=== PATIENT | male | born 1935 | race Caucasian/White ===

== ENCOUNTER 2017-02-01 18:09 | Inpatient (IN) | payer MEDICARE, MEDICAID ==
[~2017-02-01] VITALS: Ht 167.6 cm; Wt 60.8 kg
[~2017-02-01 18:09] MED LIST: ALBU2.5V13 NEB; AMLO5TAB4 PO; ASPI81TA44 PO; BISA10SU15 RC; CELE200C PO; DOCU250C89 PO; Ipratropium Bromide NEB; METF500T4 PO; Nutritional Supplement/Fiber GT; OLME1TAB PO; OMEP20CA4 PO; TAMS-12 PO
--- NOTE | 2017-02-01 18:31 | NUR ---
PT ALTERED BUT USUAL PER CAREGIVER, PT ON MONTIOR, PT CAREGIVER STATES SHE WAS CLEANING HIS EARS 2 DAYS AGO AND HE HAS BEEN HVAING A PAIN FACE SINCE, PT IS NON VERBAL, PT IS ON MONITOR, VSS, PT CAREGIVER AT BEDSIDE, MD MADE AWARE WILL CONTINUE TO MONITOR.
[2017-02-01 18:36] LABS: APPEARANCE,URINE Slightly Cloudy (CLEAR); BILIRUBIN,URINE Negative (NEGATIVE); BLOOD, URINE Trace-intact Ery/uL (NEGATIVE); COLOR,URINE Yellow (YELLOW); KETONES,URINE Negative (NEGATIVE); LEUKOCYTE ESTERASE ,URINE Moderate (NEGATIVE); NITRITE, URINE Positive (NEGATIVE); PROTEIN,URINE Negative (NEGATIVE); UGLUCOSE Negative (NEGATIVE); UROBILINOGEN,URINE 0.2 EU/dL (0.2)
[2017-02-01 18:41] LABS: BASOPHILS # (AUTO) 0.1 /CMM (0.0-0.2); BASOPHILS % (AUTO) 0.3 % (0.0-2.0); CALCIUM, SERUM 9.4 mg/dL (8.5-10.1); CREATININE 0.7 mg/dL (0.6-1.3); EOSINOPHILS # (AUTO) 1.8 /CMM (0.0-0.7); EOSINOPHILS % (AUTO) 9.3 % (0.0-6.0); HEMATOCRIT 40 % (39-51); HEMOGLOBIN 13.4 g/dL (13.5-17.5); LYMPHOCYTES # (AUTO) 1.4 /CMM (0.8-4.8); LYMPHOCYTES % (AUTO) 7.4 % (20.0-44.0); MEAN CORPUSCULAR HEMOGLOBIN 30 PG (26.0-33.0); MEAN CORPUSCULAR HGB CONC 34 g/dl (31.0-36.0); MEAN CORPUSCULAR VOLUME 89 fL (80-96); MONOCYTES # (AUTO) 0.5 /CMM (0.1-1.30); MONOCYTES % (AUTO) 2.5 % (2.0-12.0); NEUTROPHILS # (AUTO) 15.1 /CMM (1.8-8.9); NEUTROPHILS % (AUTO) 80.5 % (43.0-81.0); PLATELET COUNT (AUTO) 322 /CMM (150-450); POTASSIUM 3.7 mmol/L (3.5-5.1); RDW COEFFICIENT OF VARIATION 15.9 (11.5-15.0); RED BLOOD CELL COUNT(AUTO) 4.51 MIL/uL (4.5-6.0); WHITE BLOOD COUNT (AUTO) 18.9 K/uL (4.3-11.0)
[2017-02-01 18:54] LABS: ADD URINE CULTURE YES; BACTERIA,URINE Many /HPF (None Seen); SQUAMOUS EPITHELIAL CELL,UR Few /HPF (None Seen)
[2017-02-01] MEDS ORDERED: IV NS 0.9% 1,000 ML BAG IV ONE (20:00)
[2017-02-01] MEDS ORDERED: CEFTRIAXONE 1GM BAG (ER ONLY) 1 GM/50 ML PIGGYBACK IV ONE (20:00)
--- NOTE | 2017-02-01 20:15 | NUR ---
CALLED NURSING SUP. FOR TELE BED
[2017-02-01] MEDS ORDERED: CEFTRIAXONE 1GM BAG (ER ONLY) 50 ML IV ONE (20:26)
--- NOTE | 2017-02-01 20:26 | NUR ---
[facility] PAGED, DR.VU LINARES [employer] CONSULTANT
[2017-02-01] MEDS ORDERED: IV SET PRIMARY 1 EA INFUS.SET MC ONE (20:27)
[2017-02-01] MEDS ORDERED: IV NS 0.9% 2,000 ML ONE (20:27)
--- NOTE | 2017-02-01 20:36 | NUR ---
PT IN NO APPARENT DISTRESS FAMILY MEMEBER AT BEDSIDE VSS WILL CONTINUE TO MONTIOR.
--- NOTE | 2017-02-01 20:44 | NUR ---
PT GOING TO TELE 112-1 FOR UTI
[2017-02-01] MEDS ORDERED: ZOLPIDEM TARTRATE 5 MG TABLET PO PRN (21:00)
[2017-02-01] MEDS ORDERED: ACETAMINOPHEN 325 MG TABLET PO PRN (21:00)
[2017-02-01] MEDS ORDERED: HYDROCODONE/APAP 5/325MG 1 EACH TABLET PO PRN (21:00)
[2017-02-01] MEDS ORDERED: Z GUARD REMEDY 2 OZ OINT TP PRN (21:00)
[2017-02-01] MEDS ORDERED: CEFTRIAXONE 1 G in IV D5W 50 ML IV SCH (21:00)
[2017-02-01] MEDS ORDERED: MAGNESIUM HYDROXIDE 30 ML UDC PO PRN (21:00)
[2017-02-01] MEDS ORDERED: ONDANSETRON HCL/PF 4 MG/2 ML VIAL IVP PRN (21:00)
[2017-02-01] MEDS ORDERED: MAG HYDROX/AL HYDROX/SIMETH 30 ML UDC PO PRN (21:00)
--- NOTE | 2017-02-01 21:10 | NUR ---
RN OPENING NOTES: RECEIVED PT FROM ER VIA GURNEY, PT AWAKE WITH DAUGHTER AT BEDSIDE. PT ADMITTED FOR ACUTE ENCEPHALOPATHY AND PNEUMONIA CARE OF DR LINARES. SAFELY TRANSFERRED TO BED. PT APHASIC, WIT SPONTANEOUS EYE OPENING RESPONDS TO TACTILE STIMULI. IV ACCESS NOTED ON LEFT FA G18 WITH ONGOING IV NS BOLUS AND ROCEPHIN ONGOING WELL. WITH CONDOM CATH ON, CONNECTED TO A CLOSED SYSTEM. SKIN CARE RENDERED; SKIN ISSUES PHOTOGRAPHED AND FILED ON CHART. VERIFIED WITH DAUGHTER RE PATIENT'S MEDICATION. PER DAUGHTER/ PT'S PRIMARY CAREGIVER HE DOES NOT TAKE FLOMAX AND METFORMIN. TO INFORM MD. FLOMAX NOT GIVEN AT THIS TIME. SAFETY MEASURES ENSURED. ASPIRATION PREC OBSERVED AT ALL TIMES. HOB ELEVATED. CONTINUOUSLY MONITORED PT. DAUGHTER REMAINS AT BEDSIDE.
[2017-02-01 21:16] VITALS: BP 164/88
[2017-02-01] MEDS ORDERED: NUTRITIONAL SUPPLEMENT GT PRN (21:30)
[2017-02-01] MEDS ORDERED: METFORMIN 500 MG TABLET PO SCH (21:30)
[2017-02-01] MEDS ORDERED: [UNRECOGNIZED DRUG - OTHER] GT PRN (21:30)
[2017-02-01] MEDS ORDERED: BISACODYL SUPP (10 MG) 10 MG/SUPP.RECT SUPP.RECT RC SCH (21:30)
[2017-02-01] MEDS ORDERED: DEXTROSE 50%-WATER 50 ML DISP.SYRIN IV PRN (21:30)
[2017-02-01] MEDS ORDERED: TAMSULOSIN 0.4 MG CAP.SR.24H PO SCH (22:00)
[2017-02-01] MEDS ORDERED: ENOXAPARIN SODIUM 40 MG/0.4 ML DISP.SYRIN SQ ONE (22:23)
[2017-02-01] MEDS ORDERED: IV SET PRIMARY PUMP SET 1 EA INFUS.SET MC ONE (22:27)
[2017-02-01] MEDS ORDERED: SECONDARY IV SET 1 EA INFUS.SET MC ONE (22:27)
[2017-02-01] MEDS ORDERED: IV NS 0.9% 1,000 ML ONE (22:27)
[2017-02-01] MEDS: ENOXAPARIN SODIUM 40 MG/0.4 ML DISP.SYRIN SQ SCH (22:33)
[2017-02-01] MEDS: IV NS 0.9% 1,000 ML IV PRN (22:33)
[2017-02-01] MEDS ORDERED: AZITHROMYCIN 500 MG VIAL ONE (22:46)
[2017-02-01] MEDS ORDERED: IV D5W 250 ML IV ONE (22:50)
[2017-02-01] MEDS: AZITHROMYCIN 500 MG in IV D5W 250 ML IV SCH (23:31)
[2017-02-01] MEDS: BLOOD SUGAR DIAGNOSTIC 1 EACH STRIP IN SCH (23:31)
--- NOTE | 2017-02-02 01:30 | NUR ---
RN NOTES: PER PATIENT'S DAUGHTER, PATIENT HAS BEEN GETTING FIBERSOURCE 6 CANS A DAY, AND THAT SHE WOULD LIKE TO HAVE THE TUBE REPLACED THAT ALTHOUGH TUBE IS WORKING WELL, IT IS OLD AND HAS A TEAR ON THE END PART. GT CHECKED NOTED PATENT AND INTACT. DR LINARES AWARE, FOR GI CONSULT IN AM. PER DR LINARES, OK TO START PT ON FIBERSOURCE TUBE FEEDING AT 60CC/HR AND HAVE DIETARY FOLLOW UP FOR FEEDING ADJUSTMENT. ORDER NOTED AND CARRIED OUT. STARTED FEEDING AT A RATE OF 30CC/HR AT THIS TIME. TO MONITOR FOR TOLERANCE TO FEEDING. ASPIRATION PREC OBSERVED; CONTINUOUSLY MONITORED PT.
[2017-02-02] MEDS ORDERED: DIAZ2TAB PO (01:48)
[2017-02-02] MEDS ORDERED: OLME20TA15 PO (01:48)
[2017-02-02] MEDS ORDERED: BACL10TA PO (01:48)
[2017-02-02] MEDS: FIBERSOURCE HN 1,000 ML BOTTLE GT PRN (01:49)
[2017-02-02 04:00] VITALS: BP 149/52
[2017-02-02] MEDS: BLOOD SUGAR DIAGNOSTIC 1 EACH STRIP IN SCH ×4 (05:30→23:12)
[2017-02-02 06:57] LABS: BASOPHILS % (AUTO) 0.2 % (0.0-2.0); EOSINOPHILS # (AUTO) 1.6 /CMM (0.0-0.7); EOSINOPHILS % (AUTO) 10.8 % (0.0-6.0); HEMATOCRIT 35 % (39-51); HEMOGLOBIN 11.6 g/dL (13.5-17.5); MEAN CORPUSCULAR HEMOGLOBIN 29 PG (26.0-33.0); MEAN CORPUSCULAR HGB CONC 33 g/dl (31.0-36.0); MEAN CORPUSCULAR VOLUME 90 fL (80-96); MONOCYTES # (AUTO) 0.6 /CMM (0.1-1.30); MONOCYTES % (AUTO) 3.8 % (2.0-12.0); NEUTROPHILS # (AUTO) 11.5 /CMM (1.8-8.9); NEUTROPHILS % (AUTO) 78.2 % (43.0-81.0); PLATELET COUNT (AUTO) 270 /CMM (150-450); RDW COEFFICIENT OF VARIATION 16.3 (11.5-15.0); RED BLOOD CELL COUNT(AUTO) 3.95 MIL/uL (4.5-6.0); WHITE BLOOD COUNT (AUTO) 14.7 K/uL (4.3-11.0)
--- NOTE | 2017-02-02 07:00 | NUR ---
RECEIVED PT IN BED ,NO C/O PAIN,NO S/S OF DISTRESS,BREATHING EVEN AND UNLABORED ON 2LPM VIA N.C. G.TUBE SITE CDI AND INTACT.SAFETY MEASURES IN PLACE ,BED IN LOW AND LOCK POSITION.WILL CONTINUE TO MONITOR FOR CHANGES.
--- NOTE | 2017-02-02 07:07 | NUR ---
RN CLOSING NOTES: PT REMAINED IN BED NOT IN APPARENT DISTRESS. ON O2 VIA NC AT 2LPM. IV ACCESS REMAINED IN INTACT IVF INFUSING ORDERED. GT INTACT, FEEDING ONGOING. SAFETY MEASURES ENSURED. ASPIRATION PREC OBSERVED. SKIN CARE RENDERED.ENDORSED TO AM SHIFT RN
[2017-02-02 07:14] LABS: ALBUMIN 2.5 g/dL (3.4-5.0); BILIRUBIN,TOTAL 0.6 mg/dL (0.2-1.0); CALCIUM, SERUM 8.7 mg/dL (8.5-10.1); CREATININE 0.5 mg/dL (0.6-1.3); PHOSPHORUS 2.6 mg/dL (2.5-4.9); POTASSIUM 3.5 mmol/L (3.5-5.1)
[2017-02-02] MEDS ORDERED: PANTOPRAZOLE 40 MG TABLET.DR PO SCH (07:30)
[2017-02-02 08:00] VITALS: BP 138/77
[2017-02-02] MEDS ORDERED: ZOLPIDEM TARTRATE 5 MG TABLET GT PRN (08:31)
[2017-02-02] MEDS ORDERED: MAG HYDROX/AL HYDROX/SIMETH 30 ML UDC GT PRN (08:32)
[2017-02-02] MEDS ORDERED: MAGNESIUM HYDROXIDE 30 ML UDC GT PRN (08:33)
[2017-02-02] MEDS ORDERED: HYDROCODONE/APAP 5/325MG 1 EACH TABLET GT PRN (08:35)
[2017-02-02] MEDS: DOCUSATE SODIUM LIQ 100 MG/10 ML UDC GT SCH ×2 (08:56→16:24)
[2017-02-02] MEDS ORDERED: DOCUSATE SODIUM 250 MG CAPSULE PO SCH (09:00)
[2017-02-02] MEDS ORDERED: AMLODIPINE BESYLATE 5 MG TABLET PO SCH (09:00)
[2017-02-02] MEDS ORDERED: ASPIRIN EC 81 MG TABLET.DR PO SCH (09:00)
[2017-02-02] MEDS: AMLODIPINE BESYLATE 5 MG TABLET GT SCH (09:03)
[2017-02-02] MEDS: ASPIRIN 81 MG TAB.CHEW GT SCH (09:51)
[2017-02-02] MEDS: PANTOPRAZOLE 40 MG/PACK PACK GT SCH (09:51)
[2017-02-02] MEDS: BACLOFEN (10 MG) 10 MG TABLET PO SCH (10:52)
[2017-02-02 12:00] VITALS: BP 138/77
[2017-02-02] MEDS: IV NS 0.9% 1,000 ML IV PRN (14:11)
[2017-02-02 16:00] VITALS: BP 141/79
[2017-02-02] MEDS: DIAZEPAM 2 MG TABLET PO SCH (16:24)
--- NOTE | 2017-02-02 19:48 | NUR ---
RN NOTE : PT IN BED WITH EYES CLOSED, OPENS EYES ON TACTILE STIMULATION, APHASIC. NO SOB, NO DISTRESS OR DISCOMFORT NOTED. NO S/S OF PAIN NOTED. GT FEEDING FIBERSOURCE INFUSING AT 60 ML/HR, 0 ML RESIDUAL NOTED. KEPT HOB ELEVATED. MEPILEX ON LT HIP AND SACRAL INTACT. REPOSITION HIM Q2H. KEPT HIM DRY AND CLEAN. ALL NEEDS ATTENDED. SIDE RAILS UP X 3 AND CALL LIGHT WITHIN REACH. CONTINUE TO MONITOR HIM.
[2017-02-02 20:00] VITALS: BP 158/83
[2017-02-02 20:07] VITALS: BP 158/83
[2017-02-02] MEDS ORDERED: SECONDARY IV SET 1 EA INFUS.SET MC ONE (20:50)
[2017-02-02] MEDS: AZITHROMYCIN 500 MG in IV D5W 250 ML IV SCH (20:51)
[2017-02-02] MEDS: ENOXAPARIN SODIUM 40 MG/0.4 ML DISP.SYRIN SQ SCH (20:55)
[2017-02-02] MEDS: TAMSULOSIN 0.4 MG CAP.SR.24H GT SCH (21:31)
[2017-02-02] MEDS ORDERED: CEFTRIAXONE 1 G in IV D5W 50 ML IV SCH (23:00)
[2017-02-03] MEDS: FIBERSOURCE HN 1,000 ML BOTTLE GT PRN (00:40)
[2017-02-03 04:00] VITALS: BP 152/91
[2017-02-03] MEDS: BLOOD SUGAR DIAGNOSTIC 1 EACH STRIP IN SCH ×4 (05:28→23:24)
--- NOTE | 2017-02-03 05:37 | NUR ---
MS RN NOTE BLOODSUGAR 165, HELD INSULIN COVERAGE DUE TO PT WILL BE NPO AFTER 8 AM.
[2017-02-03] MEDS: IV NS 0.9% 1,000 ML IV PRN ×2 (05:59→17:58)
--- NOTE | 2017-02-03 06:33 | NUR ---
RN NOTE PT IN BED ASLEEP, AROUSABLE. NO DISTRESS OR DISCOMFORT NOTED. NO S/S OF PAIN NOTED. NO S/S OF HYPO OR HYPERGLYCEMIA NOTED. IVF INFUSING WELL NO S/S OF INFILTRATION NOTED. SIDE RAILS UP X 3 AND CALL LIGHT WITHIN REACH. WILL ENDORSE TO DAY SHIFT NURSE FOR CONTINUE TO CARE.
--- NOTE | 2017-02-03 07:00 | NUR ---
RN NOTES RECEIVED PT ON BED, OPENS EYES ON TACTILE STIMULATION, APHASIC. RESPIRATION EVEN AND UNLABORED, NO SOB NOTED , FIBERSOURCE AT 60CC/HR RUNNING VIA GT, NO RESIDUAL NOTED, PT WILL WILL BE NPO AFTER 8AM FOR PEG PLACEMENT , KEPT HOB ELEVATED. L WRIST IV SITE #18 CDI, WITH NS AT 75CC/HR RUNNING , MEPILEX ON LT HIP AND SACRAL INTACT. SR UP x3, KEPT HIM DRY AND CLEAN CALL LIGHT WITHIN EASY REACH. CONTINUE TO MONITOR PT CLOSELY AND NOTIFY MD FOR ANY SIGNIFICANT CHANGES
[2017-02-03 08:00] VITALS: BP 161/85
[2017-02-03] MEDS: DOCUSATE SODIUM LIQ 100 MG/10 ML UDC GT SCH ×2 (08:07→16:37)
[2017-02-03] MEDS: PANTOPRAZOLE 40 MG/PACK PACK GT SCH (08:08)
[2017-02-03] MEDS: DIAZEPAM 2 MG TABLET PO SCH ×2 (08:08→16:38)
[2017-02-03] MEDS: BACLOFEN (10 MG) 10 MG TABLET PO SCH (08:08)
[2017-02-03] MEDS: AMLODIPINE BESYLATE 5 MG TABLET GT SCH (08:08)
[2017-02-03] MEDS: ASPIRIN 81 MG TAB.CHEW GT SCH (08:08)
[2017-02-03] MEDS ORDERED: CELECOXIB 100 MG CAPSULE GT PRN (09:30)
--- NOTE | 2017-02-03 10:00 | NUR ---
RN NOTE SMALL AMOUNT OF BLOODY DRAINAGE NOTED ON R EAR, CONTINUE TO MONITOR AND NOTIFY MD .
--- NOTE | 2017-02-03 11:17 | NUR ---
WOUND CARE CONSULT: PT PRESENTS WITH STAGE IV ULCERS TO SACRUM AND LEFT HIP, PRESENT ON ADMISSION. RECOMMEND SURGICAL CONSULT. RECOMMENDATIONS MADE FOR WOUND CARE AND SKIN PROTECTION. DISCUSSED WITH NURSING STAFF. [facility] IN AGREEMENT WITH PLAN OF CARE. Addendum: 02/03/17 at 1119 by SRINIVASA CHEEMA WNDNU Amended: Links added.
[2017-02-03] MEDS ORDERED: HYDROGEL DRESSING 90 GM TUBE TP PRN (11:30)
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
[2017-02-03] MEDS: HYDROGEL DRESSING 90 GM TUBE TP SCH (12:28)
--- NOTE | 2017-02-03 13:00 | NUR ---
RN NOTES DR MEYER NOTIFIED REGARDING L EAR BLOODY DRAINAGE IN AM ,NO MORE DRAINAGE AT THIS TIME . CONTINUE TO MONITOR PT CLOSELY . NO MORE DRAINAGE AT THIS TIME .
--- NOTE | 2017-02-03 15:19 | NUR ---
RN NOTES GT REPLACED BY LIANE HICKEY AT THE BEDSIDE , PT TOLERATED WELL, NO DISTRESS NOTED . CONTINUE TO MONITOR .
[2017-02-03 16:00] VITALS: BP 149/77
[2017-02-03] MEDS: LACTOBACILLUS RHAMNOSUS GG 1 EACH CAP.SPRINK GT SCH (16:37)
[2017-02-03] MEDS: GLYTROL 1,000 ML BAG GT PRN (17:22)
[2017-02-03] MEDS: LEVOFLOXACIN (500MG) 500 MG TABLET PO SCH (17:53)
[2017-02-03] MEDS ORDERED: FEE PK DOSING 1 MIN EA MC ONE (17:54)
--- NOTE | 2017-02-03 18:17 | NUR ---
RN NOTES PT STABLE , TOLERATING TF WELL AT THIS TIME, HOB ELEVATED 40 DEGREE, GT SITE CDI AT THIS TIME , SR UP x3 , CALL LIGHT WITHIN EASY REACH . DRESSING TO L HIP AND SACRUM CDI, NO SIGNIFICANT CHANGES NOTED ON THIS SHIFT .
[2017-02-03] MEDS: IPRATROPIUM NEB FS 0.5 MG/2.5 ML AMPUL.NEB NEB PRN (19:36)
[2017-02-03] MEDS: ALBUTEROL FS 2.5 MG/0.5 ML VIAL.NEB NEB PRN (19:37)
[2017-02-03] MEDS ORDERED: SECONDARY IV SET 1 EA INFUS.SET MC ONE (19:52)
[2017-02-03 20:00] VITALS: BP 144/88
--- NOTE | 2017-02-03 20:00 | NUR ---
RN NOTE RECEIVED PT IN BED HIGH MACK POSITION. EYES ARE CLOSED. OPEN EYES WITH TACTILE STIMULATION. NO SOB, NO DISTRESS OR DISCOMFORT NOTED. NO S/S OF PAIN NOTED. PT RECEIVED B TX PER RT. GT INTACT AND PATENT INFUSING GLYTROL AT 70 ML/HR, 0 ML RESIDUAL NOTED. REMAIN ON O2 2L VIA N/C O2 SAT 95%. REPOSITION HIM FOR SKIN MANAGEMENT. MEPILEX ON LT HIP AND SACRAL INTACT. VSS. SIDE RAILS UP X 3 AND CALL LIGHT WITHIN REACH. CONTINUE TO MONITOR HIM.
[2017-02-03] MEDS: VANCOMYCIN 1 GM in IV D5W 250 ML IV SCH (20:01)
[2017-02-03] MEDS: TAMSULOSIN 0.4 MG CAP.SR.24H GT SCH (21:47)
[2017-02-03] MEDS: INSULIN REGULAR, HUMAN 100 UNIT/ML 3 ML VIAL SQ PRN (23:25)
[2017-02-04 04:00] VITALS: BP 152/79
[2017-02-04] MEDS: BLOOD SUGAR DIAGNOSTIC 1 EACH STRIP IN SCH ×4 (05:49→23:44)
[2017-02-04] MEDS: INSULIN REGULAR, HUMAN 100 UNIT/ML 3 ML VIAL SQ PRN ×3 (05:50→23:43)
[2017-02-04] MEDS: VANCOMYCIN 1 GM in IV D5W 250 ML IV SCH ×3 (06:08→18:01)
--- NOTE | 2017-02-04 06:30 | NUR ---
RN NOTE RESIDUAL CHECKED 220 ML NOTED. STOPPED THE GT FEEDING. ALSO RT SUCTIONED THE PT, CONTINUE TO MONITOR HIM. KEPT HOB ELEVATED TO 40 DEGREES.
--- NOTE | 2017-02-04 06:52 | NUR ---
MS RN NOTE PT IN BED ASLEEP, AROUSABLE. NO DISTRESS OR DISCOMFORT NOTED. DENIES PAIN. GT FEEDING ON HOLD. IVF INFUSING WELL, NO S/S OF INFILTRATION NOTED. REPOSITION HIM Q2H. KEPT HIM DRY AND CLEAN. CONDOM CATH INTACT AND PATENT. DRAINING YELLOWISH COLOR URINE. SIDE RAILS UP X 2 AND CALL LIGHT WITHIN REACH. WILL ENDORSE TO DAY SHIFT NURSE FOR CONTINUE TO CARE.
--- NOTE | 2017-02-04 07:00 | NUR ---
RN MS INITIAL NOTES RECEIVED REPORT AND PT FROM PM NURSE, PT RESTING IN BED, NO S/S OF ACUTE DISTRESS OR SOB, A&O X1 APHASIC ON 2L NC SAT ABOVE 95%, CONDOM CATH INTACT, PT UPRIGHT 40 DEG AT ALL TIMES, LT WRIST 18 G RUNNING NS @ 75 ML/HR NO INFILTRATION NOTED, ALL NEEDS MET, ALL SAFETY MEASURES INITIATED, SIDE RAILS X2, BED LOW AND LOCKED, CALL LIGHT WITHIN REACH, WILL CONTINUE TO MONITOR.
[2017-02-04 07:29] LABS: BASOPHILS # (AUTO) 0.1 /CMM (0.0-0.2); BASOPHILS % (AUTO) 0.7 % (0.0-2.0); EOSINOPHILS # (AUTO) 0.7 /CMM (0.0-0.7); EOSINOPHILS % (AUTO) 7.2 % (0.0-6.0); HEMATOCRIT 36 % (39-51); HEMOGLOBIN 11.8 g/dL (13.5-17.5); LYMPHOCYTES # (AUTO) 0.7 /CMM (0.8-4.8); LYMPHOCYTES % (AUTO) 7.9 % (20.0-44.0); MEAN CORPUSCULAR HEMOGLOBIN 29 PG (26.0-33.0); MEAN CORPUSCULAR HGB CONC 33 g/dl (31.0-36.0); MEAN CORPUSCULAR VOLUME 88 fL (80-96); MONOCYTES # (AUTO) 0.6 /CMM (0.1-1.30); MONOCYTES % (AUTO) 6.6 % (2.0-12.0); NEUTROPHILS # (AUTO) 7.3 /CMM (1.8-8.9); NEUTROPHILS % (AUTO) 77.6 % (43.0-81.0); PLATELET COUNT (AUTO) 251 /CMM (150-450); RDW COEFFICIENT OF VARIATION 15.9 (11.5-15.0); RED BLOOD CELL COUNT(AUTO) 4.02 MIL/uL (4.5-6.0); WHITE BLOOD COUNT (AUTO) 9.4 K/uL (4.3-11.0)
[2017-02-04 07:58] LABS: CREATININE 0.5 mg/dL (0.6-1.3); MAGNESIUM 1.8 mg/dL (1.8-2.4); PHOSPHORUS 2.6 mg/dL (2.5-4.9); POTASSIUM 3.7 mmol/L (3.5-5.1)
[2017-02-04 08:00] VITALS: BP 132/94
[2017-02-04] MEDS: BACLOFEN (10 MG) 10 MG TABLET PO SCH (08:45)
[2017-02-04] MEDS: DOCUSATE SODIUM LIQ 100 MG/10 ML UDC GT SCH ×2 (08:45→17:31)
[2017-02-04] MEDS: DIAZEPAM 2 MG TABLET PO SCH ×2 (08:45→17:32)
[2017-02-04] MEDS: ASPIRIN 81 MG TAB.CHEW GT SCH (08:45)
[2017-02-04] MEDS: PANTOPRAZOLE 40 MG/PACK PACK GT SCH (08:46)
[2017-02-04] MEDS: AMLODIPINE BESYLATE 5 MG TABLET GT SCH (08:46)
[2017-02-04] MEDS: MULTIVITAMINS,THERAPEUTIC 1 UDTAB TABLET GT SCH (08:46)
[2017-02-04] MEDS: LACTOBACILLUS RHAMNOSUS GG 1 EACH CAP.SPRINK GT SCH ×2 (08:46→17:31)
[2017-02-04] MEDS: PROSOURCE / PROSTAT (PYXIS) 30 ML UDC GT SCH (08:46)
[2017-02-04] MEDS: HYDROGEL DRESSING 90 GM TUBE TP SCH (08:47)
--- NOTE | 2017-02-04 09:00 | NUR ---
RN MS NOTES PT ON GTUBE FEEDING GLYTROL @ 70 ML/HR, CHECKED FOR RESIDUAL AND NO RESIDUAL NOTED AT THIS TIME, WILL CONTINUE FEEDING.
[2017-02-04] MEDS: IV NS 0.9% 1,000 ML IV PRN (14:29)
--- NOTE | 2017-02-04 15:13 | NUR ---
HOLLY left a second voicemail message for [facility] director social service Lorin Serrano requesting a call back.
[2017-02-04 16:00] VITALS: BP 150/88
[2017-02-04] MEDS ORDERED: POVIDONE-IODINE OINT 28.4 GM TUBE TP SCH (17:00)
[2017-02-04] MEDS: LEVOFLOXACIN (500MG) 500 MG TABLET PO SCH (17:31)
--- NOTE | 2017-02-04 18:46 | NUR ---
RN MS ENDING NOTES ALL DUE MEDS GIVEN, ALL NEEDS MET, PT STABLE, BED BATH PROVIDED, LT WRIST 20 G IV INSERTED, WILL ENDORSE TO PM NURSE.
--- NOTE | 2017-02-04 19:53 | NUR ---
MS RN RECEIVED PT IN BED WITH HOB ELEVATED TO 40 DEGREES. EYES CLOSED, APHASIC, NO DISTRESS OR DISCOMFORT NOTED. NO S/S OF PAIN NOTED. REMAIN ON O2 3L VIA N/CGT FEEDING GLYTROL INFUSING AT 70 ML/HR, 5 ML RESIDUAL NOTED. ALSO IVF NS INFUSING AT 75 ML/HR, NO S/S OF INFILTRATION NOTED. CONDOM CATH INTACT AND PATENT DRAINING YELLOWISH COLOR URINE. REPOSITION HIM Q2H. KEPT HIM DRY AND CLEAN. ALL NEEDS ATTENDED. SIDE RIALS UP X 3 AND CALL LIGHT WITHIN REACH. VSS. CONTINUE TO MONITOR HIM.
[2017-02-04 20:00] VITALS: BP 160/84
[2017-02-04 20:50] VITALS: BP 160/84
[2017-02-04] MEDS: TAMSULOSIN 0.4 MG CAP.SR.24H GT SCH (21:30)
[2017-02-04] MEDS ORDERED: GLYTROL 1,000 ML BAG GT PRN (23:00)
[2017-02-05] MEDS: IV NS 0.9% 1,000 ML IV PRN ×2 (03:31→17:14)
[2017-02-05 04:00] VITALS: BP 151/90
--- NOTE | 2017-02-05 04:00 | NUR ---
MS RN BED BATH GIVEN. ALSO GIVEN WOUND TX TO SACRAL AND LT HIP DECUB ORDERED. IVF AND GT FEEDING INFUSING WELL. KEPT HOB ELEVATED TO 40 DEGREES.
[2017-02-05 05:00] VITALS: BP 151/90
[2017-02-05] MEDS: BLOOD SUGAR DIAGNOSTIC 1 EACH STRIP IN SCH ×4 (05:57→23:23)
--- NOTE | 2017-02-05 06:32 | NUR ---
MS RN NOTE PT IN BED ASLEEP, AROUSABLE. NO DISTRESS OR DISCOMFORT NOTED. NO S/S OF PAIN NOTED. GT FEEDING INFUSING WELL, 0 ML RESIDUAL NOTED. KEPT HOB ELEVATED TO 40 DEGREES ALL THE TIME. IVF INFUSING WELL, NO S/S OF INFILTRATION NOTED. REPOSITION HIM Q2H. KEPT HIM DRY AND CLEAN. CONDOM CATH INTACT AND PATENT. DRAINING YELLOWISH COLOR URINE. SIDE RAILS UP X 2 AND CALL LIGHT WITHIN REACH. WILL ENDORSE TO DAY SHIFT NURSE FOR CONTINUE TO CARE.
--- NOTE | 2017-02-05 07:10 | NUR ---
RN INTIAL NOTE RECEIVED PT FROM PM NURSE APHASIC NON- VERBAL. PT CONDOM CATHETER NOT ABLE TO VERBALIZE PAIN . GT GLUCOTROL @ 70 ML/HR PLACEMENT CHECKED, FEEDING TOLERATED, NO RESIDUAL. IV L WRIST IV INTACT FLUSHED AND PATENT # 20G NS @75ML/ HR. PT ON NC @ 3 L NO ACUTE C/O OF SOB NOTED. REPOSITIONED FOR COMFORT AND SAFETY. PT KEPT WARM AND DRY. ALL SAFETY MEASURES IN PLACE. WILL CONTINUE TO MONITOR CLOSELY.
[2017-02-05 07:39] LABS: CALCIUM, SERUM 8.8 mg/dL (8.5-10.1); CREATININE 0.4 mg/dL (0.6-1.3); POTASSIUM 3.7 mmol/L (3.5-5.1)
[2017-02-05 08:00] VITALS: BP 151/91
[2017-02-05] MEDS: MULTIVITAMINS,THERAPEUTIC 1 UDTAB TABLET GT SCH (08:51)
[2017-02-05] MEDS: LACTOBACILLUS RHAMNOSUS GG 1 EACH CAP.SPRINK GT SCH ×2 (08:51→17:12)
[2017-02-05] MEDS: DOCUSATE SODIUM LIQ 100 MG/10 ML UDC GT SCH ×2 (08:51→17:12)
[2017-02-05] MEDS: PANTOPRAZOLE 40 MG/PACK PACK GT SCH (08:51)
[2017-02-05] MEDS: DIAZEPAM 2 MG TABLET PO SCH ×2 (08:51→17:16)
[2017-02-05] MEDS: ASPIRIN 81 MG TAB.CHEW GT SCH (08:51)
[2017-02-05] MEDS: PROSOURCE / PROSTAT (PYXIS) 30 ML UDC GT SCH (08:52)
[2017-02-05] MEDS: AMLODIPINE BESYLATE 5 MG TABLET GT SCH (08:52)
[2017-02-05] MEDS: BACLOFEN (10 MG) 10 MG TABLET PO SCH (08:52)
[2017-02-05] MEDS ORDERED: IV SET PRIMARY PUMP SET 1 EA INFUS.SET MC ONE (09:06)
[2017-02-05] MEDS: VANCOMYCIN 1 GM in IV D5W 250 ML IV SCH ×2 (09:15→18:52)
[2017-02-05] MEDS: HYDROGEL DRESSING 90 GM TUBE TP SCH (09:18)
--- NOTE | 2017-02-05 13:20 | NUR ---
RN NOTE DAUGHTER CALLED EXPLAINED DR. ELDER WILL NOT DC TODAY WANTS PT TO CONTINUE ON ANTIBIOTICS. DAUGHTER UNDERSTOOD.
--- NOTE | 2017-02-05 13:25 | NUR ---
RN NOTE PHARMACY CALLED REGARDING A HOME MEDICATION PATIENT TAKES. CALLED DAUGHTER AND SAID SHE FORGOT TO BRING THE HOME MEDS AND WILL NOT BE VISITING TODAY. EXPLAINED TO PHARMACY REGARDING MATTER.
[2017-02-05 14:00] VITALS: BP 114/53
[2017-02-05 16:00] VITALS: BP 114/53
[2017-02-05] MEDS: LEVOFLOXACIN (500MG) 500 MG TABLET PO SCH (17:12)
--- NOTE | 2017-02-05 19:12 | NUR ---
RN CLOSING NOTE RN INTIAL NOTE GAVE APHASIC NON- VERBAL. PT CONDOM CHANGE AND INTACT. NOT ABLE TO VERBALIZE PAIN . GT GLUCOTROL @ 70 ML/HR FEEDING TOLERATED, NO RESIDUAL. IV L WRIST IV INTACT FLUSHED AND PATENT # 20G NS @75ML/ HR. PT ON NC @ 3 L NO ACUTE C/O OF SOB NOTED. REPOSITIONED FOR COMFORT AND SAFETY. PT KEPT WARM AND DRY. ALL SAFETY MEASURES IN PLACE. ALL MEDICATIONS GIVEN ALL ORDERS CARRIED OUT. REPORT GIVEN TO PM NURSE FOR MARILYNN
[2017-02-05] MEDS: ALBUTEROL FS 2.5 MG/0.5 ML VIAL.NEB NEB PRN (19:54)
[2017-02-05] MEDS: IPRATROPIUM NEB FS 0.5 MG/2.5 ML AMPUL.NEB NEB PRN (19:54)
[2017-02-05 20:00] VITALS: BP 155/86
[2017-02-05] MEDS: TAMSULOSIN 0.4 MG CAP.SR.24H GT SCH (23:22)
[2017-02-05] MEDS: INSULIN REGULAR, HUMAN 100 UNIT/ML 3 ML VIAL SQ PRN (23:40)
[2017-02-06] MEDS: GLYTROL 1,000 ML BAG GT PRN (02:02)
[2017-02-06 04:00] VITALS: BP 126/67
[2017-02-06] MEDS ORDERED: SECONDARY IV SET 1 EA INFUS.SET MC ONE (04:59)
[2017-02-06] MEDS: INSULIN REGULAR, HUMAN 100 UNIT/ML 3 ML VIAL SQ PRN ×2 (05:58→12:31)
[2017-02-06] MEDS: VANCOMYCIN 1 GM in IV D5W 250 ML IV SCH ×2 (06:01→18:10)
[2017-02-06] MEDS: BLOOD SUGAR DIAGNOSTIC 1 EACH STRIP IN SCH ×3 (06:01→18:09)
[2017-02-06 07:06] LABS: BASOPHILS % (AUTO) 0.5 % (0.0-2.0); EOSINOPHILS # (AUTO) 1.1 /CMM (0.0-0.7); EOSINOPHILS % (AUTO) 12.3 % (0.0-6.0); HEMATOCRIT 33 % (39-51); LYMPHOCYTES % (AUTO) 11.5 % (20.0-44.0); MEAN CORPUSCULAR HEMOGLOBIN 30 PG (26.0-33.0); MEAN CORPUSCULAR HGB CONC 34 g/dl (31.0-36.0); MEAN CORPUSCULAR VOLUME 88 fL (80-96); MONOCYTES # (AUTO) 0.9 /CMM (0.1-1.30); MONOCYTES % (AUTO) 9.9 % (2.0-12.0); NEUTROPHILS # (AUTO) 5.9 /CMM (1.8-8.9); NEUTROPHILS % (AUTO) 65.8 % (43.0-81.0); PLATELET COUNT (AUTO) 253 /CMM (150-450); RDW COEFFICIENT OF VARIATION 16.1 (11.5-15.0); RED BLOOD CELL COUNT(AUTO) 3.73 MIL/uL (4.5-6.0)
--- NOTE | 2017-02-06 07:30 | NUR ---
RN NOTES PT ON BEDREST, R SIDED WEAKNESS, APHASIC, OPENS EYES DOES NOT FOLLOW COMMANDS, CAP REFILL <3 SEC, ON NC O2 SATURATION 90 %, LUNGS SOUNDS RHONCI, SUCTIONED PRN, IV IN PLACE, IV FLUIDS RUNNING AT 75 ML/H, G TUBE FEEDING RUNNING ORDERED, NO RESIDUAL, TOLERATES WELL, CONDOM CATHETER IN PLACE DRAINING YELLOW URINE, WOUND CARE DONE ORDERED, ON ISOFLEX MATTRESS, TURNED AND REPOSITIONED Q2H, KEPT CLEAN AND DRY, HEELS OFFLOAD, SAFETY MAINTAINED. CALL LIGHT WITHIN REACH, TEACHING REINFORCED AND DONE TO PT AND FAMILY. VERBALIZED UNDERSTANDING. CONTINUE TO MONITOR.
[2017-02-06 07:38] LABS: CALCIUM, SERUM 8.5 mg/dL (8.5-10.1); CREATININE 0.5 mg/dL (0.6-1.3); POTASSIUM 3.7 mmol/L (3.5-5.1)
[2017-02-06 08:00] VITALS: BP 151/89
[2017-02-06] MEDS: PANTOPRAZOLE 40 MG/PACK PACK GT SCH (09:08)
[2017-02-06] MEDS: PROSOURCE / PROSTAT (PYXIS) 30 ML UDC GT SCH (09:08)
[2017-02-06] MEDS: DOCUSATE SODIUM LIQ 100 MG/10 ML UDC GT SCH ×2 (09:09→18:12)
[2017-02-06] MEDS: LACTOBACILLUS RHAMNOSUS GG 1 EACH CAP.SPRINK GT SCH ×2 (09:09→18:12)
[2017-02-06] MEDS: ASPIRIN 81 MG TAB.CHEW GT SCH (09:09)
[2017-02-06] MEDS: AMLODIPINE BESYLATE 5 MG TABLET GT SCH (09:10)
[2017-02-06] MEDS: MULTIVITAMINS,THERAPEUTIC 1 UDTAB TABLET GT SCH (09:10)
[2017-02-06] MEDS: DIAZEPAM 2 MG TABLET PO SCH ×2 (09:10→18:09)
[2017-02-06] MEDS: BACLOFEN (10 MG) 10 MG TABLET PO SCH (09:10)
[2017-02-06] MEDS: HYDROGEL DRESSING 90 GM TUBE TP SCH (09:11)
[2017-02-06] MEDS: IPRATROPIUM NEB FS 0.5 MG/2.5 ML AMPUL.NEB NEB PRN (09:14)
[2017-02-06] MEDS: ALBUTEROL FS 2.5 MG/0.5 ML VIAL.NEB NEB PRN (09:14)
[2017-02-06] MEDS: IV NS 0.9% 1,000 ML IV PRN (09:16)
[2017-02-06 16:00] VITALS: BP 153/80
[2017-02-06] MEDS: LEVOFLOXACIN (500MG) 500 MG TABLET PO SCH (18:10)
--- NOTE | 2017-02-06 19:30 | NUR ---
MS RN INITIAL NOTE PT RECEIVED IN BED. APHASIC AND SPONTANEOUS OPENS EYES. HEAD OF BED @40 DEGREES AT ALL TIMES.ON 3L OF O2 WELL TOLERATED AND SATING WELL. L WRIST #20G WITH FLUIDS RUNNING AND WELL TOLERATED. IV SITE INTACT AND PATENT. CONDOM CATHETER FOUND OUT OF PLACE AND REPLACED WITH A NEW ONE.RECEIVED WITH ORDERS TO DISCHARGE HOME. AWAITING FOR TRANSPORTATION TO ARRIVE. PT CLEANED AND READY TO D/C HOME. PT SUCTIONED PER RT. DAUGHTER CALLED AND INFORMED OF PENDING DISCHARGE. WILL CONTINUE TO MONITOR.
--- NOTE | 2017-02-06 20:55 | NUR ---
MS RN NOTE PT PICKED UP BY [facility]. TRANSFERRED SAFELY VIA GURNEY. REPORT GIVEN TO AMBULANCE.NO ACUTE RESPIRATORY DISTRESS NOTE. VITAL SIGNS WITHIN NORMAL LIMITS, AFEBRILE. IV D/C'D WITH NO S/S OF BLEEDING OR INFECTION NOTED.
== END 2017-02-06 21:54 | disposition home or self-care (01) | DRG 177 ==
LOC: ER 18:12 → TELE1 20:49 → MEDSG1 21:01
PROVIDERS: ADMIT Family Medicine; ATTEND Family Medicine
DX: J15.1 Pneumonia due to Pseudomonas (principal); G92 Toxic encephalopathy; G04.90 Encephalitis and encephalomyelitis, unspecified; L89.224 Pressure ulcer of left hip, stage 4; N39.0 Urinary tract infection, site not specified; J15.9 Unspecified bacterial pneumonia; F03.90 Unspecified dementia, unspecified severity, without behavioral disturbance, psychotic disturbance, mood disturbance, and anxiety; D72.829 Elevated white blood cell count, unspecified; F01.50 Vascular dementia, unspecified severity, without behavioral disturbance, psychotic disturbance, mood disturbance, and anxiety; Z93.1 Gastrostomy status; Z86.73 Personal history of transient ischemic attack (TIA), and cerebral infarction without residual deficits; I10 Essential (primary) hypertension; E11.9 Type 2 diabetes mellitus without complications; G20 Parkinson's disease; R32 Unspecified urinary incontinence; B96.89 Other specified bacterial agents as the cause of diseases classified elsewhere; E86.0 Dehydration; F02.80 Dementia in other diseases classified elsewhere, unspecified severity, without behavioral disturbance, psychotic disturbance, mood disturbance, and anxiety; I70.0 Atherosclerosis of aorta; L89.159 Pressure ulcer of sacral region, unspecified stage; N40.0 Benign prostatic hyperplasia without lower urinary tract symptoms; Z87.440 Personal history of urinary (tract) infections
CPT/HCPCS: 31720; 36415; 71010-TC; 80048-TC; 80053-TC; 80202-TC; 81000-TC; 82962-TC; 83605-TC; 83735-TC; 84100-TC; 85025-TC; 87040-TC; 87070-TC; 87081-TC; 87086-TC; 87186-TC; 94799-TC; 97001-TC; A4349; A4606; A6248; A6253; A6403; J0456; J0696; J1650; J1815; J3370; J7030; J7060; Z7610

== ENCOUNTER 2018-04-21 03:32 | Inpatient (IN) | payer MEDICARE, OTHER ==
[~2018-04-21] VITALS: Ht 167.6 cm; Wt 69.4 kg
[~2018-04-21 03:32] MED LIST changes: +AMLO5TAB4 GT; -AMLO5TAB4 PO; +ASPI81TA44 GT; -ASPI81TA44 PO; +BACL10TA GT; +DIAZ2TAB GT; +METF-440 PO; -METF500T4 PO; -OLME1TAB PO; +OLME1TAB16 GT; +OLME20TA13 PO; +TAMS-12 GT; -TAMS-12 PO
--- NOTE | 2018-04-21 05:47 | NUR ---
REFER TO PAPER CHARTING PRIOR TO THIS TIME.
[2018-04-21] MEDS ORDERED: CEFTRIAXONE 1GM BAG (ER ONLY) 1 GM/50 ML PIGGYBACK IV ONE (06:00)
[2018-04-21] MEDS ORDERED: CEFTRIAXONE 1GM BAG (ER ONLY) 50 ML IV ONE (06:28)
[2018-04-21] MEDS ORDERED: TEMAZEPAM 15 MG CAPSULE PO PRN (06:30)
[2018-04-21] MEDS ORDERED: ONDANSETRON HCL/PF 4 MG/2 ML VIAL IVP PRN (06:30)
[2018-04-21] MEDS ORDERED: ACETAMINOPHEN 325 MG TABLET PO PRN (06:30)
[2018-04-21] MEDS ORDERED: LORAZEPAM 1 MG TABLET PO PRN (06:30)
[2018-04-21] MEDS ORDERED: MAGNESIUM HYDROXIDE 30 ML UDC PO PRN (06:30)
[2018-04-21] MEDS ORDERED: HYDROCODONE/APAP 5/325MG 1 EACH TABLET PO PRN (06:30)
[2018-04-21] MEDS ORDERED: MAG HYDROX/AL HYDROX/SIMETH 30 ML UDC PO PRN (06:30)
--- NOTE | 2018-04-21 06:50 | NUR ---
REPORT GIVEN TO RONNA BARBOZA FOR MS BED 117.
--- NOTE | 2018-04-21 06:53 | NUR ---
IVPB ATB ROCEPHIN TRANSFUSING ON ADMISSION. PT TRANSFERRED VIA GURNEY TO MS BED 117
[2018-04-21 07:10] LABS: CHLORIDE 89 mmol/L (98-107); POTASSIUM 3.3 mmol/L (3.5-5.1); SODIUM SERUM 126 mmol/L (136-145)
[2018-04-21 07:11] LABS: ALANINE AMINOTRANSFERASE 25 U/L (12-78); ALBUMIN 3.4 g/dL (3.4-5.0); ALKALINE PHOSPHATASE 117 U/L (46-116); ASPARTATE AMINOTRANSFERASE 22 U/L (15-37); CALCIUM, SERUM 9.7 mg/dL (8.5-10.1); CARBON DIOXIDE 25 mmol/L (21-32); CREATININE 0.6 mg/dL (0.6-1.3); GLUCOSE 148 mg/dL (74-106); TOTAL PROTEIN, SERUM 8.1 g/dL (6.4-8.2); UREA NITROGEN, BLOOD 18 mg/dL (7-18)
[2018-04-21 07:16] LABS: BASOPHILS # (AUTO) 0.1 /CMM (0.0-0.2); BASOPHILS % (AUTO) 0.5 % (0.0-2.0); EOSINOPHILS % (AUTO) 0.5 % (0.0-6.0); HEMATOCRIT 43 % (39-51); HEMOGLOBIN 14.5 g/dL (13.5-17.5); LYMPHOCYTES # (AUTO) 0.2 /CMM (0.8-4.8); LYMPHOCYTES % (AUTO) 0.9 % (20.0-44.0); MEAN CORPUSCULAR HGB CONC 33 g/dl (31.0-36.0); MEAN CORPUSCULAR VOLUME 88 fL (80-96); MONOCYTES # (AUTO) 0.7 /CMM (0.1-1.30); MONOCYTES % (AUTO) 2.8 % (2.0-12.0); NEUTROPHILS # (AUTO) 22.3 /CMM (1.8-8.9); NEUTROPHILS % (AUTO) 95.3 % (43.0-81.0); PLATELET COUNT (AUTO) 355 /CMM (150-450); RDW COEFFICIENT OF VARIATION 16.6 (11.5-15.0); RED BLOOD CELL COUNT(AUTO) 4.93 MIL/uL (4.5-6.0); WHITE BLOOD COUNT (AUTO) 23.4 K/uL (4.3-11.0)
[2018-04-21 07:17] LABS: APPEARANCE,URINE CLEAR (CLEAR); BILIRUBIN,URINE NEGATIVE (NEGATIVE); BLOOD, URINE NEGATIVE Ery/uL (NEGATIVE); COLOR,URINE YELLOW (YELLOW); KETONES,URINE NEGATIVE (NEGATIVE); LEUKOCYTE ESTERASE ,URINE TRACE (NEGATIVE); NEUTROPHILS % (MANUAL) 92 (42-76); NITRITE, URINE POSITIVE (NEGATIVE); PROTEIN,URINE NEGATIVE (NEGATIVE); UGLUCOSE NEGATIVE (NEGATIVE); UROBILINOGEN,URINE 0.2 EU/dL (0.2)
[2018-04-21 07:18] LABS: BAND % (MANUAL) 3 % (0.0-5.0); LYMPHOCYTES % (MANUAL) 1 % (16-48); MONOCYTES % (MANUAL) 4 % (0-11.0)
[2018-04-21 07:20] LABS: BACTERIA,URINE Moderate /HPF (None Seen); RBC,URINE 0-2 /HPF (0-2); SQUAMOUS EPITHELIAL CELL,UR Few /HPF (None Seen)
[2018-04-21 07:25] LABS: MAGNESIUM 1.9 mg/dL (1.8-2.4); PHOSPHORUS 2.8 mg/dL (2.5-4.9)
[2018-04-21] MEDS ORDERED: PANTOPRAZOLE 40 MG TABLET.DR PO SCH (07:30)
[2018-04-21 07:34] LABS: THYROID STIMULATING HORMONE 1.877 uIU/mL (0.358-3.74)
[2018-04-21] MEDS: IV NS 0.9% 1,000 ML IV PRN ×2 (07:59→21:21)
[2018-04-21 08:00] VITALS: BP 149/77
[2018-04-21] MEDS: PANTOPRAZOLE 40 MG VIAL IV SCH (08:05)
--- NOTE | 2018-04-21 08:15 | NUR ---
MED SURG NOTE RECEIVED PATIENT FROM ER VIA GURNEY. PATIENT NON-VERBAL. DAUGHTER AT BEDSIDE. IV L HAND #22G. ALL SAFETY MEASURES IN PLACE. WILL BEGIN ADMISSION PROCESS. WILL CONTINUE TO MONITOR PATIENT CLOSELY.
[2018-04-21] MEDS: POTASSIUM CL. PREMIX PERIPHER. 50 ML IV SCH ×4 (08:44→11:50)
[2018-04-21 08:51] LABS: URIC ACID 6.9 mg/dL (2.6-7.2)
[2018-04-21 08:52] LABS: CALCIUM, SERUM 9.6 mg/dL (8.5-10.1); CARBON DIOXIDE 26 mmol/L (21-32); CHLORIDE 90 mmol/L (98-107); CREATININE 0.5 mg/dL (0.6-1.3); GLUCOSE 154 mg/dL (74-106); MAGNESIUM 1.7 mg/dL (1.8-2.4); PHOSPHORUS 2.4 mg/dL (2.5-4.9); POTASSIUM 3.2 mmol/L (3.5-5.1); SODIUM SERUM 127 mmol/L (136-145); UREA NITROGEN, BLOOD 18 mg/dL (7-18)
[2018-04-21] MEDS ORDERED: LUBI24CA5 GT (10:44)
[2018-04-21] MEDS ORDERED: MEMA10TA PO (10:44)
[2018-04-21] MEDS ORDERED: DUTA0.5C GT (10:44)
[2018-04-21] MEDS ORDERED: LEVE250T2 PO (10:44)
[2018-04-21] MEDS ORDERED: LANS30CA56 GT (10:44)
[2018-04-21] MEDS ORDERED: OMEG1CAP55 PO (10:44)
[2018-04-21] MEDS ORDERED: CELE-85 GT (10:44)
[2018-04-21] MEDS ORDERED: ROSU10TA GT (10:44)
[2018-04-21] MEDS ORDERED: METO25TA6 GT (10:44)
[2018-04-21] MEDS ORDERED: IPRA3AMP23 IH (12:03)
[2018-04-21] MEDS: GLUCERNA 1.2 1,000 ML BOTTLE GT PRN (13:36)
[2018-04-21 16:00] VITALS: BP 111/60
[2018-04-21] MEDS ORDERED: DEXTROSE 50%-WATER 50 ML DISP.SYRIN IV PRN (16:30)
[2018-04-21] MEDS: BLOOD SUGAR DIAGNOSTIC 1 EACH STRIP IN SCH (17:36)
[2018-04-21] MEDS: INSULIN REGULAR, HUMAN 100 UNIT/ML 3 ML VIAL SQ PRN (17:37)
--- NOTE | 2018-04-21 19:15 | NUR ---
DRY CHAIN OFFBEARER NOTE PATIENT RESTING COMFORTABLY IN BED. ALL SAFETY MEASURES IN PLACE. REPORT GIVEN TO [place] FRIEND FOR MARILYNN. PATIENT TOLERATED GLUCERNA FEEDING THOUGHT SHIFT WITH NO RESIDUALS. IV R AND L HAND PATENT AND INTACT. NC 2 L. ALL SAFETY MEASURES IN PLACE.
--- NOTE | 2018-04-21 19:20 | NUR ---
MS RN OPENING NOTE, PATIENT IN BED SLEEPING AT THIS TIME, BREATHING EVEN AND UNLABORED, NO S/S OF ANY PAIN OR DISCOMFORT NOTE, AT THIS TIME, GT IN PLACE AND GTF INFUSING WELL AND PATIENT TOLERATED WELL, HOB ELEVATED FOR ASPIRATION PRECAUTIONS, L HAND IV SITE, AND RIGHT HAND IV ACCESS, INTACT AND PATENT, NO S/S IF INFILTRATION NOTED AT THIS TIME, NS 0.9% @75ML/HR INFUSING WELL AND PATIENT TOLERATED WELL, KEPT CLEAN, DRY AND COMFORTABLE. CALL LIGHT WITHIN REACH, BED LOCKED AND IN LOWEST POSITION, BED ALARM ON, ALL NEEDS PROVIDED AND ATTENDED, WILL CONTINUE TO MONITOR CLOSELY.
[2018-04-21 20:00] VITALS: BP 115/62
[2018-04-22] MEDS: BLOOD SUGAR DIAGNOSTIC 1 EACH STRIP IN SCH ×5 (00:04→23:20)
[2018-04-22] MEDS: INSULIN REGULAR, HUMAN 100 UNIT/ML 3 ML VIAL SQ PRN ×3 (00:06→23:24)
[2018-04-22 04:00] VITALS: BP 119/77
--- NOTE | 2018-04-22 06:50 | NUR ---
MS RN CLOSING NOTE, PATIENT IN BED SLEEPING AT THIS TIME, BREATHING EVEN AND UNLABORED, NO S/S OF ANY PAIN OR DISCOMFORT NOTE AT THIS TIME, GT IN PLACE AND FEEDING INFUSING WELL AND PATIENT TOLERATED WELL, HOB ELEVATED FOR ASPIRATION PRECAUTIONS, L HAND IV SITE, AND RIGHT HAND IV ACCESS, INTACT AND PATENT, NO S/S OF INFILTRATION NOTED AT THIS TIME, NS 0.9% @75ML/HR INFUSING WELL AND PATIENT TOLERATED WELL, KEPT DRY AND CLEAN AND COMFORTABLE. NO SIGNIFICANT CHANGE OF CONDITION NOTED THROUGHOUT THE NIGHT, CALL LIGHT WITHIN REACH, BED LOCKED AND IN LOWEST POSITION, BED ALARM ON, ALL NEEDS PROVIDED AND ATTENDED, WILL ENDORSE CONTINUITY OF CARE TO ONCOMING NURSE.
[2018-04-22 06:56] LABS: BASOPHILS % (AUTO) 0.1 % (0.0-2.0); EOSINOPHILS % (AUTO) 0.7 % (0.0-6.0); HEMATOCRIT 41 % (39-51); HEMOGLOBIN 13.7 g/dL (13.5-17.5); LYMPHOCYTES # (AUTO) 0.2 /CMM (0.8-4.8); LYMPHOCYTES % (AUTO) 1.6 % (20.0-44.0); MEAN CORPUSCULAR HGB CONC 34 g/dl (31.0-36.0); MEAN CORPUSCULAR VOLUME 89 fL (80-96); MONOCYTES # (AUTO) 0.6 /CMM (0.1-1.30); NEUTROPHILS # (AUTO) 13.2 /CMM (1.8-8.9); NEUTROPHILS % (AUTO) 93.6 % (43.0-81.0); PLATELET COUNT (AUTO) 288 /CMM (150-450); RDW COEFFICIENT OF VARIATION 16.9 (11.5-15.0); RED BLOOD CELL COUNT(AUTO) 4.56 MIL/uL (4.5-6.0); WHITE BLOOD COUNT (AUTO) 14.1 K/uL (4.3-11.0)
[2018-04-22 07:15] LABS: CARBON DIOXIDE 26 mmol/L (21-32); CHLORIDE 97 mmol/L (98-107); CREATININE 0.5 mg/dL (0.6-1.3); GLUCOSE 138 mg/dL (74-106); PHOSPHORUS 2.9 mg/dL (2.5-4.9); POTASSIUM 4.4 mmol/L (3.5-5.1); SODIUM SERUM 132 mmol/L (136-145); UREA NITROGEN, BLOOD 15 mg/dL (7-18)
--- NOTE | 2018-04-22 07:56 | NUR ---
MS RN OPENING NOTE RECEIVED BEDSIDE SBAR REPORT ON THE PATIENT. PATIENT OBTUNDED, NON-VERBAL. AWAKE, RESPONSIVE TO LIGHT PAIN. BED IS LOCKED, IN LOWEST POSITION, SIDE RAILS UP X3, BED ALARM IS ON. GERARD LIGHT WITHIN REACH. EDUCATED THE PATIENT TO CALL FOR ASSISTANCE USING THE CALL LIGHT. PATIENT IS UNABLE TO VERBALIZE UNDERSTANDING. WILL ROUND FREQUENTLY TO ASSESS FOR NEEDS. NO S/S OF PAIN/DISCOMFORT AT THIS TIME. ENTERAL FEEDING INFUSED VIA PATENT G-TUBE ORDERED. SPECIALTY MATRASS IN PLACE. ALL NEEDS ARE MET. WILL CONTINUE TO ASSESS/MONITOR THROUGHOUT THE SHIFT.
[2018-04-22 08:00] VITALS: BP 149/88
[2018-04-22] MEDS: MULTIVITAMINS,THERAGRAN 1 UDTAB TABLET PO SCH (08:51)
[2018-04-22] MEDS: ASCORBIC ACID 500 MG TABLET PO SCH (08:51)
[2018-04-22] MEDS: PANTOPRAZOLE 40 MG VIAL IV SCH (08:51)
[2018-04-22] MEDS: CEFTRIAXONE 1 G in IV D5W 50 ML IV SCH (08:52)
[2018-04-22] MEDS ORDERED: CEFTRIAXONE 1 G in IV D5W 50 ML IV SCH (09:00)
[2018-04-22] MEDS: PROSOURCE / PROSTAT (PYXIS) 30 ML UDC GT SCH (09:56)
[2018-04-22] MEDS: DAKINS QUARTER STRENGTH (0.125%) 480 ML BOTTLE TOP SCH (09:57)
--- NOTE | 2018-04-22 10:18 | NUR ---
PAULINE JIM AT THE BEDSIDE. RN CALLED PATIENT'S DAUGHTER TO OBTAIN A CONSENT FOR DEBRIDEMENT. PATIENT'S DAUGHTER CLARA REFUSED STATING" I DON'T WANT ANY DEBRIDEMENT". RISKS AND BENEFITS DISCUSSED WITH THE DAUGHTER. THE DAUGHTER STILL REFUSED. PAULINE JIM NOTIFIED.
--- NOTE | 2018-04-22 10:53 | NUR ---
RT NOTE NT SUCTION PERFORMED WITH NO COMPLICATIONS. LARGE, THICK, YELLOW SPUTUM. RN TISHA PRESENT.
[2018-04-22] MEDS: IV NS 0.9% 1,000 ML IV PRN (10:55)
--- NOTE | 2018-04-22 15:45 | NUR ---
RECEIVED TELEPHONE CALL FROM [employer]. 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 MOVED TO ROOM 104. CONTACT ISOLATION IN PLACE.
--- NOTE | 2018-04-22 15:54 | NUR ---
REPORTED MRSA TO DR COBURN. RECEIVED ORDER FOR BACTROBAN 2% OINTMENT. ORDER READ BACK AND VERIFIED.
[2018-04-22 16:00] VITALS: BP_SYST 141; BP_SYST 149; BP_DIAS 83; BP_DIAS 88
[2018-04-22 17:56] LABS: URINE SODIUM, RANDOM 110 mmol/l (40-220)
[2018-04-22 18:16] LABS: OSMOLALITY,URINE 382 mOS/kg (340-1090)
--- NOTE | 2018-04-22 18:23 | NUR ---
SPOKE TO DAUGHTER CLARA. INFORMED THAT PATIENT'S ROOM HAS BEEN CHANGED. INFORMED CLARA THAT A CONCENT NEEDS TO BE SIGNED FOR PEG REPLACEMENT. SHE VERBALIZED UNDERSTANDING AND SAID SHE WILL COME TO VISIT HER FATHER LATER TONIGHT AROUND 7:30PM.
[2018-04-22] MEDS: GLUCERNA 1.2 1,000 ML BOTTLE GT PRN (18:53)
--- NOTE | 2018-04-22 19:17 | NUR ---
RN CALLED FOR NTS. PT ON 2L NC O2 SAT 96%. B/S COARSE BILAT. PT SX'D FOR LARGE AMT OF THICK CREAMY SECRETIONS. WILL CONTINUE TO MONITOR.
--- NOTE | 2018-04-22 19:20 | NUR ---
MS RN CLOSING NOTE GAVE BEDSIDE SBAR REPORT ON THE PATIENT. PATIENT OBTUNDED, NON-VERBAL. AWAKE, RESPONSIVE TO LIGHT PAIN. BED IS LOCKED, IN LOWEST POSITION, SIDE RAILS UP X3, BED ALARM IS ON. GERARD LIGHT WITHIN REACH. EDUCATED THE PATIENT TO CALL FOR ASSISTANCE USING THE CALL LIGHT. PATIENT IS UNABLE TO VERBALIZE UNDERSTANDING. WILL ROUND FREQUENTLY TO ASSESS FOR NEEDS. NO S/S OF PAIN/DISCOMFORT AT THIS TIME. ENTERAL FEEDING INFUSED VIA PATENT G-TUBE ORDERED. SPECIALTY MATRASS IN PLACE. ALL NEEDS ARE MET. REPOSITIONED EVERY 2 HRS WHILE MAINTAINING FUNCTIONAL ALIGNMENT OF THE LIMBS. ENDORSED TO THE INTERNET ARCHITECT NURSE FOR MARILYNN.
--- NOTE | 2018-04-22 19:30 | NUR ---
RN/MS NOTES: RECEIVED PT. IN BED W/HOB ELEVATED. PT. IS NON VERBAL AND OBTUNDED. NO FACIAL GRIMACES OR MOANING NOTED. W/ GTF IN PLACE , PATENT W/ NO RESIDUAL NOTED. W/ CONDOM CATH IN PLACE DRAINING TO YELLOW URINE. INCONTINENT CARE RENDERED. CALL LIGHT W/ REACH. WILL CONTINUE TO MONITOR.
--- NOTE | 2018-04-22 20:00 | NUR ---
RN/MS NOTES: DAUGHTER ALEKSANDR CONTEH HERE TO SIGN THE CONSENT FOR PEG PLACEMENT. PER DAUGHTER PT. WAS TAKING BACLOFEN 10 MG BID, AMLODIPINE 5 MG BID, DIAZEPAM 2MG BID, OLMESARTAN MEDOXOMIL AND HCTZ 20/12.5 MG. CALLED PHARMACY. INFORMED DAUGHTER.
[2018-04-22] MEDS: MUPIROCIN OINT 2% 22 GM TUBE SCH (20:18)
[2018-04-22] MEDS ORDERED: BACL10TA GT (21:47)
[2018-04-22] MEDS ORDERED: DIAZ2TAB GT (21:47)
[2018-04-22] MEDS ORDERED: OLME1TAB16 GT (21:47)
[2018-04-22] MEDS ORDERED: AMLO5TAB7 GT (21:47)
[2018-04-22] MEDS: BACLOFEN (10 MG) 10 MG TABLET GT SCH (22:00)
[2018-04-22] MEDS: DIAZEPAM 2 MG TABLET GT SCH (22:30)
[2018-04-22] MEDS: METOPROLOL TARTRATE 25 MG TABLET GT SCH (22:30)
--- NOTE | 2018-04-22 23:20 | NUR ---
RN/MS NOTES: HELD DIAZEPAM AND BACLOFEN BP IS LOW. LEFT HAND X 2 RANGES FROM 87/43 AND LEFT LEG X 2 RANGES FROM 100/37. INFORMED CHARGE NURSE.
--- NOTE | 2018-04-22 23:42 | NUR ---
RN/MS NOTES: BP LEFT ARM 95/63. WILL CONTINUE TO MONITOR.
[2018-04-23] MEDS: IV D5/ 0.9% NACL 1,000 ML IV PRN ×2 (00:17→14:49)
[2018-04-23 04:00] VITALS: BP 135/51
[2018-04-23] MEDS: BLOOD SUGAR DIAGNOSTIC 1 EACH STRIP IN SCH ×4 (05:41→23:55)
[2018-04-23] MEDS ORDERED: Medication Not On Formulary EA (Lansoprazole 30 MG) GT SCH (07:30)
--- NOTE | 2018-04-23 07:37 | NUR ---
RN/MS NOTES: NO ACUTE CHANGES NOTED DURING THIS SHIFT. REPORT GIVEN TO AM NURSE FOR MARILYNN.
[2018-04-23 08:00] VITALS: BP 125/71
--- NOTE | 2018-04-23 08:02 | NUR ---
RN NOTE: PATIENT RECEIVED AWAKE, OPEN EYES SPONTANEOUSLY, OBTUNDED & NON VERBAL. ON 2LPM O2 VIA NC, BREATHING SOUNDS COARSE BILATERALLY. IV SITES INTACT, DRESSING CLEAN & DRY. IV FLUID RUNNING ORDERED. G-TUBE CLAMPED. NPO DUE TO PEG REPLACEMENT. SAFETY MEASURES OBSERVED. HOB ELEVATED. CALL LIGHT WITHIN REACH. WILL CONTINUE TO MONITOR.
[2018-04-23] MEDS: PANTOPRAZOLE 40 MG VIAL IV SCH (08:27)
[2018-04-23] MEDS: CEFTRIAXONE 1 G in IV D5W 50 ML IV SCH (08:27)
[2018-04-23] MEDS: MUPIROCIN OINT 2% 22 GM TUBE SCH ×2 (08:28→20:20)
[2018-04-23] MEDS: DAKINS QUARTER STRENGTH (0.125%) 480 ML BOTTLE TOP SCH (08:28)
[2018-04-23] MEDS: CELECOXIB 100 MG CAPSULE GT SCH (08:29)
[2018-04-23] MEDS: ATORVASTATIN 10 MG TABLET GT SCH (08:29)
[2018-04-23] MEDS: PROSOURCE / PROSTAT (PYXIS) 30 ML UDC GT SCH (08:29)
[2018-04-23] MEDS: METOPROLOL TARTRATE 25 MG TABLET GT SCH ×2 (08:29→16:38)
[2018-04-23] MEDS: AMLODIPINE BESYLATE 5 MG TABLET GT SCH ×2 (08:29→16:37)
[2018-04-23] MEDS: DIAZEPAM 2 MG TABLET GT SCH ×2 (08:29→16:37)
[2018-04-23] MEDS: BACLOFEN (10 MG) 10 MG TABLET GT SCH ×2 (08:29→16:38)
[2018-04-23] MEDS: DUTASTERIDE (0.5 MG) 0.5 MG CAPSULE PO SCH (08:30)
[2018-04-23] MEDS: MULTIVITAMINS,THERAGRAN 1 UDTAB TABLET PO SCH (08:30)
[2018-04-23] MEDS ORDERED: ALBUTEROL FS 2.5 MG/0.5 ML VIAL.NEB NEB PRN (08:30)
[2018-04-23] MEDS ORDERED: IPRATROPIUM NEB FS 0.5 MG/2.5 ML AMPUL.NEB NEB PRN (08:30)
[2018-04-23] MEDS: ASPIRIN EC 81 MG TABLET.DR PO SCH (08:30)
[2018-04-23] MEDS: ASCORBIC ACID 500 MG TABLET PO SCH (08:30)
[2018-04-23 08:35] VITALS: BP 125/71
[2018-04-23] MEDS ORDERED: Lubiprostone (Amitiza) 24 MCG) GT SCH (09:00)
[2018-04-23 11:19] LABS: BASOPHILS % (AUTO) 0.1 % (0.0-2.0); EOSINOPHILS % (AUTO) 0.4 % (0.0-6.0); HEMATOCRIT 38 % (39-51); HEMOGLOBIN 12.6 g/dL (13.5-17.5); LYMPHOCYTES # (AUTO) 0.3 /CMM (0.8-4.8); LYMPHOCYTES % (AUTO) 3.1 % (20.0-44.0); MEAN CORPUSCULAR HGB CONC 33 g/dl (31.0-36.0); MEAN CORPUSCULAR VOLUME 89 fL (80-96); MONOCYTES # (AUTO) 0.5 /CMM (0.1-1.30); MONOCYTES % (AUTO) 5.8 % (2.0-12.0); NEUTROPHILS % (AUTO) 90.6 % (43.0-81.0); PLATELET COUNT (AUTO) 271 /CMM (150-450); RDW COEFFICIENT OF VARIATION 16.8 (11.5-15.0); WHITE BLOOD COUNT (AUTO) 8.8 K/uL (4.3-11.0)
[2018-04-23 11:38] LABS: CALCIUM, SERUM 9.1 mg/dL (8.5-10.1); CARBON DIOXIDE 25 mmol/L (21-32); CHLORIDE 98 mmol/L (98-107); CREATININE 0.4 mg/dL (0.6-1.3); GLUCOSE 132 mg/dL (74-106); POTASSIUM 3.4 mmol/L (3.5-5.1); SODIUM SERUM 134 mmol/L (136-145); UREA NITROGEN, BLOOD 10 mg/dL (7-18)
[2018-04-23 14:30] VITALS: BP 135/71
[2018-04-23] MEDS: MEROPENEM 500 MG in IV NS 0.9% 50 ML IV SCH ×2 (14:37→20:19)
[2018-04-23] MEDS: GLUCERNA 1.2 1,000 ML BOTTLE GT PRN (14:55)
[2018-04-23 16:00] VITALS: BP 129/76
--- NOTE | 2018-04-23 18:49 | NUR ---
RN NOTE: PATIENT REMAINS ALERT, OPEN EYES SPONTANEOUSLY, OBTUNDED. ON 2LPM O2 VIA NC, CONTINUE TO FREQUENT SUCTIONING WITH THICK WHITE COLOR SECRETIONS. S/P PEG REPLACEMENT TODAY. RESUMED TUBE FEEDING ORDERED. WOUND CARE DONE. IV FLUIDS RUNNING ORDERED. CONDOM CATH INTACT, DRAINING WELL WITH GRAVITY. ASPIRATION PRECAUTIONS OBSERVED. SAFETY MEASURES OBSERVED. WILL ENDORSE TO PM SHIFT FOR CONTINUITY OF CARE.
--- NOTE | 2018-04-23 19:30 | NUR ---
RN/MS NOTES: RECEIVED PT. IN BED W/ HOB ELEVATED. OBTUNDED W/EYES OPEN. W/ O2 @ 2LPM VIA N/C SAT. 97%. NO FACIAL GRIMACES OR MOANING NOTED. S/P PEG REPLACEMENT. ON GLUCERNA @ 40 ML/HR TOLERATING WELL. IVF RUNNING ORDERED.W/ CONDOM CATH IN PLACE DRAINING YELLOW URINE. ASPIRATION PRECAUTION MAINTAINED. BEDS LOCKED AND IN LOW POSITION. WILL CONTINUE TO MONITOR. DAUGHTER AT BEDSIDE.
[2018-04-23 20:00] VITALS: BP 125/71
--- NOTE | 2018-04-23 20:29 | NUR ---
RN/MS NOTES: DAUGHTER WANTED THE [employer] TO CALL [facility] AFTER PT. IS DISCHARGED. TEL. # [phone]/FAX # [phone]. EMAIL: [email or web address] . M - F 9AM - 5 PM.
[2018-04-23] MEDS: TAMSULOSIN 0.4 MG CAP.SR.24H GT SCH (21:06)
[2018-04-23] MEDS: BENICAR HCT PO SCH (21:06)
[2018-04-24] MEDS: INSULIN REGULAR, HUMAN 100 UNIT/ML 3 ML VIAL SQ PRN ×4 (00:10→17:11)
[2018-04-24 04:00] VITALS: BP 124/77
[2018-04-24] MEDS: BLOOD SUGAR DIAGNOSTIC 1 EACH STRIP IN SCH ×3 (05:03→17:03)
[2018-04-24] MEDS: MEROPENEM 500 MG in IV NS 0.9% 50 ML IV SCH ×3 (05:07→20:05)
[2018-04-24 06:04] LABS: BASOPHILS % (AUTO) 0.2 % (0.0-2.0); EOSINOPHILS % (AUTO) 0.8 % (0.0-6.0); HEMATOCRIT 40 % (39-51); HEMOGLOBIN 13.2 g/dL (13.5-17.5); LYMPHOCYTES # (AUTO) 0.3 /CMM (0.8-4.8); LYMPHOCYTES % (AUTO) 4.8 % (20.0-44.0); MEAN CORPUSCULAR HGB CONC 33 g/dl (31.0-36.0); MEAN CORPUSCULAR VOLUME 89 fL (80-96); MONOCYTES # (AUTO) 0.5 /CMM (0.1-1.30); MONOCYTES % (AUTO) 6.5 % (2.0-12.0); NEUTROPHILS # (AUTO) 6.1 /CMM (1.8-8.9); NEUTROPHILS % (AUTO) 87.7 % (43.0-81.0); PLATELET COUNT (AUTO) 262 /CMM (150-450); RDW COEFFICIENT OF VARIATION 16.6 (11.5-15.0); RED BLOOD CELL COUNT(AUTO) 4.45 MIL/uL (4.5-6.0); WHITE BLOOD COUNT (AUTO) 6.9 K/uL (4.3-11.0)
[2018-04-24 06:10] LABS: CALCIUM, SERUM 9.5 mg/dL (8.5-10.1); CARBON DIOXIDE 26 mmol/L (21-32); CHLORIDE 102 mmol/L (98-107); CREATININE 0.4 mg/dL (0.6-1.3); GLUCOSE 140 mg/dL (74-106); POTASSIUM 3.5 mmol/L (3.5-5.1); SODIUM SERUM 138 mmol/L (136-145); UREA NITROGEN, BLOOD 7 mg/dL (7-18)
--- NOTE | 2018-04-24 07:17 | NUR ---
RN/MS NOTES: NO ACUTE CHANGES NOTED DURING THIS SHIFT. REPORT GIVEN TO AM NURSE FOR MARILYNN.
--- NOTE | 2018-04-24 07:39 | NUR ---
MS RN NOTE PATIENT IN BED , NONVERBAL OBTUNDED, ON 2L NC NO SOB NOTED , SEEN BY RT SUCTION DONE , WITH CONDOM CATH WITH YELLOW COLOR URINE , ON G TUBE FEEDING ORDERED ,KEEP HOB ELEVATED AT ALL TIME RT AND LT HAND HL INTACT , BED IN LOWEST AND LOCKED POSITION , CALL LIGHT WITHIN REACH ,WILL CONT TO MONITOR CLOSELY
[2018-04-24 08:00] VITALS: BP 118/71
[2018-04-24] MEDS: ASCORBIC ACID 500 MG TABLET PO SCH (08:10)
[2018-04-24] MEDS: PANTOPRAZOLE 40 MG VIAL IV SCH (08:10)
[2018-04-24] MEDS: MULTIVITAMINS,THERAGRAN 1 UDTAB TABLET PO SCH (08:10)
[2018-04-24] MEDS: CELECOXIB 100 MG CAPSULE GT SCH (08:10)
[2018-04-24] MEDS: DUTASTERIDE (0.5 MG) 0.5 MG CAPSULE PO SCH (08:10)
[2018-04-24] MEDS: METOPROLOL TARTRATE 25 MG TABLET GT SCH ×2 (08:11→16:17)
[2018-04-24] MEDS: ASPIRIN EC 81 MG TABLET.DR PO SCH (08:11)
[2018-04-24] MEDS: DIAZEPAM 2 MG TABLET GT SCH ×2 (08:11→16:16)
[2018-04-24] MEDS: BACLOFEN (10 MG) 10 MG TABLET GT SCH ×2 (08:11→16:16)
[2018-04-24] MEDS: ATORVASTATIN 10 MG TABLET GT SCH (08:11)
[2018-04-24] MEDS: AMLODIPINE BESYLATE 5 MG TABLET GT SCH ×2 (08:12→16:16)
[2018-04-24] MEDS: MUPIROCIN OINT 2% 22 GM TUBE SCH ×2 (08:12→20:05)
[2018-04-24] MEDS: PROSOURCE / PROSTAT (PYXIS) 30 ML UDC GT SCH (08:12)
[2018-04-24] MEDS: DAKINS QUARTER STRENGTH (0.125%) 480 ML BOTTLE TOP SCH (08:12)
--- NOTE | 2018-04-24 09:36 | NUR ---
MS RN NOTE SEEN BY DR OLIVO NOTIFIED THAT NOTED CHEST CONGESTION, ORDERED TO STOP IVF AND LASIX 40 MG IVP X1 , ORDER CARRIED OUT
[2018-04-24] MEDS ORDERED: FUROSEMIDE 40 MG/4 ML VIAL IV ONE (10:00)
[2018-04-24] MEDS ORDERED: MERO500V IV (10:05)
--- NOTE | 2018-04-24 11:04 | NUR ---
MS RN NOTE PER DR PALLAVI PINK TO DISCHARGE HOME OR SNF , SPOKE WITH DAUGHTER WANT TO DISCHARGE HER FATHER HOME ,CASE MANAGE AWARE, PER DR IRISH PINK TO GET CONSENT FOR PICC LINE INSERTION, [facility] NOTIFIED, WILL AWAITED FOR PICC LINE NURSE
[2018-04-24 12:00] VITALS: BP 122/76
--- NOTE | 2018-04-24 13:00 | NUR ---
MS RN NOTE PICC LINE INSERTED BY BEKAH FRIEND ,CHEST RAY DONE ORDERED
[2018-04-24 16:00] VITALS: BP 126/80
--- NOTE | 2018-04-24 16:00 | NUR ---
MS RN NOTE KEEP CLEAN DRY , ALL NEEDS ATTENDED, REPOSITION Q2 HOUR ,TOLERATED G TUBE FEEDING OK , NO RESIDUAL NOTED
--- NOTE | 2018-04-24 18:44 | NUR ---
MS RN NOTE ALL NEEDS ATTENDED , CONT ON G TUBE FEEDING ORDERED, NOT IN ACUTE DISTRESS, WILL CONT TO MONITOR CLOSELY PATIENT WILL BE TRANSFERRED TO HOME BY AMBULANCE ,DAUGHTER JABARI NOTIFIED, HOME HEALTH ARRANGED BY APRON TRIMMER
[2018-04-24] MEDS: GLUCERNA 1.2 1,000 ML BOTTLE GT PRN (18:56)
--- NOTE | 2018-04-24 19:30 | NUR ---
RN/MS NOTES: RECEIVED PT. IN BED W/ HOB ELEVATED. OBTUNDED W/EYES OPEN. W/ O2 @ 2LPM VIA N/C SAT. 97%. NO FACIAL GRIMACES OR MOANING NOTED. S/P PEG REPLACEMENT ON 04/23/18. ON GLUCERNA @ 60 ML/HR TOLERATING WELL. PICC LINE ON HEAVEN PATENT AND INTACT W/ CLEAN DRESSING W/ NO S/S OF INFECTION/INFILTRATION NOTED. W/ CONDOM CATH IN PLACE DRAINING YELLOW URINE. ASPIRATION PRECAUTION MAINTAINED. BEDS LOCKED AND IN LOW POSITION. WILL CONTINUE TO MONITOR.
[2018-04-24 20:00] VITALS: BP 121/70
[2018-04-24] MEDS: TAMSULOSIN 0.4 MG CAP.SR.24H GT SCH (21:13)
[2018-04-24] MEDS: BENICAR HCT PO SCH (21:14)
--- NOTE | 2018-04-24 22:25 | NUR ---
RN/MS NOTES: SPOKE TO DAUGHTER INFORMING THAT 4 PILLS OF BENICAR IS COMING BACK HOME W/ PT. INFORMED THAT ALL DUE MEDS UNTIL 10 PM INCLUDING IV ATB. GIVEN.
--- NOTE | 2018-04-24 22:30 | NUR ---
RN/MS NOTES: PT. LEFT IN STRETCHER W/ TWO PARAMEDICS IN STABLE CONDITION.
== END 2018-04-24 22:30 | disposition home health service (06) | DRG 871 ==
LOC: ER 03:32 → MEDSG1 05:47
PROVIDERS: ADMIT Nurse Practitioner Acute Care; ATTEND Nurse Practitioner Acute Care
PROC: 0DH63UZ Insertion of Feeding Device into Stomach, Percutaneous Approach (ICD-10-PCS; principal; 2018-04-23 12:45)
PROC: 02HV33Z Insertion of Infusion Device into Superior Vena Cava, Percutaneous Approach (ICD-10-PCS; 2018-04-24)
PROC: B548ZZA Ultrasonography of Superior Vena Cava, Guidance (ICD-10-PCS; 2018-04-24)
DX: A41.9 Sepsis, unspecified organism (principal); L89.224 Pressure ulcer of left hip, stage 4; L89.154 Pressure ulcer of sacral region, stage 4; G92 Toxic encephalopathy; R53.2 Functional quadriplegia; N39.0 Urinary tract infection, site not specified; E87.1 Hypo-osmolality and hyponatremia; E87.2 Acidosis; E11.9 Type 2 diabetes mellitus without complications; I10 Essential (primary) hypertension; L89.621 Pressure ulcer of left heel, stage 1; L89.611 Pressure ulcer of right heel, stage 1; Z87.442 Personal history of urinary calculi; Z86.73 Personal history of transient ischemic attack (TIA), and cerebral infarction without residual deficits; Z86.19 Personal history of other infectious and parasitic diseases; Z79.899 Other long term (current) drug therapy; Z79.82 Long term (current) use of aspirin; Z91.041 Radiographic dye allergy status; N40.0 Benign prostatic hyperplasia without lower urinary tract symptoms; G40.909 Epilepsy, unspecified, not intractable, without status epilepticus; G20 Parkinson's disease; F02.80 Dementia in other diseases classified elsewhere, unspecified severity, without behavioral disturbance, psychotic disturbance, mood disturbance, and anxiety; Z79.84 Long term (current) use of oral hypoglycemic drugs; L89.329 Pressure ulcer of left buttock, unspecified stage; L89.319 Pressure ulcer of right buttock, unspecified stage; F41.9 Anxiety disorder, unspecified; R13.10 Dysphagia, unspecified; E87.6 Hypokalemia; J44.9 Chronic obstructive pulmonary disease, unspecified; F32.9 Major depressive disorder, single episode, unspecified; E83.42 Hypomagnesemia; F09 Unspecified mental disorder due to known physiological condition; L98.9 Disorder of the skin and subcutaneous tissue, unspecified; E86.1 Hypovolemia; E78.5 Hyperlipidemia, unspecified; F01.50 Vascular dementia, unspecified severity, without behavioral disturbance, psychotic disturbance, mood disturbance, and anxiety; M24.572 Contracture, left ankle; M24.571 Contracture, right ankle
CPT/HCPCS: 31720; 36415; 43246; 70450-TC; 71045-TC; 80048-TC; 80053-TC; 80061-TC; 81000-TC; 82533; 82962-TC; 83735-TC; 83935-TC; 84100-TC; 84300-TC; 84443-TC; 84550-TC; 85025-TC; 87081-TC; 87086-TC; 87186-TC; 94799-TC; A4216; A4349; A4606; A6253; A6402; A6403; C1751; C9113; J0690; J0696; J1815; J1940; J2185; J2704; J3480; J3490; J7030; J7042; J7060; Z7610

== ENCOUNTER 2018-05-18 12:23 | Inpatient (IN) | payer MEDICARE, OTHER ==
[~2018-05-18] VITALS: Ht 172.7 cm; Wt 69.1 kg
[~2018-05-18 12:23] MED LIST changes: -ALBU2.5V13 NEB; +AMLO5TAB2 GT; -BISA10SU15 RC; +CELE-85 GT; -CELE200C PO; -DOCU250C89 PO; +DUTA0.5C GT; +IPRA3AMP23 IH; -Ipratropium Bromide NEB; +LANS30CA56 GT; +LUBI24CA5 GT; +MERO500V IV; -METF-440 PO; +METO25TA6 GT; -Nutritional Supplement/Fiber GT; -OLME20TA13 PO; -OMEP20CA4 PO; +ROSU10TA GT
--- NOTE | 2018-05-18 12:31 | NUR ---
[id number] FROM HOME: FEVER, MORE ALTERED THAN NORMAL ACCDG TO THE DAUGHTER. PT IS NON VERBAL. AWAKE, BOTH EYES OPEN. PLACED ON CONT CARDIAC AND POX MONITORING. NAD. SKIN IS WARM TO TOUCH, NON DIAPHORETIC. ALL NEEDS ARE ATTENDED. WILL CONT TO MONITOR
--- NOTE | 2018-05-18 12:42 | NUR ---
EKG IN PROGRESS AT BEDSIDE
[2018-05-18] MEDS ORDERED: IV NS 0.9% 1,000 ML BAG IV ONE (13:00)
[2018-05-18] MEDS ORDERED: VANCOMYCIN 1 GM in IV D5W 250 ML IV ONE (14:00)
[2018-05-18] MEDS ORDERED: PIPERACILLIN /TAZOBACTAM 3.375 G in IV D5W 50 ML IV ONE (14:00)
[2018-05-18 14:02] LABS: CALCIUM, SERUM 9.7 mg/dL (8.5-10.1); CARBON DIOXIDE 28 mmol/L (21-32); CHLORIDE 90 mmol/L (98-107); CREATININE 0.5 mg/dL (0.6-1.3); GLUCOSE 142 mg/dL (74-106); SODIUM SERUM 123 mmol/L (136-145); UREA NITROGEN, BLOOD 24 mg/dL (7-18)
[2018-05-18 14:03] LABS: INR 0.88 (0.85-1.15)
[2018-05-18 14:07] LABS: ALANINE AMINOTRANSFERASE 23 U/L (12-78); ALBUMIN 2.8 g/dL (3.4-5.0); ALKALINE PHOSPHATASE 129 U/L (46-116); ASPARTATE AMINOTRANSFERASE 25 U/L (15-37); BILIRUBIN,DIRECT 0.1 mg/dL (0.0-0.2); BILIRUBIN,TOTAL 0.4 mg/dL (0.2-1.0); TOTAL PROTEIN, SERUM 7.9 g/dL (6.4-8.2)
[2018-05-18 14:10] LABS: TROPONIN I < 0.017 ng/mL (0.00-0.056)
[2018-05-18 14:23] LABS: BILIRUBIN,URINE Negative (NEGATIVE); BLOOD, URINE Negative Ery/uL (NEGATIVE); COLOR,URINE Yellow (YELLOW); KETONES,URINE Negative (NEGATIVE); LEUKOCYTE ESTERASE ,URINE Small (NEGATIVE); NITRITE, URINE Positive (NEGATIVE); PH,URINE 7.5 (5.0-8.0); PROTEIN,URINE Negative (NEGATIVE); UGLUCOSE Negative (NEGATIVE); UROBILINOGEN,URINE 0.2 EU/dL (0.2)
[2018-05-18 14:24] LABS: APPEARANCE,URINE SLIGHTLY HAZY (CLEAR)
[2018-05-18 14:29] LABS: RBC,URINE 0-2 /HPF (0-2)
[2018-05-18 14:30] LABS: BACTERIA,URINE Moderate /HPF (None Seen); SQUAMOUS EPITHELIAL CELL,UR Few /HPF (None Seen)
[2018-05-18 15:22] LABS: HEMATOCRIT 33 % (39-51); HEMOGLOBIN 10.8 g/dL (13.5-17.5); RED BLOOD CELL COUNT(AUTO) 3.82 MIL/uL (4.5-6.0)
[2018-05-18 15:23] LABS: BASOPHILS # (AUTO) 0.1 /CMM (0.0-0.2); BASOPHILS % (AUTO) 0.5 % (0.0-2.0); EOSINOPHILS % (AUTO) 0.6 % (0.0-6.0); LYMPHOCYTES # (AUTO) 0.3 /CMM (0.8-4.8); LYMPHOCYTES % (AUTO) 0.9 % (20.0-44.0); MEAN CORPUSCULAR HEMOGLOBIN 28 PG (26.0-33.0); MEAN CORPUSCULAR HGB CONC 33 g/dl (31.0-36.0); MEAN CORPUSCULAR VOLUME 85 fL (80-96); MONOCYTES # (AUTO) 1.6 /CMM (0.1-1.30); MONOCYTES % (AUTO) 4.9 % (2.0-12.0); NEUTROPHILS # (AUTO) 29.8 /CMM (1.8-8.9); NEUTROPHILS % (AUTO) 93.1 % (43.0-81.0); PLATELET COUNT (AUTO) 346 /CMM (150-450); RDW COEFFICIENT OF VARIATION 17.3 (11.5-15.0)
--- NOTE | 2018-05-18 15:23 | NUR ---
PATIENT ASSIGNED TO TELE 319
[2018-05-18 15:28] LABS: BAND % (MANUAL) 8 % (0.0-5.0); EOSINOPHILS % (MANUAL) 2 % (0-4); LYMPHOCYTES % (MANUAL) 2 % (16-48); MONOCYTES % (MANUAL) 2 % (0-11.0); NEUTROPHILS % (MANUAL) 86 (42-76)
--- NOTE | 2018-05-18 16:19 | NUR ---
REPORT GIVEN TO RONNA BARNES FOR MARILYNN TELE 319
[2018-05-18] MEDS ORDERED: MAGNESIUM HYDROXIDE 30 ML UDC PO PRN (16:30)
[2018-05-18] MEDS ORDERED: MAG HYDROX/AL HYDROX/SIMETH 30 ML UDC PO PRN (16:30)
[2018-05-18] MEDS ORDERED: ACETAMINOPHEN 325 MG TABLET PO PRN (16:30)
[2018-05-18] MEDS ORDERED: ONDANSETRON HCL/PF 4 MG/2 ML VIAL IVP PRN (16:30)
[2018-05-18] MEDS ORDERED: FEE PK DOSING 1 MIN EA MC ONE (16:46)
[2018-05-18] MEDS ORDERED: DIAZEPAM 2 MG TABLET GT SCH (17:00)
--- NOTE | 2018-05-18 17:05 | NUR ---
OPERATING ROOM MANAGER PATIENT OPENS EYES, NON-VERBAL, NO S/SX OF DISCOMFORT NOTED, NO S/SX OF DISTRESS NOTED, SKIN ASSESSMENT COMPLETED, PHOTOS DONE AND PLACED IN CHART, PATIENT SEEN BY DR. RAMIREZ AND PAULINE MIXING AND MOLDING MACHINE OPERATOR, ORDERED A WOUND DEBRIDEMENT ON LEFT HIP AND SACRAL. DAUGHTER AT BEDSIDE AWARE, AND GAVE CONSENT TO WOUND DEBRIDEMENT. BELONGINGS RECONCILED. NEEDS ATTENDED AND MET. CALL LIGHT WITHINR EACH, WILL CONTINUE TO MONITOR.
[2018-05-18 18:00] VITALS: BP 107/60
--- NOTE | 2018-05-18 18:00 | NUR ---
RN NOTES WOUND DEBRIDEMENT DONE ON LEFT HIP AND SACRAL, CULTURE SENT FROM LEFT HIP. SKIN CARE RENDERED, PATIENT'S MATTRESS CHANGED TO LOW AIR LOSS MATTRESS. IVF STARTED ON NS AT 75ML/HR. NEEDS ATTENDED AND MET, CALL LIGHT WITHIN REACH, WILL ENDORSE TO DENTAL LAB TECHNICIAN FOR MARILYNN.
[2018-05-18] MEDS: BACLOFEN (10 MG) 10 MG TABLET GT SCH (18:21)
[2018-05-18] MEDS: METOPROLOL TARTRATE 25 MG TABLET GT SCH (18:24)
[2018-05-18] MEDS: IV NS 0.9% 1,000 ML IV PRN (18:27)
--- NOTE | 2018-05-18 19:25 | NUR ---
CERTIFIED TECHNICIAN SPECIALIST INITIAL NOTES: Received patient in bed, awake, non verbal. Breathing even and unlabored. No signs of distress noted. Peripheral IV on L hand g#20 infusing at 75mL/hr. On low air loss mattress. Tele monitor in place, SR 90. Safety precautions in place. Gray in lowest locked position. Isolation precautions in place. Patient stable as endorsed by the morning shift RN.
[2018-05-18 20:00] VITALS: BP 111/65
[2018-05-18 20:05] VITALS: BP 111/65
[2018-05-18] MEDS: PIPERACILLIN /TAZOBACTAM 3.375 G in IV D5W 50 ML IV SCH (20:34)
[2018-05-18] MEDS: GLUCERNA 1.2 1,000 ML BOTTLE NG PRN (21:25)
--- NOTE | 2018-05-18 21:25 | NUR ---
RN NOTES: Patient started on tube feeding. PEG placement checked and confirmed. G-tube feeding running at 40cc/hr. Tolerating well. No residuals
[2018-05-19] VITALS (10 sets, daily range): BP systolic 111–128; BP diastolic 55–71
[2018-05-19] MEDS: PIPERACILLIN /TAZOBACTAM 3.375 G in IV D5W 50 ML IV SCH ×4 (01:01→21:30)
[2018-05-19] MEDS: VANCOMYCIN 0.75 GM in IV NS 0.9% 250 ML IV SCH ×2 (01:36→17:25)
[2018-05-19] MEDS ORDERED: DEXTROSE 50%-WATER 50 ML DISP.SYRIN IV PRN (03:00)
--- NOTE | 2018-05-19 05:25 | NUR ---
RN NOTES: Patient checked. Dressing on sacral area intact, no oozing, no drainage. Bed bath given. Turned and repositioned. Cleaned and changed.
[2018-05-19] MEDS: BLOOD SUGAR DIAGNOSTIC 1 EACH STRIP IN SCH ×4 (06:03→23:24)
[2018-05-19] MEDS: INSULIN REGULAR, HUMAN 100 UNIT/ML 3 ML VIAL SQ PRN ×3 (06:07→23:28)
[2018-05-19] MEDS: DAKINS QUARTER STRENGTH (0.125%) 480 ML BOTTLE TOP SCH ×2 (06:11→17:22)
--- NOTE | 2018-05-19 06:15 | NUR ---
TABLE GAMES SHIFT MANAGER CLOSING NOTES: Patient in bed, opens eyes, non-verbal. On tele monitor, sinus rhythm 96. Peripheral IV infusing at 75mL/hr. G-tube feeding running at 40mL/hr; tolerating well, no residuals. On low air loss mattress. Waldrop catheter in place, drained 1,800mL of clear yellow urine. All due medications given as ordered. Safety precautions in place. Isolation precautions maintained. All needs attended to. All due medications given as ordered. Will endorse MARILYNN to morning shift RN.
[2018-05-19 07:10] LABS: BASOPHILS % (AUTO) 0.1 % (0.0-2.0); EOSINOPHILS % (AUTO) 0.6 % (0.0-6.0); HEMATOCRIT 34 % (39-51); HEMOGLOBIN 11.6 g/dL (13.5-17.5); LYMPHOCYTES # (AUTO) 0.3 /CMM (0.8-4.8); LYMPHOCYTES % (AUTO) 1.8 % (20.0-44.0); MEAN CORPUSCULAR HEMOGLOBIN 29 PG (26.0-33.0); MEAN CORPUSCULAR HGB CONC 34 g/dl (31.0-36.0); MEAN CORPUSCULAR VOLUME 86 fL (80-96); MONOCYTES # (AUTO) 1.1 /CMM (0.1-1.30); MONOCYTES % (AUTO) 5.9 % (2.0-12.0); NEUTROPHILS # (AUTO) 16.9 /CMM (1.8-8.9); NEUTROPHILS % (AUTO) 91.6 % (43.0-81.0); PLATELET COUNT (AUTO) 290 /CMM (150-450); RDW COEFFICIENT OF VARIATION 15.6 (11.5-15.0); RED BLOOD CELL COUNT(AUTO) 3.95 MIL/uL (4.5-6.0); WHITE BLOOD COUNT (AUTO) 18.4 K/uL (4.3-11.0)
[2018-05-19 07:22] LABS: CALCIUM, SERUM 9.5 mg/dL (8.5-10.1); CARBON DIOXIDE 22 mmol/L (21-32); CHLORIDE 97 mmol/L (98-107); CREATININE 0.5 mg/dL (0.6-1.3); GLUCOSE 165 mg/dL (74-106); PHOSPHORUS 3.2 mg/dL (2.5-4.9); POTASSIUM 5.1 mmol/L (3.5-5.1); SODIUM SERUM 126 mmol/L (136-145); UREA NITROGEN, BLOOD 14 mg/dL (7-18)
--- NOTE | 2018-05-19 07:46 | NUR ---
SALES CONSULTANT OPENING NOTE RECEIVED BEDSIDE SBAR REPORT ON THE PATIENT. PATIENT IS OBTUNDED, NON-VERBAL, RESPONSIVE TO TOUCH. PATIENT IS IN BED. BED IS LOCKED, IN LOWEST POSITION, SIDE RAILS UP X3, BED ALARM IS ON. CHEST IS RISING EQUALLY, BILATERALLY. NOS/S OF PAIN/DISCOMFORT AT THIS TIME. EXTERNAL WORKFORCE PLANNER READING SR 99BPM. GT IN PLACE INFUSING ENTERAL FEEDING ORDERED.. ANAND CATHETER DRAINING YELLOW URINE. WILL CONTINUE TO ASSESS/MONITOR THROUGHOUT THE SHIFT.
[2018-05-19] MEDS ORDERED: LOSARTAN/HCTZ 50-12.5MG/ 1 EA TABLET GT SCH (09:00)
[2018-05-19] MEDS: PANTOPRAZOLE 40 MG VIAL IV SCH (09:58)
[2018-05-19] MEDS: CELECOXIB 100 MG CAPSULE GT SCH (09:58)
[2018-05-19] MEDS: DUTASTERIDE (0.5 MG) 0.5 MG CAPSULE PO SCH (09:59)
[2018-05-19] MEDS: BACLOFEN (10 MG) 10 MG TABLET GT SCH ×2 (09:59→17:18)
[2018-05-19] MEDS: AMLODIPINE BESYLATE 5 MG TABLET GT SCH (09:59)
[2018-05-19] MEDS: DIAZEPAM 2 MG TABLET GT PRN (09:59)
[2018-05-19] MEDS: METOPROLOL TARTRATE 25 MG TABLET GT SCH ×2 (10:00→17:18)
[2018-05-19] MEDS: MORPHINE SULFATE INJ 2 MG/ML DISP.SYRIN IV PRN (10:36)
[2018-05-19] MEDS: ENOXAPARIN SODIUM 40 MG/0.4 ML DISP.SYRIN SQ SCH (10:36)
--- NOTE | 2018-05-19 10:36 | NUR ---
MORPHINE ADMINISTERED PRIOR TO WOUND CARE.
--- NOTE | 2018-05-19 13:10 | NUR ---
LAB CAME AND WAS UNABLE TO DRAW BLOOD FOR VANCO TROUGH. PERIPHERAL IV INFILTRATED. MARRY YUEN INFORMED.
--- NOTE | 2018-05-19 14:20 | NUR ---
AWAITING FOR MIDLINE NURSE TO INSERT MIDLINE TO DRAW TROUGH.
--- NOTE | 2018-05-19 16:26 | NUR ---
MIDLINE INSERTED. BLOOD OBTAINED FOR THE LAB FOR VANCO TROUGH. ADMINISTERING ZOSYN.
--- NOTE | 2018-05-19 17:32 | NUR ---
WOUND CARE RENDERED. PICTURE OF THE SACRAL WOUND OBTAINED AND PLACED IN THE CHART PER ORDER.
--- NOTE | 2018-05-19 19:24 | NUR ---
MANAGER CITY CLOSING NOTE GAVE BEDSIDE SBAR REPORT ON THE PATIENT. PATIENT IS OBTUNDED, NON-VERBAL, RESPONSIVE TO TOUCH. PATIENT IS IN BED. BED IS LOCKED, IN LOWEST POSITION, SIDE RAILS UP X3, BED ALARM IS ON. CHEST IS RISING EQUALLY, BILATERALLY. NOS/S OF PAIN/DISCOMFORT AT THIS TIME. EXTERNAL DIRECTOR OF DIGITAL PLATFORMS READING SR 84BPM. GT IN PLACE INFUSING ENTERAL FEEDING ORDERED. ANAND CATHETER DRAINING YELLOW URINE. WOUND CARE PERFORMED PRESCRIBED. PATIENT REPOSITIONED EVERY TWO HOURS TO MAINTAIN FUNCTIONAL ALIGNMENT OF THE LIMBS. ENDORSED TO THE SHIPYARD HELPER NURSE FOR MARILYNN.
--- NOTE | 2018-05-19 19:41 | NUR ---
TELE/RN OPENING NOTES PATIENT IN BED, HOB ELEVATED, ON TELE MONITOR AT SR 70'S, WITH ANAND, AND REQUIRE GTUBE FEEDING. ON 2LITER OXYGEN VIA NC, REQUIRE FREQUENT TURNING AND REPOSITION WITH SACRAL AND LERFT BUTTOCKS STAGE 4 WOUND. 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 SKIN WARM TO TOUCH, WILL MONITOR AND PROVIDE CARE..
--- NOTE | 2018-05-19 20:25 | NUR ---
TELE/RN NOTES FAMILY AT BEDSIDE, OBSERVE PATIENT GRIMACE AND WITH PAIN, TO GIVE NORCO ORDERED, B/P CHECK AT 111/55.
[2018-05-19] MEDS: HYDROCODONE/APAP 10/325MG 1 EA TABLET GT PRN (20:32)
[2018-05-20] VITALS: BP 122/72
[2018-05-20] MEDS: GLUCERNA 1.2 1,000 ML BOTTLE NG PRN (02:46)
[2018-05-20] MEDS: PIPERACILLIN /TAZOBACTAM 3.375 G in IV D5W 50 ML IV SCH ×4 (02:52→20:24)
[2018-05-20] MEDS: IV NS 0.9% 1,000 ML IV PRN ×3 (03:01→22:13)
[2018-05-20] MEDS: MORPHINE SULFATE INJ 2 MG/ML DISP.SYRIN IV PRN ×3 (03:22→14:15)
--- NOTE | 2018-05-20 03:29 | NUR ---
TELE/RN NOTES PATIENT PULSE RATE AT120, TELE READING IN 124. WITH SACRAL ULCER, REQUIRING FREQUENT REPOSITON. MORPHINE IVP GIVEN,AT RECOMMENDED DOSE. WILL MONITOR.
[2018-05-20 03:46] VITALS: BP 145/97
[2018-05-20 03:53] VITALS: BP 145/97
[2018-05-20] MEDS: VANCOMYCIN 0.75 GM in IV NS 0.9% 250 ML IV SCH ×2 (04:32→14:00)
[2018-05-20] MEDS: DIAZEPAM 2 MG TABLET GT PRN (04:33)
--- NOTE | 2018-05-20 05:14 | NUR ---
tele/rn notes REPORTED TO MD WAYLON NUNES REGARDING ELEVATED PULSE RATE TO 140 AFTER DRESSING CHANGE AND CARE, PROVIDED NEEDED MORPHINE 4MG IVP PRIOR AND GIVEN NEEDED VALIUM AFTER HOUR, REPOSITION, DRESSING CHECK WITH MODERATE BLEEDING ON SITE BUT CONTROLLED, MD ORDER FOR CBC IN AM AND MONITOR PULSE RATE TO CALL MD IF IT REACHES TI 150 AND ABOVE. /CURRENT PULSE RATE AT 140, TELE READING.
[2018-05-20] MEDS: DAKINS QUARTER STRENGTH (0.125%) 480 ML BOTTLE TOP SCH ×2 (05:23→17:10)
[2018-05-20] MEDS: BLOOD SUGAR DIAGNOSTIC 1 EACH STRIP IN SCH ×3 (05:25→17:07)
[2018-05-20] MEDS: INSULIN REGULAR, HUMAN 100 UNIT/ML 3 ML VIAL SQ PRN ×2 (05:31→11:45)
[2018-05-20 06:25] LABS: BASOPHILS % (AUTO) 0.1 % (0.0-2.0); EOSINOPHILS % (AUTO) 0.5 % (0.0-6.0); HEMATOCRIT 27 % (39-51); HEMOGLOBIN 9.3 g/dL (13.5-17.5); LYMPHOCYTES # (AUTO) 0.2 /CMM (0.8-4.8); LYMPHOCYTES % (AUTO) 0.7 % (20.0-44.0); MEAN CORPUSCULAR HEMOGLOBIN 30 PG (26.0-33.0); MEAN CORPUSCULAR HGB CONC 35 g/dl (31.0-36.0); MEAN CORPUSCULAR VOLUME 87 fL (80-96); MONOCYTES # (AUTO) 1.6 /CMM (0.1-1.30); MONOCYTES % (AUTO) 7.2 % (2.0-12.0); NEUTROPHILS # (AUTO) 19.6 /CMM (1.8-8.9); NEUTROPHILS % (AUTO) 91.5 % (43.0-81.0); PLATELET COUNT (AUTO) 294 /CMM (150-450); RDW COEFFICIENT OF VARIATION 16.3 (11.5-15.0); RED BLOOD CELL COUNT(AUTO) 3.07 MIL/uL (4.5-6.0); WHITE BLOOD COUNT (AUTO) 21.5 K/uL (4.3-11.0)
--- NOTE | 2018-05-20 06:53 | NUR ---
319-1 tele/rn notes PATIENT IN HOB ELEVATED, NON VERBAL, OBTUNDED, REQUIRING FREQUENT MONITORING FOR PAIN, DUE TO SACRAL ULCER STAGE 4, REQUIRE OXYGEN VIA NC AT 3L, BLOOD PRESSURE WITHIN REANGE, NO FEVER, ON OV HYDRATION, ANTIBIOTIC THERAPY. REPOSITION FOR COMFORT, MONITORED FOR ANY CHANGES. BED IN LOCK POSITION, IV MIDLINE ON RIGHT FOREARM PATENT. WILL ENDORSE TO AM RN FOR MARILYNN.
--- NOTE | 2018-05-20 07:40 | NUR ---
CAR DELIVERER OPENING NOTE RECEIVED PATIENT IN BED, OBTUNDED, NO-VERBAL. RESPONDS TO PAINFUL STIMULI BY BRIEF EYE OPENING. ON 4L O2 VIA NC. TOLERATING WELL. RESPIRATIONS EVEN AND UNLABORED. IN NO APPARENT DISTRESS AT THIS TIME. ISOLATION PRECAUTION OBSERVED BY THE DOOR. PATIENT ON TELE MONITORING WITH SINUS TACHY HR OF 120S. MD AWARE. G-TUBE IN PLACE WITH FEEDING RUNNING AT 40CC/HR. ANAND CATH IN PLACE DRAINING CLEAR YELLOW URINE, PATIENT HAS RIGHT UPPER ARM MIDLINE, FLUIDS RUNNING AT THIS TIME. TURN AND REPOSITION THE PATIENT PER PROTOCOL, KEPT CLEAN AND COMFORTABLE, ALL NEEDS ATTENDED. SAFETY MEASURES IN PLACE, BED IN LOW LOCKED POSITION, SIDE RAIL UP X3, BED ALARM ON , CALL LIGHT WITHIN EASY REACH. WILL CONTINUE TO MONITOR.
[2018-05-20 08:00] VITALS: BP 122/72
[2018-05-20 08:59] LABS: CARBON DIOXIDE 26 mmol/L (21-32); CHLORIDE 97 mmol/L (98-107); CREATININE 0.5 mg/dL (0.6-1.3); GLUCOSE 161 mg/dL (74-106); MAGNESIUM 1.8 mg/dL (1.8-2.4); PHOSPHORUS 2.6 mg/dL (2.5-4.9); SODIUM SERUM 131 mmol/L (136-145); UREA NITROGEN, BLOOD 11 mg/dL (7-18)
[2018-05-20] MEDS: CELECOXIB 100 MG CAPSULE GT SCH (09:07)
[2018-05-20] MEDS: PANTOPRAZOLE 40 MG VIAL IV SCH (09:08)
[2018-05-20] MEDS: DUTASTERIDE (0.5 MG) 0.5 MG CAPSULE PO SCH (09:08)
[2018-05-20] MEDS: METOPROLOL TARTRATE 25 MG TABLET GT SCH ×2 (09:08→17:00)
[2018-05-20] MEDS: AMLODIPINE BESYLATE 5 MG TABLET GT SCH (09:08)
[2018-05-20] MEDS: BACLOFEN (10 MG) 10 MG TABLET GT SCH ×2 (09:08→17:07)
[2018-05-20] MEDS: ENOXAPARIN SODIUM 40 MG/0.4 ML DISP.SYRIN SQ SCH (09:09)
[2018-05-20 10:18] LABS: THYROID STIMULATING HORMONE 1.69 uIU/mL (0.358-3.74)
[2018-05-20] MEDS: VANCOMYCIN 1 GM in IV D5W 250 ML IV SCH (14:58)
[2018-05-20 16:00] VITALS: BP 79/43
[2018-05-20] MEDS: LACTOBACILLUS RHAMNOSUS GG 1 EACH CAP.SPRINK PO SCH (17:07)
--- NOTE | 2018-05-20 18:56 | NUR ---
MS RN CLOSING NOTE PATIENT IN BED, OBTUNDED, NO-VERBAL. RESPONDS TO PAINFUL STIMULI BY BRIEF EYE OPENING. ON 3L O2 VIA NC. TOLERATING WELL. RESPIRATIONS EVEN AND UNLABORED. IN NO APPARENT DISTRESS AT THIS TIME. ISOLATION PRECAUTION OBSERVED BY THE DOOR. PATIENT ON MS STATUS. G-TUBE IN PLACE WITH FEEDING RUNNING AT 40CC/HR. ANAND CATH IN PLACE DRAINING CLEAR YELLOW URINE, PATIENT HAS RIGHT UPPER ARM MIDLINE, FLUIDS RUNNING AT THIS TIME. TURN AND REPOSITION THE PATIENT PER PROTOCOL, KEPT CLEAN AND COMFORTABLE, PAIN CONTROLLED, ALL NEEDS ATTENDED. SAFETY MEASURES IN PLACE, BED IN LOW LOCKED POSITION, SIDE RAIL UP X3, BED ALARM ON , CALL LIGHT WITHIN EASY REACH. WILL ENDORSE TO PM NURSE FOR MARILYNN.
[2018-05-20 20:00] VITALS: BP 109/60
[2018-05-21] MEDS: BLOOD SUGAR DIAGNOSTIC 1 EACH STRIP IN SCH ×5 (01:04→23:40)
[2018-05-21] MEDS: INSULIN REGULAR, HUMAN 100 UNIT/ML 3 ML VIAL SQ PRN ×4 (01:05→18:44)
[2018-05-21] MEDS: PIPERACILLIN /TAZOBACTAM 3.375 G in IV D5W 50 ML IV SCH ×4 (02:31→19:28)
[2018-05-21] MEDS: VANCOMYCIN 1 GM in IV D5W 250 ML IV SCH ×2 (02:52→15:23)
[2018-05-21] MEDS: GLUCERNA 1.2 1,000 ML BOTTLE NG PRN (05:56)
[2018-05-21] MEDS: DAKINS QUARTER STRENGTH (0.125%) 480 ML BOTTLE TOP SCH ×2 (05:56→18:24)
--- NOTE | 2018-05-21 06:56 | NUR ---
MS RN NOTES PT NON VERBAL. RESPONSIVE TO PAINFUL AND TACTILE STIMULI. NOT IN ANY DISTRESS. NO SOB NOTED. WITH IVF & GTF INFUSING WELL. AM CARE DONE. MONITORED ACCORDINGLY. CALL LIGHT WITHIN REACH. BED IN LOWEST POSITION. SR UP X3 WITH BED ALARM ON FOR SAFETY. WILL ENDORSE TO NEXT SHIFT.
--- NOTE | 2018-05-21 07:10 | NUR ---
MS RN OPENING NOTE RECEIVED BEDSIDE SBAR REPORT ON THE PATIENT. PATIENT IS OBTUNDED, NON-VERBAL, OPENS EYES TO TOUCH. PATIENT IS IN BED, ASLEEP, EASILY AWAKEN BY TOUCH. BED IS LOCKED, IN LOWEST POSITION, SIDE RAILS UP X3, BED ALARM IS ON. CHEST IS RISING EQUALLY, BILATERALLY. NO S/S OF PAIN/DISCOMFORT AT THIS TIME. GT IN PLACE INFUSING ENTERAL FEEDING ORDERED. ANAND CATHETER DRAINING YELLOW URINE. WILL CONTINUE TO ASSESS/MONITOR THROUGHOUT THE SHIFT.
[2018-05-21 08:00] VITALS: BP 107/59
[2018-05-21 09:01] LABS: CARBON DIOXIDE 26 mmol/L (21-32); CHLORIDE 101 mmol/L (98-107); CREATININE 0.6 mg/dL (0.6-1.3); GLUCOSE 134 mg/dL (74-106); SODIUM SERUM 134 mmol/L (136-145); UREA NITROGEN, BLOOD 14 mg/dL (7-18)
[2018-05-21] MEDS: PANTOPRAZOLE 40 MG VIAL IV SCH (09:57)
[2018-05-21] MEDS: CELECOXIB 100 MG CAPSULE GT SCH (09:58)
[2018-05-21] MEDS: LACTOBACILLUS RHAMNOSUS GG 1 EACH CAP.SPRINK PO SCH ×2 (09:58→17:57)
[2018-05-21] MEDS: BACLOFEN (10 MG) 10 MG TABLET GT SCH ×2 (09:59→17:57)
[2018-05-21] MEDS: METOPROLOL TARTRATE 25 MG TABLET GT SCH ×2 (10:07→17:57)
[2018-05-21] MEDS: AMLODIPINE BESYLATE 5 MG TABLET GT SCH (10:07)
[2018-05-21] MEDS: DUTASTERIDE (0.5 MG) 0.5 MG CAPSULE PO SCH (10:07)
[2018-05-21] MEDS: ENOXAPARIN SODIUM 40 MG/0.4 ML DISP.SYRIN SQ SCH (10:11)
--- NOTE | 2018-05-21 10:51 | NUR ---
HIP WOUND MRSA POSITIVE. DR LIU INFORMED.
[2018-05-21] MEDS: IV NS 0.9% 1,000 ML IV PRN (15:32)
[2018-05-21 16:00] VITALS: BP_SYST 117; BP_SYST 125; BP_DIAS 59; BP_DIAS 67
--- NOTE | 2018-05-21 19:39 | NUR ---
MS RN CLOSING NOTE GAVE BEDSIDE SBAR REPORT ON THE PATIENT. PATIENT IS OBTUNDED, NON-VERBAL, OPENS EYES TO TOUCH. PATIENT IS IN BED, ASLEEP, EASILY AWAKEN BY TOUCH. BED IS LOCKED, IN LOWEST POSITION, SIDE RAILS UP X3, BED ALARM IS ON. CHEST IS RISING EQUALLY, BILATERALLY. NO S/S OF PAIN/DISCOMFORT AT THIS TIME. GT IN PLACE INFUSING ENTERAL FEEDING ORDERED. ANAND CATHETER DRAINING YELLOW URINE. NO SIGNIFICANT CHANGES NOTED THROUGHOUT THE SHIFT.
--- NOTE | 2018-05-21 19:40 | NUR ---
rn ms opening notes received patient in bed obtunded, non -verbal, respirations even and unlabored with equal rise and fall of chest on 02 via nc 2L. O2 sat noted at 98%. noted gtube feeding intact and flowing well, head of bed elevated for aspiration precautions. almanzar catheter intact and draining well. right upper midline intact and patent no redness, no infiltration present, IVF running as ordered. oriented to staff and call light , call light kept within reach, patient appears free of pain or discomfort, safety precautions rendered, will continue to monitor.
[2018-05-21 20:00] VITALS: BP 117/70
[2018-05-21] MEDS: HYDROCODONE/APAP 10/325MG 1 EA TABLET GT PRN (20:22)
--- NOTE | 2018-05-21 20:29 | NUR ---
rn ms notes per daughter solo patient appears to be in discomfort would like pain medication to be administered. per assessment noted facial grimacing upon change of position, norco prn given as ordered, will continue to monitor for effectiveness, vital signs 117/70,88,18,98,8,99%
[2018-05-21 21:57] LABS: URINE SODIUM, RANDOM 96 mmol/l (40-220)
[2018-05-21 23:11] LABS: OSMOLALITY,URINE 378 mOS/kg (340-1090)
--- NOTE | 2018-05-21 23:55 | NUR ---
rn ms notes blood sugar 114 , no insulin needed at this time per md order
[2018-05-22] MEDS: PIPERACILLIN /TAZOBACTAM 3.375 G in IV D5W 50 ML IV SCH ×4 (01:14→19:41)
[2018-05-22] MEDS: VANCOMYCIN 1 GM in IV D5W 250 ML IV SCH ×2 (02:21→15:00)
[2018-05-22] MEDS: HYDROCODONE/APAP 10/325MG 1 EA TABLET GT PRN ×3 (04:03→17:35)
--- NOTE | 2018-05-22 04:03 | NUR ---
RN MS NOTES NOTED PATIENT APPEARS UNCOMFORTABLE NOTED FACIAL GRIMACING, NORCO PRN GIVEN, WILL CONTINUE TO MONITOR.
[2018-05-22] MEDS: BLOOD SUGAR DIAGNOSTIC 1 EACH STRIP IN SCH ×4 (05:21→23:55)
[2018-05-22] MEDS: DAKINS QUARTER STRENGTH (0.125%) 480 ML BOTTLE TOP SCH ×2 (05:26→17:15)
[2018-05-22] MEDS: INSULIN REGULAR, HUMAN 100 UNIT/ML 3 ML VIAL SQ PRN ×2 (05:30→12:54)
[2018-05-22] MEDS: GLUCERNA 1.2 1,000 ML BOTTLE NG PRN ×2 (05:32→18:09)
--- NOTE | 2018-05-22 06:22 | NUR ---
RN MS CLOSING NOTES PATIENT REMAINS IN BED CLEAN AND DRY BED BATH AND PERINEAL CARE PROVIDED, SLEEPING BUT EASILY AROUSABLE, RESPIRATIONS EVEN AND UNLABORED WITH EQUAL RISE AND FALL OF CHEST, ON 02 2L VIA NC, O2 SAT AT 99%, APPEARS TO BE COMFORTABLE AT THIS TIME, NO FACIAL GRIMACING OR MOANS NOTED, PATIENT REPOSITIONED FOR COMFORT ,WOUND CARE DONE ORDERED, REMAINS CLEAN AND DRY. HEAD OF BED ELEVATED FOR ASPIRATIONS PRECAUTIONS, GTUBE FEEDING INTACT AND FLOWING ORDERED, TOLERATING GT FEEDING WELL, ANAND CATHETER INTACT AND PATENT DRAINING URINE YELLOW, RIGHT UPPER ARM MIDLINE, INTACT AND PATENT NO REDNESS, NO INFILTRATION PRESENT. ON CONTACT ISOLATION FOR MRSA OF LEFT HIP WOUND, PRECAUTIONS RENDERED, OFFLOAD WOUND SITES FOR WOUND MANAGEMENT, BOTH HEELS OFFLOADED,CALL LIGHT KEPT WITHIN REACH SAFETY PRECAUTIONS IN PLACE,ALL NEEDS ATTENDED AT THIS TIME, REMAINS COMFORTABLE, WILL CONTINUE TO MONITOR AND ENDORSE TO NEXT SHIFT.
[2018-05-22 07:15] LABS: BASOPHILS % (AUTO) 0.5 % (0.0-2.0); EOSINOPHILS % (AUTO) 5.4 % (0.0-6.0); HEMATOCRIT 27 % (39-51); HEMOGLOBIN 9.1 g/dL (13.5-17.5); LYMPHOCYTES # (AUTO) 0.4 /CMM (0.8-4.8); LYMPHOCYTES % (AUTO) 4.2 % (20.0-44.0); MEAN CORPUSCULAR HEMOGLOBIN 30 PG (26.0-33.0); MEAN CORPUSCULAR HGB CONC 34 g/dl (31.0-36.0); MEAN CORPUSCULAR VOLUME 87 fL (80-96); MONOCYTES % (AUTO) 11.5 % (2.0-12.0); NEUTROPHILS % (AUTO) 78.4 % (43.0-81.0); PLATELET COUNT (AUTO) 331 /CMM (150-450); RDW COEFFICIENT OF VARIATION 16.9 (11.5-15.0); RED BLOOD CELL COUNT(AUTO) 3.09 MIL/uL (4.5-6.0); WHITE BLOOD COUNT (AUTO) 8.9 K/uL (4.3-11.0)
[2018-05-22 07:28] LABS: CALCIUM, SERUM 8.8 mg/dL (8.5-10.1); CARBON DIOXIDE 26 mmol/L (21-32); CHLORIDE 100 mmol/L (98-107); CREATININE 0.5 mg/dL (0.6-1.3); GLUCOSE 171 mg/dL (74-106); PHOSPHORUS 2.7 mg/dL (2.5-4.9); POTASSIUM 3.7 mmol/L (3.5-5.1); SODIUM SERUM 133 mmol/L (136-145); UREA NITROGEN, BLOOD 10 mg/dL (7-18)
[2018-05-22 08:00] VITALS: BP 114/71
--- NOTE | 2018-05-22 08:00 | NUR ---
RN NOTES RECEIVED PATIENT IN THE BED ON O2-2L NC, NO ACUTE RESPIRATORY DISTRESS, NON VERBAL, OPENS EYES WHEN TOUCHED OR CALLED MICHELLE. PATIENT TOTAL CARE, WOUND ON SACRAL AREA, AND HIP, ASSIST TURN AND REPOSTION Q 2 HR, IV ON RIGHT UPPER ARM MIDLINE INFUSING NS AT 75 ML/HR INTACT. ALSO PATIENT G-TUBE FEEDING GLUCERNA 40 ML/HR INTACT, HOB KEEP ELEVATED FOR ASPIRATION PRECAUTION. MEDICATION ADMINISTERED VIA G-TUBE, V/S STABLE. F/C DRAIN LIGHT YELLOW OUTPUT. PATIENT MRSA OF WOUND, CALL LIGHT WITHIN TO REACH, SAFETY PRECAUTION MAINTAINED ALL THE TIME.
[2018-05-22] MEDS: PANTOPRAZOLE 40 MG VIAL IV SCH (09:48)
[2018-05-22] MEDS: METOPROLOL TARTRATE 25 MG TABLET GT SCH ×2 (09:48→17:33)
[2018-05-22] MEDS: LACTOBACILLUS RHAMNOSUS GG 1 EACH CAP.SPRINK PO SCH ×2 (09:48→17:33)
[2018-05-22] MEDS: CELECOXIB 100 MG CAPSULE GT SCH (09:49)
[2018-05-22] MEDS: AMLODIPINE BESYLATE 5 MG TABLET GT SCH (09:49)
[2018-05-22] MEDS: BACLOFEN (10 MG) 10 MG TABLET GT SCH ×2 (09:49→17:33)
[2018-05-22] MEDS: DUTASTERIDE (0.5 MG) 0.5 MG CAPSULE PO SCH (09:49)
[2018-05-22] MEDS: ENOXAPARIN SODIUM 40 MG/0.4 ML DISP.SYRIN SQ SCH (09:51)
[2018-05-22] MEDS: IV NS 0.9% 1,000 ML IV PRN (10:08)
--- NOTE | 2018-05-22 10:12 | NUR ---
RN NOTES ADMINISTERED NARCO 10/325 MG PO PRN FOR GENERALIZED PAIN 05/12, ASSIST TURN AND REPOSTION Q 2 HR, V/S TAKEN BP 114/ 71, P-96, CONTINUED MONITORING.
--- NOTE | 2018-05-22 13:15 | NUR ---
RN NOTES BS-139 MG/DL, COVERAGE GIVEN,ASSIST TURN AND REPOSTION Q 2 HR, KEEP HOB ELEVATED, CALL LIGHT WITHIN TO REACH,SAFETY PRECAUTION MAINTAINED ALL THE TIME.
[2018-05-22] MEDS: IPRATROPIUM NEB FS 0.5 MG/2.5 ML AMPUL.NEB NEB SCH ×3 (15:39→23:06)
[2018-05-22] MEDS: ALBUTEROL HALF STRENGTH 1.25 MG/3 ML VIAL.NEB NEB SCH ×3 (15:39→23:06)
[2018-05-22] MEDS: ACETYLCYSTEINE 10% SOLN 400 MG/4 ML VIAL NEB SCH ×2 (15:40→23:06)
[2018-05-22 16:00] VITALS: BP 118/71
--- NOTE | 2018-05-22 17:35 | NUR ---
RN NOTES ADMINISTERED NARCO 10/325 MG PO PRN FOR GENERALIZED PAIN , ALSO ADMINISTERED SCHEDULED MEDICATION VIA G- TUBE, V/S TAKEN STABLE, DRESSING, CHANGED, ASSIST TURN AND REPOSTION Q 2 HR. BS-114 MG/DL. CONTINUED MONITORING.
--- NOTE | 2018-05-22 18:45 | NUR ---
RN NOTES PATIENT STABLE AT THIS TIME, NO ACUTE DISTRESS, GET BREATHING TREATMENT BY RT. ASSIST TURN AND REPOSTION Q 2 HR. HOB KEEP ELEVATED. CALL LIGHT WITHIN TO REACH. ENDORSED ONCOMING NURSE FOR PLAN OF CARE.
--- NOTE | 2018-05-22 19:40 | NUR ---
RN MS opening notes received patient in bed obtunded, non -verbal, respirations even and unlabored with equal rise and fall of chest on 02 via nc 2L. O2 sat noted at 93%. noted gtube feeding intact and flowing well, head of bed elevated for aspiration precautions. almanzar catheter intact and draining well.urine yellow, right upper arm midline intact and patent no redness, no infiltration present, IVF running as ordered. oriented to staff and call light , call light kept within reach, patient appears free of pain or discomfort at this time , safety precautions rendered, will continue to monitor.
[2018-05-22 20:00] VITALS: BP 122/68
--- NOTE | 2018-05-22 23:57 | NUR ---
rn ms notes blood sugar 117 , no insulin needed at this time per md order.
--- NOTE | 2018-05-23 | NUR ---
RN MS NOTES. DEB MCLAU[place]HLIN GIVEN A ORDERED. NOTED PATIENT WITH FACIAL GRIMACING, AND GRUNTS. WILL CONTINUE TO MONITOR. VITAL SIGNS WITHIN NORMAL LIMITS.
[2018-05-23] MEDS: IV NS 0.9% 1,000 ML IV PRN ×2 (00:07→13:51)
[2018-05-23] MEDS: PIPERACILLIN /TAZOBACTAM 3.375 G in IV D5W 50 ML IV SCH ×4 (02:37→20:47)
[2018-05-23] MEDS: IPRATROPIUM NEB FS 0.5 MG/2.5 ML AMPUL.NEB NEB SCH ×6 (03:00→22:49)
[2018-05-23] MEDS: ALBUTEROL HALF STRENGTH 1.25 MG/3 ML VIAL.NEB NEB SCH ×6 (03:00→22:49)
[2018-05-23] MEDS: DAKINS QUARTER STRENGTH (0.125%) 480 ML BOTTLE TOP SCH ×2 (05:07→17:39)
[2018-05-23] MEDS: BLOOD SUGAR DIAGNOSTIC 1 EACH STRIP IN SCH ×3 (05:14→17:36)
[2018-05-23] MEDS: INSULIN REGULAR, HUMAN 100 UNIT/ML 3 ML VIAL SQ PRN ×2 (05:16→12:05)
[2018-05-23] MEDS: HYDROCODONE/APAP 10/325MG 1 EA TABLET GT PRN ×3 (05:19→08:37)
--- NOTE | 2018-05-23 05:19 | NUR ---
RN MS NOTES. NORCO PRN GIVEN A ORDERED PRIOR TO WOUND CARE NOTED PATIENT WITH FACIAL GRIMACING, AND GRUNTS. WILL CONTINUE TO MONITOR. VITAL SIGNS WITHIN NORMAL LIMITS.
--- NOTE | 2018-05-23 06:31 | NUR ---
RN MS CLOSING NOTES PATIENT REMAINS IN BED CLEAN AND DRY BED BATH AND PERINEAL CARE PROVIDED, SLEEPING BUT EASILY AROUSABLE, RESPIRATIONS EVEN AND UNLABORED WITH EQUAL RISE AND FALL OF CHEST, ON 02 2L VIA NC, O2 SAT AT 99%, APPEARS TO BE COMFORTABLE AT THIS TIME, NORCO EFFECTIVE, NO FACIAL GRIMACING OR MOANS NOTED, PATIENT REPOSITIONED FOR COMFORT ,WOUND CARE DONE ORDERED, REMAINS CLEAN AND DRY. HEAD OF BED ELEVATED FOR ASPIRATIONS PRECAUTIONS, GTUBE FEEDING INTACT AND FLOWING ORDERED, TOLERATING GT FEEDING WELL, ANAND CATHETER INTACT AND PATENT DRAINING URINE YELLOW, RIGHT UPPER ARM MIDLINE, INTACT AND PATENT NO REDNESS, NO INFILTRATION PRESENT, IVF RUNNING ORDERED. ON CONTACT ISOLATION FOR MRSA OF LEFT HIP WOUND, PRECAUTIONS RENDERED, OFFLOAD WOUND SITES FOR WOUND MANAGEMENT, BOTH HEELS OFFLOADED, SACRAL OFFLOADED,CALL LIGHT KEPT WITHIN REACH SAFETY PRECAUTIONS IN PLACE,ALL NEEDS ATTENDED AT THIS TIME, REMAINS COMFORTABLE, WILL CONTINUE TO MONITOR AND ENDORSE TO NEXT SHIFT.
[2018-05-23 07:18] LABS: BASOPHILS # (AUTO) 0.1 /CMM (0.0-0.2); BASOPHILS % (AUTO) 0.5 % (0.0-2.0); EOSINOPHILS % (AUTO) 3.3 % (0.0-6.0); HEMATOCRIT 29 % (39-51); HEMOGLOBIN 9.7 g/dL (13.5-17.5); LYMPHOCYTES # (AUTO) 0.3 /CMM (0.8-4.8); LYMPHOCYTES % (AUTO) 2.6 % (20.0-44.0); MEAN CORPUSCULAR HEMOGLOBIN 29 PG (26.0-33.0); MEAN CORPUSCULAR HGB CONC 33 g/dl (31.0-36.0); MEAN CORPUSCULAR VOLUME 87 fL (80-96); MONOCYTES # (AUTO) 0.8 /CMM (0.1-1.30); MONOCYTES % (AUTO) 7.2 % (2.0-12.0); NEUTROPHILS # (AUTO) 9.2 /CMM (1.8-8.9); NEUTROPHILS % (AUTO) 86.4 % (43.0-81.0); PLATELET COUNT (AUTO) 378 /CMM (150-450); RED BLOOD CELL COUNT(AUTO) 3.37 MIL/uL (4.5-6.0); WHITE BLOOD COUNT (AUTO) 10.6 K/uL (4.3-11.0)
[2018-05-23 07:39] LABS: CALCIUM, SERUM 9.1 mg/dL (8.5-10.1); CARBON DIOXIDE 25 mmol/L (21-32); CHLORIDE 104 mmol/L (98-107); CREATININE 0.6 mg/dL (0.6-1.3); GLUCOSE 137 mg/dL (74-106); MAGNESIUM 2.1 mg/dL (1.8-2.4); PHOSPHORUS 3.2 mg/dL (2.5-4.9); POTASSIUM 4.3 mmol/L (3.5-5.1); SODIUM SERUM 137 mmol/L (136-145); UREA NITROGEN, BLOOD 12 mg/dL (7-18)
[2018-05-23 08:00] VITALS: BP 135/89
[2018-05-23] MEDS: ACETYLCYSTEINE 10% SOLN 400 MG/4 ML VIAL NEB SCH ×3 (08:00→22:49)
--- NOTE | 2018-05-23 08:00 | NUR ---
MS RN AM NOTES RECEIVED PATIENT IN THE BED ON O2-2L NC, NO ACUTE RESPIRATORY DISTRESS, NON VERBAL, OPENS EYES WHEN TOUCHED OR CALLED MICHELLE. PATIENT TOTAL CARE, WOUND ON SACRAL AREA, AND HIP, ASSIST TURN AND REPOSITION Q 2 HR, IV ON RIGHT UPPER ARM MIDLINE INFUSING NS INCREASED TO 125 ML/HR INTACT. ALSO PATIENT G-TUBE FEEDING GLUCERNA 40 ML/HR INTACT WITH NO RESIDUALS TOLERATING WELL, HOB KEEP ELEVATED FOR ASPIRATION PRECAUTION. MEDICATION ADMINISTERED VIA G-TUBE, V/S STABLE. F/C DRAIN LIGHT YELLOW OUTPUT. PATIENT ON CONTACT ISOLATION PRECAUTIONS FOR MRSA OF WOUND, CALL LIGHT WITHIN TO REACH, SAFETY PRECAUTION MAINTAINED ALL THE TIME.
[2018-05-23] MEDS: BACLOFEN (10 MG) 10 MG TABLET GT SCH ×2 (08:33→17:33)
[2018-05-23] MEDS: PANTOPRAZOLE 40 MG VIAL IV SCH (08:33)
[2018-05-23] MEDS: AMLODIPINE BESYLATE 5 MG TABLET GT SCH (08:34)
[2018-05-23] MEDS: DUTASTERIDE (0.5 MG) 0.5 MG CAPSULE PO SCH (08:34)
[2018-05-23] MEDS: CELECOXIB 100 MG CAPSULE GT SCH (08:34)
[2018-05-23] MEDS: LACTOBACILLUS RHAMNOSUS GG 1 EACH CAP.SPRINK PO SCH ×2 (08:34→17:33)
[2018-05-23] MEDS: METOPROLOL TARTRATE 25 MG TABLET GT SCH ×2 (08:34→17:34)
[2018-05-23] MEDS: ENOXAPARIN SODIUM 40 MG/0.4 ML DISP.SYRIN SQ SCH (08:38)
[2018-05-23] MEDS: VANCOMYCIN 1 GM in IV D5W 250 ML IV SCH (09:48)
--- NOTE | 2018-05-23 10:29 | NUR ---
CALLED [facility] FOR WOUND C/S RESULT FOLLOW UP AND SPOKE TO KEVIN WHO STATED THAT THEY WILL RELEASE C/S RESULTS TODAY AND TO GIVE THEM TIME.
--- NOTE | 2018-05-23 11:56 | NUR ---
RT NOTE LATE ENTRY: @ 11:45 NT SX PERFORMED WITH NO COMPLICATIONS. RONNA MUNOZ.
[2018-05-23] MEDS: MORPHINE SULFATE INJ 2 MG/ML DISP.SYRIN IV PRN (17:46)
[2018-05-23] MEDS: GLUCERNA 1.2 1,000 ML BOTTLE NG PRN (18:24)
[2018-05-23] MEDS: Z GUARD REMEDY 4 OZ OINT TP SCH ×2 (18:58→21:59)
--- NOTE | 2018-05-23 19:49 | NUR ---
MS FRAN INITIAL NOTES RECEIVED REPORT FROM AM NURSE, CHECKED PT HE'S RESTING AT THIS TIME WITHOUT ANY ACUTE DISTRESS NOTED. RESPIRATION EVEN AND NON-LABORED , SKIN WARM AND DRY TO TOUCH. HE'S STILL ON G-TUBE FEEDING AT 40ML/HR NO 3 ML RESIDUAL NOTED. NO ASPIRATION NOTED WELL. IVF STILL INFUSING ON HIS RIGHT UPPER MIDLINE , NO REDNESS NOTED PATENT AND INTACT. ANAND TO GRAVITY WITH CLEAR YELLOW OUTPUT NOTED. DAUGHTER AT THE BEDSIDE AND SHE 'S ASKING WHEN THE PATIENT WILL GO HOME. SPOKE TO HER THAT OF THIS TIME NO ORDERS YET FROM HIS PRIMARY DOCTOR. SHE STATED IF POSSIBLE CAN PATIENT WILL BE TRANSFER TO [facility] IF NOT HE CAN GO HOME WITH WOUND TREATMENT. I TOLD HER THAT I WILL ENDORSE HER CONCERN TO HIS DOCTOR WELL TO THE SEED AND FERTILIZER SPECIALIST. KEPT HIM WARM AND COMFORTABLE AT ALL TIMES. WILL CONTINUE MONITORING. ISOLATION PRECAUTION IMPLEMENTED AND OBSERVED.
[2018-05-23 20:00] VITALS: BP 123/64
[2018-05-24] MEDS: BLOOD SUGAR DIAGNOSTIC 1 EACH STRIP IN SCH ×4 (00:38→17:28)
[2018-05-24] MEDS: PIPERACILLIN /TAZOBACTAM 3.375 G in IV D5W 50 ML IV SCH ×4 (01:59→20:35)
[2018-05-24] MEDS: ALBUTEROL HALF STRENGTH 1.25 MG/3 ML VIAL.NEB NEB SCH ×6 (02:33→23:50)
[2018-05-24] MEDS: IPRATROPIUM NEB FS 0.5 MG/2.5 ML AMPUL.NEB NEB SCH ×6 (02:33→23:50)
[2018-05-24] MEDS: IV NS 0.9% 1,000 ML IV PRN ×2 (05:34→21:52)
[2018-05-24] MEDS: HYDROCODONE/APAP 10/325MG 1 EA TABLET GT PRN (05:34)
[2018-05-24] MEDS: DAKINS QUARTER STRENGTH (0.125%) 480 ML BOTTLE TOP SCH ×2 (06:03→17:28)
[2018-05-24 06:38] LABS: BASOPHILS % (AUTO) 0.1 % (0.0-2.0); EOSINOPHILS % (AUTO) 4.9 % (0.0-6.0); HEMATOCRIT 27 % (39-51); HEMOGLOBIN 8.9 g/dL (13.5-17.5); LYMPHOCYTES # (AUTO) 0.4 /CMM (0.8-4.8); LYMPHOCYTES % (AUTO) 5.2 % (20.0-44.0); MEAN CORPUSCULAR HEMOGLOBIN 28 PG (26.0-33.0); MEAN CORPUSCULAR HGB CONC 33 g/dl (31.0-36.0); MEAN CORPUSCULAR VOLUME 87 fL (80-96); MONOCYTES # (AUTO) 0.8 /CMM (0.1-1.30); MONOCYTES % (AUTO) 10.3 % (2.0-12.0); NEUTROPHILS # (AUTO) 5.9 /CMM (1.8-8.9); NEUTROPHILS % (AUTO) 79.5 % (43.0-81.0); PLATELET COUNT (AUTO) 385 /CMM (150-450); RDW COEFFICIENT OF VARIATION 17.1 (11.5-15.0); RED BLOOD CELL COUNT(AUTO) 3.14 MIL/uL (4.5-6.0); WHITE BLOOD COUNT (AUTO) 7.5 K/uL (4.3-11.0)
[2018-05-24] MEDS: ACETYLCYSTEINE 10% SOLN 400 MG/4 ML VIAL NEB SCH ×3 (06:58→23:50)
[2018-05-24 07:00] LABS: CALCIUM, SERUM 8.8 mg/dL (8.5-10.1); CARBON DIOXIDE 25 mmol/L (21-32); CHLORIDE 104 mmol/L (98-107); CREATININE 0.5 mg/dL (0.6-1.3); GLUCOSE 142 mg/dL (74-106); PHOSPHORUS 2.5 mg/dL (2.5-4.9); POTASSIUM 3.9 mmol/L (3.5-5.1); SODIUM SERUM 136 mmol/L (136-145); UREA NITROGEN, BLOOD 11 mg/dL (7-18)
--- NOTE | 2018-05-24 07:20 | NUR ---
MS INTELLIGENCE ENGINEER CLOSING NOTES PT REMAINS RESTING AFTER MORNING CARE AND WOUND CARE TREATMENT DONE AFTER NORCO TABLET GIVEN GAIL G-TUBE. STABLE GAIL THE NIGHT AND NO SIGNS OF ANY ACUTE DISTRESS NOTED. G-TUBE FEEDING TOLERATED WELL NO ASPIRATION NOTED. SUCTION NEEDED. IVF NS AT 75ML.HR INFUSING ON HIS RIGHT UPPER ARM PATENT AND INTAC. REPOSITION HIM FOR COMFORT. KEPT HIM WARM AND COMFORTABLE AT ALL TIMES. ENDORSE TO AM NURSE FOR CONTINUITY OF CARE.
--- NOTE | 2018-05-24 07:24 | NUR ---
MS RN OPENING NOTES RECEIVED PATIENT IN NO APPARENT DISTRESS. BEDSIDE RAILS ARE UPX2. BED IS LOCKED AND LOWERED. CALL LIGHT IS WITHIN REACH. IV LINE IS INTACT AND PATENT. WILL CONTINUE TO MONITOR.
[2018-05-24 08:00] VITALS: BP 118/63
[2018-05-24] MEDS: CELECOXIB 100 MG CAPSULE GT SCH (09:15)
[2018-05-24] MEDS: AMLODIPINE BESYLATE 5 MG TABLET GT SCH (09:15)
[2018-05-24] MEDS: METOPROLOL TARTRATE 25 MG TABLET GT SCH ×2 (09:16→17:27)
[2018-05-24] MEDS: DUTASTERIDE (0.5 MG) 0.5 MG CAPSULE PO SCH (09:16)
[2018-05-24] MEDS: PANTOPRAZOLE 40 MG VIAL IV SCH (09:18)
[2018-05-24] MEDS: LACTOBACILLUS RHAMNOSUS GG 1 EACH CAP.SPRINK PO SCH ×2 (09:18→17:27)
[2018-05-24] MEDS: BACLOFEN (10 MG) 10 MG TABLET GT SCH ×2 (09:19→17:27)
[2018-05-24] MEDS: ENOXAPARIN SODIUM 40 MG/0.4 ML DISP.SYRIN SQ SCH (09:29)
[2018-05-24] MEDS: Z GUARD REMEDY 4 OZ OINT TP SCH ×2 (09:31→21:41)
[2018-05-24] MEDS: VANCOMYCIN 1 GM in IV D5W 250 ML IV SCH (09:58)
[2018-05-24] MEDS: INSULIN REGULAR, HUMAN 100 UNIT/ML 3 ML VIAL SQ PRN (11:19)
[2018-05-24 16:00] VITALS: BP 112/62
--- NOTE | 2018-05-24 18:25 | NUR ---
MS RN CLOSING NOTES PATIENT IS RESTING IN BED IN NO APPARENT DISTRESS. BEDSIDE RAILS ARE UPX2. BED IS LOCKED AND LOWERED. CALL LIGHT IS WITHIN REACH. IV LINE IS INTACT AND PATENT. ALL NEEDS WERE MET. WILL ENDORSE CARE TO TRAVEL AGENCY MANAGER NURSE FOR MARILYNN.
--- NOTE | 2018-05-24 19:20 | NUR ---
MS RN NOTES Report received. Patient received in bed, awake, alertx1 to self only (kazakh speaking). Have episodes of confusion. Elevated BUN and creat: per nephrology (pharm notes), HD is not indicated at this time. serum creat is trending down. Continue on ATB therapy. Risk for fall. IV on right forearm 18g noted. with D5NS @100ml/hr, tolerating well. On Renal standard diet. Safety measures in place. Will continue to monitor and assess patient Addendum: 05/25/18 at 0200 by FRANCIA WILLAMS RN DISREGARD ABOVE DOCUMENTATION - INCORRECT PATIENT
--- NOTE | 2018-05-24 19:35 | NUR ---
MS RN NOTES Daughter came to visit patient and inquire about patient's condition. Reinforced infection control to daughter. Daughter [facility] if plan to discharge patient. Questions and concerns addressed.
[2018-05-24 20:00] VITALS: BP 133/76
--- NOTE | 2018-05-24 20:14 | NUR ---
MS RN NOTES Report received. Patient in bed, resting comfortably, easily aroused, non-verbal. On contact isolation for MRSA wound. G-tube feeding in place. On glucose monitoring and routine wound treatment. Safety measures in place. Will continue to monitor, turn every two hours and assess patient
--- NOTE | 2018-05-24 20:25 | NUR ---
MS RN - TREATMENT NOTES Dressing soiled. Treatment rendered. Dressing changed. Turned and repositioned with help of GRAVE DIGGER.
[2018-05-25] MEDS: BLOOD SUGAR DIAGNOSTIC 1 EACH STRIP IN SCH ×4 (00:57→17:15)
[2018-05-25] MEDS: PIPERACILLIN /TAZOBACTAM 3.375 G in IV D5W 50 ML IV SCH ×4 (02:02→20:37)
[2018-05-25] MEDS: IPRATROPIUM NEB FS 0.5 MG/2.5 ML AMPUL.NEB NEB SCH ×6 (04:10→23:52)
[2018-05-25] MEDS: ALBUTEROL HALF STRENGTH 1.25 MG/3 ML VIAL.NEB NEB SCH ×6 (04:10→23:52)
[2018-05-25] MEDS: DAKINS QUARTER STRENGTH (0.125%) 480 ML BOTTLE TOP SCH ×2 (07:14→17:16)
--- NOTE | 2018-05-25 07:30 | NUR ---
MS RN CLOSING NOTES Patient remained in bed, intermittently sleeping, easily aroused, non-verbal. On contact isolation for MRSA wound. G-tube feeding in place//gtube feeding bottle replaced//tubing changed. Continue on glucose monitoring and routine wound treatment rendered x3. Turned and repositioned patient every two hours, offloaded bilateral heels and elbows, and HOB elevated. On continuous oxygen therapy @3LPM via nasal cannula with routine breathing treatment. No SOB noted. Not in any type of distress. Waldrop cath in place: 1950 output total with small bowel movement x1. Bed in lowest position with bed alarm on and call light within reach. Endorsed to oncoming shift nurse.
--- NOTE | 2018-05-25 07:36 | NUR ---
RN OPENING NOTES RECEIVED PATIENT IN BED, OPENS EYES, NON VERBAL. RESPIRATIONS EVEN AND UNLABORED, IN NO PAIN OR DISCOMFORT AT THIS TIME, NO FACIAL GRIMACING NOTED PT TO BE TURNED AND REPOSITIONED Q2H AND PRN. IV ACCESS TO LAC PATENT AND INTACT NO REDNESS OR INFILTRATION NOTED. SAFETY MEASURES IN PLACE, CALL LIGHT WITHIN EASY REACH WILL CONTINUE TO MONITOR Addendum: 05/25/18 at 0742 by REGINE VALE RN CORRECTION OF ENTRY PATIENT WITH HEAVEN MIDLINE, NO REDNESS OR INFILTRATION NOTED, WILL CONTINUE TO MONITOR
[2018-05-25] MEDS: ACETYLCYSTEINE 10% SOLN 400 MG/4 ML VIAL NEB SCH ×3 (07:42→23:52)
[2018-05-25 08:00] VITALS: BP 141/78
[2018-05-25] MEDS: AMLODIPINE BESYLATE 5 MG TABLET GT SCH (08:47)
[2018-05-25] MEDS: BACLOFEN (10 MG) 10 MG TABLET GT SCH ×2 (08:47→17:15)
[2018-05-25] MEDS: LACTOBACILLUS RHAMNOSUS GG 1 EACH CAP.SPRINK PO SCH ×2 (08:48→17:15)
[2018-05-25] MEDS: PANTOPRAZOLE 40 MG VIAL IV SCH (08:48)
[2018-05-25] MEDS: METOPROLOL TARTRATE 25 MG TABLET GT SCH ×2 (08:48→17:15)
[2018-05-25] MEDS: CELECOXIB 100 MG CAPSULE GT SCH (08:48)
[2018-05-25] MEDS: ENOXAPARIN SODIUM 40 MG/0.4 ML DISP.SYRIN SQ SCH (08:53)
[2018-05-25] MEDS: Z GUARD REMEDY 4 OZ OINT TP SCH ×2 (09:05→20:39)
[2018-05-25] MEDS: DUTASTERIDE (0.5 MG) 0.5 MG CAPSULE PO SCH (09:36)
--- NOTE | 2018-05-25 09:55 | NUR ---
RN NOTES/ANDRE GREEN CALLED LAB SPOKE TO DONI REGARDING TROUGH LEVEL, PER LAB UNABLE TO OBTAIN EARLIER, ASKED IF CAN REATTEMPT PT HAS MIDLINE, WILL CONTINUE TO MONITOR AND AWAIT TECH FOR BLOOD DRAW
--- NOTE | 2018-05-25 10:55 | NUR ---
RN NOTES/VANCO TROUGH BLOOD SAMPLE FOR VANCO TROUGH COLLECTED BY RN, TAKEN BY CONSULTING MARINE ENGINEERDONI, WILL AWAIT RESULT BEFORE ADMINISTERING MEDICATION AND CONTINUE TO MONITOR
[2018-05-25] MEDS: VANCOMYCIN 1 GM in IV D5W 250 ML IV SCH (11:36)
[2018-05-25] MEDS: INSULIN REGULAR, HUMAN 100 UNIT/ML 3 ML VIAL SQ PRN ×2 (12:13→17:37)
[2018-05-25 12:43] LABS: CALCIUM, SERUM 8.6 mg/dL (8.5-10.1); CARBON DIOXIDE 24 mmol/L (21-32); CHLORIDE 102 mmol/L (98-107); CREATININE 0.5 mg/dL (0.6-1.3); GLUCOSE 149 mg/dL (74-106); MAGNESIUM 1.8 mg/dL (1.8-2.4); POTASSIUM 3.7 mmol/L (3.5-5.1); SODIUM SERUM 136 mmol/L (136-145); UREA NITROGEN, BLOOD 7 mg/dL (7-18)
[2018-05-25] MEDS: IV NS 0.9% 1,000 ML IV PRN (13:55)
[2018-05-25 16:16] LABS: BASOPHILS % (AUTO) 0.3 % (0.0-2.0); EOSINOPHILS % (AUTO) 8.8 % (0.0-6.0); HEMATOCRIT 25 % (39-51); HEMOGLOBIN 8.1 g/dL (13.5-17.5); LYMPHOCYTES # (AUTO) 0.4 /CMM (0.8-4.8); LYMPHOCYTES % (AUTO) 5.5 % (20.0-44.0); MEAN CORPUSCULAR HEMOGLOBIN 28 PG (26.0-33.0); MEAN CORPUSCULAR HGB CONC 33 g/dl (31.0-36.0); MEAN CORPUSCULAR VOLUME 86 fL (80-96); MONOCYTES # (AUTO) 0.8 /CMM (0.1-1.30); MONOCYTES % (AUTO) 12.1 % (2.0-12.0); NEUTROPHILS # (AUTO) 4.7 /CMM (1.8-8.9); NEUTROPHILS % (AUTO) 73.3 % (43.0-81.0); PLATELET COUNT (AUTO) 389 /CMM (150-450); RDW COEFFICIENT OF VARIATION 17.1 (11.5-15.0); RED BLOOD CELL COUNT(AUTO) 2.87 MIL/uL (4.5-6.0); WHITE BLOOD COUNT (AUTO) 6.4 K/uL (4.3-11.0)
--- NOTE | 2018-05-25 18:39 | NUR ---
RN CLOSING NOTES PATIENT IN BED, OPENS EYES, NON VERBAL. RESPIRATIONS EVEN AND UNLABORED, IN NO PAIN OR DISCOMFORT AT THIS TIME, NO FACIAL GRIMACING NOTED PT TO BE TURNED AND REPOSITIONED Q2H AND PRN. IV ACCESS TO HEAVEN MIDLINE PATENT AND INTACT NO REDNESS OR INFILTRATION NOTED. SAFETY MEASURES IN PLACE, CALL LIGHT WITHIN EASY REACH WILL CONTINUE TO MONITOR AND ENDORSE TO NEXT SHIFT FOR CONTINUITY OF CARE
--- NOTE | 2018-05-25 19:25 | NUR ---
MS RN NOTES Report received. Patient in bed, resting comfortably with eyes opened, non-verbal. Daughter at bedside. Continue to re enforce infection control protocol with contact isolation for MRSA wound. G-tube feeding in place. On glucose monitoring and routine wound treatment. On continuous oxygen therapy @3LPM via nasal cannula with no SOB noted. Safety measures in place. HOB elevated. Will continue to monitor, reposition every two hours and assess patient
[2018-05-25 20:00] VITALS: BP 110/70
[2018-05-25] MEDS: HYDROCODONE/APAP 10/325MG 1 EA TABLET GT PRN (20:38)
--- NOTE | 2018-05-25 21:50 | NUR ---
MS RN NOTES Wound dressing soiled. Wound treatment rendered. Dressing changed. Turned and repositioned patient with additional two person assist.
[2018-05-26] MEDS: BLOOD SUGAR DIAGNOSTIC 1 EACH STRIP IN SCH ×4 (00:17→18:12)
[2018-05-26] MEDS: PIPERACILLIN /TAZOBACTAM 3.375 G in IV D5W 50 ML IV SCH ×4 (02:18→20:18)
[2018-05-26] MEDS: ALBUTEROL HALF STRENGTH 1.25 MG/3 ML VIAL.NEB NEB SCH ×6 (03:59→23:22)
[2018-05-26] MEDS: IPRATROPIUM NEB FS 0.5 MG/2.5 ML AMPUL.NEB NEB SCH ×6 (03:59→23:22)
[2018-05-26] MEDS: IV NS 0.9% 1,000 ML IV PRN ×2 (05:01→18:18)
[2018-05-26] MEDS: GLUCERNA 1.2 1,000 ML BOTTLE NG PRN (05:10)
[2018-05-26] MEDS: DAKINS QUARTER STRENGTH (0.125%) 480 ML BOTTLE TOP SCH (06:27)
--- NOTE | 2018-05-26 07:30 | NUR ---
MS RN OPENING NOTES Received patient obtunded on semi Silva's position on bed. On O2 inhalation at 3LPM via NC, no SOB/respiratory distress noted. On FC patent and indwelling well with clear yellow urine output. On GTF tolerated well. With patent and intact HEAVEN midline. Monitor V/S regularly. On enhanced contact isolation for Wound MRSA observed by all HCPs and significant others. On IV ATB for wound, no ASE noted. Kept clean, dry and comfortable. Will continue to monitor.
--- NOTE | 2018-05-26 07:35 | NUR ---
MS RN NOTES Report endorsed to oncoming shift nurse. Patient remained in bed, resting, easily aroused. Obtunded and non-verbal. G-tube feeding in place. Feeding bottle and tubing changed. Continue on glucose monitoring and routine wound treatment done. BS: 126//no coverage given. On continuous oxygen therapy @3LPM via nasal cannula with no SOB noted. Not in any type of distress. Safety measures in place. HOB elevated. Bed in lowest position with isoflex, bed alarm on and call light within reach. Turned and repositioned every two hours. Kept clean and dry. All needs provided and met.
[2018-05-26 07:42] LABS: CARBON DIOXIDE 23 mmol/L (21-32); CHLORIDE 100 mmol/L (98-107); CREATININE 0.5 mg/dL (0.6-1.3); GLUCOSE 158 mg/dL (74-106); MAGNESIUM 1.9 mg/dL (1.8-2.4); POTASSIUM 4.1 mmol/L (3.5-5.1); SODIUM SERUM 134 mmol/L (136-145); UREA NITROGEN, BLOOD 8 mg/dL (7-18)
[2018-05-26] MEDS: ACETYLCYSTEINE 10% SOLN 400 MG/4 ML VIAL NEB SCH ×3 (07:48→23:22)
[2018-05-26 08:00] VITALS: BP 112/65
[2018-05-26] MEDS: METOPROLOL TARTRATE 25 MG TABLET GT SCH ×2 (08:13→16:48)
[2018-05-26] MEDS: BACLOFEN (10 MG) 10 MG TABLET GT SCH ×2 (08:13→16:48)
[2018-05-26] MEDS: CELECOXIB 100 MG CAPSULE GT SCH (08:13)
[2018-05-26] MEDS: DUTASTERIDE (0.5 MG) 0.5 MG CAPSULE PO SCH (08:13)
[2018-05-26] MEDS: LACTOBACILLUS RHAMNOSUS GG 1 EACH CAP.SPRINK PO SCH ×2 (08:13→16:49)
[2018-05-26] MEDS: PANTOPRAZOLE 40 MG VIAL IV SCH (08:14)
[2018-05-26] MEDS: ENOXAPARIN SODIUM 40 MG/0.4 ML DISP.SYRIN SQ SCH (08:14)
[2018-05-26] MEDS: AMLODIPINE BESYLATE 5 MG TABLET GT SCH (08:14)
[2018-05-26] MEDS: Z GUARD REMEDY 4 OZ OINT TP SCH ×2 (08:18→20:18)
[2018-05-26] MEDS: VANCOMYCIN 1 GM in IV D5W 250 ML IV SCH (08:20)
--- NOTE | 2018-05-26 13:47 | NUR ---
SW filed APS report due to severe wounds. Pt. resides with is daughter Zoë who is also his primary caregiver. APS intake ID #[id number]
[2018-05-26 16:00] VITALS: BP 116/78
[2018-05-26] MEDS: INSULIN REGULAR, HUMAN 100 UNIT/ML 3 ML VIAL SQ PRN (18:18)
--- NOTE | 2018-05-26 18:26 | NUR ---
MS RN CLOSING NOTES Patient obtunded, non-verbal, on bed in semi-Sivla's position, lower extremities elevated. With O2 inhalation @3LPM via NC. With patent IVF infusing well through HEAVEN midline, no s/sx of infection noted, dressing clean, dry and intact. On NPO, on GTF well tolerated, abdomen soft. On diaper and with FC indwelling well with clear year urine output. No SOB/respiratory distress noted; afebrile the whole shift. No s/sx of pain noted. No new unusualities noted throughout the shift. Enhanced contact precautioned well observed by HCPs. Repositioned per hospital policy. All due meds given as ordered. Monitored closely. Endorsed to next shift for continuity of care.
--- NOTE | 2018-05-26 19:05 | NUR ---
MS RN Notes Report received at bedside. Patient received in bed, awake, non-verbal. No moaning or facial grimacing noted. GT in place with GLucerna @40ml/hr running. IV on HEAVEN noted with NS @75ml/hr running. On continuous oxygen tx @3LPM via nasal cannula with no SOB noted. Safety measures in place. Will continue to monitor patient
[2018-05-26 19:53] VITALS: BP 144/76
[2018-05-27] MEDS: BLOOD SUGAR DIAGNOSTIC 1 EACH STRIP IN SCH ×4 (00:02→18:42)
[2018-05-27] MEDS: PIPERACILLIN /TAZOBACTAM 3.375 G in IV D5W 50 ML IV SCH ×4 (01:02→19:04)
[2018-05-27] MEDS: INSULIN REGULAR, HUMAN 100 UNIT/ML 3 ML VIAL SQ PRN ×2 (01:04→12:10)
[2018-05-27] MEDS: IPRATROPIUM NEB FS 0.5 MG/2.5 ML AMPUL.NEB NEB SCH ×5 (02:37→19:38)
[2018-05-27] MEDS: ALBUTEROL HALF STRENGTH 1.25 MG/3 ML VIAL.NEB NEB SCH ×5 (02:37→19:38)
--- NOTE | 2018-05-27 05:06 | NUR ---
MS RN NOTES Patient remained in bed, resting, easily aroused. Obtunded and non-verbal. G-tube feeding in place. Feeding bottle and tubing changed. Continue on glucose monitoring. Routine wound treatment done and antibiotics given. On continuous oxygen therapy @3LPM via nasal cannula with no SOB noted. Not in any type of distress. No moaning or face grimacing noted. Turned and repositioned every two hours and offloaded bony prominences to reduce pressure. Kept clean and dry. All needs provided and met. Safety measures in place. HOB elevated. Bed in lowest position with isoflex, bed alarm on and call light within reach. Possible discharge tomorrow. Will continue to monitor for any changes
[2018-05-27] MEDS: GLUCERNA 1.2 1,000 ML BOTTLE NG PRN (05:22)
[2018-05-27 06:30] LABS: CARBON DIOXIDE 25 mmol/L (21-32); CHLORIDE 103 mmol/L (98-107); CREATININE 0.6 mg/dL (0.6-1.3); GLUCOSE 137 mg/dL (74-106); MAGNESIUM 1.8 mg/dL (1.8-2.4); PHOSPHORUS 3.1 mg/dL (2.5-4.9); POTASSIUM 4.3 mmol/L (3.5-5.1); SODIUM SERUM 138 mmol/L (136-145); UREA NITROGEN, BLOOD 9 mg/dL (7-18)
--- NOTE | 2018-05-27 07:25 | NUR ---
MS RN CLOSING NOTES Report given to oncoming shift nurse. No changes noted and reported. Blood drawn for AM labs. Not in any type of distress. Safety measures in place.
--- NOTE | 2018-05-27 07:30 | NUR ---
MS RN OPENING NOTES Received patient obtunded on bed at semi Silva's position. On O2 inhalation at 3LPM via NC, no SOB/respiratory distress noted SpO2 @ 97%. No s/sx of discomfort noted at this time. On FC patent and indwelling well with clear yellow urine output. On GTF tolerated well. With patent and intact HEAVEN midline. On enhanced contact isolation for wound MRSA observed by all HCPs and significant others. On IV ATB for sepsis secondary to stage 4 sacral pressure ulcer, no ASE noted. Kept clean, dry and comfortable. Will continue to monitor.
[2018-05-27] MEDS: ACETYLCYSTEINE 10% SOLN 400 MG/4 ML VIAL NEB SCH ×2 (07:32→15:18)
[2018-05-27 08:00] VITALS: BP 143/75
[2018-05-27] MEDS: DUTASTERIDE (0.5 MG) 0.5 MG CAPSULE PO SCH (08:19)
[2018-05-27] MEDS: METOPROLOL TARTRATE 25 MG TABLET GT SCH ×2 (08:19→16:13)
[2018-05-27] MEDS: BACLOFEN (10 MG) 10 MG TABLET GT SCH ×2 (08:19→16:11)
[2018-05-27] MEDS: CELECOXIB 100 MG CAPSULE GT SCH (08:19)
[2018-05-27] MEDS: LACTOBACILLUS RHAMNOSUS GG 1 EACH CAP.SPRINK PO SCH ×2 (08:19→16:11)
[2018-05-27] MEDS: AMLODIPINE BESYLATE 5 MG TABLET GT SCH (08:19)
[2018-05-27] MEDS: PANTOPRAZOLE 40 MG VIAL IV SCH (08:21)
[2018-05-27] MEDS: IV NS 0.9% 1,000 ML IV PRN (08:22)
[2018-05-27] MEDS: Z GUARD REMEDY 4 OZ OINT TP SCH (08:22)
[2018-05-27] MEDS: VANCOMYCIN 1 GM in IV D5W 250 ML IV SCH (08:23)
[2018-05-27] MEDS ORDERED: DAKINS QUARTER STRENGTH (0.125%) 480 ML BOTTLE TOP SCH (09:00)
[2018-05-27] MEDS ORDERED: LACT1CAP72 PO (10:12)
[2018-05-27] MEDS ORDERED: PIPE4.5V3 IV (10:12)
[2018-05-27] MEDS ORDERED: RXVAN XX (10:12)
[2018-05-27] MEDS ORDERED: PNEUMOCOCCAL 23-VAL P-SAC VAC 0.5 ML VIAL SQ ONE (14:30)
--- NOTE | 2018-05-27 14:44 | NUR ---
MS RN NOTES Spoke with Zoë, daughter of the patient, with consent to administer pneumococcal vaccine. Administered 0.5ml Pneumovax SC at left arm; Lot # [id number]; Expiration: . Patient tolerated the procedure well. Will continue to monitor for possible adverse reactions.
[2018-05-27 16:00] VITALS: BP 118/75
[2018-05-27 16:13] VITALS: BP 118/75
--- NOTE | 2018-05-27 19:00 | NUR ---
MS RN Closing Notes Received discharge order from To be discharged home with homehealth for IV ATB. With patent and intact midline. On O2 inhalation visa NC at 2LPM with SpO2 of 96%. With indwelling patent FC attached to urine bag with clear yellow urine output. With patent G-tube, feeding tolerated well. For follow up with [facility] @ [facility] on May 28, 2018 @ [id number]. Discharged papers prepared. Pneumonia vaccine administered with consent from the daughter Zoë. Wound pictures taken. Wound treatment done; PICC line dressing done, clean, intact, no s/sx of infection noted. No new unusualities noted. For discharge. Endorsed to the next shift.
--- NOTE | 2018-05-27 19:35 | NUR ---
RN OPENING NOTES RECEIVED REPORT FROM DAYSHIFT RONNA VILLAR. FOUND Pt RESTING IN BED, GETTING BREATHING TREATMENT. Pt IS OBTUNDED/NONVERBAL. NO S/S OF ACUTE DISTRESS OR SOB NOTED. ANAND CATHETER IN PLACE, DRAINING WELL. IV ACCESS ON HEAVEN MIDLINE, WILL BE GOING HOME WITH IT TO CONT WITH IV ABX WITH HOME HEALTH. Pt IS BEING DISCHARGED TONIGHT BACK TO HOME. AMBULANCE BARREL RACER SCHEDULED AT 1999. PER DAYSHIFT RN DAUGHTER WILL BE HERE AT 1999 WELL TO SIGN DISCHARGE PAPERS. SAFETY MEASURES IN PLACE. BED LOW, LOCKED, HOB ELEVATED, SIDE RAILS UP, CALL LIGHT AND BEDSIDE TABLE WITHIN REACH. WILL CONTINUE TO MONITOR Pt FOR SAFETY.
[2018-05-27] MEDS: HYDROCODONE/APAP 10/325MG 1 EA TABLET GT PRN (20:31)
--- NOTE | 2018-05-27 20:45 | NUR ---
AIDS SOCIAL WORKER NOTES SPOKE WITH DAUGHTER JABARI ON THE PHONE. DAUGHTER IS AT HOME WAITING FOR THE Pt TO BE DROPPED OFF BY THE AMBULANCE. RECEIVED VERBAL CONSENT FROM DAUGHTER TO SIGN THE DISCHARGE PAPERS ON HER BEHALF, RONNA SAUCEDO WITNESSED A CO-SIGNER. GAVE NORCO 10 AT 2030 PER DAUGHTER's REQUEST. REPORT GIVEN TO EMT. ID BAND REMOVED. GOING HOME WITH HEAVEN MIDLINE, INTACT & PATENT. GTUBE INTACT AND FLUSHING WELL. ANAND CATH IN PLACE AND DRAINING WELL. VS STABLE. ALL NEEDS MET AND ATTENDED TO. Pt SAFELY TRANSFERRED TO AMBULANCE [facility] AND LEFT THE FLOOR WITH NO S/S OF ACUTE DISTRESS OR SOB.
== END 2018-05-27 20:45 | disposition home health service (06) | DRG 853 ==
LOC: ER 12:28 → TELE 16:06 → MED 05-20 09:25
PROVIDERS: ADMIT Nurse Practitioner Acute Care; ATTEND Nurse Practitioner Acute Care
PROC: 0KBP0ZZ Excision of Left Hip Muscle, Open Approach (ICD-10-PCS; principal; 2018-05-18)
PROC: 0KBN0ZZ Excision of Right Hip Muscle, Open Approach (ICD-10-PCS; 2018-05-18)
PROC: 0QB70ZZ Excision of Left Upper Femur, Open Approach (ICD-10-PCS; 2018-05-18)
PROC: 05H533Z Insertion of Infusion Device into Right Subclavian Vein, Percutaneous Approach (ICD-10-PCS; 2018-05-19)
PROC: B546ZZA Ultrasonography of Right Subclavian Vein, Guidance (ICD-10-PCS; 2018-05-19)
DX: A41.9 Sepsis, unspecified organism (principal); L89.224 Pressure ulcer of left hip, stage 4; L89.214 Pressure ulcer of right hip, stage 4; N17.0 Acute kidney failure with tubular necrosis; R53.2 Functional quadriplegia; G92 Toxic encephalopathy; L89.154 Pressure ulcer of sacral region, stage 4; N39.0 Urinary tract infection, site not specified; E22.2 Syndrome of inappropriate secretion of antidiuretic hormone; Z87.442 Personal history of urinary calculi; Z86.73 Personal history of transient ischemic attack (TIA), and cerebral infarction without residual deficits; Z86.19 Personal history of other infectious and parasitic diseases; Z79.899 Other long term (current) drug therapy; Z79.82 Long term (current) use of aspirin; E11.9 Type 2 diabetes mellitus without complications; F03.90 Unspecified dementia, unspecified severity, without behavioral disturbance, psychotic disturbance, mood disturbance, and anxiety; N40.0 Benign prostatic hyperplasia without lower urinary tract symptoms; Z91.041 Radiographic dye allergy status; Z93.1 Gastrostomy status; R13.10 Dysphagia, unspecified; D63.8 Anemia in other chronic diseases classified elsewhere; J44.9 Chronic obstructive pulmonary disease, unspecified; G20 Parkinson's disease; G40.909 Epilepsy, unspecified, not intractable, without status epilepticus; F02.80 Dementia in other diseases classified elsewhere, unspecified severity, without behavioral disturbance, psychotic disturbance, mood disturbance, and anxiety; K21.9 Gastro-esophageal reflux disease without esophagitis; F09 Unspecified mental disorder due to known physiological condition; M85.80 Other specified disorders of bone density and structure, unspecified site; L89.611 Pressure ulcer of right heel, stage 1; L89.629 Pressure ulcer of left heel, unspecified stage; I70.0 Atherosclerosis of aorta; E78.5 Hyperlipidemia, unspecified; E86.1 Hypovolemia
CPT/HCPCS: 31720; 36415; 36569; 70450-TC; 71045-TC; 72220-TC; 80048-TC; 80076-TC; 80202-TC; 81000-TC; 82962-TC; 83605-TC; 83735-TC; 83935-TC; 84100-TC; 84134-TC; 84300-TC; 84443-TC; 84484-TC; 84550-TC; 85025-TC; 85730-TC; 87040-TC; 87070-TC; 87081-TC; 87086-TC; 87186-TC; 90732; 94799-TC; A4606; A6253; A6402; A6403; C9113; J1650; J1815; J2270; J2543; J3370; J7030; J7050; J7060; Z7610

== ENCOUNTER 2018-06-21 00:59 | Inpatient (IN) | payer MEDICARE, OTHER ==
[~2018-06-21] VITALS: Ht 170.2 cm; Wt 63.0 kg
[~2018-06-21 00:59] MED LIST changes: -AMLO5TAB2 GT; -ASPI81TA44 GT; -IPRA3AMP23 IH; +LACT1CAP72 PO; -LANS30CA56 GT; -LUBI24CA5 GT; -MERO500V IV; +PIPE4.5V3 IV; -ROSU10TA GT; +RXVAN XX; -TAMS-12 GT
--- NOTE | 2018-06-21 01:04 | NUR ---
PT TO ER BED 8. BIBRA FROM HOME, PER FAMILY STATES PT 02 DROPPED TO 93% ON RA. PT PLACED IN GOWN AND ON ZONE MAINTENANCE TECHNICIAN. VSS/RESP EVEN UNLABORED/NAD NOTED/SKIN WARM AND DRY/AFEBRILE/DENIES N-V-D/PT NONVERBAL. AWAITNG MD RAHMAN.
--- NOTE | 2018-06-21 01:10 | NUR ---
NOTED DRESSING TO SACRAL AREA, DRESSING C/D/I.
--- NOTE | 2018-06-21 01:20 | NUR ---
URINE SPECIMEN OBTAINED FROM F/C AND SENT TO THE LAB.
[2018-06-21] MEDS ORDERED: CEFTRIAXONE 1GM BAG (ER ONLY) 50 ML IV ONE (01:30)
[2018-06-21] MEDS ORDERED: AZITHROMYCIN 500 MG in IV D5W 250 ML IV ONE (01:30)
[2018-06-21] MEDS ORDERED: IV NS 0.9% 1,000 ML BAG IV ONE (01:30)
--- NOTE | 2018-06-21 01:37 | NUR ---
XRAY AT BEDSIDE.
[2018-06-21] MEDS ORDERED: AZITHROMYCIN 500 MG VIAL ONE (01:39)
[2018-06-21] MEDS ORDERED: CEFTRIAXONE 1 G VIAL ONE (01:39)
--- NOTE | 2018-06-21 01:46 | NUR ---
LAB AT BEDSIDE FOR LAB DRAW AND BLOOD CULT X 2.
[2018-06-21 02:02] LABS: BASOPHILS # (AUTO) 0.1 /CMM (0.0-0.2); BASOPHILS % (AUTO) 0.5 % (0.0-2.0); EOSINOPHILS % (AUTO) 1.5 % (0.0-6.0); HEMATOCRIT 33 % (39-51); HEMOGLOBIN 10.5 g/dL (13.5-17.5); LYMPHOCYTES # (AUTO) 0.3 /CMM (0.8-4.8); LYMPHOCYTES % (AUTO) 1.5 % (20.0-44.0); MEAN CORPUSCULAR HEMOGLOBIN 27 PG (26.0-33.0); MEAN CORPUSCULAR HGB CONC 32 g/dl (31.0-36.0); MEAN CORPUSCULAR VOLUME 84 fL (80-96); MONOCYTES # (AUTO) 0.4 /CMM (0.1-1.30); MONOCYTES % (AUTO) 1.6 % (2.0-12.0); NEUTROPHILS # (AUTO) 22.6 /CMM (1.8-8.9); NEUTROPHILS % (AUTO) 94.9 % (43.0-81.0); PLATELET COUNT (AUTO) 367 /CMM (150-450); RDW COEFFICIENT OF VARIATION 19.1 (11.5-15.0); RED BLOOD CELL COUNT(AUTO) 3.95 MIL/uL (4.5-6.0); WHITE BLOOD COUNT (AUTO) 23.8 K/uL (4.3-11.0)
[2018-06-21 02:02] LABS: APPEARANCE,URINE CLOUDY (CLEAR); BILIRUBIN,URINE NEGATIVE (NEGATIVE); BLOOD, URINE NEGATIVE Ery/uL (NEGATIVE); COLOR,URINE YELLOW (YELLOW); KETONES,URINE NEGATIVE (NEGATIVE); LEUKOCYTE ESTERASE ,URINE 1+ (NEGATIVE); NITRITE, URINE NEGATIVE (NEGATIVE); PH,URINE 7.5 (5.0-8.0); PROTEIN,URINE NEGATIVE (NEGATIVE); UGLUCOSE NEGATIVE (NEGATIVE); UROBILINOGEN,URINE 0.2 EU/dL (0.2)
[2018-06-21 02:11] LABS: CALCIUM, SERUM 8.9 mg/dL (8.5-10.1); CARBON DIOXIDE 26 mmol/L (21-32); CHLORIDE 97 mmol/L (98-107); CREATININE 0.5 mg/dL (0.6-1.3); GLUCOSE 145 mg/dL (74-106); POTASSIUM 3.9 mmol/L (3.5-5.1); SODIUM SERUM 131 mmol/L (136-145); UREA NITROGEN, BLOOD 25 mg/dL (7-18)
[2018-06-21 02:16] LABS: INR 0.98 (0.87-1.13)
[2018-06-21 02:17] LABS: ALANINE AMINOTRANSFERASE 21 U/L (12-78); ALBUMIN 2.5 g/dL (3.4-5.0); ALKALINE PHOSPHATASE 117 U/L (46-116); ASPARTATE AMINOTRANSFERASE 20 U/L (15-37); BILIRUBIN,DIRECT 0.1 mg/dL (0.0-0.2); BILIRUBIN,TOTAL 0.4 mg/dL (0.2-1.0); TOTAL PROTEIN, SERUM 8.1 g/dL (6.4-8.2)
[2018-06-21 02:19] LABS: TROPONIN I < 0.017 ng/mL (0.00-0.056)
--- NOTE | 2018-06-21 02:31 | NUR ---
PT DAUGHTER AT BEDSIDE SPEAKING WITH MD.
[2018-06-21 02:38] LABS: BAND % (MANUAL) 5 % (0.0-5.0); EOSINOPHILS % (MANUAL) 1 % (0-4); LYMPHOCYTES % (MANUAL) 3 % (16-48); MONOCYTES % (MANUAL) 2 % (0-11.0); NEUTROPHILS % (MANUAL) 89 (42-76)
--- NOTE | 2018-06-21 02:48 | NUR ---
DAUGHTER STATES PT HAS PRESSURE ULCER TO SACRAL AREA.
[2018-06-21] MEDS ORDERED: VANCOMYCIN 1 GM in IV D5W 250 ML IV ONE (03:00)
[2018-06-21 03:02] LABS: BACTERIA,URINE Few /HPF (None Seen); RBC,URINE NONE SEEN /HPF (0-2); SQUAMOUS EPITHELIAL CELL,UR Few /HPF (None Seen)
--- NOTE | 2018-06-21 03:15 | NUR ---
NURSING TRAINING SYSTEMS OFFICER CONTACTED FOR ANETTE BED
[2018-06-21] MEDS ORDERED: VANCOMYCIN 1 GM VIAL ONE (03:28)
--- NOTE | 2018-06-21 03:42 | NUR ---
REPORT GIVEN TO RONNA FARIAS FOR MARILYNN.
--- NOTE | 2018-06-21 04:08 | NUR ---
PT TRANSPORTED TO ANETTE 102 VIA STRETCHER ON ACCESS LEAD WITH RN PER ACLS PROTOCOL. VSS.
[2018-06-21 04:30] VITALS: BP 110/35
[2018-06-21] MEDS ORDERED: MAG HYDROX/AL HYDROX/SIMETH 30 ML UDC PO PRN (04:30)
[2018-06-21] MEDS ORDERED: INSULIN REGULAR, HUMAN 100 UNIT/ML 3 ML VIAL SQ PRN (04:30)
[2018-06-21] MEDS ORDERED: MAGNESIUM HYDROXIDE 30 ML UDC PO PRN (04:30)
[2018-06-21] MEDS ORDERED: MORPHINE SULFATE INJ 2 MG/ML DISP.SYRIN IV PRN (04:30)
[2018-06-21] MEDS ORDERED: DEXTROSE 50%-WATER 50 ML DISP.SYRIN IV PRN ×2 (04:30→07:00)
[2018-06-21] MEDS ORDERED: ONDANSETRON HCL/PF 4 MG/2 ML VIAL IVP PRN (04:30)
[2018-06-21] MEDS ORDERED: ACETAMINOPHEN 325 MG TABLET PO PRN (04:30)
[2018-06-21] MEDS ORDERED: Z GUARD REMEDY 2 OZ OINT TP PRN (04:30)
[2018-06-21] MEDS ORDERED: PIPERACILLIN /TAZOBACTAM 4.5 G in IV D5W 50 ML IV SCH (06:00)
[2018-06-21] MEDS: IV NS 0.9% 1,000 ML IV PRN ×2 (06:20→22:59)
--- NOTE | 2018-06-21 06:57 | NUR ---
ANETTE/MEASUREMENT PSYCHOLOGIST NOTES: RECEIVED PT. VIA DYLON W/ DAUGHTER CLAUDIA BY SIDE. PT. IS NONVERBAL, DOES NOT TRACK, RESPONSIVE TO TACTILE STIMULI. W/ O2 @ 3LPM VIA N/C SAT. 97%. ON TELE MONITOR W/ SR @ 95. PER DAUGHTER REQUEST WANTS AN LOW AIR MATTRESS NOT ISOFLEX. EDUCATED DAUGHTER BUT STILL INSISTED THAT SHE WANTS LOW AIR MATTRESS BUT NOT ISOFLEX. HAS A PICC LINE ON HEAVEN W/ DRESSING C/D/I ABLE TO FLUSH BOTH PORTS BUT NO BLOOD RETURN. PER DAUGHTER PT. GETS FREQUENT BLOOD TRANSFUSION SECONDARY TO ANEMIA. W/ CONDOM CATH IN PLACE BY DAUGHTER ON 06/20/18 @ 9 AM. HAS A GTF OF GLUCERNA 1.2 @ 40 ML/HR. GTF FLUSHED AND CHECKED FOR PLACEMENT. NO RESIDUAL NOTED. WOUND PICTURES DONE. LACTIC ACID REDRAW IS 2.0 WAS 2.1. TRENDING DOWN. HAS IVF OF NS @ 75 CC/HR. WILL CONTINUE TO MONITOR.
--- NOTE | 2018-06-21 07:12 | NUR ---
RN INITIAL NOTES: Rec'd pt on bed, not in any distress, obtunded, opens eyes spontaneously, non verbal. On NC/3lpm, no SOB. On telemonitor, SR. Has HEAVEN PICC line, C/D/I, no s/sx of infection/infiltration, NS x 75 cc/hr infusing well. Has condom cath w/ yellowish urine. Has PEG on cont GTF Glucerna x 40 cc/hr infusing well, no residual noted upon checking. Provided comfort & safety measures. Bed kept low & in locked pos. Call light placed w/in reach. Will cont to monitor & attend pt needs.
[2018-06-21] MEDS ORDERED: PIPERACILLIN /TAZOBACTAM 2.25 G VIAL IV ONE (07:24)
[2018-06-21] MEDS ORDERED: BLOOD SUGAR DIAGNOSTIC 1 EACH STRIP IN SCH (07:30)
[2018-06-21] MEDS: PANTOPRAZOLE 40 MG VIAL IV SCH (07:34)
[2018-06-21] MEDS: GLUCERNA 1.2 1,000 ML BOTTLE GT PRN (07:34)
[2018-06-21] MEDS ORDERED: FEE PK DOSING 1 MIN EA MC ONE (07:40)
--- NOTE | 2018-06-21 07:49 | NUR ---
ANETTE/RN NOTES: REPORT GIVEN TO AM NURSE FOR F/U W/ AIR MATTRESS, WOUND CONSULT, HHN TX. PER DAUGHTERS REQUEST.
[2018-06-21 08:00] VITALS: BP 105/60
[2018-06-21] MEDS: METOPROLOL TARTRATE 25 MG TABLET GT SCH ×2 (09:00→17:13)
[2018-06-21] MEDS: LOSARTAN POTASSIUM 50 MG TABLET PO SCH (09:00)
[2018-06-21] MEDS: AMLODIPINE BESYLATE 5 MG TABLET GT SCH (09:00)
[2018-06-21] MEDS: DIAZEPAM 2 MG TABLET GT SCH ×2 (09:00→17:00)
[2018-06-21] MEDS: LACTOBACILLUS RHAMNOSUS GG 1 EACH CAP.SPRINK PO SCH ×2 (09:01→17:13)
[2018-06-21] MEDS: BACLOFEN (10 MG) 10 MG TABLET GT SCH ×2 (09:01→17:13)
[2018-06-21] MEDS: ENOXAPARIN SODIUM 40 MG/0.4 ML DISP.SYRIN SQ SCH (09:04)
[2018-06-21] MEDS: PIPERACILLIN /TAZOBACTAM 4.5 G in IV D5W 50 ML IV SCH ×3 (09:04→21:00)
--- NOTE | 2018-06-21 11:10 | NUR ---
CT scan of the abdomen & pelvis w/o contrast done.
[2018-06-21 12:00] VITALS: BP 119/45
[2018-06-21] MEDS: BLOOD SUGAR DIAGNOSTIC 1 EACH STRIP IN SCH ×3 (12:07→23:07)
--- NOTE | 2018-06-21 13:00 | NUR ---
Per Leia AGRAWAL, she informed Dr. Roland for wound consult. Per , to see pt denzel.
--- NOTE | 2018-06-21 14:44 | NUR ---
Pt seen & examined by Dr. Myrick.
--- NOTE | 2018-06-21 15:56 | NUR ---
Dr. Myrick made aware re: episode of desaturation 86%. Deep suctioning done. Placed on simple mask at 6lpm, sating at 99%. ABG ordered per RT aware. Addendum: 06/21/18 at 1620 by NILESH FERGUSON RN ABG reviewed by Dr. Myrick w/ orders to do frequent suctioning.
[2018-06-21] MEDS: VANCOMYCIN 1 GM in IV NS 0.9% 250 ML IV SCH (15:58)
[2018-06-21 16:00] VITALS: BP 131/67
[2018-06-21] MEDS: INSULIN REGULAR, HUMAN 100 UNIT/ML 3 ML VIAL SQ PRN (17:21)
--- NOTE | 2018-06-21 18:36 | NUR ---
RN CLOSING NOTES: Pt remains obtunded. Pt kept on NC/3lpm, sating 100%. Frequent suctioning done. On telemonitor, still SR. HEAVEN PICC line, kept C/D/I, no s/sx of infection/infiltration, NS x 75 cc/hr infusing well. Pt still has condom cath w/ yellowish urine. Tolerated cont GTF via PEG Glucerna x 40 cc/hr infusing well, no residual noted w/in shift. Wound care done. Pt turned & repositioned q2h. Kept well rested. Needs attended. Bed kept low & in locked pos. Call light placed w/in reach. Will endorse to PM RN for MARILYNN.
[2018-06-21 20:00] VITALS: BP 115/54
--- NOTE | 2018-06-21 20:00 | NUR ---
TD RN RCD PT W/ DX SEPSIS; PT IS OBTUNDED. NSR ON MONITOR. CONDOM CATH IN PLACE WITH EXCORIATION NOTED TO PERINEUM; DECUB ON SACRUM WITH DRESSING IN PLACE. GTUBE WITH GLUCERNA @ 40 ML/HR NO RESIDUAL NOTED.
[2018-06-21] MEDS: INSULIN GLARGINE, 100 UNIT/ML CARTRIDGE SQ SCH (22:00)
[2018-06-22] VITALS: BP 141/50
[2018-06-22] MEDS: VANCOMYCIN 1 GM in IV NS 0.9% 250 ML IV SCH (02:00)
[2018-06-22] MEDS: PIPERACILLIN /TAZOBACTAM 4.5 G in IV D5W 50 ML IV SCH ×4 (03:10→21:08)
[2018-06-22 04:00] VITALS: BP 124/59
[2018-06-22] MEDS: PANTOPRAZOLE 40 MG VIAL IV SCH (04:41)
[2018-06-22] MEDS: AZITHROMYCIN 500 MG in IV D5W 250 ML IV SCH (05:00)
[2018-06-22] MEDS: BLOOD SUGAR DIAGNOSTIC 1 EACH STRIP IN SCH ×5 (06:02→23:28)
[2018-06-22] MEDS: INSULIN REGULAR, HUMAN 100 UNIT/ML 3 ML VIAL SQ PRN ×3 (06:04→23:29)
[2018-06-22 06:23] LABS: BASOPHILS % (AUTO) 0.4 % (0.0-2.0); EOSINOPHILS % (AUTO) 6.7 % (0.0-6.0); HEMATOCRIT 32 % (39-51); LYMPHOCYTES # (AUTO) 0.4 /CMM (0.8-4.8); LYMPHOCYTES % (AUTO) 3.3 % (20.0-44.0); MEAN CORPUSCULAR HEMOGLOBIN 26 PG (26.0-33.0); MEAN CORPUSCULAR HGB CONC 32 g/dl (31.0-36.0); MEAN CORPUSCULAR VOLUME 84 fL (80-96); MONOCYTES # (AUTO) 0.8 /CMM (0.1-1.30); MONOCYTES % (AUTO) 6.8 % (2.0-12.0); NEUTROPHILS # (AUTO) 9.5 /CMM (1.8-8.9); NEUTROPHILS % (AUTO) 82.8 % (43.0-81.0); PLATELET COUNT (AUTO) 323 /CMM (150-450); RDW COEFFICIENT OF VARIATION 18.9 (11.5-15.0); RED BLOOD CELL COUNT(AUTO) 3.77 MIL/uL (4.5-6.0); WHITE BLOOD COUNT (AUTO) 11.4 K/uL (4.3-11.0)
[2018-06-22 06:45] LABS: CALCIUM, SERUM 8.6 mg/dL (8.5-10.1); CARBON DIOXIDE 26 mmol/L (21-32); CHLORIDE 103 mmol/L (98-107); CREATININE 0.4 mg/dL (0.6-1.3); GLUCOSE 133 mg/dL (74-106); MAGNESIUM 2.1 mg/dL (1.8-2.4); PHOSPHORUS 2.6 mg/dL (2.5-4.9); POTASSIUM 4.2 mmol/L (3.5-5.1); SODIUM SERUM 134 mmol/L (136-145); UREA NITROGEN, BLOOD 12 mg/dL (7-18)
[2018-06-22 06:48] LABS: CHOLESTEROL 138 mg/dL (<200); HDL CHOLESTEROL 47 mg/dL (40-60); LDL 81 mg/dL (0-99); THYROID STIMULATING HORMONE 2.322 uIU/mL (0.358-3.74); TRIGLYCERIDES 87 mg/dL (30-150)
[2018-06-22 08:00] VITALS: BP 107/59
--- NOTE | 2018-06-22 08:27 | NUR ---
RN T/D NURSE RECEIVED PATIENT IN BED, WITH SPONTANEOUS EYE OPENING, BREATHING EVEN AND UNLABORED, ON NASAL CANNULA WITH 4L/ MIN, NO SHORTNESS OF BREATH NOTED AT THIS TIME, AFEBRILE AT 98, NORMAL SINUS ON TELE, HEART RATE AT 74, SKIN WARM TO TOUCH, WITH ONGOING NORMAL SALINE RUNNING AT 75CC/HR OVER THE R UPPER ARM PICC LINE, WITH GT FEEDING OF GLUCERNA AT 40 CC/HR,NO GASTRIC RESIDUAL ON CHECK, GT PATENT UPON FLUSHING, ANAND CATHETER IN PLACE AND DRAINING WELL TO CLOUDY YELLOW URINE, CALL LIGHT KEEP WITHIN EASY REACHED, BED LOCK AND PLACED ON LOWEST POSITION, WILL CONTINUE TO MONITOR Addendum: 06/22/18 at 1154 by KARINE SUTHERLAND RN RONNA Feliz/Abdi NURSE PATIENT ON CONDOM CATHETER: IN PLACE AND INTACT, DRAINING WELL VIA GRAVITY
[2018-06-22] MEDS: LOSARTAN POTASSIUM 50 MG TABLET PO SCH (09:00)
[2018-06-22] MEDS: AMLODIPINE BESYLATE 5 MG TABLET GT SCH (09:00)
[2018-06-22] MEDS: ENOXAPARIN SODIUM 40 MG/0.4 ML DISP.SYRIN SQ SCH (09:14)
[2018-06-22] MEDS: LACTOBACILLUS RHAMNOSUS GG 1 EACH CAP.SPRINK PO SCH ×2 (09:16→17:14)
[2018-06-22] MEDS: DIAZEPAM 2 MG TABLET GT SCH ×2 (09:17→17:14)
[2018-06-22] MEDS: BACLOFEN (10 MG) 10 MG TABLET GT SCH ×2 (09:17→17:14)
[2018-06-22] MEDS: METOPROLOL TARTRATE 25 MG TABLET GT SCH ×2 (09:21→17:15)
--- NOTE | 2018-06-22 09:35 | NUR ---
T/D NURSE NOTES SEEN AND EXAMINED BY DR. SERA MD UPDATED ON THE PATIENT'S CONDITION. NO NEW ORDER AT THIS TIME
[2018-06-22] MEDS: GLUCERNA 1.2 1,000 ML BOTTLE GT PRN (09:43)
--- NOTE | 2018-06-22 11:58 | NUR ---
T/D NURSE NOTES UPDATED NGHIA DUNN ABOUT PATIENT'S CONDITION. SPECIALLY MENTIONED ABOUT PATIENT ONGOING FLUID OF 75 CC/HR CHEST XRAY SHOWS PULMONARY EDEMA. PER PARK SERVICES SPECIALIST, PATIENT SEPTIC AND NEEDS THE FLUIDS AT THIS TIME.
[2018-06-22 12:00] VITALS: BP 118/53
--- NOTE | 2018-06-22 14:00 | NUR ---
T/D NURSE NOTES WOUND DEBRIDEMENT DONE BY DR. RAMIREZ. PATIENT ABLE TO TOLERATE THE PROCEDURE WELL. WILL CONTINUE TO MONITOR THE PATIENT
[2018-06-22 16:00] VITALS: BP 128/65
[2018-06-22] MEDS: IV NS 0.9% 1,000 ML IV PRN (17:14)
[2018-06-22] MEDS: VANCOMYCIN 0.75 GM in IV D5W 250 ML IV SCH ×2 (17:32→17:33)
[2018-06-22 20:00] VITALS: BP 141/66
--- NOTE | 2018-06-22 20:00 | NUR ---
T/D NURSE NOTES PATIENT ENDORSED TO NIGHT NURSE FOR CONTINUITY OF CARE. NO ACUTE CHANGES WITHIN THE SHIFT. CALL LIGHT WITHIN REACH, SAFETY MAINTAINED
--- NOTE | 2018-06-22 20:02 | NUR ---
ANETTE RN OPENING NOTES RECEIVED REPORT FROM KARINE RN. PATIENT A/A/O X1, NON-VERBAL & UNABLE TO MAKE NEEDS KNOWN. BREATHING EVEN & UNLABORED, TOLERATING O2 @ 4LPM. NO S/S OF SOB OR DIFFICULTY BREATHING. ON TELE W/ SINUS RHYTHM, HR 65. RIGHT UPPER ARM PICC LINE INTACT & PATENT W/ DRESSING CDI & IVF NS INFUSING WELL @75 ML/HR. G-TUBE FLUSHING WELL & TOLERATING GTF GLUCERNA @ 40 ML/HR. NO RESIDUAL NOTED @ THIS TIME. CONDOM CATH IN PLACE & DRAINING CLEAR, YELLOW URINE. NO S/S OF PAIN OR DISCOMFORT @ THIS TIME. SAFETY MEASURES IN PLACE W/ BED ALARM ON. FAMILY @ BEDSIDE. WILL CONTINUE TO MONITOR CLOSELY.
[2018-06-22] MEDS: HYDROCODONE/APAP 5/325MG 1 EACH TABLET PO PRN (21:08)
[2018-06-22] MEDS: INSULIN GLARGINE, 100 UNIT/ML CARTRIDGE SQ SCH (21:14)
[2018-06-22] MEDS: DAKINS QUARTER STRENGTH (0.125%) 480 ML BOTTLE TOP SCH (21:15)
[2018-06-23] VITALS (7 sets, daily range): BP systolic 123–150; BP diastolic 55–74
[2018-06-23] MEDS: PIPERACILLIN /TAZOBACTAM 4.5 G in IV D5W 50 ML IV SCH ×4 (02:34→20:18)
[2018-06-23] MEDS: PANTOPRAZOLE 40 MG VIAL IV SCH (04:40)
[2018-06-23] MEDS: AZITHROMYCIN 500 MG in IV D5W 250 ML IV SCH (04:40)
[2018-06-23] MEDS: BLOOD SUGAR DIAGNOSTIC 1 EACH STRIP IN SCH ×3 (06:13→18:09)
[2018-06-23] MEDS: INSULIN REGULAR, HUMAN 100 UNIT/ML 3 ML VIAL SQ PRN ×2 (06:14→11:46)
[2018-06-23 06:37] LABS: BASOPHILS % (AUTO) 0.4 % (0.0-2.0); EOSINOPHILS % (AUTO) 17.1 % (0.0-6.0); HEMATOCRIT 33 % (39-51); HEMOGLOBIN 10.3 g/dL (13.5-17.5); LYMPHOCYTES # (AUTO) 0.3 /CMM (0.8-4.8); LYMPHOCYTES % (AUTO) 4.7 % (20.0-44.0); MEAN CORPUSCULAR HEMOGLOBIN 26 PG (26.0-33.0); MEAN CORPUSCULAR HGB CONC 32 g/dl (31.0-36.0); MEAN CORPUSCULAR VOLUME 84 fL (80-96); MONOCYTES # (AUTO) 0.5 /CMM (0.1-1.30); MONOCYTES % (AUTO) 8.4 % (2.0-12.0); NEUTROPHILS # (AUTO) 4.3 /CMM (1.8-8.9); NEUTROPHILS % (AUTO) 69.4 % (43.0-81.0); PLATELET COUNT (AUTO) 311 /CMM (150-450); RDW COEFFICIENT OF VARIATION 19.1 (11.5-15.0); RED BLOOD CELL COUNT(AUTO) 3.91 MIL/uL (4.5-6.0); WHITE BLOOD COUNT (AUTO) 6.1 K/uL (4.3-11.0)
[2018-06-23 06:47] LABS: CARBON DIOXIDE 26 mmol/L (21-32); CHLORIDE 101 mmol/L (98-107); CREATININE 0.5 mg/dL (0.6-1.3); GLUCOSE 192 mg/dL (74-106); MAGNESIUM 1.9 mg/dL (1.8-2.4); PHOSPHORUS 2.6 mg/dL (2.5-4.9); SODIUM SERUM 133 mmol/L (136-145); UREA NITROGEN, BLOOD 10 mg/dL (7-18)
--- NOTE | 2018-06-23 07:00 | NUR ---
RN NOTES RECEIVED PT ON BED, ALERT/ NON VERBAL , UNABLE TO MAKE NEEDS KNOWN. RESPIRATION EVEN AND ULBORED, ON 4L O2 N/C , NO SOB NOTED, ON TELE SR HR IN 70'S , RIGHT UPPER ARM PICC LINE SITE CLEAN , DRY AND INTACT, WITH NS AT 75CC/HR RUNNING , TF GLUCERNA AT 40CC /HR RUNNING VIA GT , TOLERATING WELL , NO RESIDUAL NOTED, CONDOM CATH IN PLACE & DRAINING CLEAR, YELLOW URINE. SR UP x3, CALL LIGHT WITHIN EASY REACH, BED LOCKED AND IN LOWEST POSITION , WILL CONTINUE TO MONITOR CLOSELY.
--- NOTE | 2018-06-23 08:08 | NUR ---
WOUND CARE CONSULT WOUND CARE RECEIVED CONSULT FOR SACRAL WOUND. WOUND CRE WILL DEFER CONSULT AND ALL TREATMENT PLANS TO SURGICAL TEAM WHO ARE CURRENTLY FOLLOWING. PATIENT WITH ABDIAZIZ AT 11. ALL PRESSURE ULCER PREVENTION MEASURES ARE NOTED TO BE IN PLACE. WILL SEE PRN.
[2018-06-23] MEDS: BACLOFEN (10 MG) 10 MG TABLET GT SCH ×2 (08:37→16:08)
[2018-06-23] MEDS: LOSARTAN POTASSIUM 50 MG TABLET PO SCH (08:38)
[2018-06-23] MEDS: LACTOBACILLUS RHAMNOSUS GG 1 EACH CAP.SPRINK PO SCH ×2 (08:38→16:07)
[2018-06-23] MEDS: METOPROLOL TARTRATE 25 MG TABLET GT SCH ×2 (08:38→16:09)
[2018-06-23] MEDS: DIAZEPAM 2 MG TABLET GT SCH ×2 (08:38→16:07)
[2018-06-23] MEDS: ENOXAPARIN SODIUM 40 MG/0.4 ML DISP.SYRIN SQ SCH (08:42)
[2018-06-23] MEDS: DAKINS QUARTER STRENGTH (0.125%) 480 ML BOTTLE TOP SCH ×2 (08:43→21:06)
[2018-06-23] MEDS: AMLODIPINE BESYLATE 5 MG TABLET GT SCH (08:46)
[2018-06-23] MEDS: GLUCERNA 1.2 1,000 ML BOTTLE GT PRN (08:48)
[2018-06-23] MEDS: IV NS 0.9% 1,000 ML IV PRN (12:00)
[2018-06-23] MEDS: VANCOMYCIN 0.75 GM in IV D5W 250 ML IV SCH (12:17)
--- NOTE | 2018-06-23 18:38 | NUR ---
RN NOTES BM x1, AT THIS TIME, TOLERATING TF WELL, CONTINUE TO MONITOR.
--- NOTE | 2018-06-23 18:39 | NUR ---
RN NOTES NS AT 75CC/HR RUNNING VIA R UPPER ARM PICC LINE, SR UP x3, CALL LIGHT WITHIN EASY REACH, WILL ENDOSE TO JELLY SHIFT NURSE FOR CONTINUITY OF CARE
[2018-06-23] MEDS: HYDROCODONE/APAP 5/325MG 1 EACH TABLET PO PRN (20:18)
[2018-06-23] MEDS: INSULIN GLARGINE, 100 UNIT/ML CARTRIDGE SQ SCH (22:34)
[2018-06-24] VITALS: BP_SYST 140; BP_SYST 150; BP_DIAS 72; BP_DIAS 75
[2018-06-24] MEDS: BLOOD SUGAR DIAGNOSTIC 1 EACH STRIP IN SCH ×4 (00:25→17:09)
[2018-06-24] MEDS: INSULIN REGULAR, HUMAN 100 UNIT/ML 3 ML VIAL SQ PRN ×2 (00:27→05:35)
[2018-06-24] MEDS: VANCOMYCIN 0.75 GM in IV D5W 250 ML IV SCH ×2 (00:28→12:44)
[2018-06-24] MEDS: PIPERACILLIN /TAZOBACTAM 4.5 G in IV D5W 50 ML IV SCH ×4 (03:56→20:36)
[2018-06-24] MEDS: PANTOPRAZOLE 40 MG VIAL IV SCH (03:58)
[2018-06-24 04:00] VITALS: BP 154/75
[2018-06-24] MEDS: AZITHROMYCIN 500 MG in IV D5W 250 ML IV SCH (04:56)
[2018-06-24] MEDS: IV NS 0.9% 1,000 ML IV PRN (05:27)
[2018-06-24 06:10] LABS: BASOPHILS % (AUTO) 0.4 % (0.0-2.0); EOSINOPHILS % (AUTO) 13.6 % (0.0-6.0); HEMATOCRIT 34 % (39-51); LYMPHOCYTES # (AUTO) 0.5 /CMM (0.8-4.8); MEAN CORPUSCULAR HEMOGLOBIN 25 PG (26.0-33.0); MEAN CORPUSCULAR HGB CONC 30 g/dl (31.0-36.0); MEAN CORPUSCULAR VOLUME 84 fL (80-96); MONOCYTES # (AUTO) 0.8 /CMM (0.1-1.30); MONOCYTES % (AUTO) 8.7 % (2.0-12.0); NEUTROPHILS # (AUTO) 6.2 /CMM (1.8-8.9); NEUTROPHILS % (AUTO) 71.3 % (43.0-81.0); PLATELET COUNT (AUTO) 318 /CMM (150-450); RED BLOOD CELL COUNT(AUTO) 4.03 MIL/uL (4.5-6.0); WHITE BLOOD COUNT (AUTO) 8.7 K/uL (4.3-11.0)
--- NOTE | 2018-06-24 07:05 | NUR ---
RN NOTE PATIENT RESTED WELL AT NIGHT, NO S/S OF DISTRESS NOTED, SR ON THE MONITOR, NO PAIN OR DISCOMFORT NOTED, ALL SAFETY MEASURES TAKEN, WILL ENDORSE TO AM SHIFT TO CONTINUE CARE
[2018-06-24 07:07] LABS: CALCIUM, SERUM 8.8 mg/dL (8.5-10.1); CARBON DIOXIDE 24 mmol/L (21-32); CHLORIDE 102 mmol/L (98-107); CREATININE 0.4 mg/dL (0.6-1.3); GLUCOSE 116 mg/dL (74-106); POTASSIUM 4.3 mmol/L (3.5-5.1); SODIUM SERUM 134 mmol/L (136-145); UREA NITROGEN, BLOOD 10 mg/dL (7-18)
--- NOTE | 2018-06-24 07:25 | NUR ---
GLOBAL IMPLEMENTATION MANAGER OPENING NOTE RECEIVED PATIENT THIS MORNING RESTING IN BED, NONVERBAL. SINUS RHYTHM ON ELECTRIC SPOT WELDER. OXYGEN ON VIA NASAL CANNULA AT 3LPM, NO SIGNS OR SYMPTOMS OF PAIN OR RESPIRATORY DISTRESS. GLUCERNA INFUSING AT 40ML/HR, RIGHT UPPER ARM PICC LINE INTACT AND INFUSING NORMAL SALINE AT 75ML/HR. HEAD OF BED ELEVATED, BED LOW AND LOCKED, CALL LIGHT WITHIN REACH, WILL CONTINUE TO MONITOR.
[2018-06-24 08:00] VITALS: BP 150/71
[2018-06-24] MEDS: BACLOFEN (10 MG) 10 MG TABLET GT SCH ×2 (08:47→17:06)
[2018-06-24] MEDS: DIAZEPAM 2 MG TABLET GT SCH ×2 (08:47→17:06)
[2018-06-24] MEDS: LOSARTAN POTASSIUM 50 MG TABLET PO SCH (08:47)
[2018-06-24] MEDS: AMLODIPINE BESYLATE 5 MG TABLET GT SCH (08:51)
[2018-06-24] MEDS: METOPROLOL TARTRATE 25 MG TABLET GT SCH ×2 (08:52→17:06)
[2018-06-24] MEDS: LACTOBACILLUS RHAMNOSUS GG 1 EACH CAP.SPRINK PO SCH ×2 (08:54→17:06)
[2018-06-24] MEDS: ENOXAPARIN SODIUM 40 MG/0.4 ML DISP.SYRIN SQ SCH (08:54)
[2018-06-24] MEDS: DAKINS QUARTER STRENGTH (0.125%) 480 ML BOTTLE TOP SCH ×2 (08:55→21:00)
[2018-06-24] MEDS: GLUCERNA 1.2 1,000 ML BOTTLE GT PRN (11:33)
[2018-06-24 16:00] VITALS: BP 124/64
--- NOTE | 2018-06-24 18:28 | NUR ---
ORACLE DRM CONSULTANT CLOSING NOTE PATIENT RESTING IN BED AWAKE, NO SIGNS OF RESPIRATORY DISTRESS OR DISCOMFORT. ON OXYGEN VIA NASAL CANNULA AT 3LPM. CLEANED, TURNED AND REPOSITIONED FOR COMFORT. RIGHT UPPER ARM PICC LINE INTACT AND INFUSING NORMAL SALINE AT 75ML/HR. TUBE FEEDING INFUSING AT 40ML/HR. CONDOM CATHETER DRAINING TO GRAVITY. WOUND CARE DONE. HEAD OF BED ELEVATED, BED LOW AND LOCKED. WILL ENDORSE TO ONCOMING NURSE FOR CONTINUITY OF CARE.
--- NOTE | 2018-06-24 19:30 | NUR ---
RN/MS NOTES: RECEIVED PT. IN BED W/ HOB ELEVATED. NON VERBAL HAS EYES OPEN. DOES NOT TRACK. W/ O2 @ 2LPM VIA N/C SAT. 97%.NO FACIAL GRIMACES OR MOANING NOTED. HAS HEAVEN PICC LINE W/ DRESSING C/D/I W/ NO S/S OF INFECTION/INFILTRATION NOTED. W/ NS @ 75 CC/ HR. W/ GTF OF GLUCERNA 1.2 @ 40 CC/ HR TOLERATING WELL W/ NO RESIDUAL NOTED. W/ CONDOM CATH INPLACE DRAINING CLEAR YELLOW URINE. INCONTINENT CARE RENDERED. ASPIRATION PRECAUTION MAINTAINED. TREATMENT DONE. DAUGHTER VISITED PT. CALL LIGHT W/ REACH. ALL NEEDS MEET AND ATTENDED.
[2018-06-24 20:00] VITALS: BP 128/74
[2018-06-24] MEDS: INSULIN GLARGINE, 100 UNIT/ML CARTRIDGE SQ SCH (21:05)
[2018-06-25] VITALS: BP 140/72
[2018-06-25] MEDS: VANCOMYCIN 0.75 GM in IV D5W 250 ML IV SCH ×2 (00:09→12:00)
[2018-06-25] MEDS: IV NS 0.9% 1,000 ML IV PRN ×2 (00:12→17:15)
[2018-06-25] MEDS: BLOOD SUGAR DIAGNOSTIC 1 EACH STRIP IN SCH ×4 (00:18→17:15)
[2018-06-25] MEDS: PIPERACILLIN /TAZOBACTAM 4.5 G in IV D5W 50 ML IV SCH ×3 (03:07→14:11)
[2018-06-25 04:00] VITALS: BP 155/77
[2018-06-25 05:04] VITALS: BP 155/77
[2018-06-25] MEDS: PANTOPRAZOLE 40 MG VIAL IV SCH (05:39)
[2018-06-25] MEDS: AZITHROMYCIN 250 MG TABLET GT SCH (05:39)
[2018-06-25 06:26] LABS: BASOPHILS % (AUTO) 0.5 % (0.0-2.0); EOSINOPHILS % (AUTO) 16.9 % (0.0-6.0); HEMATOCRIT 31 % (39-51); HEMOGLOBIN 9.8 g/dL (13.5-17.5); LYMPHOCYTES # (AUTO) 0.4 /CMM (0.8-4.8); LYMPHOCYTES % (AUTO) 7.1 % (20.0-44.0); MEAN CORPUSCULAR HEMOGLOBIN 26 PG (26.0-33.0); MEAN CORPUSCULAR HGB CONC 32 g/dl (31.0-36.0); MEAN CORPUSCULAR VOLUME 83 fL (80-96); MONOCYTES # (AUTO) 0.8 /CMM (0.1-1.30); MONOCYTES % (AUTO) 15.5 % (2.0-12.0); NEUTROPHILS # (AUTO) 3.1 /CMM (1.8-8.9); PLATELET COUNT (AUTO) 320 /CMM (150-450); RDW COEFFICIENT OF VARIATION 18.7 (11.5-15.0); RED BLOOD CELL COUNT(AUTO) 3.73 MIL/uL (4.5-6.0); WHITE BLOOD COUNT (AUTO) 5.2 K/uL (4.3-11.0)
[2018-06-25 06:53] LABS: ALANINE AMINOTRANSFERASE 18 U/L (12-78); ALKALINE PHOSPHATASE 74 U/L (46-116); ASPARTATE AMINOTRANSFERASE 21 U/L (15-37); BILIRUBIN,TOTAL 0.4 mg/dL (0.2-1.0); CALCIUM, SERUM 8.7 mg/dL (8.5-10.1); CARBON DIOXIDE 26 mmol/L (21-32); CHLORIDE 102 mmol/L (98-107); CREATININE 0.4 mg/dL (0.6-1.3); GLUCOSE 90 mg/dL (74-106); SODIUM SERUM 136 mmol/L (136-145); TOTAL PROTEIN, SERUM 7.1 g/dL (6.4-8.2); UREA NITROGEN, BLOOD 8 mg/dL (7-18)
--- NOTE | 2018-06-25 07:10 | NUR ---
MS/RN INITIAL NOTES RECEIVED PT IN BED, NON VERBAL, OPENS EYES, NO TRACKING NOTED. NO SIGNS OF PAIN NOTED. HOB ELEVATED. ON 3LPM O2 VIA NC, TOLERATING WELL, NO SOB NOTED. WITH INTACT CONDOM CATH CONNECTED TO URINE BAG. WITH ONGOING IVF NS AT 75 ML/HR INFUSING WELL AT HEAVEN PICC LINE. PICC LINE INTACT AND PATENT, NO SIGNS OF INFECTION NOTED. WITH ONGOING GTF GLUCERNA AT 40 ML/HR, TOLERATING WELL, NO RESIDUE NOTED. SAFETY MEASURES AND ASPIRATION PRECAUTION IN PLACED. WILL CONT TO MONITOR
--- NOTE | 2018-06-25 07:35 | NUR ---
RN/MS NOTES: REPORT GIVEN TO NEXT SHIFT NURSE FOR MARILYNN.
[2018-06-25 08:00] VITALS: BP 139/76
[2018-06-25 08:21] LABS: EOSINOPHILS % (MANUAL) 14 % (0-4); LYMPHOCYTES % (MANUAL) 8 % (16-48); MONOCYTES % (MANUAL) 17 % (0-11.0); NEUTROPHILS % (MANUAL) 61 (42-76)
[2018-06-25] MEDS: DIAZEPAM 2 MG TABLET GT SCH ×2 (08:36→17:11)
[2018-06-25] MEDS: BACLOFEN (10 MG) 10 MG TABLET GT SCH ×2 (08:37→17:12)
[2018-06-25] MEDS: LOSARTAN POTASSIUM 50 MG TABLET PO SCH (08:37)
[2018-06-25] MEDS: LACTOBACILLUS RHAMNOSUS GG 1 EACH CAP.SPRINK PO SCH ×2 (08:37→17:12)
[2018-06-25] MEDS: METOPROLOL TARTRATE 25 MG TABLET GT SCH ×2 (08:38→17:12)
[2018-06-25] MEDS: AMLODIPINE BESYLATE 5 MG TABLET GT SCH (08:38)
[2018-06-25] MEDS: ENOXAPARIN SODIUM 40 MG/0.4 ML DISP.SYRIN SQ SCH (08:39)
[2018-06-25] MEDS: DAKINS QUARTER STRENGTH (0.125%) 480 ML BOTTLE TOP SCH ×2 (08:44→22:08)
--- NOTE | 2018-06-25 12:28 | NUR ---
RONNA NOTES HELD 1200 VANCO IV DOSE, VANCO TROUGH=22 Addendum: 06/25/18 at 1250 by YADIRA JUAN RN CALLED PHARMACY, SPOKE WITH BOBBY NOTIFIED RE: TROUGH LEVEL OF 22
[2018-06-25] MEDS: GLUCERNA 1.2 1,000 ML BOTTLE GT PRN (13:18)
[2018-06-25 16:00] VITALS: BP 128/79
--- NOTE | 2018-06-25 16:33 | NUR ---
HOLLY contacted Adult Protective Services and spoke to Olya to file a report due to "exposed wound to the bone" per Pool Nurse, Oumou mosley. Intake Id # for the report: [id number].
[2018-06-25] MEDS: CEFTAZIDIME 1 G in IV NS 0.9% 50 ML IV SCH (17:24)
--- NOTE | 2018-06-25 19:46 | NUR ---
MS/RN CLOSING NOTES PT IN STABLE CONDITION. NO ACUTE DISTRESS NOTED THROUGHOUT SHIFT. SAFETY MEASURES AND ASPIRATION PRECAUTION OBSERVED AT ALL TIMES. ALL NEEDS ANTICIPATED. ENDORSED TO PM SHIFT NURSE FOR MARILYNN
--- NOTE | 2018-06-25 19:58 | NUR ---
RN INITIAL MS NOTE RECEIVED PT IN BED JUST BEEN CLEANED, VS STABLE DAUGHTER AT BED SIDE UPSET FOUND PT WITH CONDOM CATH ACCIDENTALLY SLIDE OFF JUST HAD A BM, IMMEDIATELY INTERVENED CHANGED PT WOUND TX DONE CONDOM CATH REPLACED AND WELL SECURED, WILL CONT TO MONITOR PT, KEEP CLEAN AND DRY WELL REPOSITION Q2H, ALL NEEDS MET.
[2018-06-25] MEDS: INSULIN GLARGINE, 100 UNIT/ML CARTRIDGE SQ SCH (22:00)
--- NOTE | 2018-06-25 22:09 | NUR ---
BS 84 SERGEY REYES
[2018-06-26] VITALS: BP 140/72
[2018-06-26] MEDS: BLOOD SUGAR DIAGNOSTIC 1 EACH STRIP IN SCH ×5 (00:19→23:31)
[2018-06-26] MEDS: VANCOMYCIN 0.75 GM in IV D5W 250 ML IV SCH ×2 (00:34→23:31)
[2018-06-26] MEDS: CEFTAZIDIME 1 G in IV NS 0.9% 50 ML IV SCH ×3 (01:46→17:20)
[2018-06-26] MEDS: PANTOPRAZOLE 40 MG VIAL IV SCH (04:40)
[2018-06-26] MEDS: AZITHROMYCIN 250 MG TABLET GT SCH (05:08)
--- NOTE | 2018-06-26 06:24 | NUR ---
RN CLOSING NOTE PT ENDORSED IN STABLE CONDITION, KEPT CLEAN AND DRY, WELL REPOSITIONED Q2H, CONDOM CATH SECURE TO PREVENT PT FROM DAMPNESS THUS PROTECTING SKIN INTEGRITY. WILL ENDORSE TO AM RN TO CONT CARE AND FREQUENT CHECKS TO SEE IF PT IS WET.
[2018-06-26 06:58] LABS: BASOPHILS % (AUTO) 0.2 % (0.0-2.0); EOSINOPHILS % (AUTO) 11.5 % (0.0-6.0); HEMATOCRIT 29 % (39-51); HEMOGLOBIN 9.1 g/dL (13.5-17.5); LYMPHOCYTES # (AUTO) 0.3 /CMM (0.8-4.8); LYMPHOCYTES % (AUTO) 4.1 % (20.0-44.0); MEAN CORPUSCULAR HEMOGLOBIN 26 PG (26.0-33.0); MEAN CORPUSCULAR HGB CONC 32 g/dl (31.0-36.0); MEAN CORPUSCULAR VOLUME 82 fL (80-96); MONOCYTES # (AUTO) 0.9 /CMM (0.1-1.30); NEUTROPHILS # (AUTO) 4.6 /CMM (1.8-8.9); NEUTROPHILS % (AUTO) 70.2 % (43.0-81.0); PLATELET COUNT (AUTO) 347 /CMM (150-450); RDW COEFFICIENT OF VARIATION 18.8 (11.5-15.0); RED BLOOD CELL COUNT(AUTO) 3.47 MIL/uL (4.5-6.0); WHITE BLOOD COUNT (AUTO) 6.6 K/uL (4.3-11.0)
[2018-06-26 07:08] LABS: CALCIUM, SERUM 8.7 mg/dL (8.5-10.1); CARBON DIOXIDE 27 mmol/L (21-32); CHLORIDE 102 mmol/L (98-107); CREATININE 0.4 mg/dL (0.6-1.3); GLUCOSE 97 mg/dL (74-106); POTASSIUM 3.4 mmol/L (3.5-5.1); SODIUM SERUM 136 mmol/L (136-145); UREA NITROGEN, BLOOD 7 mg/dL (7-18)
--- NOTE | 2018-06-26 07:10 | NUR ---
MS/RN INITIAL NOTES RECEIVED PT IN BED, NON VERBAL, OPENS EYES. NO SIGNS OF PAIN NOTED. ON 3L O2 VIA NC, TOLERATING WELL, NO SOB NOTED. HOB ELEVATED. WITH ONGOING GTF GLUCERNA AT 40 ML/HR, TOLERATING WELL, NO RESIDUE NOTED. WITH ONGOING IVF NS @75ML/HR INFUSING WELL ON HEAVEN PICC LINE. NO SIGNS OF INFECTION NOTED. CONDOM CATH INTACT CONNECTED TO URINE BAG. SAFETY MEASURES IN PLACED. WILL CONT TO MONITOR
[2018-06-26 08:00] VITALS: BP 125/61
[2018-06-26] MEDS: LACTOBACILLUS RHAMNOSUS GG 1 EACH CAP.SPRINK PO SCH ×2 (09:18→16:53)
[2018-06-26] MEDS: BACLOFEN (10 MG) 10 MG TABLET GT SCH ×2 (09:18→16:53)
[2018-06-26] MEDS: AMLODIPINE BESYLATE 5 MG TABLET GT SCH (09:18)
[2018-06-26] MEDS: METOPROLOL TARTRATE 25 MG TABLET GT SCH ×2 (09:19→16:54)
[2018-06-26] MEDS: DIAZEPAM 2 MG TABLET GT SCH ×2 (09:19→16:53)
[2018-06-26] MEDS: LOSARTAN POTASSIUM 50 MG TABLET PO SCH (09:19)
[2018-06-26] MEDS: ENOXAPARIN SODIUM 40 MG/0.4 ML DISP.SYRIN SQ SCH (09:21)
[2018-06-26] MEDS: DAKINS QUARTER STRENGTH (0.125%) 480 ML BOTTLE TOP SCH ×2 (09:26→21:18)
[2018-06-26] MEDS: IV NS 0.9% 1,000 ML IV PRN (09:45)
[2018-06-26] MEDS ORDERED: POTASSIUM CHLORIDE 20 MEQ POWDER PACKET GT SCH (10:00)
--- NOTE | 2018-06-26 10:02 | NUR ---
HOLLY received a call from APS worker Angela regarding what room number pt. is located in. HOLLY informed Angela pt. is in room 107.
[2018-06-26] MEDS: GLUCERNA 1.2 1,000 ML BOTTLE GT PRN (15:42)
[2018-06-26 16:00] VITALS: BP_SYST 152; BP_DIAS 77; BP_DIAS 79
--- NOTE | 2018-06-26 19:15 | NUR ---
RN OPENING NOTES PT RESTING IN BED. PT NONVERBAL. NO APPARENT S/S OF PAIN, DISTRESS OR SOB AT THIS TIME. PT IS ON 3L OF 02 VIA NASAL CANNULA. PT HAS CONDOM CATHETER INTACT AND DRAINING WELL. PT HAS TUBE FEEDING GLUCERNA RUNNING @40ML/HR, PT TOLERATING WELL. SAFETY PRECAUTIONS IN PLACE, BED IN LOWEST LOCKED POSITION, X3 SIDE RAILS UP, AND CALL LIGHT WITHIN REACH. WILL CONTINUE TO MONITOR.
--- NOTE | 2018-06-26 19:21 | NUR ---
RN NOTES PT IN STABLE CONDITION. NO ACUTE DISTRESS NOTED THROUGHOUT SHIFT. KEPT PT CLEAN AND DRY ALL THE TIME. CONDOM CATH INTACT AND IN PLACED. SAFETY MEASURES AND ASPIRATION PRECAUTION OBSERVED AT ALL TIMES. ALL NEEDS ANTICIPATED. ENDORSED TO PM SHIFT FOR MARILYNN
[2018-06-26 20:00] VITALS: BP 168/80
[2018-06-26] MEDS: INSULIN GLARGINE, 100 UNIT/ML CARTRIDGE SQ SCH (21:06)
[2018-06-26] MEDS: HYDROCODONE/APAP 5/325MG 1 EACH TABLET PO PRN (21:17)
--- NOTE | 2018-06-26 21:30 | NUR ---
RN NOTES BS 100 HELD SERGEY
[2018-06-26 22:30] VITALS: BP 144/64
[2018-06-27] VITALS: BP 160/83
[2018-06-27] MEDS: IV NS 0.9% 1,000 ML IV PRN ×2 (00:43→16:11)
[2018-06-27] MEDS: CEFTAZIDIME 1 G in IV NS 0.9% 50 ML IV SCH ×3 (01:10→17:42)
[2018-06-27] MEDS: HYDROCODONE/APAP 5/325MG 1 EACH TABLET PO PRN ×2 (04:27→20:28)
[2018-06-27] MEDS: AZITHROMYCIN 250 MG TABLET GT SCH (05:05)
[2018-06-27] MEDS: PANTOPRAZOLE 40 MG VIAL IV SCH (05:05)
[2018-06-27] MEDS: BLOOD SUGAR DIAGNOSTIC 1 EACH STRIP IN SCH ×4 (05:05→23:44)
[2018-06-27 05:30] VITALS: BP 152/85
--- NOTE | 2018-06-27 06:32 | NUR ---
RN CLOSING NOTES PT RESTING IN BED. PT NONVERBAL. ALL PT NEEDS MET OVERNIGHT. PT IS ON 3L OF 02 VIA NASAL CANNULA. PT HAS CONDOM CATHETER INTACT AND DRAINING WELL 2100 OUTPUT. PT HAS TUBE FEEDING GLUCERNA RUNNING @40ML/HR, PT TOLERATING WELL. SAFETY PRECAUTIONS IN PLACE, BED IN LOWEST LOCKED POSITION, X3 SIDE RAILS UP, AND CALL LIGHT WITHIN REACH. WILL ENDORSE TO DAY SHIFT NURSE FOR CONTINUITY OF CARE.
[2018-06-27 07:23] LABS: CALCIUM, SERUM 9.1 mg/dL (8.5-10.1); CARBON DIOXIDE 26 mmol/L (21-32); CHLORIDE 101 mmol/L (98-107); CREATININE 0.4 mg/dL (0.6-1.3); GLUCOSE 137 mg/dL (74-106); POTASSIUM 4.1 mmol/L (3.5-5.1); SODIUM SERUM 134 mmol/L (136-145); UREA NITROGEN, BLOOD 7 mg/dL (7-18)
--- NOTE | 2018-06-27 07:43 | NUR ---
RN NOTE: PATIENT RECEIVED NON VERBAL, RESPONSIVE TO VERBAL & TACTILE STIMULI. OPEN EYES. ON 3lpm O2 VIA NC, TOLERATING WELL. NO RESPIRATORY DISTRESS NOTED. IV PICC LINE INTACT, DRESSING DRY & INTACT, CONTINUE WITH IV FLUIDS ORDERED. CONTINUE WITH G-TUBE FEEDING, NO RESIDUAL NOTED. CONDOM CATH INTACT, DRAINING WELL WITH GRAVITY. WAITING FOR APS EVAL. SAFETY MEASURES OBSERVED. CONTINUE TO MONITOR.
[2018-06-27 08:00] VITALS: BP 146/72
[2018-06-27] MEDS: LACTOBACILLUS RHAMNOSUS GG 1 EACH CAP.SPRINK PO SCH ×2 (08:56→16:12)
[2018-06-27] MEDS: DIAZEPAM 2 MG TABLET GT SCH ×2 (08:56→16:12)
[2018-06-27] MEDS: BACLOFEN (10 MG) 10 MG TABLET GT SCH ×2 (08:56→16:12)
[2018-06-27] MEDS: LOSARTAN POTASSIUM 50 MG TABLET PO SCH (08:57)
[2018-06-27] MEDS: AMLODIPINE BESYLATE 5 MG TABLET GT SCH (08:57)
[2018-06-27] MEDS: METOPROLOL TARTRATE 25 MG TABLET GT SCH ×2 (08:58→16:12)
[2018-06-27] MEDS: ENOXAPARIN SODIUM 40 MG/0.4 ML DISP.SYRIN SQ SCH (08:59)
[2018-06-27] MEDS: DAKINS QUARTER STRENGTH (0.125%) 480 ML BOTTLE TOP SCH ×2 (09:00→20:29)
[2018-06-27] MEDS: INSULIN REGULAR, HUMAN 100 UNIT/ML 3 ML VIAL SQ PRN (12:26)
[2018-06-27 16:00] VITALS: BP 153/72
[2018-06-27] MEDS: GLUCERNA 1.2 1,000 ML BOTTLE GT PRN (16:11)
--- NOTE | 2018-06-27 19:10 | NUR ---
RN M/S NOTE PATIENT IS NONVERBAL, OPENS EYE, RESTING WITH HOB ELEVATED, ON 3L O2 VIA NC, NO S/SX OF CARDIAC OR RESPIRATORY DISTRESS, NO PAIN NOTED VIA FLACC, CONDOM CATH DRAINING TO GRAVITY, SKIN KEPT CLEAN AND DRY, GLUCERNA 1.2 AT 40 ML/HR, TOLERATING WELL, HEAVEN PICC LINE WITH NS AT 75 ML/HR, PATENT FLUSHING WELL, SITE CDI, PATENT FLUSHING WELL, SAFETY MAINTAINED AT ALL TIMES, WILL CONTINUE TO MONITOR FOR ANY CHANGES IN CONDITION, CALL LIGHT WITHIN REACH, BED IN LOW LOCKED POSITION.
[2018-06-27 20:00] VITALS: BP 118/79
[2018-06-27] MEDS: INSULIN GLARGINE, 100 UNIT/ML CARTRIDGE SQ SCH (21:29)
--- NOTE | 2018-06-27 22:07 | NUR ---
MS RN NOTE RECEIVED A REPORT FROM JOSHUA FRIEND FOR MARILYNN. WILL CONTINUE TO MONITOR THE PATIENT.
[2018-06-27] MEDS: VANCOMYCIN 0.75 GM in IV D5W 250 ML IV SCH (23:44)
[2018-06-28] MEDS: CEFTAZIDIME 1 G in IV NS 0.9% 50 ML IV SCH ×3 (02:13→17:12)
[2018-06-28 04:00] VITALS: BP 154/84
[2018-06-28] MEDS: PANTOPRAZOLE 40 MG VIAL IV SCH (04:05)
[2018-06-28 05:17] VITALS: BP 154/84
[2018-06-28] MEDS: BLOOD SUGAR DIAGNOSTIC 1 EACH STRIP IN SCH ×5 (05:30→23:54)
[2018-06-28] MEDS: IV NS 0.9% 1,000 ML IV PRN (05:30)
[2018-06-28] MEDS: INSULIN REGULAR, HUMAN 100 UNIT/ML 3 ML VIAL SQ PRN ×2 (05:39→12:41)
[2018-06-28 06:06] LABS: HEMATOCRIT 30 % (39-51); HEMOGLOBIN 9.5 g/dL (13.5-17.5); MEAN CORPUSCULAR HEMOGLOBIN 26 PG (26.0-33.0); MEAN CORPUSCULAR HGB CONC 32 g/dl (31.0-36.0); MEAN CORPUSCULAR VOLUME 82 fL (80-96); PLATELET COUNT (AUTO) 408 /CMM (150-450); RDW COEFFICIENT OF VARIATION 18.8 (11.5-15.0); RED BLOOD CELL COUNT(AUTO) 3.67 MIL/uL (4.5-6.0); WHITE BLOOD COUNT (AUTO) 10.2 K/uL (4.3-11.0)
[2018-06-28 06:22] LABS: CALCIUM, SERUM 9.1 mg/dL (8.5-10.1); CARBON DIOXIDE 26 mmol/L (21-32); CHLORIDE 101 mmol/L (98-107); CREATININE 0.4 mg/dL (0.6-1.3); GLUCOSE 140 mg/dL (74-106); MAGNESIUM 1.8 mg/dL (1.8-2.4); PHOSPHORUS 2.8 mg/dL (2.5-4.9); POTASSIUM 4.6 mmol/L (3.5-5.1); SODIUM SERUM 134 mmol/L (136-145); UREA NITROGEN, BLOOD 8 mg/dL (7-18)
--- NOTE | 2018-06-28 06:39 | NUR ---
MS RN NOTE PATIENT IS RESTING IN BED, NO ACUTE DISTRESS PRESENT THROUGHOUT THE SHIFT. ALL DUE MEDS GIVEN, MORNING CARE RENDERED, WOUND DRESSING CHANGED BY PREVIOUS RN. NO S/S OF RESPIRATORY DISTRESS AND NO FACIAL GRIMACE NOTED. WILL ENDORSE TO DAY SHIFT NURSE FOR MARILYNN.
[2018-06-28 06:58] LABS: LYMPHOCYTES % (MANUAL) 5 % (16-48); MONOCYTES % (MANUAL) 9 % (0-11.0); NEUTROPHILS % (MANUAL) 86 (42-76)
[2018-06-28 08:00] VITALS: BP 152/70
[2018-06-28] MEDS: DIAZEPAM 2 MG TABLET GT SCH ×2 (08:54→17:12)
[2018-06-28] MEDS: LACTOBACILLUS RHAMNOSUS GG 1 EACH CAP.SPRINK PO SCH ×2 (08:54→17:11)
[2018-06-28] MEDS: BACLOFEN (10 MG) 10 MG TABLET GT SCH ×2 (08:54→17:11)
[2018-06-28] MEDS: METOPROLOL TARTRATE 25 MG TABLET GT SCH ×2 (08:55→17:12)
[2018-06-28] MEDS: LOSARTAN POTASSIUM 50 MG TABLET PO SCH (08:55)
[2018-06-28] MEDS: AMLODIPINE BESYLATE 5 MG TABLET GT SCH (08:55)
[2018-06-28] MEDS: ENOXAPARIN SODIUM 40 MG/0.4 ML DISP.SYRIN SQ SCH (08:56)
[2018-06-28] MEDS: DAKINS QUARTER STRENGTH (0.125%) 480 ML BOTTLE TOP SCH ×2 (08:57→22:27)
[2018-06-28] MEDS: HYDROCODONE/APAP 5/325MG 1 EACH TABLET PO PRN ×2 (09:00→17:15)
[2018-06-28 16:00] VITALS: BP 150/77
[2018-06-28] MEDS: GLUCERNA 1.2 1,000 ML BOTTLE GT PRN (17:16)
[2018-06-28 20:00] VITALS: BP 133/60
--- NOTE | 2018-06-28 20:00 | NUR ---
RN M/S NOTE RECEIVED BEDSIDE REPORT. PATIENT IS NONVERBAL, OPENS EYE, RESTING WITH HOB ELEVATED, ON 3L O2 VIA NC, NO S/SX OF CARDIAC OR RESPIRATORY DISTRESS, NO PAIN NOTED VIA FLACC, CONDOM CATH DRAINING YELLOW URINE TO GRAVITY, GT FLASHED AND ASPIRATED. GLUCERNA 1.2 AT 40 ML/HR, TOLERATING WELL, HEAVEN PICC LINE IS PATIENT AND INTACT ,FLUSHING WELL, SITE CDI, SAFETY MAINTAINED AT ALL TIMES, WILL CONTINUE TO MONITOR FOR ANY CHANGES IN CONDITION, CALL LIGHT WITHIN REACH, BED IN LOW LOCKED POSITION.
[2018-06-28] MEDS: MEROPENEM 500 MG in IV NS 0.9% 50 ML IV SCH (22:26)
[2018-06-28] MEDS: INSULIN GLARGINE, 100 UNIT/ML CARTRIDGE SQ SCH (22:26)
[2018-06-28] MEDS: VANCOMYCIN 0.75 GM in IV D5W 250 ML IV SCH (23:55)
[2018-06-29] MEDS: CEFTAZIDIME 1 G in IV NS 0.9% 50 ML IV SCH ×2 (02:02→09:33)
[2018-06-29 04:00] VITALS: BP 159/92
[2018-06-29] MEDS: PANTOPRAZOLE 40 MG VIAL IV SCH (04:17)
[2018-06-29] MEDS: MORPHINE SULFATE INJ 4 MG/ML DISP.SYRIN IV PRN ×2 (04:18→23:35)
[2018-06-29] MEDS: MEROPENEM 500 MG in IV NS 0.9% 50 ML IV SCH ×3 (04:18→21:21)
[2018-06-29] MEDS: BLOOD SUGAR DIAGNOSTIC 1 EACH STRIP IN SCH ×4 (06:17→23:14)
[2018-06-29 06:47] LABS: CALCIUM, SERUM 8.5 mg/dL (8.5-10.1); CARBON DIOXIDE 28 mmol/L (21-32); CHLORIDE 99 mmol/L (98-107); CREATININE 0.5 mg/dL (0.6-1.3); GLUCOSE 120 mg/dL (74-106); SODIUM SERUM 134 mmol/L (136-145); UREA NITROGEN, BLOOD 9 mg/dL (7-18)
--- NOTE | 2018-06-29 07:15 | NUR ---
MS RN OPENING NOTE RECEIVED BEDSIDE REPORT. PATIENT IS NONVERBAL, OPENS EYE, RESTING WITH HOB ELEVATED, ON 3L O2 VIA NC, NO S/SX OF CARDIAC OR RESPIRATORY DISTRESS, NO PAIN NOTED VIA FLACC, CONDOM CATH DRAINING YELLOW URINE TO GRAVITY,ON GTF. GLUCERNA 1.2 AT 50 ML/HR, TOLERATING WELL, HEAVEN PICC LINE IS PATIENT AND INTACT ,FLUSHING WELL, SITE CDI, SAFETY MAINTAINED , WILL CONTINUE TO MONITOR FOR ANY CHANGES IN CONDITION, CALL LIGHT WITHIN REACH, BED IN LOW LOCKED POSITION.
[2018-06-29 08:00] VITALS: BP 153/78
--- NOTE | 2018-06-29 09:00 | NUR ---
MS RN NOTES SEEN BY .UPDATED ABOUT PATIENT CONDITION.NO NEW ORDER AT THIS TIME.WAITING FOR BAR AND FILLER ASSEMBLER.
[2018-06-29] MEDS: BACLOFEN (10 MG) 10 MG TABLET GT SCH ×2 (09:22→17:05)
[2018-06-29] MEDS: LACTOBACILLUS RHAMNOSUS GG 1 EACH CAP.SPRINK PO SCH ×2 (09:22→17:05)
[2018-06-29] MEDS: LOSARTAN POTASSIUM 50 MG TABLET PO SCH (09:23)
[2018-06-29] MEDS: DIAZEPAM 2 MG TABLET GT SCH ×2 (09:23→17:05)
[2018-06-29] MEDS: METOPROLOL TARTRATE 25 MG TABLET GT SCH ×2 (09:23→17:06)
[2018-06-29] MEDS: AMLODIPINE BESYLATE 5 MG TABLET GT SCH (09:23)
[2018-06-29] MEDS: DAKINS QUARTER STRENGTH (0.125%) 480 ML BOTTLE TOP SCH ×2 (09:24→21:21)
[2018-06-29] MEDS: ENOXAPARIN SODIUM 40 MG/0.4 ML DISP.SYRIN SQ SCH (09:32)
[2018-06-29] MEDS: INSULIN REGULAR, HUMAN 100 UNIT/ML 3 ML VIAL SQ PRN (13:41)
--- NOTE | 2018-06-29 14:41 | NUR ---
HOLLY contacted [facility] social services counselor Angela and informed her that pt. will be discharged home tomorrow.
[2018-06-29 16:00] VITALS: BP 148/72
--- NOTE | 2018-06-29 17:00 | NUR ---
MS RN NOTES NOTED WITH PATIENT PATIENT RING FINGER SWOLLEN AND RING STUCK ON IT,REMOVED IT AND CALLED DAUGHTER TO KNOW ABOUT IF SHE CAN PICK IT UP WHEN SHE COMES IN.SHE GOT UPSET ,SHE SAID IT SHOULD NOT BE REMOVED WITH OUT HER PERMISSION.ITS FOR GOOD LUCK.SHE DONT WANT TO REMOVE IT.SPOKE TO CHARGE NURSE ,TOLD WILL PUT IT BACK PER HER WISH.SHE TOLD SHE WANT TO CALL BY DOCTOR AND UPDATE HIS DAD CONDITION SHE DONT KNOW ANYTHING ABOUT IT. AWARE .SHE SAID SHE WILL CALL HER LATER.DIETARY ASSISTANT AWARE ,WAS AT PATIENT ROOM,EXPLAINED TO HER WHAT HAPPENED AND APOLOGIZE FOR WHAT I DID ,SHE WAS STILL UPSET.DIETARY ASSISTANT TALKED TO THE DOCTOR ,FAMILY RECEIVED CALL.SHE CLARIFIED ALL HER QUESTIONS.SHE SAID THAT HIS DAD HAND IS ALWAYS SAME .NON NEED TO REMOVE RING.
[2018-06-29] MEDS ORDERED: CEFTAZIDIME 1 G in IV D5W 50 ML IV SCH (18:00)
--- NOTE | 2018-06-29 19:10 | NUR ---
MS RN CLOSING NOTE PATIENT IS NONVERBAL, OPENS EYE, RESTING WITH HOB ELEVATED, ON 3L O2 VIA NC, NO S/SX OF CARDIAC OR RESPIRATORY DISTRESS, NO PAIN NOTED VIA FLACC, CONDOM CATH DRAINING YELLOW URINE TO GRAVITY,ON GTF. GLUCERNA 1.2 AT 65 ML/HR, TOLERATING WELL, HEAVEN PICC LINE IS PATIENT AND INTACT ,FLUSHING WELL, SITE CDI, SAFETY MAINTAINED , CALL LIGHT WITHIN REACH, BED IN LOW LOCKED POSITION.DIETARY RECOMMENDATION RELAYED TO .OK TO DO IT.PLACED NEW ORDERS.
[2018-06-29] MEDS ORDERED: GLUCERNA 1.2 1,000 ML BOTTLE GT PRN (19:30)
--- NOTE | 2018-06-29 19:48 | NUR ---
MS RN NOTES RECEIVED PT ON BED. A/OX1 OPEN EYES, NON VERBAL. ON NASAL CANNULA 3LPM SATURATING WELL. ON CONDOM CATH DRAINING WELL. ON GTUBE FEEDING GLUCERNA 1.2 @50CC/HR NO RESIDUAL AT THIS TIME. IV ACCESS ON HEAVEN PICC LINE PATENT AND INTACT. NO SIGN OF BLEEDING. HEAD OF BED ELEVATED. SIDE RAILS UP. CALL LIGHT WITHIN REACH. BED ALARM ON. WILL CONTINUE TO MONITOR PT CLOSELY.
[2018-06-29 20:00] VITALS: BP 155/78
[2018-06-29] MEDS: INSULIN GLARGINE, 100 UNIT/ML CARTRIDGE SQ SCH (21:25)
[2018-06-29] MEDS: VANCOMYCIN 0.75 GM in IV D5W 250 ML IV SCH (23:18)
--- NOTE | 2018-06-30 02:00 | NUR ---
MS RN NOTES PT KEPT DRY AND CLEAN. WOUND CARE DONE. PT REPOSITIONED Q2H. NO RESPIRATORY DISTRESS NOTED.
[2018-06-30 04:00] VITALS: BP 149/78
[2018-06-30] MEDS: PANTOPRAZOLE 40 MG VIAL IV SCH (05:07)
[2018-06-30] MEDS: MEROPENEM 500 MG in IV NS 0.9% 50 ML IV SCH ×3 (05:07→18:53)
[2018-06-30] MEDS: INSULIN REGULAR, HUMAN 100 UNIT/ML 3 ML VIAL SQ PRN ×2 (05:14→12:28)
[2018-06-30] MEDS: BLOOD SUGAR DIAGNOSTIC 1 EACH STRIP IN SCH ×3 (05:14→17:18)
[2018-06-30] MEDS: MORPHINE SULFATE INJ 4 MG/ML DISP.SYRIN IV PRN ×2 (06:16→14:55)
[2018-06-30 06:34] LABS: BASOPHILS # (AUTO) 0.1 /CMM (0.0-0.2); BASOPHILS % (AUTO) 0.6 % (0.0-2.0); EOSINOPHILS % (AUTO) 4.7 % (0.0-6.0); HEMATOCRIT 34 % (39-51); HEMOGLOBIN 10.8 g/dL (13.5-17.5); LYMPHOCYTES # (AUTO) 0.6 /CMM (0.8-4.8); LYMPHOCYTES % (AUTO) 5.8 % (20.0-44.0); MEAN CORPUSCULAR HEMOGLOBIN 26 PG (26.0-33.0); MEAN CORPUSCULAR HGB CONC 32 g/dl (31.0-36.0); MEAN CORPUSCULAR VOLUME 82 fL (80-96); MONOCYTES # (AUTO) 0.9 /CMM (0.1-1.30); MONOCYTES % (AUTO) 9.2 % (2.0-12.0); NEUTROPHILS # (AUTO) 7.8 /CMM (1.8-8.9); NEUTROPHILS % (AUTO) 79.7 % (43.0-81.0); PLATELET COUNT (AUTO) 454 /CMM (150-450); RDW COEFFICIENT OF VARIATION 19.5 (11.5-15.0); RED BLOOD CELL COUNT(AUTO) 4.21 MIL/uL (4.5-6.0); WHITE BLOOD COUNT (AUTO) 9.8 K/uL (4.3-11.0)
--- NOTE | 2018-06-30 06:56 | NUR ---
MS RN NOTES NO ACUTE CHANGES NOTED DURING THE SHIFT. WOUND CARE DONE. PROVIDED COMFORT AND SAFETY. DUE MEDS GIVEN. PATIENT REPOSITIONED Q2H. WILL ENDORSE TO THE AM NURSE FOR CONTINUITY OF CARE.
[2018-06-30 07:06] LABS: CALCIUM, SERUM 9.4 mg/dL (8.5-10.1); CARBON DIOXIDE 30 mmol/L (21-32); CHLORIDE 98 mmol/L (98-107); CREATININE 0.4 mg/dL (0.6-1.3); GLUCOSE 150 mg/dL (74-106); MAGNESIUM 1.8 mg/dL (1.8-2.4); PHOSPHORUS 2.6 mg/dL (2.5-4.9); SODIUM SERUM 133 mmol/L (136-145); UREA NITROGEN, BLOOD 10 mg/dL (7-18)
[2018-06-30 08:00] VITALS: BP 138/84
--- NOTE | 2018-06-30 08:06 | NUR ---
WOUND CARE CONSULT WOUND CARE RECEIVED CONSULT FOR RIGHT ARMPIT REDNESS. WOUND CARE WILL DEFER CONSULT AND TREATMENT PLAN TO SURGICAL TEAM THEY ARE CURRENTLY FOLLOWING. SURGICAL TEAM NOTIFIED OF NEW ISSUE. WILL SEE PRN.
[2018-06-30] MEDS ORDERED: ASCORBIC ACID 500 MG TABLET PO SCH (09:00)
[2018-06-30] MEDS ORDERED: MULTIVITAMIN LIQ 5 ML UDC GT SCH (09:00)
[2018-06-30 12:00] VITALS: BP 155/86
[2018-06-30] MEDS: AMLODIPINE BESYLATE 5 MG TABLET GT SCH (12:07)
[2018-06-30] MEDS: LOSARTAN POTASSIUM 50 MG TABLET PO SCH (12:08)
[2018-06-30] MEDS: LACTOBACILLUS RHAMNOSUS GG 1 EACH CAP.SPRINK PO SCH ×2 (12:09→17:16)
[2018-06-30] MEDS: BACLOFEN (10 MG) 10 MG TABLET GT SCH ×2 (12:09→17:17)
[2018-06-30] MEDS: METOPROLOL TARTRATE 25 MG TABLET GT SCH ×2 (12:09→17:18)
[2018-06-30] MEDS: HYDROCODONE/APAP 5/325MG 1 EACH TABLET PO PRN ×2 (12:12→17:17)
[2018-06-30] MEDS: DIAZEPAM 2 MG TABLET GT SCH ×2 (12:12→17:16)
[2018-06-30] MEDS: PROSOURCE / PROSTAT (PYXIS) 30 ML UDC GT SCH ×3 (12:12→17:16)
[2018-06-30] MEDS: DAKINS QUARTER STRENGTH (0.125%) 480 ML BOTTLE TOP SCH (12:13)
[2018-06-30] MEDS: ENOXAPARIN SODIUM 40 MG/0.4 ML DISP.SYRIN SQ SCH (12:18)
[2018-06-30] MEDS ORDERED: Prosource GT (12:29)
[2018-06-30] MEDS ORDERED: NUT.237L45 GT (12:29)
[2018-06-30] MEDS ORDERED: MULTIVITAMINS,THERAGRAN 1 UDTAB TABLET GT SCH (14:31)
[2018-06-30 16:00] VITALS: BP 158/79
--- NOTE | 2018-06-30 19:40 | NUR ---
RN NOTES: RECEIVED REPORT THAT PATIENT FOR DISCHARGE. AMBULANCE PERSONNEL ARRIVED, REPORT AND PAPERWORK GIVEN. SKIN CARE AND SKIN CHECK RENDERED PRIOR TO DC. HEAVEN MIDLINE REMAINED INTACT, FOR HOME ATB. CONDOM CATH INTACT. KEPT ON O2 THERAPY. PATIENT'S DAUGHTER MADE AWARE, AT HOME WAITING FOR PATIENT. SAFETY MEASURES ENSURED. PATIENT LEFT FACILITY NOT IN APPARENT DISTRESS.
[2018-06-30 20:00] VITALS: BP 141/79
[2018-07-01] MEDS ORDERED: MULTIVITAMINS,THERAGRAN 1 UDTAB TABLET GT SCH (09:00)
== END 2018-06-30 20:00 | disposition home health service (06) | DRG 853 ==
LOC: ER 01:00 → TELE-TD 03:33 → TELE1 06-23 10:04 → MEDSG1 06-24 07:36
PROVIDERS: ADMIT Hospitalist; ATTEND Hospitalist
PROC: 0KBP0ZZ Excision of Left Hip Muscle, Open Approach (ICD-10-PCS; principal; 2018-06-22)
PROC: 0KBN0ZZ Excision of Right Hip Muscle, Open Approach (ICD-10-PCS; 2018-06-22)
PROC: 02HV33Z Insertion of Infusion Device into Superior Vena Cava, Percutaneous Approach (ICD-10-PCS; 2018-06-22)
PROC: B548ZZA Ultrasonography of Superior Vena Cava, Guidance (ICD-10-PCS; 2018-06-22)
DX: A41.9 Sepsis, unspecified organism (principal); L89.224 Pressure ulcer of left hip, stage 4; L89.154 Pressure ulcer of sacral region, stage 4; J96.01 Acute respiratory failure with hypoxia; R53.2 Functional quadriplegia; N17.0 Acute kidney failure with tubular necrosis; G92 Toxic encephalopathy; J69.0 Pneumonitis due to inhalation of food and vomit; N39.0 Urinary tract infection, site not specified; E87.2 Acidosis; E87.1 Hypo-osmolality and hyponatremia; J90 Pleural effusion, not elsewhere classified; J84.9 Interstitial pulmonary disease, unspecified; Z86.73 Personal history of transient ischemic attack (TIA), and cerebral infarction without residual deficits; Z86.19 Personal history of other infectious and parasitic diseases; Z79.899 Other long term (current) drug therapy; Z74.01 Bed confinement status; R13.10 Dysphagia, unspecified; E11.9 Type 2 diabetes mellitus without complications; Z87.442 Personal history of urinary calculi; Z93.1 Gastrostomy status; Z91.041 Radiographic dye allergy status; G20 Parkinson's disease; F02.80 Dementia in other diseases classified elsewhere, unspecified severity, without behavioral disturbance, psychotic disturbance, mood disturbance, and anxiety; N40.0 Benign prostatic hyperplasia without lower urinary tract symptoms; I25.10 Atherosclerotic heart disease of native coronary artery without angina pectoris; E78.5 Hyperlipidemia, unspecified; L89.620 Pressure ulcer of left heel, unstageable; L89.611 Pressure ulcer of right heel, stage 1; M24.572 Contracture, left ankle; M24.571 Contracture, right ankle; B96.20 Unspecified Escherichia coli [E. coli] as the cause of diseases classified elsewhere; I10 Essential (primary) hypertension; J44.9 Chronic obstructive pulmonary disease, unspecified; B95.1 Streptococcus, group B, as the cause of diseases classified elsewhere; K76.89 Other specified diseases of liver; B95.62 Methicillin resistant Staphylococcus aureus infection as the cause of diseases classified elsewhere; B96.5 Pseudomonas (aeruginosa) (mallei) (pseudomallei) as the cause of diseases classified elsewhere; K80.20 Calculus of gallbladder without cholecystitis without obstruction
CPT/HCPCS: 36415; 71045-TC; 80048-TC; 80053-TC; 80061-TC; 80076-TC; 80202-TC; 81000-TC; 82962-TC; 83605-TC; 83735-TC; 84100-TC; 84443-TC; 84484-TC; 85025-TC; 85730-TC; 87040-TC; 87070-TC; 87086-TC; 87186-TC; A4216; A4217; A4349; A4606; A6253; A6402; A6403; C9113; J0456; J0696; J0713; J1650; J1815; J2185; J2270; J2543; J3370; J7030; J7050; J7060; Z7610

== ENCOUNTER 2018-11-24 16:55 | Inpatient (IN) | payer MEDICARE, OTHER ==
[~2018-11-24] VITALS: Ht 170.2 cm; Wt 72.7 kg
[~2018-11-24 16:55] MED LIST changes: -CELE-85 GT; +NUT.237L45 GT; -PIPE4.5V3 IV; +Prosource GT; -RXVAN XX
--- NOTE | 2018-11-24 16:55 | NUR ---
PT BIBRA FROM HOME FOR HOT TO TOUCH/TACHYCARDIC. POSSIBLE FEVER. PT AAOX0, OBTUNDED, NOTED WITH LABORED RESPIRATIONS, ON O2 2LPM NC O2 SAT AT 97, PT HOT TO TOUCH, PT ON MONITOR, MD AT BEDSIDE FOR EVAL
[2018-11-24 17:36] LABS: BASOPHILS # (AUTO) 0.1 /CMM (0.0-0.2); BASOPHILS % (AUTO) 0.3 % (0.0-2.0); EOSINOPHILS % (AUTO) 4.6 % (0.0-6.0); HEMATOCRIT 38 % (39-51); HEMOGLOBIN 12.2 g/dL (13.5-17.5); LYMPHOCYTES # (AUTO) 0.5 /CMM (0.8-4.8); LYMPHOCYTES % (AUTO) 2.8 % (20.0-44.0); MEAN CORPUSCULAR HGB CONC 32 g/dl (31.0-36.0); MEAN CORPUSCULAR VOLUME 83 fL (80-96); MONOCYTES # (AUTO) 1.1 /CMM (0.1-1.30); MONOCYTES % (AUTO) 6.4 % (2.0-12.0); NEUTROPHILS # (AUTO) 15.4 /CMM (1.8-8.9); NEUTROPHILS % (AUTO) 85.9 % (43.0-81.0); PLATELET COUNT (AUTO) 258 /CMM (150-450); RED BLOOD CELL COUNT(AUTO) 4.61 MIL/uL (4.5-6.0); WHITE BLOOD COUNT (AUTO) 17.9 K/uL (4.3-11.0)
[2018-11-24] MEDS ORDERED: MEMA10TA GT (17:37)
[2018-11-24] MEDS ORDERED: LEVE100S GT (17:37)
[2018-11-24] MEDS ORDERED: ASPI-1169 GT (17:37)
[2018-11-24] MEDS ORDERED: CELE200C GT (17:37)
[2018-11-24] MEDS ORDERED: MULT-661 GT (17:37)
[2018-11-24] MEDS ORDERED: ROSU10TA2 PO (17:37)
[2018-11-24] MEDS ORDERED: LUBI24CA5 GT (17:37)
[2018-11-24] MEDS ORDERED: OMEG1CAP40 GT (17:37)
[2018-11-24] MEDS ORDERED: ALBU2.5V38 IH (17:37)
[2018-11-24] MEDS ORDERED: TAMS-12 GT (17:37)
[2018-11-24] MEDS ORDERED: LANS30CA56 PO (17:37)
--- NOTE | 2018-11-24 17:42 | NUR ---
URINE COLLECETED AND SENT TO LAB
[2018-11-24 17:44] LABS: APPEARANCE,URINE Clear (CLEAR); BILIRUBIN,URINE Negative (NEGATIVE); BLOOD, URINE Negative Ery/uL (NEGATIVE); COLOR,URINE Yellow (YELLOW); KETONES,URINE Negative (NEGATIVE); LEUKOCYTE ESTERASE ,URINE Small (NEGATIVE); NITRITE, URINE Negative (NEGATIVE); PH,URINE 7.5 (5.0-8.0); PROTEIN,URINE 30 mg/dl (NEGATIVE); UGLUCOSE Negative (NEGATIVE); UROBILINOGEN,URINE 0.2 EU/dL (0.2)
[2018-11-24 17:47] LABS: CALCIUM, SERUM 9.7 mg/dL (8.5-10.1); CARBON DIOXIDE 34 mmol/L (21-32); CHLORIDE 99 mmol/L (98-107); CREATININE 0.6 mg/dL (0.6-1.3); GLUCOSE 148 mg/dL (74-106); POTASSIUM 3.6 mmol/L (3.5-5.1); SODIUM SERUM 137 mmol/L (136-145); UREA NITROGEN, BLOOD 20 mg/dL (7-18)
[2018-11-24] MEDS ORDERED: ASCO500T9 PO (17:50)
[2018-11-24] MEDS ORDERED: DIAZ2TAB GT (17:50)
[2018-11-24 17:53] LABS: ALANINE AMINOTRANSFERASE 19 U/L (12-78); ALBUMIN 3.2 g/dL (3.4-5.0); ALKALINE PHOSPHATASE 127 U/L (46-116); ASPARTATE AMINOTRANSFERASE 14 U/L (15-37); BILIRUBIN,DIRECT 0.1 mg/dL (0.0-0.2); BILIRUBIN,TOTAL 0.4 mg/dL (0.2-1.0); TOTAL PROTEIN, SERUM 8.5 g/dL (6.4-8.2)
[2018-11-24 17:57] LABS: BACTERIA,URINE 1+ /HPF (None Seen); RBC,URINE NONE SEEN /HPF (0-2); SQUAMOUS EPITHELIAL CELL,UR Few /HPF (None Seen)
[2018-11-24] MEDS ORDERED: VANCOMYCIN 1 GM in IV D5W 250 ML IV ONE (18:00)
[2018-11-24] MEDS ORDERED: IV NS 0.9% 1,000 ML BAG IV ONE (18:00)
[2018-11-24] MEDS ORDERED: PIPERACILLIN /TAZOBACTAM 3.375 G in IV D5W 50 ML IV ONE (18:00)
--- NOTE | 2018-11-24 18:11 | NUR ---
PAGED MIGRANT LEADER NEPHRO
--- NOTE | 2018-11-24 18:29 | NUR ---
REPAGED CAR MANAGER NEPHRO
--- NOTE | 2018-11-24 19:30 | NUR ---
RECEIVED REPORT FROM OZZIE FRIEND FOR MARILYNN
--- NOTE | 2018-11-24 20:21 | NUR ---
GAVE REPORT TO AUREA FRIEND FOR MARILYNN
--- NOTE | 2018-11-24 21:00 | NUR ---
SEMICONDUCTOR DEVELOPMENT TECHNICIAN ADMITTING NOTES RECEIVED FROM ER VIA [facility] ACCOMPANIED BY DAUGHTER, PT AWAKE, ALERT NON VERBAL, BREATHING EVEN AND UNLABORED ON O2 2L NC. NO SIGNS OF PAIN OR DISCOMFORT AT THIS TIME. WOUNDS ON THE SACRUM, R AND L HIP, ARM REDNESS AND HOT TO THE TOUCH. TEMP OF 99.5. IV ACCESS ON THE LEFT ABDOMEN 20G PATENT AND FLUSHING. KIC MATTRESS IN PLACE, GTUBE SITE INTACT, FEEDING OF GLUCERNA AT 60ML/HR. ALL NEEDS ATTENDED TO, TURNED AND REPOSITIONED, EVERY TWO HOURS. BED IN LOWEST LOCKED POSITION, CALL LIGHT WITHIN REACH AT ALL TIMES.
--- NOTE | 2018-11-24 21:06 | NUR ---
TRANSFERRED PT PER [facility] PROTOCOL
[2018-11-24 21:30] VITALS: BP 140/75
[2018-11-24] MEDS ORDERED: INSULIN REGULAR, HUMAN 100 UNIT/ML 3 ML VIAL SQ PRN (22:00)
[2018-11-24] MEDS ORDERED: BLOOD SUGAR DIAGNOSTIC 1 EACH STRIP IN SCH (22:00)
[2018-11-24] MEDS ORDERED: HYDROCODONE/APAP 5/325MG 1 EACH TABLET PO PRN (22:00)
[2018-11-24] MEDS ORDERED: DEXTROSE 50%-WATER 50 ML DISP.SYRIN IV PRN (22:00)
[2018-11-24] MEDS: GLUCERNA 1.2 1,000 ML BOTTLE NG PRN (22:58)
[2018-11-24] MEDS: DIAZEPAM 2 MG TABLET GT SCH (23:02)
[2018-11-24] MEDS: LEVETIRACETAM SOL (5 ML) 100 MG/ML UDC GT SCH (23:02)
[2018-11-24] MEDS: BACLOFEN (10 MG) 10 MG TABLET GT SCH (23:02)
[2018-11-25 00:27] VITALS: BP 98/53
[2018-11-25] MEDS ORDERED: PIPERACILLIN /TAZOBACTAM 3.375 G VIAL IV ONE (00:40)
[2018-11-25] MEDS: PIPERACILLIN /TAZOBACTAM 3.375 G in IV D5W 50 ML IV ONE ×3 (00:49)
[2018-11-25] MEDS ORDERED: DEXTROSE 50%-WATER 50 ML DISP.SYRIN IV PRN (01:00)
[2018-11-25] MEDS: INSULIN REGULAR, HUMAN 100 UNIT/ML 3 ML VIAL SQ PRN ×3 (01:12→17:44)
[2018-11-25 04:18] VITALS: BP 100/53
[2018-11-25] MEDS: BLOOD SUGAR DIAGNOSTIC 1 EACH STRIP IN SCH ×3 (05:28→17:41)
[2018-11-25] MEDS ORDERED: PIPERACILLIN /TAZOBACTAM 3.375 G in IV D5W 50 ML IV SCH (06:00)
--- NOTE | 2018-11-25 06:28 | NUR ---
[employer]B[facility] SIZER CLOSING NOTES PT REMAINS IN BED SLEEPING, EASILY AROUSED TO TOUCH OR NAME CALL, BREATHING EVEN AND UNLABORED ON O2 2L NC. NO SIGNS OF PAIN OR DISCOMFORT AT THIS TIME. IV ACCESS ON THE LEFT ABDOMEN 20G PATENT AND FLUSHING. KCI MATTRESS IN PLACE, GTUBE SITE INTACT, FEEDING OF GLUCERNA AT 60ML/HR. HEART MONITOR IN PLACE SR. ALL NEEDS ATTENDED TO, TURNED AND REPOSITIONED EVERY TWO HOURS. BED IN LOWEST LOCKED POSITION, WILL ENDORSE TO DAY NURSE FOR MARILYNN
[2018-11-25 07:05] LABS: BASOPHILS % (AUTO) 0.2 % (0.0-2.0); EOSINOPHILS % (AUTO) 2.9 % (0.0-6.0); HEMATOCRIT 34 % (39-51); HEMOGLOBIN 11.1 g/dL (13.5-17.5); LYMPHOCYTES # (AUTO) 0.6 /CMM (0.8-4.8); LYMPHOCYTES % (AUTO) 4.8 % (20.0-44.0); MEAN CORPUSCULAR HGB CONC 33 g/dl (31.0-36.0); MEAN CORPUSCULAR VOLUME 83 fL (80-96); MONOCYTES # (AUTO) 1.3 /CMM (0.1-1.30); MONOCYTES % (AUTO) 10.6 % (2.0-12.0); NEUTROPHILS # (AUTO) 9.7 /CMM (1.8-8.9); NEUTROPHILS % (AUTO) 81.5 % (43.0-81.0); PLATELET COUNT (AUTO) 227 /CMM (150-450); RED BLOOD CELL COUNT(AUTO) 4.12 MIL/uL (4.5-6.0); WHITE BLOOD COUNT (AUTO) 11.9 K/uL (4.3-11.0)
--- NOTE | 2018-11-25 07:20 | NUR ---
MARKET GARDEN WORKER OPENING NOTES. PT TELE: SR 70'S. PT OBTUNDED, EYES OPEN TO FIRM TOUCH. PT WITH O2 VIA NC AT 2LPM, NO OBVIOUS S/S OF RESP DISTRESS, AUSCULTATED WITH RHONCHI THROUGHOUT AND DIMINISHED LOWER. PT WITH OBVIOUS S/S OF DISTRESS OR DISCOMFORT. PT WITH IVC AT L LOWER ABDO, SL, WITH RED/PURPLE AREA SURROUNDING- WILL D/C. PT WITH WARM, RED RIGHT ARM, ELEVATED AFTER REPO. PT WITH CONDOM CATH INTACT AND NAD, DRAINING LITE YELLOW URINE. PT WITH G.TUBE INTACT AND OPERATIONAL, <5CC RESIDUAL, FLUSHED AND NAD. PT WITH BI LAT HIP AND SACRUM WOUNDS. PT REPOSITIONED AND OFFLOADED. PT BED IN LOWEST LOCKED POSITION WITH HANDRIALSX3, HOB ELEVATED. WILL CONTINUE POC.
[2018-11-25 07:27] LABS: CALCIUM, SERUM 9.1 mg/dL (8.5-10.1); CARBON DIOXIDE 30 mmol/L (21-32); CHLORIDE 103 mmol/L (98-107); CREATININE 0.5 mg/dL (0.6-1.3); GLUCOSE 145 mg/dL (74-106); POTASSIUM 3.5 mmol/L (3.5-5.1); SODIUM SERUM 140 mmol/L (136-145); UREA NITROGEN, BLOOD 19 mg/dL (7-18)
[2018-11-25 08:00] VITALS: BP 117/51
[2018-11-25] MEDS: LEVETIRACETAM SOL (5 ML) 100 MG/ML UDC GT SCH ×2 (09:03→16:49)
[2018-11-25] MEDS: BACLOFEN (10 MG) 10 MG TABLET GT SCH ×2 (09:04→16:49)
[2018-11-25] MEDS: DIAZEPAM 2 MG TABLET GT SCH ×2 (09:06→16:49)
[2018-11-25] MEDS: ASCORBIC ACID 500 MG TABLET GT SCH (09:08)
[2018-11-25] MEDS: MULTIVITAMINS,THERAGRAN 1 UDTAB TABLET GT SCH (09:09)
[2018-11-25] MEDS: PANTOPRAZOLE 40 MG/PACK PACK GT SCH ×2 (09:13→20:34)
[2018-11-25] MEDS: AMLODIPINE BESYLATE 5 MG TABLET GT SCH (09:14)
--- NOTE | 2018-11-25 10:02 | NUR ---
RESIDUAL ZERO PRIOR TO MEDICATION ADMINISTRATION. PATIENT RECEIVED 100 ML WATER WITH MEDICATION ADMINISTRATION. Addendum: 11/25/18 at 1003 by BERNY VYAS RN Amended: Links added.
--- NOTE | 2018-11-25 10:20 | NUR ---
WOUND CARE COMPLETED.
[2018-11-25] MEDS: PIPERACILLIN /TAZOBACTAM 3.375 G in IV D5W 100 ML IV SCH ×2 (11:01→18:37)
[2018-11-25 16:00] VITALS: BP 120/48
--- NOTE | 2018-11-25 17:20 | NUR ---
PT WITH AUDIBLE GURGLING. [facility] CALLED AWAITING RESPONSE.
--- NOTE | 2018-11-25 17:53 | NUR ---
[facility] ORDERING RT TREATMENTS AND OK TO DEEP SUCTION, ORDERS CONFIRMED AND PLACED.
--- NOTE | 2018-11-25 18:05 | NUR ---
PT DEEP SUCTIONED WITH ++ THICK FLUIDS REMOVED. PT RESPS IMPROVED.
--- NOTE | 2018-11-25 18:24 | NUR ---
MSRN CLOSING NOTES. PT OBTUNDED, EYES OPEN TO FIRM TOUCH. PT WITH O2 VIA NC AT 2.5LPM, NO OBVIOUS S/S OF RESP DISTRESS, REMAINS WITH RHONCHI THROUGHOUT AND DIMINISHED LOWER. PT WITHOUT OBVIOUS S/S OF DISTRESS OR DISCOMFORT. PT WITH IVC AT L UA INTACT AND OPERATIONAL WITH NS TKO. PTR ARM REMANS WARM, RED AND ELEVATED. PT WITH CONDOM CATH INTACT AND NAD, DRAINING LITE YELLOW URINE. PT WITH G.TUBE NAD, INTACT AND OPERATIONAL. PT WOUND CARE COMPLETED. PT REPOSITIONED AND OFFLOADED Q2HR. PT CARE DISCUSSED AT BEDSIDE WITH WITH PT DTR. BED IN LOWEST LOCKED POSITION WITH HANDRIALSX3, HOB ELEVATED. WILL ENDORSE TO NIGHT NURSE AT BEDSIDE FOR MARILYNN.
--- NOTE | 2018-11-25 19:30 | NUR ---
RECEIVED PATIENT IN BED WITH EYES OPEN. OBTUNDED. NO ACUTE DISTRESS NOTED. NO SIGNS OF PAIN NOTED. IV SITE PATENT, INTACT; ZOSYN ATB INFUSING. CONDOM CATH INTACT; DRAINING CLEAR YELLOW URINE. GT PATENT, INTACT; IN PLACE VIA AUSCULTATION. GTF ONGOING. HOB RAISED. 20 ML RESIDUAL ASPIRATED. ON SPECIAL MATTRESS ON LOW BED WITH BILATERAL UPPER SIDE RAILS UP. CALL DARDEN WITHIN EASY REACH. WILL CONTINUE TO MONITOR.
[2018-11-25 20:00] VITALS: BP_SYST 141; BP_SYST 147; BP_DIAS 61; BP_DIAS 75
[2018-11-26] MEDS: BLOOD SUGAR DIAGNOSTIC 1 EACH STRIP IN SCH ×5 (00:22→23:12)
[2018-11-26] MEDS: INSULIN REGULAR, HUMAN 100 UNIT/ML 3 ML VIAL SQ PRN ×5 (00:23→23:13)
[2018-11-26] MEDS: PIPERACILLIN /TAZOBACTAM 3.375 G in IV D5W 100 ML IV SCH ×3 (02:00→17:33)
[2018-11-26] MEDS: GLUCERNA 1.2 1,000 ML BOTTLE NG PRN (05:32)
--- NOTE | 2018-11-26 06:36 | NUR ---
PATIENT ASLEEP, EASILY AROUSABLE. RESPIRATIONS EVEN. NO SIGNS OF PAIN NOTED. NO SYMPTOMS OF HYPER/HYPOGLYCEMIA. DUE MEDS GIVEN WITH NO ASE NOTED. NEEDS ATTENDED. TURNED AND REPOSITIONED Q 2 HOURS. KEPT CLEAN, DRY, AND COMFORTABLE. SAFETY PRECAUTIONS AND COMFORT MEASURES IN PLACE. WILL GIVE REPORT TO DAY SHIFT FOR CONTINUITY OF CARE.
--- NOTE | 2018-11-26 07:20 | NUR ---
MSRN OPENING NOTES.PT OBTUNDED, EYES OPEN TO FIRM TOUCH. PT WITH O2 VIA NC AT 3LPM, NO OBVIOUS S/S OF RESP DISTRESS, AUSCULTATED WITH RHONCHI. PT WITHOUT OBVIOUS S/S OF DISTRESS OR DISCOMFORT. PT WITH IVC AT R U ARM/SHOULDER INTACT AND OPERATIONAL WITH NS AT TKO. PT RED RIGHT ARM IMPROVED FROM YESTERDAY, ELEVATED AFTER REPO. PT WITH CONDOM CATH INTACT AND NAD, DRAINING LITE YELLOW URINE. PT WITH G.TUBE INTACT AND OPERATIONAL, <20CC RESIDUAL, FLUSHED AND NAD. PT WITH BI LAT HIP AND SACRUM WOUNDS. PT REPOSITIONED AND OFFLOADED, WILL CONTINUE R-L REPOSITIONING PER DTR INSTRUCTIONS. PT BED IN LOWEST LOCKED POSITION WITH HANDRIALSX3, HOB ELEVATED. WILL CONTINUE POC.
--- NOTE | 2018-11-26 07:40 | NUR ---
WOUND CARE CONSULT WOUND CARE RECEIVED CONSULT FOR SACRAL WOUND. WOUND CARE WILL DEFER CONSULT AND ALL TREATMENT PLANS TO PLASTIC SURGICAL TEAM WHO ARE CURRENTLY FOLLOWING THIS PATIENT. PATIENT WITH ABDIAZIZ AT 8, ALL PRESSURE ULCER PREVENTION MEASURES ARE NOTED TO BE IN PLACE AT THIS TIME. WILL SEE PRN.
[2018-11-26 08:00] VITALS: BP 131/67
[2018-11-26] MEDS: BACLOFEN (10 MG) 10 MG TABLET GT SCH (09:14)
[2018-11-26] MEDS: LEVETIRACETAM SOL (5 ML) 100 MG/ML UDC GT SCH ×2 (09:14→17:30)
[2018-11-26] MEDS: PANTOPRAZOLE 40 MG/PACK PACK GT SCH ×2 (09:15→20:28)
[2018-11-26] MEDS: AMLODIPINE BESYLATE 5 MG TABLET GT SCH (09:15)
[2018-11-26] MEDS: DIAZEPAM 2 MG TABLET GT SCH ×2 (09:16→17:30)
[2018-11-26] MEDS: MULTIVITAMINS,THERAGRAN 1 UDTAB TABLET GT SCH (09:16)
[2018-11-26] MEDS: ASCORBIC ACID 500 MG TABLET GT SCH (09:16)
--- NOTE | 2018-11-26 10:17 | NUR ---
residual check 20cc prior to med administration, patient recieved 100cc water with med administration. Addendum: 11/26/18 at 1019 by BERNY VYAS RN Amended: Links added.
--- NOTE | 2018-11-26 13:00 | NUR ---
CARE DISCUSSED WITH PT DTR. NO COMPLAINT AT THIS TIME.
[2018-11-26] MEDS ORDERED: LACTULOSE 10 G/15 ML UDC (PYXIS) PO PRN (13:30)
--- NOTE | 2018-11-26 14:00 | NUR ---
RT CALLED FOR DEEP SUCTION WITH 150-200CC SUCTIONED.
[2018-11-26 16:00] VITALS: BP 134/71
--- NOTE | 2018-11-26 18:14 | NUR ---
MSRN CLOSING NOTES. PT EYES OPEN TO TOUCH. PT WITH O2 VIA NC AT 2LPM, NO OBVIOUS S/S OF RESP DISTRESS. PT WITHOUT OBVIOUS S/S OF DISTRESS OR DISCOMFORT. PT WITH IVC AT R U ARM/SHOULDER INTACT AND OPERATIONAL WITH NS AT TKO AND IVAB. PT WITH NEW CONDOM CATH PLACED, INTACT AND NAD, DRAINING LITE YELLOW URINE. PT WITH G.TUBE INTACT AND OPERATIONAL APPROX 20CC RESIDUAL DURING SHIFT. WOUND CARE PER DTR'S PREFERENCE. PT REPOSITIONED AND OFFLOADED Q2HR OR SOONER WITH R-L REPOSITIONING PER DTR INSTRUCTIONS. PT BED IN LOWEST LOCKED POSITION WITH HANDRIALSX3, HOB ELEVATED. WILL ENDORSE TO NIGHT NURSE AT BEDSIDE ALLEN MARILYNN.
--- NOTE | 2018-11-26 19:22 | NUR ---
RN NOTES RECEIVE PT IN THE BED OPENS EYES OBTUNDED ON 2LPM VIA NC 02 SAT AT 98% IN STABLE CONDITION, NOT IN DISTRESS, SAFETY MEASURES IN PLACE. WILL CONTINUE TO MONITOR.
[2018-11-26 20:00] VITALS: BP 136/73
[2018-11-26 20:48] VITALS: BP 136/73
[2018-11-27] MEDS: PIPERACILLIN /TAZOBACTAM 3.375 G in IV D5W 100 ML IV SCH ×2 (01:00→09:05)
[2018-11-27] MEDS: GLUCERNA 1.2 1,000 ML BOTTLE NG PRN (04:49)
[2018-11-27] MEDS: BLOOD SUGAR DIAGNOSTIC 1 EACH STRIP IN SCH ×3 (05:17→17:56)
[2018-11-27] MEDS: INSULIN REGULAR, HUMAN 100 UNIT/ML 3 ML VIAL SQ PRN ×3 (05:22→17:57)
--- NOTE | 2018-11-27 06:25 | NUR ---
RN CLOSING NOTE PT IN BED ASLEEP AND EASILY AWAKEN 02 SAT 100% 2LPM VIA NC. STABLE CONDITION, NOT IN DISTRESS. RESPIRATIONS EVEN AND UNLABORED. NURSING CARE RENDERED, KEPT CLEAN AND DRY AND COMFORT, GT FEEDING INFUSING ORDERED AND TOLERATED WELL 5ML RESIDUAL. SAFETY MEASURES IN PLACE, CALL LIGHT WITHIN REACH. WILL ENDORSE TO SPECIAL LOAN OFFICER FOR MARILYNN.
--- NOTE | 2018-11-27 06:26 | NUR ---
REPOSITION EVERY 2 HOURS
--- NOTE | 2018-11-27 07:13 | NUR ---
MS RN OPENING NOTES RECEIVED PT IN BED IN NO ACUTE SIGNS OF DISTRESS. HOB ELEVATED. EYES OPEN, NON VERBAL AND RESPONSIVE TO TACTILE STIMULI. ON O2 VIA NC @ 2LPM, BREATHING EVEN AND UNLABORED. IV ACCESS ON R U ARM INTACT AND PATENT WITH NS RUNNING TKO. CONDOM CATH IN PLACE DRAINING CLEAR YELLOW URINE. PT WITH G-TUBE IN PLACE AND PATENT WITH GLUCERNA 1.2 @ 60ML/HR IN PROGRESS. ASPIRATION PRECAUTIONS MAINTAINED. BED IN LOWEST LOCKED POSITION WITH SR UP X3. CALL LIGHT IN REACH. WILL CONTINUE TO MONITOR PT ACCORDINGLY.
[2018-11-27 08:00] VITALS: BP 154/75
[2018-11-27] MEDS: LEVETIRACETAM SOL (5 ML) 100 MG/ML UDC GT SCH ×2 (08:23→16:32)
[2018-11-27] MEDS: ASCORBIC ACID 500 MG TABLET GT SCH (08:24)
[2018-11-27] MEDS: PANTOPRAZOLE 40 MG/PACK PACK GT SCH ×2 (08:24→20:59)
[2018-11-27] MEDS: DIAZEPAM 2 MG TABLET GT SCH ×2 (08:24→16:32)
[2018-11-27] MEDS: AMLODIPINE BESYLATE 5 MG TABLET GT SCH (08:24)
[2018-11-27] MEDS: MULTIVITAMINS,THERAGRAN 1 UDTAB TABLET GT SCH (08:24)
[2018-11-27] MEDS: COLISTIMETHATE SODIUM 100 MG in IV NS 0.9% 50 ML IV SCH (15:49)
[2018-11-27 15:53] VITALS: BP 152/88
--- NOTE | 2018-11-27 18:47 | NUR ---
MS RN CLOSING NOTES PATIENT IN BED LYING COMFORTABLY AT MODERATE HIGH BACKREST POSITION. OBTUNDED AND OPEN HIS EYES TO TACTILE STIMULI. MAINTAINED ON O2 VIA NC @ 2LPM, BREATHING EVEN WITH NO ACUTE RESPIRATORY DISTRESS NOTED. PT TURNED AND REPOSITIONED FROM SIDE TO SIDE Q 2HRS AND PRN. KEPT CLEAN, DRY AND COMFORTABLE. ALL NEEDS AND CARE PROVIDED WELL. IV ACCESS ON HEAVEN INTACT AND PATENT WITH NS RUNNING TKO. CONDOM CATH IN PLACE DRAINING CLEAR YELLOW URINE, OUTPUT THIS SHIFT NOTED AT 500ML. G-TUBE IN PLACE AND PATENT WITH GLUCERNA 1.2 @ 60ML/HR IN PROGRESS. ASPIRATION PRECAUTIONS MAINTAINED. ALL SAFETY MEASURES KEPT IN PLACE. HOB KEPT ELEVATED. BED IN LOWEST LOCKED POSITION WITH SR UP X3. CALL LIGHT IN REACH. WILL ENDORSE TO AMMONIA OPERATOR NURSE FOR MARILYNN.
[2018-11-27 20:00] VITALS: BP 155/79
--- NOTE | 2018-11-27 20:29 | NUR ---
MS/RN OPENING NOTES RECEIVED PATIENT IN BED, RESTING COMFORTABLY IN BED WITH OXYGEN VIA NC AT 2L, SKIN WARM TO TOUCH, ON N GTUBE, WITH SOME RESIDUAL OF 40CC/ CONDOM CATHETER PLACED WITH URINE OUTPUT, FAMILY WAS AT BED SIDE. WILL KEEP PATIENT COMFORTABLE, BED LOCKED, REPOSITIONED FOR COMFORT, ON AIR LOSS MATTRESS. WILL CONTINUE TO MONITOR.
[2018-11-28] MEDS: BLOOD SUGAR DIAGNOSTIC 1 EACH STRIP IN SCH ×5 (00:23→23:09)
[2018-11-28] MEDS: INSULIN REGULAR, HUMAN 100 UNIT/ML 3 ML VIAL SQ PRN ×4 (00:29→17:36)
[2018-11-28] MEDS: COLISTIMETHATE SODIUM 100 MG in IV NS 0.9% 50 ML IV SCH ×2 (02:36→15:14)
--- NOTE | 2018-11-28 06:34 | NUR ---
319-1 MS/RN NOTES PATIENT OBTUNDED, OPEN EYED, ON OXYGEN VIA NC, REPOSITIONED FOR COMFORT, WILL MONITOR.
--- NOTE | 2018-11-28 07:27 | NUR ---
MS RN OPENING NOTES RECEIVED PT IN BED AWAKE, EYES OPEN, NON VERBAL AND RESPONSIVE TO TACTILE STIMULI. HOB ELEVATED. CONTACT PRECAUTIONS IN PLACE FOR MRSA. ON O2 VIA NC @ 2LPM, BREATHING EVEN AND UNLABORED. IV ACCESS ON HEAVEN INTACT AND PATENT WITH NS INFUSING AT 5LPM TKO. CONDOM CATH IN PLACE DRAINING CLEAR YELLOW URINE TO URINARY BAG AT BEDSIDE. PT WITH G-TUBE IN PLACE AND PATENT WITH GLUCERNA 1.2 @ 60ML/HR IN PROGRESS, TOLERATING WELL. ASPIRATION PRECAUTIONS MAINTAINED. BED IN LOWEST LOCKED POSITION WITH SR UP X3. CALL LIGHT IN REACH. WILL CONTINUE TO MONITOR PT ACCORDINGLY.
[2018-11-28 08:00] VITALS: BP 133/96
[2018-11-28] MEDS: LEVETIRACETAM SOL (5 ML) 100 MG/ML UDC GT SCH ×2 (08:28→16:11)
[2018-11-28] MEDS: DIAZEPAM 2 MG TABLET GT SCH ×2 (08:28→16:10)
[2018-11-28] MEDS: PANTOPRAZOLE 40 MG/PACK PACK GT SCH ×2 (08:28→20:28)
[2018-11-28] MEDS: MULTIVITAMINS,THERAGRAN 1 UDTAB TABLET GT SCH (08:28)
[2018-11-28] MEDS: ASCORBIC ACID 500 MG TABLET GT SCH (08:29)
[2018-11-28] MEDS: AMLODIPINE BESYLATE 5 MG TABLET GT SCH (08:29)
[2018-11-28] MEDS: FUROSEMIDE 40 MG/4 ML VIAL IV SCH ×2 (11:56→16:11)
[2018-11-28] MEDS ORDERED: PIPERACILLIN /TAZOBACTAM 3.375 G in IV D5W 50 ML IV ONE (12:00)
[2018-11-28] MEDS: GLUCERNA 1.2 1,000 ML BOTTLE NG PRN (12:28)
[2018-11-28 16:00] VITALS: BP 130/73
[2018-11-28] MEDS: HYDROCODONE/APAP 5/325MG 1 EACH TABLET GT PRN (17:50)
--- NOTE | 2018-11-28 18:43 | NUR ---
MS RN CLOSING NOTES PATIENT IN BED OBTUNDED AND OPEN HIS EYES TO TACTILE STIMULI. HOB KEPT ELEVATED. MAINTAINED ON O2 VIA NC @ 2LPM, BREATHING EVEN WITH NO ACUTE RESPIRATORY DISTRESS NOTED. G-TUBE IN PLACE AND PATENT WITH GLUCERNA 1.2 @ 60ML/HR IN PROGRESS. ASPIRATION PRECAUTIONS MAINTAINED. PT TURNED AND REPOSITIONED FROM SIDE TO SIDE Q 2HRS AND PRN. KEPT CLEAN, DRY AND COMFORTABLE. ALL NEEDS AND CARE PROVIDED WELL. IV ACCESS ON HEAVEN INTACT AND PATENT, FLUSHES WELL WITH NO S/S OF INFILTRATIONS NOTED. CONDOM CATH IN PLACE DRAINING ADEQUATE CLEAR YELLOW URINE TO BEDSIDE URINARY BAG. ALL SAFETY MEASURES KEPT IN PLACE. HOB KEPT ELEVATED. BED IN LOWEST LOCKED POSITION WITH SR UP X3. CALL LIGHT IN REACH. WILL ENDORSE TO ASSISTANT PROJECT MANAGER NURSE FOR MARILYNN.
--- NOTE | 2018-11-28 19:45 | NUR ---
MS/RN OPENING NOTES RECEIVED PATIENT IN BED, CAN OPEN EYES, CONGESTED , REQUIRE BREATHING TX, SUCTION NEEDED WITH MINIMAL SECRETIONS, HOB ELEVATED, REPOSITION FOR COMFORT. SKIN WARM TO TOUCH, WILL MONITOR. RECEIVED REPORT FROM AM RN FOR MARILYNN. WITH NEEDED BREATHING TX, RT WAS MADE AWARE AND CONTACTED. TO KEEP PATIETN TURN AND KEEP DRESSING INTACT AND DRY, CONDOM CATHETER IN PLACE. WILL MONITOR.
[2018-11-28 20:00] VITALS: BP 135/72
[2018-11-28] MEDS: ALBUTEROL FS 2.5 MG/0.5 ML VIAL.NEB NEB PRN (20:27)
[2018-11-28] MEDS: IPRATROPIUM NEB FS 0.5 MG/2.5 ML AMPUL.NEB NEB PRN (20:27)
[2018-11-28] MEDS: SULFAMETH/TRIMETH 800/160 MG 1 UDTAB TABLET PO SCH (20:40)
[2018-11-28] MEDS: MUPIROCIN OINT 2% 22 GM TUBE SCH (20:41)
[2018-11-29] MEDS: BLOOD SUGAR DIAGNOSTIC 1 EACH STRIP IN SCH ×3 (05:51→17:55)
[2018-11-29] MEDS: INSULIN REGULAR, HUMAN 100 UNIT/ML 3 ML VIAL SQ PRN ×2 (06:05→18:48)
--- NOTE | 2018-11-29 07:04 | NUR ---
319-1 MS/RN NOTES PATIENT IN BED, OPEN EYES, OBTUNDED, REQUIRE EXTENSIVE ASSISTANCE IN ADLS, REPOSTION FOR COMFORT, TREATMENT DONE IN SACRAL. WILL MONITOR.GTUBE CHECK WITH MINIMAL RESIDUAL, CONDOM CATHETER PLACED, WILL ENNDORSE TO AM RN FOR MARILYNN.
[2018-11-29 07:17] LABS: CALCIUM, SERUM 9.1 mg/dL (8.5-10.1); CARBON DIOXIDE 30 mmol/L (21-32); CHLORIDE 101 mmol/L (98-107); CREATININE 0.6 mg/dL (0.6-1.3); GLUCOSE 144 mg/dL (74-106); PHOSPHORUS 3.3 mg/dL (2.5-4.9); POTASSIUM 3.8 mmol/L (3.5-5.1); SODIUM SERUM 138 mmol/L (136-145); UREA NITROGEN, BLOOD 19 mg/dL (7-18)
[2018-11-29 07:20] LABS: BASOPHILS % (AUTO) 0.6 % (0.0-2.0); EOSINOPHILS % (AUTO) 14.7 % (0.0-6.0); HEMATOCRIT 34 % (39-51); HEMOGLOBIN 10.9 g/dL (13.5-17.5); LYMPHOCYTES # (AUTO) 0.7 /CMM (0.8-4.8); LYMPHOCYTES % (AUTO) 9.7 % (20.0-44.0); MEAN CORPUSCULAR HGB CONC 32 g/dl (31.0-36.0); MEAN CORPUSCULAR VOLUME 83 fL (80-96); MONOCYTES # (AUTO) 0.8 /CMM (0.1-1.30); NEUTROPHILS # (AUTO) 4.4 /CMM (1.8-8.9); PLATELET COUNT (AUTO) 258 /CMM (150-450); RED BLOOD CELL COUNT(AUTO) 4.08 MIL/uL (4.5-6.0)
--- NOTE | 2018-11-29 07:45 | NUR ---
MS RN Opening Note Patient asleep, resting in bed. Obtunded, opens eye spontaneously. Respirations even and unlabored on 2 L oxygen via nasal cannula, no shortness of breath or congestion noted. No signs of pain or discomfort at this time. Peripheral IV to the right upper arm 20 gauge, intact, patent and saline locked. G-tube in place, positive placement noted and 10 mL residual, currently with Glucerna 1.2 feeding at 60 mL/hr. No redness of g-tube site noted. Condom catheter in place, patent and draining clear, yellow urine. Fall and Safety precautions in place: bed in lowest and locked position, side rails up x2, bed alarm on, call light and personal possessions within reach. Reviewed plan of care and safety measures with patient. Will continue to monitor and intervene as needed.
[2018-11-29 08:00] VITALS: BP_SYST 105; BP_DIAS 57; BP_DIAS 59
[2018-11-29] MEDS: AMLODIPINE BESYLATE 5 MG TABLET GT SCH (09:00)
[2018-11-29] MEDS: LEVETIRACETAM SOL (5 ML) 100 MG/ML UDC GT SCH ×2 (10:08→17:54)
[2018-11-29] MEDS: PANTOPRAZOLE 40 MG/PACK PACK GT SCH ×2 (10:09→20:46)
[2018-11-29] MEDS: MULTIVITAMINS,THERAGRAN 1 UDTAB TABLET GT SCH (10:09)
[2018-11-29] MEDS: DIAZEPAM 2 MG TABLET GT SCH ×2 (10:09→17:55)
[2018-11-29] MEDS: FUROSEMIDE 40 MG/4 ML VIAL IV SCH ×2 (10:09→17:54)
[2018-11-29] MEDS: ASCORBIC ACID 500 MG TABLET GT SCH (10:09)
[2018-11-29] MEDS: SULFAMETH/TRIMETH 800/160 MG 1 UDTAB TABLET PO SCH ×2 (10:10→20:47)
[2018-11-29] MEDS: MUPIROCIN OINT 2% 22 GM TUBE SCH ×2 (10:10→20:49)
[2018-11-29] MEDS: ALBUTEROL FS 2.5 MG/0.5 ML VIAL.NEB NEB PRN (14:15)
[2018-11-29] MEDS: IPRATROPIUM NEB FS 0.5 MG/2.5 ML AMPUL.NEB NEB PRN (14:15)
[2018-11-29 16:00] VITALS: BP 120/80
[2018-11-29 16:20] VITALS: BP 120/80
--- NOTE | 2018-11-29 18:00 | NUR ---
Skin assessment and photos completed in anticipation of discharge.
--- NOTE | 2018-11-29 19:00 | NUR ---
MS RN Closing Note Patient asleep, resting in bed. Obtunded, opens eye spontaneously. Respirations even and unlabored on 3 L oxygen via nasal cannula, no shortness of breath or congestion noted. Respiratory therapist deep suction as needed this shift, breathing treatments as needed. No signs of pain or discomfort at this time. Peripheral IV to the right upper arm 20 gauge, intact, patent and saline locked. G-tube in place, positive placement noted and 0 mL residual, clamped at this time due to pending discharge. However, per CM, patient not being transported today due to issues with home elevator access. Endorse to night nurse RN to restart continuous Glucerna 1.2 feeding at 60 mL/hr. No redness of g-tube site noted. Condom catheter in place, patent and draining clear, yellow urine; 750 mL output this shift. Fall and Safety precautions in place: bed in lowest and locked position, side rails up x2, bed alarm on, call light and personal possessions within reach. Reviewed plan of care and safety measures with patient and family. Will endorse to night nurse RN for continuity of care.
--- NOTE | 2018-11-29 20:08 | NUR ---
RN MS OPENING NOTES RECEIVED PT IN BED, PT AWAKE, ALERT NON VERBAL, BREATHING EVEN AND UNLABORED ON O2 2L NC. NO SIGNS OF PAIN OR DISCOMFORT AT THIS TIME. IV ACCESS ON THE R AU #20G SL PATENT AND FLUSHING. KIC MATTRESS IN PLACE, GTUBE SITE INTACT, FEEDING OF GLUCERNA AT 60ML/HR. ALL NEEDS ATTENDED TO, BED IN LOWEST LOCKED POSITION, PT TO BE DISCHARGED TOMORROW. WILL CONTINUE TO MONITOR.
[2018-11-29] MEDS: GLUCERNA 1.2 1,000 ML BOTTLE NG PRN (20:26)
[2018-11-29 20:40] VITALS: BP 137/70
[2018-11-29] MEDS: HYDROCODONE/APAP 5/325MG 1 EACH TABLET GT PRN (20:47)
[2018-11-30] MEDS: BLOOD SUGAR DIAGNOSTIC 1 EACH STRIP IN SCH ×4 (00:13→18:14)
[2018-11-30] MEDS: INSULIN REGULAR, HUMAN 100 UNIT/ML 3 ML VIAL SQ PRN ×3 (00:13→12:45)
--- NOTE | 2018-11-30 00:14 | NUR ---
PT BG 136, HELD INSULIN DOSE OF 2 UNITS PER FAMILY REQUEST OF NON ADMIN IF UNDER 150
--- NOTE | 2018-11-30 06:16 | NUR ---
pt bg 138, held insulin dose per family request
--- NOTE | 2018-11-30 06:18 | NUR ---
RN MS CLOSING NOTES PT REMAINS IN BED, PT AWAKE, ALERT NON VERBAL, OBTUNDED, BREATHING EVEN AND UNLABORED ON O2 2L NC. NO SIGNS OF PAIN OR DISCOMFORT AT THIS TIME. IV ACCESS ON THE R AU #20G SL PATENT AND FLUSHING. KIC MATTRESS IN PLACE, GTUBE SITE INTACT, FEEDING OF GLUCERNA AT 60ML/HR. ALL NEEDS ATTENDED TO, BED IN LOWEST LOCKED POSITION, PT TO BE DISCHARGED TODAY PENDING . WILL CONTINUE TO MONITOR.
[2018-11-30 08:00] VITALS: BP 129/67
--- NOTE | 2018-11-30 08:00 | NUR ---
RN NOTES PATIENT RECEIVED NONVERBAL, ONLY OPEN EYES, APHASIC, PATIENT ON 02-3.0 LNC. NO ACUTE RESPIRATORY DISTRESS, NONLABORED. PATIENT ON G-TUBE GLUCERNA 1.2 FEEDING 60ML/HR , INTACT, RESIDUAL AND PLACEMENT CHECKED. PATIENT TOLERATED FEEDING WELL. V/S STABLE. SCHEDULED MEDICATION ADMINISTERED VIA G-TUBE, FLASHED WITH WATER 200 ML, ASSIST TURN AND REPOSTION Q 2 HR. DRESSING CHANGED, PATIENT ON AIR MATTRESS, NEEDS ATTENDED AND ANTICIPATED, CALL LIGHT WITHIN TO REACH, SAFETY PRECAUTION MAINTAINED ALL THE TIME.
[2018-11-30] MEDS: LEVETIRACETAM SOL (5 ML) 100 MG/ML UDC GT SCH ×2 (09:54→18:13)
[2018-11-30] MEDS: PANTOPRAZOLE 40 MG/PACK PACK GT SCH (09:55)
[2018-11-30] MEDS: MULTIVITAMINS,THERAGRAN 1 UDTAB TABLET GT SCH (09:55)
[2018-11-30] MEDS: DIAZEPAM 2 MG TABLET GT SCH ×2 (09:55→18:13)
[2018-11-30] MEDS: AMLODIPINE BESYLATE 5 MG TABLET GT SCH (09:55)
[2018-11-30] MEDS: ASCORBIC ACID 500 MG TABLET GT SCH (09:55)
[2018-11-30] MEDS: FUROSEMIDE 40 MG/4 ML VIAL IV SCH ×2 (09:55→18:13)
[2018-11-30] MEDS: SULFAMETH/TRIMETH 800/160 MG 1 UDTAB TABLET PO SCH (09:56)
--- NOTE | 2018-11-30 12:30 | NUR ---
RN NOTES BS-163 MG/DL, NO ACUTE RESPIRATORY DISTRESS, V/S STABLE, HOB ELEVATED FOR ASPIRATION PRECAUTION. ASSIAS TURN AND REPOSTION Q 2 HR, PATIENT WILL D/C HOME, MEDICATION PRESCRIPTION FAXED TO PHARMACY [phone], AND GLUCERNA 1.2 [address] [phone]. DAUGHTER AWARE OF.
--- NOTE | 2018-11-30 12:40 | NUR ---
RN NOTES PATIENT GOING TO D/C HOME .
[2018-11-30] MEDS: MUPIROCIN OINT 2% 22 GM TUBE SCH (12:43)
[2018-11-30 16:00] VITALS: BP 141/76
--- NOTE | 2018-11-30 17:00 | NUR ---
RN NOTES BS-118 MG/DL, NO COVERAGE GIVEN, PATIENT O2-3.0 L NC, NO ACUTE RESPIRATORY DISTRESS, SUCTIONED, MEDICATION GIVEN VIA G- TUBE, GLUCERNA INFUSING 60ML/HR, INTACT, HOB KEEP ELEVATED FOR ASPIRATION PRECAUTION, V/S STABLE, NEED ATTENDED AND ANTICIPATE, ASSIST TURN AND REPOSTION Q 2 HR. CALL LIGHT WITHIN TO REACH, SAFETY PRECAUTION MAINTAINED ALL THE TIME.
--- NOTE | 2018-11-30 18:45 | NUR ---
DISCHARGE NOTES PATIENT DISCHARGE HOME AT THIS TIME . PATIENT ON O2-3.0 L NS, NO ACUTE RESPIRATORY DISTRESS, V/S STABLE, NO PAIN AT THIS TIME. MED RECONCILIATIONS AND DISCHARGE ORDER REVIEWED AND EXPLAINED TO DAUGHTER NAME CLARA BY PHONE. DAUGHTER VERBALIZED UNDERSTANDING. ALSO FAXED PRESCRIPTIONS TO THE PHARMACY PER DAUGHTER REQUEST. PATIENT HAS NO BELONGING. PATIENT PEARL STRINGER BY AMBULANCE.
[2019-01-04] MEDS ORDERED: tobramycin (11:39)
== END 2018-11-30 18:45 | disposition home health service (06) | DRG 871 ==
LOC: ER 17:02 → TELE 20:15 → MED 11-25 09:11
PROVIDERS: ADMIT Internal Medicine Nephrology; ATTEND Internal Medicine Nephrology
DX: A41.9 Sepsis, unspecified organism (principal); L89.224 Pressure ulcer of left hip, stage 4; L89.214 Pressure ulcer of right hip, stage 4; L89.154 Pressure ulcer of sacral region, stage 4; L89.324 Pressure ulcer of left buttock, stage 4; L89.314 Pressure ulcer of right buttock, stage 4; G92 Toxic encephalopathy; R53.2 Functional quadriplegia; J18.9 Pneumonia, unspecified organism; N39.0 Urinary tract infection, site not specified; J81.1 Chronic pulmonary edema; Z86.73 Personal history of transient ischemic attack (TIA), and cerebral infarction without residual deficits; R13.10 Dysphagia, unspecified; Z93.1 Gastrostomy status; L89.621 Pressure ulcer of left heel, stage 1; L89.611 Pressure ulcer of right heel, stage 1; M24.572 Contracture, left ankle; M24.571 Contracture, right ankle; Z22.322 Carrier or suspected carrier of Methicillin resistant Staphylococcus aureus; B96.89 Other specified bacterial agents as the cause of diseases classified elsewhere; Z16.24 Resistance to multiple antibiotics; I10 Essential (primary) hypertension; G20 Parkinson's disease; I25.10 Atherosclerotic heart disease of native coronary artery without angina pectoris; Z86.61 Personal history of infections of the central nervous system; Z87.442 Personal history of urinary calculi; Z79.4 Long term (current) use of insulin; N40.0 Benign prostatic hyperplasia without lower urinary tract symptoms; F03.90 Unspecified dementia, unspecified severity, without behavioral disturbance, psychotic disturbance, mood disturbance, and anxiety; E78.5 Hyperlipidemia, unspecified; E87.70 Fluid overload, unspecified; J44.9 Chronic obstructive pulmonary disease, unspecified; E11.9 Type 2 diabetes mellitus without complications
CPT/HCPCS: 31720; 36415; 71045-TC; 80048-TC; 80076-TC; 81000-TC; 82962-TC; 83605-TC; 83735-TC; 84100-TC; 84134-TC; 84484-TC; 85025-TC; 85730-TC; 87040-TC; 87081-TC; 87086-TC; 87186-TC; 87400; 94799-TC; A4216; A4349; A6253; A6402; A6403; G0378; J0770; J1815; J1940; J1953; J2543; J3370; J7030; J7050; J7060

== ENCOUNTER 2018-12-29 19:01 | Inpatient (IN) | payer MEDICARE, OTHER ==
[~2018-12-29] VITALS: Ht 167.6 cm; Wt 75.5 kg
[~2018-12-29 19:01] MED LIST changes: +ASCO500T9 PO; -DUTA0.5C GT; -LACT1CAP72 PO; +LANS30CA56 PO; +LEVE100S GT; -METO25TA6 GT; +MULT-661 GT; -NUT.237L45 GT; -OLME1TAB16 GT; -Prosource GT
--- NOTE | 2018-12-29 19:05 | NUR ---
BIB [facility] FROM HOME 83 YEAR OLD MALE C/O FEVER AND INNER THIGH RASH. PATIENT IS NONVERBAL, BREATHING EVEN AND UNALBORED WITH NO DISTRESS NOTED. ON CONTINUOUS O2 VIA NC. NOTED GT TUBE SITE INTACT CLEAN AND DRY, NOTED WITH SACRUM ULCER WITH DRESSING IN PLACE. AWAITING TO BE SEEN BY MD. DAUGHTER AT BEDSIDE
--- NOTE | 2018-12-29 19:27 | NUR ---
REPORT GIVEN TO DOLORES FOR MARILYNN
[2018-12-29] MEDS ORDERED: IV NS 0.9% 1,000 ML BAG IV ONE (19:30)
[2018-12-29] MEDS ORDERED: VANCOMYCIN 1 GM in IV D5W 250 ML IV ONE (19:30)
[2018-12-29] MEDS ORDERED: PIPERACILLIN /TAZOBACTAM 3.375 G in IV D5W 50 ML IV ONE (19:30)
[2018-12-29 19:32] LABS: APPEARANCE,URINE Slightly Cloudy (CLEAR); BILIRUBIN,URINE Negative (NEGATIVE); BLOOD, URINE Negative Ery/uL (NEGATIVE); COLOR,URINE Yellow (YELLOW); KETONES,URINE Negative (NEGATIVE); LEUKOCYTE ESTERASE ,URINE Negative (NEGATIVE); NITRITE, URINE Positive (NEGATIVE); PH,URINE 7.5 (5.0-8.0); PROTEIN,URINE 30 mg/dl (NEGATIVE); UGLUCOSE Negative (NEGATIVE); UROBILINOGEN,URINE 0.2 EU/dL (0.2)
[2018-12-29 19:47] LABS: BASOPHILS # (AUTO) 0.1 /CMM (0.0-0.2); BASOPHILS % (AUTO) 0.2 % (0.0-2.0); EOSINOPHILS % (AUTO) 0.3 % (0.0-6.0); HEMATOCRIT 35 % (39-51); HEMOGLOBIN 11.4 g/dL (13.5-17.5); LYMPHOCYTES # (AUTO) 0.2 /CMM (0.8-4.8); LYMPHOCYTES % (AUTO) 0.8 % (20.0-44.0); MEAN CORPUSCULAR HGB CONC 33 g/dl (31.0-36.0); MEAN CORPUSCULAR VOLUME 82 fL (80-96); MONOCYTES # (AUTO) 0.8 /CMM (0.1-1.30); MONOCYTES % (AUTO) 2.8 % (2.0-12.0); NEUTROPHILS # (AUTO) 28.3 /CMM (1.8-8.9); NEUTROPHILS % (AUTO) 95.9 % (43.0-81.0); PLATELET COUNT (AUTO) 220 /CMM (150-450); RED BLOOD CELL COUNT(AUTO) 4.27 MIL/uL (4.5-6.0); WHITE BLOOD COUNT (AUTO) 29.5 K/uL (4.3-11.0)
[2018-12-29] MEDS ORDERED: VANCOMYCIN 1 GM VIAL ONE (19:56)
[2018-12-29] MEDS ORDERED: PIPERACILLIN /TAZOBACTAM 3.375 G VIAL IV ONE (19:56)
[2018-12-29 19:57] LABS: CALCIUM, SERUM 9.6 mg/dL (8.5-10.1); CARBON DIOXIDE 32 mmol/L (21-32); CHLORIDE 98 mmol/L (98-107); CREATININE 0.7 mg/dL (0.6-1.3); GLUCOSE 163 mg/dL (74-106); POTASSIUM 3.2 mmol/L (3.5-5.1); SODIUM SERUM 136 mmol/L (136-145); UREA NITROGEN, BLOOD 26 mg/dL (7-18)
[2018-12-29 19:58] LABS: BACTERIA,URINE Moderate /HPF (None Seen); RBC,URINE 0-2 /HPF (0-2); SQUAMOUS EPITHELIAL CELL,UR Few /HPF (None Seen); WBC,URINE 0-2 /HPF (0-3)
[2018-12-29 20:03] LABS: ALANINE AMINOTRANSFERASE 21 U/L (12-78); ALBUMIN 3.1 g/dL (3.4-5.0); ALKALINE PHOSPHATASE 123 U/L (46-116); ASPARTATE AMINOTRANSFERASE 23 U/L (15-37); BILIRUBIN,DIRECT 0.1 mg/dL (0.0-0.2); BILIRUBIN,TOTAL 0.3 mg/dL (0.2-1.0); TOTAL PROTEIN, SERUM 8.9 g/dL (6.4-8.2)
--- NOTE | 2018-12-29 20:25 | NUR ---
MS 116-2
--- NOTE | 2018-12-29 20:42 | NUR ---
REPORT GIVEN TO SHAD FRIEND,
[2018-12-29 20:55] LABS: BASOPHILS % (MANUAL) 0 % (0.0-2.0); EOSINOPHILS % (MANUAL) 0 % (0-4); LYMPHOCYTES % (MANUAL) 3 % (16-48); MONOCYTES % (MANUAL) 4 % (0-11.0); NEUTROPHILS % (MANUAL) 93 (42-76)
--- NOTE | 2018-12-29 21:35 | NUR ---
PT HARD STICK. VERBAL OK FROM DR KRISHNA FOR FOOT IV. AWARE
--- NOTE | 2018-12-29 21:48 | NUR ---
PT ASSIGNED TO 329
--- NOTE | 2018-12-29 21:53 | NUR ---
REPORT GIVEN TO ANNETTE FRIEND.
--- NOTE | 2018-12-29 22:30 | NUR ---
TAX LAWYER NOTE: RECEIVED PATIENT FROM ER, NO ACUTE DISTRESS NOTED. BREATHING EVEN AND UNLABORED, NO SOB NOTED. IV TO RIGHT FOOT IN PLACE. CONDOM CATH IN PLACE, DRAINING CLEAR YELLOW URINE. PATIENT HOME MEDICATIONS REVIEWED WITH DAUGHTER. BED LOCKED AND IN LOWEST POSITION, CALL LIGHT IN REACH. WILL CONTINUE TO MONITOR.
[2018-12-29] MEDS ORDERED: ASPI-1169 GT (23:07)
[2018-12-29] MEDS ORDERED: DOCU-141 GT (23:07)
[2018-12-30] VITALS: BP 109/59
--- NOTE | 2018-12-30 | NUR ---
PHOTOLITHOGRAPHER NOTE: CALLED MD FOR ADMIT ORDERS, SPOKE TO DR. VALDES, HE WILL ENTER IN MEDICATIONS. AWAITING ORDERS TO BE ENTERED. WILL CONTINUE TO MONITOR.
[2018-12-30] MEDS ORDERED: Z GUARD REMEDY 2 OZ OINT TP PRN (00:30)
[2018-12-30] MEDS ORDERED: MAG HYDROX/AL HYDROX/SIMETH 30 ML UDC PO PRN (00:30)
[2018-12-30] MEDS ORDERED: ZOLPIDEM TARTRATE 5 MG TABLET PO PRN (00:30)
[2018-12-30] MEDS ORDERED: MAGNESIUM HYDROXIDE 30 ML UDC PO PRN (00:30)
[2018-12-30] MEDS ORDERED: ACETAMINOPHEN 325 MG TABLET PO PRN (00:30)
[2018-12-30] MEDS ORDERED: ONDANSETRON HCL/PF 4 MG/2 ML VIAL IVP PRN (00:30)
[2018-12-30] MEDS: PIPERACILLIN /TAZOBACTAM 2.255 G in IV D5W 50 ML IV SCH ×2 (02:30→06:00)
[2018-12-30] MEDS ORDERED: PIPERACILLIN /TAZOBACTAM 2.25 G VIAL IV ONE (02:31)
[2018-12-30] MEDS: IV 1/2NS 1000 ML 1,000 ML IV PRN (03:02)
[2018-12-30 04:00] VITALS: BP 119/56
--- NOTE | 2018-12-30 05:08 | NUR ---
MS/RN NOTES PATIETN OBSERVE GRIMACE AND GUARDING, NORCO PRN PRESCRIBE, MONITORING FOR ANY CHANGES.
[2018-12-30 06:28] LABS: BASOPHILS # (AUTO) 0.1 /CMM (0.0-0.2); BASOPHILS % (AUTO) 0.3 % (0.0-2.0); EOSINOPHILS % (AUTO) 0.4 % (0.0-6.0); HEMATOCRIT 33 % (39-51); HEMOGLOBIN 10.7 g/dL (13.5-17.5); LYMPHOCYTES # (AUTO) 0.4 /CMM (0.8-4.8); LYMPHOCYTES % (AUTO) 1.7 % (20.0-44.0); MEAN CORPUSCULAR HGB CONC 32 g/dl (31.0-36.0); MEAN CORPUSCULAR VOLUME 83 fL (80-96); MONOCYTES % (AUTO) 3.9 % (2.0-12.0); NEUTROPHILS % (AUTO) 93.7 % (43.0-81.0); PLATELET COUNT (AUTO) 171 /CMM (150-450); WHITE BLOOD COUNT (AUTO) 24.6 K/uL (4.3-11.0)
--- NOTE | 2018-12-30 06:30 | NUR ---
ADJUNCT PHLEBOTOMY INSTRUCTOR NOTE: PATIENT RESTING IN BED, NO ACUTE DISTRESS NOTED. BREATHING EVEN AND UNLABORED, NO SOB NOTED. IV TO RIGHT FOOT IN PLACE. CONDOM CATH IN PLACE, DRAINING CLEAR YELLOW URINE. PATIENT NOTED WITH REDNESS TO BACK AND BLE, NEW PHOTOS TAKEN. BED LOCKED AND IN LOWEST POSITION, CALL LIGHT IN REACH. WILL ENDORSE TO DAY NURSE TO CONTINUE WITH PLAN OF CARE.
[2018-12-30 06:50] LABS: CALCIUM, SERUM 8.9 mg/dL (8.5-10.1); CARBON DIOXIDE 31 mmol/L (21-32); CHLORIDE 102 mmol/L (98-107); CREATININE 0.5 mg/dL (0.6-1.3); GLUCOSE 112 mg/dL (74-106); MAGNESIUM 2.2 mg/dL (1.8-2.4); PHOSPHORUS 2.3 mg/dL (2.5-4.9); POTASSIUM 3.3 mmol/L (3.5-5.1); SODIUM SERUM 140 mmol/L (136-145); UREA NITROGEN, BLOOD 21 mg/dL (7-18)
[2018-12-30 07:02] LABS: CHOLESTEROL 108 mg/dL (<200); HDL CHOLESTEROL 40 mg/dL (40-60); LDL 57 mg/dL (0-99); TRIGLYCERIDES 110 mg/dL (30-150)
--- NOTE | 2018-12-30 07:40 | NUR ---
ACCOUNTANT MACHINE PROCESSING NOTE: CALLED MD TO UPDATE THAT PATIENT NOTED WITH REDNESS THROUGHOUT BODY. LEFT MESSAGE WITH ASSOCIATE THEATRE PROFESSOR SERVICE, AWAITING CALL BACK. INFORMED PATIENT DAUGHTER, ISMAEL AT [phone], ABOUT NEW REDNESS NOTED.
--- NOTE | 2018-12-30 07:56 | NUR ---
VENEER GLUE JOINTER FEEDBACK OPENING NOTES RECEIVED PATIENT IN STABLE CONDITION. IN NO APPARENT DISTRESS. BEDSIDE RAILS ARE UPX2. BED IS LOCKED AND LOWERED. CALL LIGHT IS WITHIN REACH. IV LINE IS INTACT AND PATENT. WILL CONTINUE TO MONITOR PATIENT.
[2018-12-30 08:00] VITALS: BP 100/42
--- NOTE | 2018-12-30 08:12 | NUR ---
TELEPHONE AD TAKER NOTE: RECEIVED CALL BACK FROM DR. ZAMBRANO, RECEIVED NEW ORDER FOR POTASSIUM 40MEQ GT ONCE. ALSO INFORMED ABOUT REDNESS/RASH ON PATIENT BACK. DR. JANE ON WAY TO HOSPITAL AND WILL SEE PATIENT. ORDER NOTED AND CARRIED OUT.
[2018-12-30] MEDS ORDERED: FEE PK DOSING 1 MIN EA MC ONE (08:15)
[2018-12-30] MEDS ORDERED: POTASSIUM CHLORIDE 20 MEQ POWDER PACKET GT ONE (08:30)
[2018-12-30] MEDS: BACLOFEN (10 MG) 10 MG TABLET GT SCH ×2 (08:42→20:40)
[2018-12-30] MEDS: ASPIRIN 81 MG TAB.CHEW GT SCH (08:42)
[2018-12-30] MEDS: DOCUSATE SODIUM 100 MG CAPSULE PO SCH ×2 (08:42→17:00)
[2018-12-30] MEDS: ASCORBIC ACID 500 MG TABLET PO SCH (08:43)
[2018-12-30] MEDS: LEVETIRACETAM SOL (5 ML) 100 MG/ML UDC GT SCH ×2 (08:43→20:40)
[2018-12-30] MEDS: DIAZEPAM 2 MG TABLET GT SCH ×2 (08:43→20:40)
[2018-12-30] MEDS: MULTIVITAMINS,THERAGRAN 1 UDTAB TABLET GT SCH (08:46)
[2018-12-30] MEDS: PANTOPRAZOLE 40 MG/PACK PACK GT SCH (08:46)
[2018-12-30] MEDS: AMLODIPINE BESYLATE 5 MG TABLET GT SCH (08:47)
[2018-12-30] MEDS: VANCOMYCIN 0.75 GM in IV D5W 250 ML IV SCH ×2 (08:51→20:40)
[2018-12-30] MEDS ORDERED: VANCOMYCIN 1 GM in IV D5W 250 ML IV SCH (09:00)
[2018-12-30] MEDS: PIPERACILLIN /TAZOBACTAM 3.375 G in IV D5W 50 ML IV SCH ×4 (10:30→23:36)
[2018-12-30 12:00] VITALS: BP 124/72
--- NOTE | 2018-12-30 12:20 | NUR ---
DUE TO SYSTEM SHUT DOWN. RECORDS SHOW THAT ZOSYN WAS SCANNED AT 12:21 BUT MEDICATION WAS ADMINISTERED AT 10:30. MEDICATION WAS ADMINISTERED ON TIME.
[2018-12-30] MEDS ORDERED: NEUTRA PHOS 1 POWD.PACKET GT ONE (13:00)
[2018-12-30 16:00] VITALS: BP 110/54
--- NOTE | 2018-12-30 17:07 | NUR ---
NON ADMINISTERED COLACE AT 1700. PATIENT HAD BOWEL SOFT BOWEL MOVEMENT AT 1230. WILL CONTINUE TO MONITOR.
--- NOTE | 2018-12-30 18:43 | NUR ---
MS RN CLOSING NOTES PATIENT IS IN STABLE CONDITION. IN NO APPARENT DISTRESS. BEDSIDE RAILS ARE UPX2. BED IS LOCKED AND LOWERED. CALL LIGHT IS WITHIN REACH. IV LINE IS INTACT AND PATENT. ALL NEEDS WERE MET. WILL ENDORSE CARE TO SWAHILI TEACHER NURSE FOR MARILYNN.
[2018-12-30 20:00] VITALS: BP 125/54
--- NOTE | 2018-12-30 20:00 | NUR ---
MS/RN OPENING NOTES RECEIVED PATIENT IN BED, AWAKE, CAN OPEN EYES, DAUGHTER AT BEDSIDE. MONITORING FOR ANY CHANGES, INFORMED MD REGARDING BLADDER RETENTION AND TO MONITOR THE FLOW AND URINE FLOW, BED LOCKED.WILL MONITOR.
--- NOTE | 2018-12-30 20:00 | NUR ---
MS/RN OPENING NOTES RECEIVED PATIENT IN BED, CAN OPEN EYES. SKIN WARM TO TOUCH, ON OXYGEN VIA NC AT 3L, PATIENT HAS CONDOM CATHETER AND PER CONSULT TOP HAVE BLADDER ULTRASOUND TO CHECK RETENTION, REPORTED OF 440 CC, EPIC MD GARCIAS. MADE AWARE, TO CALL MD JANE GROUP TO NOTIFY THE RETENTION. DAUGHTER MADE AWARE,
--- NOTE | 2018-12-30 21:48 | NUR ---
MS/EN NOTES MD TURF KEEPER OF DR. MACKEY , DR OWENS WAS MADE AWARE VIA MESAAGE THAT RESULT OF US BLADDER RESULT WITH RETENTION AWAITING FOR CALL BACK AND ORDER.
--- NOTE | 2018-12-30 22:30 | NUR ---
MS/RN NOTES RECEIVED ORDER FROM SMALL LOT OPERATOR RIRI OWENS FOR INSERTION OF ANAND CATHETER AND SUSAN MATTRESS FOR PATIENT WITH URINE RETENTION PER BLADDER SCAN AND ULTRASOUND OF BLADDER, URINARY CATHETER GAUGE20 INSERTED W/ NO S/S OF COMPLICATION, ABLE TO DRAIN YELLOW COLOR URINE OF 300 ML. PATIENT WOUND TREATMENT PROVIDED ON SACRAL AREA WET TO DRY APPLY SKIN PROTECTANT AND MEPILEX. PER FAMILY HOME MEDICATION SANTYL FROM HOME PREFERED TO FOLLOW UP WITH WOUND CONSULT.
--- NOTE | 2018-12-30 23:00 | NUR ---
MS/RN NOTES PATIENT ASLEEP, FAMILY REQUESTING NOT TO AWAKEN PATIENT AT THIS TIME, REFUSE TO HAVE BODY CHECK TO CHECK IN AM AND FAMILY ALSO INFORMED REGARDING MEDICATION HYTRIN NOT BEING TAKEN ANYMORE FOR BPH, MADE AWARE. Addendum: 12/31/18 at 0508 by HAIM BAÑUELOS RN pls disregard for another patient
[2018-12-31] MEDS: HYDROCODONE/APAP 5/325MG 1 EACH TABLET PO PRN ×2 (05:18→17:07)
[2018-12-31] MEDS: PIPERACILLIN /TAZOBACTAM 3.375 G in IV D5W 50 ML IV SCH ×2 (05:22→11:29)
--- NOTE | 2018-12-31 06:41 | NUR ---
WOUND CARE CONSULT WOUND CARE RECEIVED CONSULT FOR SACRAL AND HIP WOUND. WOUND CARE WILL DEFER CONSULT AND ALL TREAMENT PLANS TO PLASTIC SURGICAL TEAM INCLUDING DPM DR FLOOD WHO HAVE BEEN NOTIFIED OF THE CONSULT. PATIENT WITH ABDIAZIZ AT 15, ALL PRESSURE ULCER PREVENTION MEASURES ARE NOTED TO BE IN PLACE. WILL SEE PRN.
--- NOTE | 2018-12-31 07:00 | NUR ---
MS/RN NOTES REPORT GIVEN TO AM RN FOR MARILYNN, BED LOCKED CALL LIGHTS WITHIN REACH.
--- NOTE | 2018-12-31 07:30 | NUR ---
RN OPENING NOTES PT NONVERBAL. PT RESTING IN [facility] BED. NO APPARENT S/S OF PAIN, DISTRESS OR SOB AT THIS TIME. PT HAS A ANAND CATHETER INTACT AND DRAINING WELL. PT HAS GTUBE FEEDING RUNNING AT 65ML/HR. PT HAS A RIGHT UPPER ARM MIDLINE. SAFETY PRECAUTIONS IN PLACE, BED IN LOWEST LOCKED POSITION, X3 SIDE RAILS UP AND CALL LIGHT WITHIN REACH. WILL CONTINUE TO MONITOR.
[2018-12-31 08:00] VITALS: BP 122/65
[2018-12-31 08:41] LABS: CALCIUM, SERUM 8.8 mg/dL (8.5-10.1); CARBON DIOXIDE 29 mmol/L (21-32); CHLORIDE 100 mmol/L (98-107); CREATININE 0.6 mg/dL (0.6-1.3); GLUCOSE 137 mg/dL (74-106); PHOSPHORUS 2.5 mg/dL (2.5-4.9); POTASSIUM 3.7 mmol/L (3.5-5.1); SODIUM SERUM 136 mmol/L (136-145); UREA NITROGEN, BLOOD 18 mg/dL (7-18)
[2018-12-31] MEDS: BACLOFEN (10 MG) 10 MG TABLET GT SCH ×2 (08:46→21:20)
[2018-12-31] MEDS: MULTIVITAMINS,THERAGRAN 1 UDTAB TABLET GT SCH (08:46)
[2018-12-31] MEDS: DIAZEPAM 2 MG TABLET GT SCH ×2 (08:46→21:20)
[2018-12-31] MEDS: AMLODIPINE BESYLATE 5 MG TABLET GT SCH (08:46)
[2018-12-31] MEDS: ASPIRIN 81 MG TAB.CHEW GT SCH (08:46)
[2018-12-31] MEDS: DOCUSATE SODIUM 100 MG CAPSULE PO SCH ×2 (08:47→17:03)
[2018-12-31] MEDS: ASCORBIC ACID 500 MG TABLET PO SCH (08:47)
[2018-12-31] MEDS: LEVETIRACETAM SOL (5 ML) 100 MG/ML UDC GT SCH ×2 (08:47→21:19)
[2018-12-31] MEDS: PANTOPRAZOLE 40 MG/PACK PACK GT SCH (08:47)
--- NOTE | 2018-12-31 09:05 | NUR ---
RN NOTES CALLED DAUGHTER FOR CONSENT FOR WOUND DEBRIDEMENT. DAUGHTER DECLINED AT THIS TIME. INFORMED DR RAMIREZ OF DAUGHTERS WISHES.
[2018-12-31] MEDS: VANCOMYCIN 0.75 GM in IV D5W 250 ML IV SCH ×2 (09:16→21:19)
[2018-12-31] MEDS: NYSTATIN TOP POWDER 15 GM BOTTLE TP SCH ×2 (10:11→17:07)
[2018-12-31] MEDS: DAKINS QUARTER STRENGTH (0.125%) 480 ML BOTTLE TOP SCH (10:11)
[2018-12-31 16:00] VITALS: BP 123/51
[2018-12-31] MEDS ORDERED: FEE PK DOSING 1 MIN EA MC ONE (16:02)
[2018-12-31] MEDS: TOBRAMYCIN 100 MG in IV D5W 100 ML IV SCH (17:00)
[2018-12-31] MEDS: LACTOBACILLUS RHAMNOSUS GG 1 EACH CAP.SPRINK GT SCH (17:03)
--- NOTE | 2018-12-31 19:07 | NUR ---
RN CLOSING NOTES PT NONVERBAL. PT RESTING IN [facility] BED. NO APPARENT S/S OF PAIN, DISTRESS OR SOB AT THIS TIME. PT HAS A ANAND CATHETER INTACT AND DRAINING WELL. PT HAS G TUBE FEEDING RUNNING AT 65ML/HR. PT HAS A RIGHT UPPER ARM MIDLINE. SAFETY PRECAUTIONS IN PLACE, BED IN LOWEST LOCKED POSITION, X3 SIDE RAILS UP AND CALL LIGHT WITHIN REACH. WILL ENDORSE TO LOADING UNIT OPERATOR POWDER CHARGING NURSE FOR CONTINUITY OF CARE.
[2018-12-31 20:00] VITALS: BP 108/46
[2018-12-31] MEDS: GLUCERNA 1.2 1,000 ML BOTTLE GT PRN (22:08)
[2019-01-01] MEDS: TOBRAMYCIN 100 MG in IV D5W 100 ML IV SCH (05:44)
[2019-01-01 06:43] LABS: BASOPHILS # (AUTO) 0.1 /CMM (0.0-0.2); BASOPHILS % (AUTO) 0.4 % (0.0-2.0); EOSINOPHILS % (AUTO) 6.6 % (0.0-6.0); HEMATOCRIT 35 % (39-51); HEMOGLOBIN 11.6 g/dL (13.5-17.5); LYMPHOCYTES # (AUTO) 0.6 /CMM (0.8-4.8); LYMPHOCYTES % (AUTO) 3.8 % (20.0-44.0); MEAN CORPUSCULAR HGB CONC 33 g/dl (31.0-36.0); MEAN CORPUSCULAR VOLUME 83 fL (80-96); MONOCYTES # (AUTO) 1.2 /CMM (0.1-1.30); MONOCYTES % (AUTO) 7.4 % (2.0-12.0); NEUTROPHILS # (AUTO) 12.7 /CMM (1.8-8.9); NEUTROPHILS % (AUTO) 81.8 % (43.0-81.0); PLATELET COUNT (AUTO) 232 /CMM (150-450); RED BLOOD CELL COUNT(AUTO) 4.26 MIL/uL (4.5-6.0); WHITE BLOOD COUNT (AUTO) 15.5 K/uL (4.3-11.0)
--- NOTE | 2019-01-01 06:47 | NUR ---
MS RN NOTES AWAKE & NON VERBAL. NOT IN ANY DISTRESS. NO SOB NOTED. NO S/SX OF ANY PAIN OR DISCOMFORT AT THIS TIME. WITH IVF & GTF INFUSING WELL. MONITORED ACCORDINGLY. CALL LIGHT WITHIN REACH. BED IN LOWEST POSITION. SR UP X 3 WITH BED ALARM ON FOR SAFETY. WILL ENDORSE TO NEXT SHIFT.
[2019-01-01 06:53] LABS: CARBON DIOXIDE 27 mmol/L (21-32); CHLORIDE 102 mmol/L (98-107); CREATININE 0.5 mg/dL (0.6-1.3); GLUCOSE 166 mg/dL (74-106); MAGNESIUM 2.2 mg/dL (1.8-2.4); PHOSPHORUS 2.7 mg/dL (2.5-4.9); SODIUM SERUM 139 mmol/L (136-145); UREA NITROGEN, BLOOD 15 mg/dL (7-18)
--- NOTE | 2019-01-01 07:20 | NUR ---
MS/RN OPENING NOTES RECEIVED PATIENT IN BED. PATIENT IS NONVERBAL. NO SIGNS OF PAIN AT THIS TIME. NO SIGNS OF RESPIRATORY DISTRESS OR SHORTNESS OF BREATH. HEAVEN MIDLINE IV G18 PATENT AND SALINE LOCKED. GLUCERNA INFUSING AT 65 ML/HR VIA GT. ANAND CATHETER INTACT AND DRAINING WELL. SAFETY PRECAUTIONS IN PLACE. BED IN LOWEST POSITION, LOCKED. SIDE RAILS UP X3. CALL LIGHT WITHIN REACH. WILL CONTINUE TO MONITOR.
[2019-01-01 08:00] VITALS: BP 132/67
[2019-01-01] MEDS: DOCUSATE SODIUM 100 MG CAPSULE PO SCH ×2 (09:46→16:21)
[2019-01-01] MEDS: ASPIRIN 81 MG TAB.CHEW GT SCH (09:46)
[2019-01-01] MEDS: LEVETIRACETAM SOL (5 ML) 100 MG/ML UDC GT SCH ×2 (09:46→22:18)
[2019-01-01] MEDS: MULTIVITAMINS,THERAGRAN 1 UDTAB TABLET GT SCH (09:46)
[2019-01-01] MEDS: PANTOPRAZOLE 40 MG/PACK PACK GT SCH (09:46)
[2019-01-01] MEDS: DIAZEPAM 2 MG TABLET GT SCH ×2 (09:46→22:19)
[2019-01-01] MEDS: LACTOBACILLUS RHAMNOSUS GG 1 EACH CAP.SPRINK GT SCH ×2 (09:46→16:21)
[2019-01-01] MEDS: BACLOFEN (10 MG) 10 MG TABLET GT SCH ×2 (09:47→22:19)
[2019-01-01] MEDS: AMLODIPINE BESYLATE 5 MG TABLET GT SCH (09:47)
[2019-01-01] MEDS: ASCORBIC ACID 500 MG TABLET PO SCH (09:47)
[2019-01-01] MEDS: VANCOMYCIN 0.75 GM in IV D5W 250 ML IV SCH (09:54)
[2019-01-01] MEDS: DAKINS QUARTER STRENGTH (0.125%) 480 ML BOTTLE TOP SCH (09:55)
[2019-01-01] MEDS: NYSTATIN TOP POWDER 15 GM BOTTLE TP SCH ×2 (09:55→16:59)
[2019-01-01] MEDS: IV 1/2NS 1000 ML 1,000 ML IV PRN (10:06)
[2019-01-01] MEDS: CEFTRIAXONE 1 G in IV D5W 50 ML IV SCH (15:41)
[2019-01-01] MEDS: GLUCERNA 1.2 1,000 ML BOTTLE GT PRN (16:21)
--- NOTE | 2019-01-01 18:36 | NUR ---
MS/RN NOTE THE PATIENT IB BED. AWAKE, NOT ALERT OR ORIENTED. PATIENT IS NON-VERBAL. RECEIVING OXYGEN AT 2L/MIN VIA NASAL CANNULA. RESPIRATION REGULAR AND UNLABORED. NO MANIFESTATION OF SOB OR ANY DISTRESS NOTED. GT FEEDING GLUCERNA 1.2 INFUSING AT 65ML/HR. NO RESIDUAL NOTED. ABDOMEN SOFT AND NON-DISTENDED. ANAND CATH DRAINING FREELY. NOTED CLEAR AND YELLOW COLOR URINE. NO BLADDER DISTENSION NOTED. TREATMENT DONE PER ORDER. ALL NEEDS ATTENDED. BED LOW AND LOCKED. SIDE RAILS UP X3. CALL LIGHT WITHIN REACH. WILL ENDORSE TO AMMUNITION ASSEMBLY II LABORER.
[2019-01-01 20:00] VITALS: BP 147/80
--- NOTE | 2019-01-01 20:00 | NUR ---
MS RN NOTES RECEIVED PATIENT AWAKE IN BED WITH NO DISTRESS NOTED. CALL LIGHT WITHIN REACH. HOB ELEVATED. NO FACIAL GRIMACING OR GROANING TO INDICATE PAIN OR DISCOMFORT. PERIPHERAL LINE INTACT AND PATENT. BED IN LOW LOCK SETTING. WILL CONTINUE TO MONITOR.
[2019-01-01] MEDS: HYDROCODONE/APAP 5/325MG 1 EACH TABLET PO PRN (20:46)
[2019-01-02] MEDS: IV 1/2NS 1000 ML 1,000 ML IV PRN ×2 (02:06→13:12)
[2019-01-02] MEDS ORDERED: TOBRAMYCIN 100 MG in IV D5W 100 ML IV SCH (04:00)
[2019-01-02 07:14] LABS: CARBON DIOXIDE 28 mmol/L (21-32); CHLORIDE 103 mmol/L (98-107); CREATININE 0.5 mg/dL (0.6-1.3); GLUCOSE 172 mg/dL (74-106); POTASSIUM 3.7 mmol/L (3.5-5.1); SODIUM SERUM 138 mmol/L (136-145); UREA NITROGEN, BLOOD 12 mg/dL (7-18)
--- NOTE | 2019-01-02 07:25 | NUR ---
RN OPENING NOTE PT WAS RECEIVED IN BED AT LOWEST AND LOCKED POSITION WITH SIDE RAILS UPX2, AWAKE AND ALERT. NONVERBAL, BREATHING EVEN AND UNLABORED ON NC, NO S/S OF PAIN OR DISTRESS NOTED, IV IS PATENT AND INTACT, NOTED TO HAVE ANAND CATHETER IN PLACE AND GTUBE WITH FEEDING RUNNING AT THIS TIME, NOTED HAVE SACRAL PRESSURE ULCER AND RIGHT/LEFT HIP ULCERS WELL, SAFETY PRECAUTIONS IN PLACE, CALL LIGHT WITHIN REACH, WILL MONITOR ACCORDINGLY
[2019-01-02 08:00] VITALS: BP 158/66
[2019-01-02] MEDS: ASPIRIN 81 MG TAB.CHEW GT SCH (08:22)
[2019-01-02] MEDS: PANTOPRAZOLE 40 MG/PACK PACK GT SCH (08:22)
[2019-01-02] MEDS: DOCUSATE SODIUM 100 MG CAPSULE PO SCH ×2 (08:22→16:01)
[2019-01-02] MEDS: LACTOBACILLUS RHAMNOSUS GG 1 EACH CAP.SPRINK GT SCH ×2 (08:22→16:01)
[2019-01-02] MEDS: BACLOFEN (10 MG) 10 MG TABLET GT SCH ×2 (08:22→21:22)
[2019-01-02] MEDS: LEVETIRACETAM SOL (5 ML) 100 MG/ML UDC GT SCH ×2 (08:22→21:19)
[2019-01-02] MEDS: MULTIVITAMINS,THERAGRAN 1 UDTAB TABLET GT SCH (08:22)
[2019-01-02] MEDS: DIAZEPAM 2 MG TABLET GT SCH ×2 (08:23→21:22)
[2019-01-02] MEDS: ASCORBIC ACID 500 MG TABLET PO SCH (08:23)
[2019-01-02] MEDS: AMLODIPINE BESYLATE 5 MG TABLET GT SCH (08:24)
[2019-01-02] MEDS: NYSTATIN TOP POWDER 15 GM BOTTLE TP SCH ×2 (08:27→16:09)
[2019-01-02] MEDS: DAKINS QUARTER STRENGTH (0.125%) 480 ML BOTTLE TOP SCH (08:27)
[2019-01-02] MEDS: GLUCERNA 1.2 1,000 ML BOTTLE GT PRN (09:11)
[2019-01-02] MEDS: MUPIROCIN OINT 2% 22 GM TUBE SCH ×2 (12:01→21:26)
[2019-01-02] MEDS: CEFTRIAXONE 1 G in IV D5W 50 ML IV SCH (15:22)
[2019-01-02 16:00] VITALS: BP 140/66
--- NOTE | 2019-01-02 18:34 | NUR ---
RN CLOSING NOTE PT RESTING IN BED AT LOWEST AND LOCKED POSITION WITH SIDE RAILS UP X2, BREATHING EVEN AND UNLABORED ON 2L VIA NC, NO SYMPTOMS OF PAIN OR DISTRESS CURRENTLY NOTED, IV PATENT AND INTACT WITH IVF INFUSING, TUBE FEEDING RUNNING, SAFETY PRECAUTIONS IN PLACE, CALL LIGHT WITHIN REACH, WILL ENDORSE TO BILINGUAL RECEPTIONIST RN FOR MARILYNN.
--- NOTE | 2019-01-02 19:30 | NUR ---
RN MS OPENING NOTES RECEIVED PATIENT IN BED. EYES OPEN. NONVERBAL. BREATHING EVEN AND UNLABORED. NO SOB NOTED. ON 2LPM OXYGEN VIA NC. TOLERATING WELL. NO S/S OF PAIN OR DISCOMFORT. NO FACIAL GRIMACING. RIGHT UPPER ARM MIDLINE INTACT AND PATENT WITH 1/2 NS RUNNING AT 100ML/HR. SKIN DRY AND WARM TO TOUCH. AFEBRILE. ALL OTHER NEEDS ATTENDED TO. AT BEDSIDE. SAFETY MEASURES IN PLACE. CALL LIGHT WITHIN REACH. WILL CONTINUE TO MONITOR.
[2019-01-02] MEDS: HYDROCODONE/APAP 5/325MG 1 EACH TABLET PO PRN (19:52)
[2019-01-02 20:00] VITALS: BP 138/81
--- NOTE | 2019-01-02 20:00 | NUR ---
RN MS NOTES PATIENT'S DAUGHTER FOUND BLISTER ON PATIENT'S LEFT NECK AND SHOULDER. PER DAUGHTER IT WAS NEVER THERE AND SHE HAS BEEN HERE EVERY DAY SINCE ADMISSION. REQUESTED FOR A WOUND CARE CONSULT. WOUND CARE CONSULT ORDERED. WILL CONTINUE TO MONITOR.
[2019-01-02] MEDS: TOBRAMYCIN 80 MG in IV D5W 50 ML IV SCH (21:26)
[2019-01-03] MEDS: GLUCERNA 1.2 1,000 ML BOTTLE GT PRN (04:44)
[2019-01-03] MEDS: IV 1/2NS 1000 ML 1,000 ML IV PRN ×2 (06:23→18:13)
--- NOTE | 2019-01-03 06:45 | NUR ---
RN MS CLOSING NOTES PATIENT RESTING IN BED. NO ACUTE CHANGES THROUGHOUT SHIFT. BREATHING EVEN AND UNLABORED. NO SOB NOTED. ON 2LPM OXYGEN VIA NC. TOLERATING WELL. NO S/S OF PAIN OR DISCOMFORT. NO FACIAL GRIMACING. RIGHT UPPER ARM MIDLINE INTACT AND PATENT WITH 1/2 NS RUNNING AT 100ML/HR. SKIN DRY AND WARM TO TOUCH. AFEBRILE. DRESSING CHANGED - DRY AND INTACT. ANAND CATH INTACT AND PATENT. TURNED AND REPOSITIONED Q2H. ALL OTHER NEEDS ATTENDED TO. SAFETY MEASURES IN PLACE. CALL LIGHT WITHIN REACH. WILL ENDORSE TO ONCOMING NURSE FOR MARILYNN.
--- NOTE | 2019-01-03 07:24 | NUR ---
RN OPENING NOTE PT WAS RECEIVED IN BED AT LOWEST AND LOCKED POSITION WITH SIDE RAILS UPX2, AWAKE AND ALERT. NONVERBAL, BREATHING EVEN AND UNLABORED ON NC, NO S/S OF PAIN OR DISTRESS NOTED, IV IS PATENT AND INTACT, NOTED TO HAVE ANAND CATHETER IN PLACE AND GTUBE WITH FEEDING RUNNING AT THIS TIME, SAFETY PRECAUTIONS IN PLACE, CALL LIGHT WITHIN REACH, WILL MONITOR ACCORDINGLY
[2019-01-03 07:40] LABS: BASOPHILS # (AUTO) 0.1 /CMM (0.0-0.2); BASOPHILS % (AUTO) 0.9 % (0.0-2.0); EOSINOPHILS % (AUTO) 13.3 % (0.0-6.0); HEMATOCRIT 35 % (39-51); HEMOGLOBIN 11.3 g/dL (13.5-17.5); LYMPHOCYTES # (AUTO) 0.6 /CMM (0.8-4.8); LYMPHOCYTES % (AUTO) 7.9 % (20.0-44.0); MEAN CORPUSCULAR HGB CONC 33 g/dl (31.0-36.0); MEAN CORPUSCULAR VOLUME 84 fL (80-96); MONOCYTES # (AUTO) 0.8 /CMM (0.1-1.30); MONOCYTES % (AUTO) 11.2 % (2.0-12.0); NEUTROPHILS # (AUTO) 4.8 /CMM (1.8-8.9); NEUTROPHILS % (AUTO) 66.7 % (43.0-81.0); RED BLOOD CELL COUNT(AUTO) 4.14 MIL/uL (4.5-6.0); WHITE BLOOD COUNT (AUTO) 7.2 K/uL (4.3-11.0)
[2019-01-03 07:57] LABS: ALANINE AMINOTRANSFERASE 18 U/L (12-78); ALBUMIN 2.5 g/dL (3.4-5.0); ALKALINE PHOSPHATASE 91 U/L (46-116); ASPARTATE AMINOTRANSFERASE 21 U/L (15-37); BILIRUBIN,TOTAL 0.3 mg/dL (0.2-1.0); CALCIUM, SERUM 9.2 mg/dL (8.5-10.1); CARBON DIOXIDE 25 mmol/L (21-32); CHLORIDE 104 mmol/L (98-107); CREATININE 0.5 mg/dL (0.6-1.3); GLUCOSE 151 mg/dL (74-106); PHOSPHORUS 3.4 mg/dL (2.5-4.9); SODIUM SERUM 139 mmol/L (136-145); TOTAL PROTEIN, SERUM 7.3 g/dL (6.4-8.2); UREA NITROGEN, BLOOD 13 mg/dL (7-18)
[2019-01-03 08:00] VITALS: BP 138/78
[2019-01-03] MEDS: LEVETIRACETAM SOL (5 ML) 100 MG/ML UDC GT SCH ×2 (08:21→21:59)
[2019-01-03] MEDS: DIAZEPAM 2 MG TABLET GT SCH ×2 (08:21→21:59)
[2019-01-03] MEDS: ASCORBIC ACID 500 MG TABLET PO SCH (08:21)
[2019-01-03] MEDS: PANTOPRAZOLE 40 MG/PACK PACK GT SCH (08:21)
[2019-01-03] MEDS: MULTIVITAMINS,THERAGRAN 1 UDTAB TABLET GT SCH (08:21)
[2019-01-03] MEDS: ASPIRIN 81 MG TAB.CHEW GT SCH (08:22)
[2019-01-03] MEDS: LACTOBACILLUS RHAMNOSUS GG 1 EACH CAP.SPRINK GT SCH ×2 (08:22→16:14)
[2019-01-03] MEDS: DOCUSATE SODIUM 100 MG CAPSULE PO SCH ×2 (08:22→16:14)
[2019-01-03] MEDS: BACLOFEN (10 MG) 10 MG TABLET GT SCH ×2 (08:22→21:59)
[2019-01-03] MEDS: MUPIROCIN OINT 2% 22 GM TUBE SCH ×2 (08:22→22:01)
[2019-01-03] MEDS: NYSTATIN TOP POWDER 15 GM BOTTLE TP SCH ×2 (08:23→16:15)
[2019-01-03] MEDS: DAKINS QUARTER STRENGTH (0.125%) 480 ML BOTTLE TOP SCH (08:23)
[2019-01-03] MEDS: AMLODIPINE BESYLATE 5 MG TABLET GT SCH (08:25)
[2019-01-03 08:50] LABS: PLATELET COUNT (AUTO) 193 /CMM (150-450)
[2019-01-03 10:42] LABS: BAND % (MANUAL) 1 % (0.0-5.0); EOSINOPHILS % (MANUAL) 7 % (0-4); LYMPHOCYTES % (MANUAL) 6 % (16-48); MONOCYTES % (MANUAL) 7 % (0-11.0); NEUTROPHILS % (MANUAL) 79 (42-76)
[2019-01-03] MEDS: CEFTRIAXONE 1 G in IV D5W 50 ML IV SCH (14:00)
[2019-01-03] MEDS: TOBRAMYCIN 80 MG in IV D5W 50 ML IV SCH (15:15)
[2019-01-03 16:00] VITALS: BP 129/60
--- NOTE | 2019-01-03 18:19 | NUR ---
RN CLOSING NOTE PT RESTING IN BED AT LOWEST AND LOCKED POSITION WITH SIDE RAILS UP X2, BREATHING EVEN AND UNLABORED ON 2L VIA NC, NO SYMPTOMS OF PAIN OR DISTRESS CURRENTLY NOTED, IV PATENT AND INTACT WITH IVF CHANGED AND INFUSING, TUBE FEEDING RUNNING, WOUND DRESSINGS CHANGED, SAFETY PRECAUTIONS IN PLACE, CALL LIGHT WITHIN REACH, WILL ENDORSE TO HAIRSPRING TRUING INSPECTOR RN FOR MARILYNN. Addendum: 01/03/19 at 1821 by ZULEMA CASTANEDA RN CHENG INTACT AND IN PLACE WELL
[2019-01-03 20:00] VITALS: BP 115/67
[2019-01-04] MEDS: IV 1/2NS 1000 ML 1,000 ML IV PRN (04:32)
--- NOTE | 2019-01-04 05:18 | NUR ---
ENDING NOTES: DAUGHTER AT THE BEDSIDE AT THE BEGINNING OF THE SHIFT AND ASSISTED WITH HIS CARE. MR. DOMINGUEZ HAS HIS EYES OPEN , HE IS NONVERBAL. SOFT STOOL X3 INCONTINENT KEPT CLEAN REDRESSED HIS STG 4 SACRAL WOUND. ISOLATION CONTACT DT MRSA NARES. AFEBRILE THIS 12 HOURS
[2019-01-04] MEDS: GLUCERNA 1.2 1,000 ML BOTTLE GT PRN ×2 (06:10→15:58)
[2019-01-04 07:27] LABS: BASOPHILS # (AUTO) 0.1 /CMM (0.0-0.2); BASOPHILS % (AUTO) 0.7 % (0.0-2.0); EOSINOPHILS % (AUTO) 12.3 % (0.0-6.0); HEMATOCRIT 33 % (39-51); HEMOGLOBIN 10.8 g/dL (13.5-17.5); LYMPHOCYTES # (AUTO) 0.6 /CMM (0.8-4.8); LYMPHOCYTES % (AUTO) 7.9 % (20.0-44.0); MEAN CORPUSCULAR HGB CONC 33 g/dl (31.0-36.0); MEAN CORPUSCULAR VOLUME 82 fL (80-96); MONOCYTES # (AUTO) 0.8 /CMM (0.1-1.30); MONOCYTES % (AUTO) 10.8 % (2.0-12.0); NEUTROPHILS # (AUTO) 5.2 /CMM (1.8-8.9); NEUTROPHILS % (AUTO) 68.3 % (43.0-81.0); PLATELET COUNT (AUTO) 241 /CMM (150-450); RED BLOOD CELL COUNT(AUTO) 4.01 MIL/uL (4.5-6.0); WHITE BLOOD COUNT (AUTO) 7.6 K/uL (4.3-11.0)
--- NOTE | 2019-01-04 07:30 | NUR ---
RN OPENING NOTES PATIENT IN BED RESTING. NOT IN ANY FORM OF DISTRESS, NO SOB, NO S/S OF PAIN OR DISCOMFORT. IV ACCESS INTACT AND PATENT. GT IN PLACE, FEEDING TOLERATING WELL. ANAND IN PLACED, DRAINING WELL. KEPT PATIENT SAFE AND COMFORTABLE, BED IN LOW/LOCKED POSIITON, SIDERAILS UP, HOB ELEVATED, CALL LIGHT IN REACH. WILL CONTINUE TO MONITOR ACCORDINGLY.
[2019-01-04 07:39] LABS: ALANINE AMINOTRANSFERASE 18 U/L (12-78); ALBUMIN 2.6 g/dL (3.4-5.0); ALKALINE PHOSPHATASE 97 U/L (46-116); ASPARTATE AMINOTRANSFERASE 16 U/L (15-37); BILIRUBIN,TOTAL 0.3 mg/dL (0.2-1.0); CALCIUM, SERUM 9.2 mg/dL (8.5-10.1); CARBON DIOXIDE 26 mmol/L (21-32); CHLORIDE 103 mmol/L (98-107); CREATININE 0.5 mg/dL (0.6-1.3); GLUCOSE 146 mg/dL (74-106); MAGNESIUM 1.9 mg/dL (1.8-2.4); PHOSPHORUS 3.3 mg/dL (2.5-4.9); POTASSIUM 3.8 mmol/L (3.5-5.1); SODIUM SERUM 138 mmol/L (136-145); TOTAL PROTEIN, SERUM 7.5 g/dL (6.4-8.2); UREA NITROGEN, BLOOD 13 mg/dL (7-18)
[2019-01-04 08:21] LABS: BAND % (MANUAL) 1 % (0.0-5.0); EOSINOPHILS % (MANUAL) 13 % (0-4); LYMPHOCYTES % (MANUAL) 10 % (16-48); MONOCYTES % (MANUAL) 7 % (0-11.0); NEUTROPHILS % (MANUAL) 69 (42-76)
[2019-01-04 08:35] VITALS: BP 155/90
[2019-01-04] MEDS: LACTOBACILLUS RHAMNOSUS GG 1 EACH CAP.SPRINK GT SCH ×2 (09:03→16:01)
[2019-01-04] MEDS: PANTOPRAZOLE 40 MG/PACK PACK GT SCH (09:03)
[2019-01-04] MEDS: AMLODIPINE BESYLATE 5 MG TABLET GT SCH (09:04)
[2019-01-04] MEDS: ASCORBIC ACID 500 MG TABLET PO SCH (09:04)
[2019-01-04] MEDS: DOCUSATE SODIUM 100 MG CAPSULE PO SCH ×2 (09:04→16:01)
[2019-01-04] MEDS: DIAZEPAM 2 MG TABLET GT SCH ×2 (09:05→21:33)
[2019-01-04] MEDS: MULTIVITAMINS,THERAGRAN 1 UDTAB TABLET GT SCH (09:07)
[2019-01-04] MEDS: ASPIRIN 81 MG TAB.CHEW GT SCH (09:07)
[2019-01-04] MEDS: LEVETIRACETAM SOL (5 ML) 100 MG/ML UDC GT SCH ×2 (09:08→21:33)
[2019-01-04] MEDS: DAKINS QUARTER STRENGTH (0.125%) 480 ML BOTTLE TOP SCH (09:09)
[2019-01-04] MEDS: MUPIROCIN OINT 2% 22 GM TUBE SCH ×2 (09:09→21:33)
[2019-01-04] MEDS: NYSTATIN TOP POWDER 15 GM BOTTLE TP SCH ×2 (09:09→16:06)
[2019-01-04] MEDS: BACLOFEN (10 MG) 10 MG TABLET GT SCH ×2 (09:14→21:33)
[2019-01-04] MEDS: TOBRAMYCIN 80 MG in IV D5W 50 ML IV SCH (09:18)
[2019-01-04] MEDS ORDERED: tobramycin (11:39)
[2019-01-04] MEDS: CEFTRIAXONE 1 G in IV D5W 50 ML IV SCH (15:55)
[2019-01-04 16:53] VITALS: BP 132/73
--- NOTE | 2019-01-04 19:00 | NUR ---
RN NOTES ENDORSED TO RONNA NORWOOD TO RUPERT ANAND WHEN DISCHARGE.
--- NOTE | 2019-01-04 19:28 | NUR ---
RN MS OPENING NOTES RECEIVED PATIENT IN BED HEAD OF BED ELEVATED FOR ASPIRATION PRECAUTIONS, GTUBE INTACT AND PATENT, SITE HAD DRESSING CLEAN DRY AND INTACT, TOLERATING FEEDING WELL RESIDUALS 5CC. AWAKE OPEN EYES, NON VERBAL, ON O2 3L VIA NC SPO2 94% NO SOB , RESPIRATIONS EVEN AND UNLABORED WITH EQUAL RISE AND FALL OF CHEST, ANAND CATHETER INTACT, AND DRAINING WELL URINE YELLOW 300CC NOTED AT THIS TIME, DRESSING TO WOUND SITES REMAIN CLEAN DRY AND INTACT, RIGHT UPPER MID LINE INTACT AND PATENT, DRESSING IS CLEAN, DRY AND INTACT , IVF RUNNING ORDERED, SAFETY PRECAUTIONS IN PLACE, CALL LIGHT KEPT WITHIN REACH, AWAITING FOR DISCHARGE .WILL CONTINUE TO MONITOR AND ATTEND TO NEEDS
--- NOTE | 2019-01-04 19:28 | NUR ---
RN CLOSING NOTES PATIENT IN STABLE CONDITION. ALL NEED ATTENDED AND PROVIDED. ALL DUE MEDICATIONS GIVEN ORDERED. KEPT PATIENT SAFE AND COMFORTABLE. TURNED AND REPOSITIONED PATIENT EVERY 2HRS NEEDED. WOUND CARE RENDERED. BED IN LOW/LOCKED POSITION, SIDERAILS UP, HOB ELEVATED. CALL LIGHT IN REACH. ENDORSED TO NIGHT RN FOR MARILYNN.
[2019-01-04 20:00] VITALS: BP 144/69
--- NOTE | 2019-01-04 20:15 | NUR ---
RN MS NOTES PERINEAL CARE PROVIDED , PATIENT REPOSITIONED , WOUND DRESSINGS REMAINS CLEAN DRY AND INTACT, OFFLOADED ANAND CATHETER REMOVED ORDERED PER MD AND PER ENDORSEMENT. TOLERATED WELL.
--- NOTE | 2019-01-04 21:00 | NUR ---
RN MS NOTES CALLED [facility] TRIP IS SCHEDULED AT 9:15 PM SPOKE TO DAUGHTER MADE AWARE
--- NOTE | 2019-01-04 22:00 | NUR ---
RN MS NOTES TRANSPORTATION NOT HERE YET CALLED [facility] PER THEM ON SITE. CALLED DAUGHTER TO UPDATE.
[2019-01-04 22:15] VITALS: BP 155/86
--- NOTE | 2019-01-04 22:15 | NUR ---
RN MS DISCHARGE NOTES PATIENT DISCHARGED WITH [facility] TRANSFERRED TO [facility] , VITAL SIGNS WNL 155/86,80,18,93% 3 LITERS, 98.0 , APPEARS TO BE FREE OF ANY PAIN OR DISCOMFORT ,BELONGINGS AND PILLOW WITH PATIENT, DISCHARGED TO RIGHT UPPER ARM MIDLINE FOR ATB WITH HOME HEALTH, DISCHARGE PAPER WORK GIVEN TO EMT, DAUGHTER MARCELINA WAITING FOR PATIENT AT HOME AWARE HE IS BEING PICKED UP AND IN STABLE CONDITION, GTUBE REMAINS INTACT AND PATENT ALL NEEDS WERE ATTENDED, PATIENT WAS SAFELY DISCHARGED
== END 2019-01-04 22:25 | disposition home health service (06) | DRG 871 ==
LOC: ER 19:03 → TELE1 20:39 → MED 21:45 → TELE 12-30 → MED 12-30 12:44
PROVIDERS: ADMIT Internal Medicine Nephrology; ATTEND Internal Medicine
PROC: 05H533Z Insertion of Infusion Device into Right Subclavian Vein, Percutaneous Approach (ICD-10-PCS; principal; 2018-12-30)
PROC: B546ZZA Ultrasonography of Right Subclavian Vein, Guidance (ICD-10-PCS; 2018-12-30)
DX: A41.9 Sepsis, unspecified organism (principal); L89.154 Pressure ulcer of sacral region, stage 4; L89.224 Pressure ulcer of left hip, stage 4; G92 Toxic encephalopathy; R53.2 Functional quadriplegia; L03.115 Cellulitis of right lower limb; N39.0 Urinary tract infection, site not specified; E11.9 Type 2 diabetes mellitus without complications; N40.0 Benign prostatic hyperplasia without lower urinary tract symptoms; Z87.442 Personal history of urinary calculi; I10 Essential (primary) hypertension; R13.10 Dysphagia, unspecified; Z82.49 Family history of ischemic heart disease and other diseases of the circulatory system; Z86.73 Personal history of transient ischemic attack (TIA), and cerebral infarction without residual deficits; Z87.440 Personal history of urinary (tract) infections; Z79.4 Long term (current) use of insulin; Z86.61 Personal history of infections of the central nervous system; M62.449 Contracture of muscle, unspecified hand; Z93.1 Gastrostomy status; Z98.890 Other specified postprocedural states; Z79.899 Other long term (current) drug therapy; Z91.041 Radiographic dye allergy status; L89.620 Pressure ulcer of left heel, unstageable; L89.611 Pressure ulcer of right heel, stage 1; M62.472 Contracture of muscle, left ankle and foot; M62.471 Contracture of muscle, right ankle and foot; L30.4 Erythema intertrigo; D64.9 Anemia, unspecified; E78.5 Hyperlipidemia, unspecified; E87.6 Hypokalemia; F03.90 Unspecified dementia, unspecified severity, without behavioral disturbance, psychotic disturbance, mood disturbance, and anxiety; J44.9 Chronic obstructive pulmonary disease, unspecified; I25.10 Atherosclerotic heart disease of native coronary artery without angina pectoris; L89.211 Pressure ulcer of right hip, stage 1; L98.9 Disorder of the skin and subcutaneous tissue, unspecified; R65.20 Severe sepsis without septic shock; G20 Parkinson's disease; F02.80 Dementia in other diseases classified elsewhere, unspecified severity, without behavioral disturbance, psychotic disturbance, mood disturbance, and anxiety
CPT/HCPCS: 36415; 36569; 71045-TC; 76856-TC; 80048-TC; 80053-TC; 80061-TC; 80076-TC; 80202-TC; 81000-TC; 83605-TC; 83735-TC; 84100-TC; 84484-TC; 85025-TC; 85730-TC; 87040-TC; 87081-TC; 87086-TC; 87186-TC; A6253; A6402; A6403; G0378; J0696; J1953; J2543; J3260; J3370; J3490; J7030; J7060

== ENCOUNTER 2019-01-16 18:51 | Emergency (ER) | payer MEDICARE, OTHER ==
[~2019-01-16] VITALS: Ht 182.9 cm; Wt 75.7 kg
[~2019-01-16 18:51] MED LIST changes: +ASPI-1169 GT; +DOCU-141 GT; +tobramycin
--- NOTE | 2019-01-16 19:23 | NUR ---
MARIA L. C/O "DAUGHTER CALLED AND SAID HES MORE ALTERED THAN USUAL" PT ALERT AND RESPONSIVE. -SOB NOTED. -FEVER.
[2019-01-16 19:26] LABS: BASOPHILS # (AUTO) 0.1 /CMM (0.0-0.2); BASOPHILS % (AUTO) 0.9 % (0.0-2.0); EOSINOPHILS % (AUTO) 12.5 % (0.0-6.0); HEMATOCRIT 33 % (39-51); HEMOGLOBIN 10.8 g/dL (13.5-17.5); LYMPHOCYTES # (AUTO) 0.6 /CMM (0.8-4.8); LYMPHOCYTES % (AUTO) 6.5 % (20.0-44.0); MEAN CORPUSCULAR HGB CONC 33 g/dl (31.0-36.0); MEAN CORPUSCULAR VOLUME 82 fL (80-96); MONOCYTES # (AUTO) 0.8 /CMM (0.1-1.30); MONOCYTES % (AUTO) 9.8 % (2.0-12.0); NEUTROPHILS # (AUTO) 6.1 /CMM (1.8-8.9); NEUTROPHILS % (AUTO) 70.3 % (43.0-81.0); PLATELET COUNT (AUTO) 334 /CMM (150-450); RED BLOOD CELL COUNT(AUTO) 3.98 MIL/uL (4.5-6.0); WHITE BLOOD COUNT (AUTO) 8.6 K/uL (4.3-11.0)
[2019-01-16 19:36] LABS: CALCIUM, SERUM 9.4 mg/dL (8.5-10.1); CARBON DIOXIDE 31 mmol/L (21-32); CHLORIDE 101 mmol/L (98-107); CREATININE 0.6 mg/dL (0.6-1.3); GLUCOSE 139 mg/dL (74-106); POTASSIUM 4.4 mmol/L (3.5-5.1); SODIUM SERUM 136 mmol/L (136-145); UREA NITROGEN, BLOOD 26 mg/dL (7-18)
[2019-01-16 19:42] LABS: ALANINE AMINOTRANSFERASE 23 U/L (12-78); ALBUMIN 2.8 g/dL (3.4-5.0); ALKALINE PHOSPHATASE 113 U/L (46-116); ASPARTATE AMINOTRANSFERASE 34 U/L (15-37); BILIRUBIN,TOTAL 0.3 mg/dL (0.2-1.0); TOTAL PROTEIN, SERUM 8.2 g/dL (6.4-8.2)
[2019-01-16 20:03] LABS: APPEARANCE,URINE Clear (CLEAR); BILIRUBIN,URINE Negative (NEGATIVE); BLOOD, URINE Negative Ery/uL (NEGATIVE); COLOR,URINE Yellow (YELLOW); KETONES,URINE Negative (NEGATIVE); LEUKOCYTE ESTERASE ,URINE Negative (NEGATIVE); NITRITE, URINE Negative (NEGATIVE); PROTEIN,URINE Negative (NEGATIVE); UGLUCOSE Negative (NEGATIVE); UROBILINOGEN,URINE 0.2 EU/dL (0.2)
[2019-01-16 20:12] LABS: SERUM AMMONIA 23 umol/L (11-32)
[2019-01-16 20:47] LABS: THYROID STIMULATING HORMONE 2.389 uIU/mL (0.358-3.74)
--- NOTE | 2019-01-16 22:02 | NUR ---
CALLED [facility] FOR TRANSPORT BACK HOME, ETA [phone], TRIP #[id number]
[2019-01-16] MEDS ORDERED: HYDROCODONE/APAP 5/325MG 1 EACH TABLET ONE (22:37)
[2019-01-16] MEDS ORDERED: HYDROCODONE/APAP 5/325MG 1 EACH TABLET PO ONE (23:00)
[2019-01-17 00:05] VITALS: BP 126/77
[2019-01-18] MEDS ORDERED: DIAZ2TAB GT (17:05)
[2019-01-18] MEDS ORDERED: ASPI-1169 GT (17:05)
[2019-01-18] MEDS ORDERED: VIT500LI GT (17:05)
[2019-01-18] MEDS ORDERED: AMLO5TAB4 GT (17:05)
[2019-01-18] MEDS ORDERED: MULT-24 GT (17:05)
[2019-01-18] MEDS ORDERED: BACL10TA GT (17:05)
[2019-01-18] MEDS ORDERED: LANS30CA56 GT (17:05)
[2019-01-18] MEDS ORDERED: DOCU-141 PO (17:05)
[2019-01-18] MEDS ORDERED: LEVE100S GT (17:05)
== END 2019-01-17 00:23 | disposition home or self-care (01) ==
LOC: ER 18:52
DX: G93.49 Other encephalopathy (principal); R41.82 Altered mental status, unspecified; I10 Essential (primary) hypertension; N40.0 Benign prostatic hyperplasia without lower urinary tract symptoms; E11.9 Type 2 diabetes mellitus without complications; Z87.442 Personal history of urinary calculi; Z93.1 Gastrostomy status; Z98.890 Other specified postprocedural states; Z88.6 Allergy status to analgesic agent; Z79.82 Long term (current) use of aspirin; Z99.81 Dependence on supplemental oxygen; Z86.73 Personal history of transient ischemic attack (TIA), and cerebral infarction without residual deficits; Z98.49 Cataract extraction status, unspecified eye
CPT/HCPCS: 36415; 70450; 71045; 80048; 80076; 81001; 82140; 82962; 84443; 84484; 85025; 85730; 87086; 93005; 99284; A4606; A6402; 81000-TC

== ENCOUNTER 2019-01-18 15:46 | Inpatient (IN) | payer MEDICARE, OTHER ==
[~2019-01-18] VITALS: Ht 177.8 cm; Wt 74.8 kg
[2019-01-18] MEDS ORDERED: ACETAMINOPHEN 650 MG/SUPP.RECT RC ONE ×2 (16:15→16:30)
[2019-01-18] MEDS ORDERED: IV NS 0.9% 1,000 ML BAG IV ONE (16:30)
--- NOTE | 2019-01-18 16:47 | NUR ---
CALLED DR AHUMADA'S OFFICE TO REQUEST A DR TO DR TAYLOR
[2019-01-18 16:54] LABS: APPEARANCE,URINE Clear (CLEAR); BILIRUBIN,URINE Negative (NEGATIVE); BLOOD, URINE Negative Ery/uL (NEGATIVE); COLOR,URINE Yellow (YELLOW); KETONES,URINE Negative (NEGATIVE); LEUKOCYTE ESTERASE ,URINE Negative (NEGATIVE); NITRITE, URINE Negative (NEGATIVE); PH,URINE 8.5 (5.0-8.0); PROTEIN,URINE 100 mg/dl (NEGATIVE); UGLUCOSE Negative (NEGATIVE); UROBILINOGEN,URINE 0.2 EU/dL (0.2)
[2019-01-18 16:56] LABS: BASOPHILS # (AUTO) 0.1 /CMM (0.0-0.2); BASOPHILS % (AUTO) 0.2 % (0.0-2.0); EOSINOPHILS % (AUTO) 2.1 % (0.0-6.0); HEMATOCRIT 35 % (39-51); LYMPHOCYTES # (AUTO) 0.4 /CMM (0.8-4.8); LYMPHOCYTES % (AUTO) 1.4 % (20.0-44.0); MEAN CORPUSCULAR HGB CONC 32 g/dl (31.0-36.0); MEAN CORPUSCULAR VOLUME 82 fL (80-96); MONOCYTES # (AUTO) 0.9 /CMM (0.1-1.30); MONOCYTES % (AUTO) 3.2 % (2.0-12.0); NEUTROPHILS # (AUTO) 25.6 /CMM (1.8-8.9); NEUTROPHILS % (AUTO) 93.1 % (43.0-81.0); PLATELET COUNT (AUTO) 334 /CMM (150-450); RED BLOOD CELL COUNT(AUTO) 4.21 MIL/uL (4.5-6.0); WHITE BLOOD COUNT (AUTO) 27.5 K/uL (4.3-11.0)
--- NOTE | 2019-01-18 17:01 | NUR ---
CLEANED PT OF BM AND APPLIED DRY STERILE DRESSINGS TO WOUNDS ON SACRUM AND BILATERAL HIPS. PT'S SKIN TEARS EASILY. DAUGHTER ASSISTING AT BEDSIDE, SUCTIONS MOUTH FROM EXCESSIVE MUCUS
[2019-01-18 17:04] LABS: CALCIUM, SERUM 9.5 mg/dL (8.5-10.1); CARBON DIOXIDE 30 mmol/L (21-32); CHLORIDE 100 mmol/L (98-107); CREATININE 0.6 mg/dL (0.6-1.3); GLUCOSE 161 mg/dL (74-106); POTASSIUM 3.8 mmol/L (3.5-5.1); SODIUM SERUM 138 mmol/L (136-145); UREA NITROGEN, BLOOD 22 mg/dL (7-18)
[2019-01-18] MEDS ORDERED: LEVE100S GT (17:05)
[2019-01-18] MEDS ORDERED: VIT500LI GT (17:05)
[2019-01-18] MEDS ORDERED: AMLO5TAB4 GT (17:05)
[2019-01-18] MEDS ORDERED: LANS30CA56 GT (17:05)
[2019-01-18] MEDS ORDERED: BACL10TA GT (17:05)
[2019-01-18] MEDS ORDERED: ASPI-1169 GT (17:05)
[2019-01-18] MEDS ORDERED: DIAZ2TAB GT (17:05)
[2019-01-18] MEDS ORDERED: MULT-24 GT (17:05)
[2019-01-18] MEDS ORDERED: DOCU-141 PO (17:05)
[2019-01-18 17:08] LABS: RBC,URINE 0-2 /HPF (0-2); WBC,URINE 0-2 /HPF (0-3)
[2019-01-18 17:09] LABS: BACTERIA,URINE None seen /HPF (None Seen); SQUAMOUS EPITHELIAL CELL,UR Few /HPF (None Seen)
[2019-01-18 17:19] LABS: ALANINE AMINOTRANSFERASE 22 U/L (12-78); ALBUMIN 3.2 g/dL (3.4-5.0); ALKALINE PHOSPHATASE 123 U/L (46-116); ASPARTATE AMINOTRANSFERASE 21 U/L (15-37); BILIRUBIN,DIRECT 0.1 mg/dL (0.0-0.2); BILIRUBIN,TOTAL 0.4 mg/dL (0.2-1.0); TOTAL PROTEIN, SERUM 8.7 g/dL (6.4-8.2)
--- NOTE | 2019-01-18 17:29 | NUR ---
DR LEZAMA'S OFFICE WAS CALLED. AWAITING HIS CALL BACK
--- NOTE | 2019-01-18 17:40 | NUR ---
CALLED [facility] FOR TELE BED
[2019-01-18] MEDS ORDERED: CEFTRIAXONE 1GM BAG (ER ONLY) 50 ML IV ONE ×2 (18:00)
[2019-01-18] MEDS ORDERED: AZITHROMYCIN 500 MG in IV D5W 250 ML IV ONE (18:00)
[2019-01-18] MEDS ORDERED: AZITHROMYCIN 500 MG VIAL ONE (18:00)
--- NOTE | 2019-01-18 18:07 | NUR ---
FLU SWAB SENT TO STAT LAB
--- NOTE | 2019-01-18 18:15 | NUR ---
TELE BED 310-1 RONNA SALINAS
[2019-01-18] MEDS ORDERED: ONDANSETRON HCL/PF 4 MG/2 ML VIAL IVP ONE (18:30)
[2019-01-18] MEDS ORDERED: MORPHINE SULFATE INJ 2 MG/ML DISP.SYRIN IV ONE (18:30)
--- NOTE | 2019-01-18 18:34 | NUR ---
REPORT GIVEN TO RITA FOR 310-1 TELE
[2019-01-18 18:44] LABS: BAND % (MANUAL) 6 % (0.0-5.0); EOSINOPHILS % (MANUAL) 2 % (0-4); METAMYELOCYTES % 1 % (0-0); MONOCYTES % (MANUAL) 1 % (0-11.0); NEUTROPHILS % (MANUAL) 90 (42-76)
[2019-01-18] MEDS ORDERED: MORPHINE SULFATE INJ 4 MG/ML DISP.SYRIN ONE (18:47)
[2019-01-18] MEDS ORDERED: ONDANSETRON HCL/PF 4 MG/2 ML VIAL ONE (18:47)
--- NOTE | 2019-01-18 18:50 | NUR ---
[facility]
--- NOTE | 2019-01-18 18:51 | NUR ---
[facility] INFUSING TO FLOOR. MORPHINE, ZOFRAN GIVEN PRIOR TO ADMISSION, WILL BE REASSESSED ON FLOOR
[2019-01-18 19:09] LABS: LYMPHOCYTES % (MANUAL) 0 % (16-48)
[2019-01-18 20:00] VITALS: BP 129/81
--- NOTE | 2019-01-18 20:06 | NUR ---
PAGED DR. CLAUDIO FOR ADMITTING ORDERS. AWAITING FOR HIS CALL BACK.
--- NOTE | 2019-01-18 20:20 | NUR ---
RECEIVED CALL BACK FROM DR. CLAUDIO WITH NEW ADMITTING ORDERS. ALL HOME MEDS WERE REVIEWED WITH THE MD AND WITH AN ORDER FROM MD TO RESUME ALL HOME MEDS, NEW ORDERS WERE NOTED,
[2019-01-18] MEDS ORDERED: DIAZEPAM 2 MG TABLET GT PRN (22:00)
[2019-01-18] MEDS ORDERED: CEFEPIME 1 GM in IV NS 0.9% 50 ML IV SCH (22:30)
[2019-01-18] MEDS: LEVETIRACETAM SOL (5 ML) 100 MG/ML UDC GT SCH (22:39)
[2019-01-18] MEDS: BACLOFEN (10 MG) 10 MG TABLET GT SCH (22:39)
[2019-01-18] MEDS: ENOXAPARIN SODIUM 40 MG/0.4 ML DISP.SYRIN SQ SCH (22:40)
[2019-01-18] MEDS: ACETAMINOPHEN 650 MG/20.3 ML UDC GT PRN (22:46)
--- NOTE | 2019-01-18 22:46 | NUR ---
TYLENOL GIVEN FOR TEMP:100.1. COOLING MEASURES PROVIDED , WILL CONT TO MONITOR ,
[2019-01-18] MEDS ORDERED: CEFEPIME 1 GM VIAL ONE (23:10)
[2019-01-19] VITALS: BP 93/56
[2019-01-19 04:00] VITALS: BP 130/68
[2019-01-19] MEDS: GLUCERNA 1.2 1,000 ML BOTTLE GT PRN ×2 (05:16→15:43)
--- NOTE | 2019-01-19 05:55 | NUR ---
FLU SWAB COLLECTED. CALLED LAB FOR SPECIMEN LABORER HOISTING.
--- NOTE | 2019-01-19 06:33 | NUR ---
PT IN BED AWAKE. BREATHING EVENLY. NO SOB. NAD. SKIN WARM AND DRY. AFEBRILE. SR ON TELE MONITOR , ON ONGOING GTF EFRA WELL. HOB ELEVATED. GOOD SKIN CARE RENDERED. CLEANED AND DRIED, REPOSITIONED ROUTINELY. NEEDS ATTENDED. BED LOW LOCKED.CALL LIGHT WITHIN REACH, WILL CONT TO MONITOR AND WILL ENDORSE TO AM SHIFT FOR MARILYNN.
[2019-01-19 06:42] LABS: BASOPHILS # (AUTO) 0.1 /CMM (0.0-0.2); BASOPHILS % (AUTO) 0.3 % (0.0-2.0); EOSINOPHILS % (AUTO) 1.4 % (0.0-6.0); HEMATOCRIT 32 % (39-51); HEMOGLOBIN 10.5 g/dL (13.5-17.5); LYMPHOCYTES # (AUTO) 0.6 /CMM (0.8-4.8); LYMPHOCYTES % (AUTO) 2.3 % (20.0-44.0); MEAN CORPUSCULAR HGB CONC 33 g/dl (31.0-36.0); MEAN CORPUSCULAR VOLUME 82 fL (80-96); MONOCYTES % (AUTO) 4.2 % (2.0-12.0); NEUTROPHILS # (AUTO) 22.2 /CMM (1.8-8.9); NEUTROPHILS % (AUTO) 91.8 % (43.0-81.0); PLATELET COUNT (AUTO) 266 /CMM (150-450); RED BLOOD CELL COUNT(AUTO) 3.92 MIL/uL (4.5-6.0); WHITE BLOOD COUNT (AUTO) 24.2 K/uL (4.3-11.0)
[2019-01-19 06:52] LABS: ALANINE AMINOTRANSFERASE 18 U/L (12-78); ALBUMIN 2.7 g/dL (3.4-5.0); ALKALINE PHOSPHATASE 110 U/L (46-116); ASPARTATE AMINOTRANSFERASE 21 U/L (15-37); BILIRUBIN,TOTAL 0.5 mg/dL (0.2-1.0); CALCIUM, SERUM 9.2 mg/dL (8.5-10.1); CARBON DIOXIDE 29 mmol/L (21-32); CHLORIDE 102 mmol/L (98-107); CREATININE 0.6 mg/dL (0.6-1.3); GLUCOSE 137 mg/dL (74-106); MAGNESIUM 2.3 mg/dL (1.8-2.4); PHOSPHORUS 2.8 mg/dL (2.5-4.9); SODIUM SERUM 140 mmol/L (136-145); TOTAL PROTEIN, SERUM 7.9 g/dL (6.4-8.2); UREA NITROGEN, BLOOD 22 mg/dL (7-18)
[2019-01-19 08:00] VITALS: BP 126/58
--- NOTE | 2019-01-19 08:33 | NUR ---
RN M/S OPENING NOTES RECEIVED PATIENT ON BED WITH HOB ELEVATED ON G-TUBE RUNNING 65 ML/HR, IV ON RIGHT FOOT CURRENTLY ON KVO AT 10 ML/HR WITHOUT S/SX OF INFILTRATION ON IV SITE. RESPIRATION EVEN AND UNLABORED WITH NO ACUTE RESPIRATORY DISTRESS. ABDOMEN SOFT AND NON DISTENDED WITH ACTIVE BOWEL SOUNDS, ON CONDOM CATHETER PRESENT. NO S/SX OF PAIN AND DISCOMFORT. ALL CONCERNS ATTENDED AND PLACED CALL LIGHT WITHIN REACH FOR SAFETY. WILL CONTINUE TO EVALUATE CARE.
[2019-01-19] MEDS ORDERED: MULTIVITAMIN LIQ 5 ML UDC GT SCH (09:00)
[2019-01-19] MEDS: ACETAMINOPHEN 650 MG/20.3 ML UDC GT PRN (09:37)
[2019-01-19] MEDS: BACLOFEN (10 MG) 10 MG TABLET GT SCH ×2 (09:37→21:43)
[2019-01-19] MEDS: AMLODIPINE BESYLATE 5 MG TABLET GT SCH (09:37)
[2019-01-19] MEDS: ASPIRIN 81 MG TAB.CHEW GT SCH (09:37)
[2019-01-19] MEDS: MULTIVITAMINS,THERAGRAN 1 UDTAB TABLET GT SCH (09:37)
[2019-01-19] MEDS: LEVETIRACETAM SOL (5 ML) 100 MG/ML UDC GT SCH ×2 (09:38→21:43)
[2019-01-19] MEDS: CEFEPIME 2 GM in IV D5W 100 ML IV SCH ×2 (09:38→22:43)
[2019-01-19] MEDS: DOCUSATE SODIUM LIQ 100 MG/10 ML UDC GT SCH ×2 (09:38→16:09)
[2019-01-19] MEDS: PANTOPRAZOLE 40 MG/PACK PACK GT SCH ×2 (09:38→21:43)
[2019-01-19] MEDS: ASCORBIC ACID 500 MG TABLET GT SCH (09:38)
[2019-01-19 16:00] VITALS: BP 112/50
--- NOTE | 2019-01-19 19:09 | NUR ---
RN M/S CLOSING NOTES PATIENT ON RIGHT SIDE LYING POSITION, HEAD OF BED ELEVATED. CURRENTLY ON OXYGEN AT 2LPM VIA NASAL CANNULA AND TOLERATING WELL. RESPIRATION EVEN AND NON LABORED WITH NO ACUTE RESPIRATORY DISTRESS. ABDOMEN SOFT AND NON DISTENDED WITH ACTIVE BOWEL SOUNDS, BM TODAY WITH SOFT AND BROWN COLOR. CONDOM CATHETER PRESENT. NO S/SX OF PAIN AND DISCOMFORT. IV SITE CHANGED FROM RIGHT FOOT TO MIDLINE AT RIGHT UPPER ARM GAUGE 18 WITH NO S/SX OF INFILTRATION, IV ON KVO. PATENT ON G TUBE CONTINUOUSLY RUNNING AT 65 ML/HR. SKIN TREATMENT PROVIDED PER ORDER, NEW SKIN ISSUES OF LEFT LATERAL UPPER BACK REDNESS. ALL NURSING CONCERNS ATTENDED, CALL LIGHT WITHIN REACH, Q2 MONITORING PERFORMED. ENDORSED PATIENT CONDITION TO NEXT SHIFT.
[2019-01-19] MEDS ORDERED: FEE PK DOSING 1 MIN EA MC ONE (19:15)
--- NOTE | 2019-01-19 19:30 | NUR ---
MS FRAN INITIAL NOTES RECEIVED A REPORT FROM AM NURSE AND SEEN PT IN BED AWAKE ,NON-VERBAL WITH G-TUBE FEEDING AT 65ML/HR NO ASPIRATION NOTED. 2 ML RESIDUAL NOTED AT THIS TIME. BREATHING EVEN AND NON-LABORED WITH 02 AT 2 LITERS VIA NC. ,SKIN WARM TO TOUCH. EDEMA NOTED ON BILATERAL FOOT. VITAL SIGNS WITHIN NORMAL LIMIT .KEPT HIM WARM AND COMFORTABLE AT ALL TIMES. ON SEMI FOWLERS POSITION WITH SIDE RAILS X3 ON KCI MATTRESS ORDERED. DAUGHTER AT THE BEDSIDE AT THIS TIME. WILL CONTINUE MONITORING.
[2019-01-19 20:00] VITALS: BP 118/57
[2019-01-19] MEDS: VANCOMYCIN 0.75 GM in IV D5W 250 ML IV SCH (20:42)
--- NOTE | 2019-01-19 22:00 | NUR ---
ms bob notes routine meds given as ordered juan r g-tube site no aspiration noted. hob elevated at all times. reposition him for comfort. kept him warm and comfortable at all times. will continue monitoring.
[2019-01-19] MEDS: ENOXAPARIN SODIUM 40 MG/0.4 ML DISP.SYRIN SQ SCH (22:44)
--- NOTE | 2019-01-20 | NUR ---
MS VP BUSINESS DEVELOPMENT NOTES PT RESTING COMFORTABLY IN BED WITHOUT ANY ACUTE DISTRESS NOTED.
[2019-01-20] MEDS: GLUCERNA 1.2 1,000 ML BOTTLE GT PRN (06:26)
--- NOTE | 2019-01-20 07:20 | NUR ---
MS/RN NOTE THE PATIENT IS RECEIVED IN BED. NON-VERBAL. ALERT AND ORIENTED X0. RECEIVING OXYGEN AT 2L/MIN VIA NASAL CANNULA. RESPIRATION REGULAR AND UNLABORED. IN NO APPARENT DISTRESS. GT FEEDING GLUCERNA INFUSING AT 65ML/HR. RIGHT UPPER ARM MIDLINE G 18 PATENT AND SALINE LOCKED. CONDOM CATH ON.BED LOW AND LOCKED. SIDE RAILS UP X3 CALL LIGHT WITHIN REACH. WILL CONTINUE TO MONITOR.
[2019-01-20 07:39] LABS: BASOPHILS # (AUTO) 0.1 /CMM (0.0-0.2); BASOPHILS % (AUTO) 0.4 % (0.0-2.0); EOSINOPHILS % (AUTO) 11.1 % (0.0-6.0); HEMATOCRIT 30 % (39-51); HEMOGLOBIN 9.8 g/dL (13.5-17.5); LYMPHOCYTES # (AUTO) 0.4 /CMM (0.8-4.8); LYMPHOCYTES % (AUTO) 3.2 % (20.0-44.0); MEAN CORPUSCULAR HGB CONC 33 g/dl (31.0-36.0); MEAN CORPUSCULAR VOLUME 83 fL (80-96); MONOCYTES # (AUTO) 1.1 /CMM (0.1-1.30); MONOCYTES % (AUTO) 7.9 % (2.0-12.0); NEUTROPHILS # (AUTO) 10.5 /CMM (1.8-8.9); NEUTROPHILS % (AUTO) 77.4 % (43.0-81.0); PLATELET COUNT (AUTO) 250 /CMM (150-450); RED BLOOD CELL COUNT(AUTO) 3.65 MIL/uL (4.5-6.0); WHITE BLOOD COUNT (AUTO) 13.5 K/uL (4.3-11.0)
[2019-01-20 07:47] LABS: ALANINE AMINOTRANSFERASE 18 U/L (12-78); ALBUMIN 2.5 g/dL (3.4-5.0); ALKALINE PHOSPHATASE 108 U/L (46-116); ASPARTATE AMINOTRANSFERASE 24 U/L (15-37); BILIRUBIN,TOTAL 0.3 mg/dL (0.2-1.0); CALCIUM, SERUM 9.4 mg/dL (8.5-10.1); CARBON DIOXIDE 30 mmol/L (21-32); CHLORIDE 103 mmol/L (98-107); CREATININE 0.6 mg/dL (0.6-1.3); GLUCOSE 137 mg/dL (74-106); MAGNESIUM 2.3 mg/dL (1.8-2.4); PHOSPHORUS 2.6 mg/dL (2.5-4.9); POTASSIUM 3.6 mmol/L (3.5-5.1); SODIUM SERUM 139 mmol/L (136-145); TOTAL PROTEIN, SERUM 7.6 g/dL (6.4-8.2); UREA NITROGEN, BLOOD 21 mg/dL (7-18)
[2019-01-20 08:00] VITALS: BP_SYST 135; BP_SYST 170; BP_DIAS 63; BP_DIAS 93
[2019-01-20 08:01] LABS: IRON, SERUM 15 ug/dl (50-175); TOTAL IRON BINDING CAPACITY 176 ug/dl (250-450)
[2019-01-20 08:48] LABS: FERRITIN 160 ng/mL (8-388)
[2019-01-20] MEDS: VANCOMYCIN 0.75 GM in IV D5W 250 ML IV SCH ×2 (08:49→20:18)
[2019-01-20] MEDS: LEVETIRACETAM SOL (5 ML) 100 MG/ML UDC GT SCH ×2 (09:35→20:18)
[2019-01-20] MEDS: BACLOFEN (10 MG) 10 MG TABLET GT SCH ×2 (09:35→20:18)
[2019-01-20] MEDS: ASCORBIC ACID 500 MG TABLET GT SCH (09:35)
[2019-01-20] MEDS: DOCUSATE SODIUM LIQ 100 MG/10 ML UDC GT SCH ×2 (09:35→16:25)
[2019-01-20] MEDS: AMLODIPINE BESYLATE 5 MG TABLET GT SCH (09:36)
[2019-01-20] MEDS: MULTIVITAMINS,THERAGRAN 1 UDTAB TABLET GT SCH (09:36)
[2019-01-20] MEDS: PANTOPRAZOLE 40 MG/PACK PACK GT SCH ×2 (09:36→20:18)
[2019-01-20] MEDS: ASPIRIN 81 MG TAB.CHEW GT SCH (09:36)
[2019-01-20 10:00] VITALS: BP 138/67
[2019-01-20] MEDS: CEFEPIME 2 GM in IV D5W 100 ML IV SCH ×2 (10:12→21:32)
--- NOTE | 2019-01-20 12:34 | NUR ---
WOUND CARE CONSULT: PT FOLLOWED BY PODIATRY AND PLASTIC SURGERY TEAM. DEFER TO SURGICAL TEAM FOR WOUND TREATMENT PLAN. ALL PRESSURE ULCER AND SKIN PROTECTION MEASURES IN PLACE AND DISCUSSED WITH NURSING STAFF. WILL SEE PRN.
[2019-01-20] MEDS ORDERED: Z GUARD REMEDY 2 OZ OINT TP PRN (13:00)
[2019-01-20] MEDS: Z GUARD REMEDY 2 OZ OINT TP SCH (13:45)
[2019-01-20 15:47] VITALS: BP 129/74
[2019-01-20] MEDS: LACTOBACILLUS RHAMNOSUS GG 1 EACH CAP.SPRINK PO SCH (16:25)
--- NOTE | 2019-01-20 18:14 | NUR ---
MS/RN NOTE THE PATIENT IN BED. NON-VERBAL. IN NO APPARENT DISTRESS. RECEIVING OXYGEN AT 2L/MIN VIA NASAL CANNULA AND SATURATION IS AT 97%. RESPIRATION REGULAR AND UNLABORED. IN NO APPARENT DISTRESS. HEAVEN MIDLINE G 18 PATENT AND SALINE LOCKED. BED LOW AND LOCKED. SIDE RAILS UP X3. CALL LIGHT WITHIN REACH. WILL ENDORSE TO KIT PLANNER.
--- NOTE | 2019-01-20 19:30 | NUR ---
RECEIVED PATIENT IN BED ASLEEP, EASILY AROUSABLE. AO X 0. NO ACUTE DISTRESS NOTED. NO SIGNS OF PAIN NOTED. IV SITE PATENT, INTACT; FLUSHED. GT PATENT, INTACT; IN PLACE VIA AUSCULTATION. GTF ONGOING; NO RESIDUAL ASPIRATED. HOB RAISED. PATIENT TOLERATING GTF. CONDOM CATH INTACT; DRAINING CLEAR YELLOW URINE. SAFETY REMINDERS GIVEN. ON LOW BED WITH BILATERAL UPPER SIDE RAILS UP. CALL DARDEN WITHIN EASY REACH. WILL CONTINUE TO MONITOR.
[2019-01-20 20:00] VITALS: BP 137/80
[2019-01-20] MEDS: ENOXAPARIN SODIUM 40 MG/0.4 ML DISP.SYRIN SQ SCH (21:35)
[2019-01-21] MEDS: GLUCERNA 1.2 1,000 ML BOTTLE GT PRN (05:05)
--- NOTE | 2019-01-21 06:30 | NUR ---
PATIENT ASLEEP, EASILY AROUSABLE. RESPIRATIONS EVEN. NO SIGNS OF PAIN NOTED. DUE MEDS GIVEN WITH NO ASE NOTED. IVF INFUSING ORDERED. NEEDS ATTENDED. KEPT CLEAN, DRY, AND COMFORTABLE. WOUND DRESSINGS CHANGED. SAFETY REMINDERS AND COMFORT MEASURES IN PLACE. WILL GIVE REPORT TO DAY SHIFT FOR CONTINUITY OF CARE.
[2019-01-21 07:27] LABS: CARBON DIOXIDE 30 mmol/L (21-32); CHLORIDE 101 mmol/L (98-107); POTASSIUM 3.5 mmol/L (3.5-5.1); SODIUM SERUM 139 mmol/L (136-145)
[2019-01-21 07:43] LABS: CALCIUM, SERUM 9.3 mg/dL (8.5-10.1); CREATININE 0.6 mg/dL (0.6-1.3); GLUCOSE 150 mg/dL (74-106); UREA NITROGEN, BLOOD 16 mg/dL (7-18)
[2019-01-21 08:00] VITALS: BP 149/81
--- NOTE | 2019-01-21 08:00 | NUR ---
MS RN NOTES PATIENT IN BED RESTING NO SOB OR ACUTE DISTRESS NOTED. PATIENT CONFUSED ON G-TUBE FEEDING. BED IN LOW LOCKED POSITION. CALL LIGHT WITHIN REACH. WILL CONTINUE TO MONITOR.
[2019-01-21] MEDS: VANCOMYCIN 0.75 GM in IV D5W 250 ML IV SCH ×2 (09:07→20:08)
[2019-01-21] MEDS: LEVETIRACETAM SOL (5 ML) 100 MG/ML UDC GT SCH ×2 (09:15→21:11)
[2019-01-21] MEDS: BACLOFEN (10 MG) 10 MG TABLET GT SCH ×2 (09:16→21:11)
[2019-01-21] MEDS: ASPIRIN 81 MG TAB.CHEW GT SCH (09:16)
[2019-01-21] MEDS: LACTOBACILLUS RHAMNOSUS GG 1 EACH CAP.SPRINK PO SCH ×2 (09:16→16:49)
[2019-01-21] MEDS: ASCORBIC ACID 500 MG TABLET GT SCH (09:16)
[2019-01-21] MEDS: DOCUSATE SODIUM LIQ 100 MG/10 ML UDC GT SCH ×2 (09:16→16:49)
[2019-01-21] MEDS: AMLODIPINE BESYLATE 5 MG TABLET GT SCH (09:16)
[2019-01-21] MEDS: PANTOPRAZOLE 40 MG/PACK PACK GT SCH ×2 (09:16→21:11)
[2019-01-21] MEDS: Z GUARD REMEDY 2 OZ OINT TP SCH (09:26)
[2019-01-21] MEDS: MULTIVITAMINS,THERAGRAN 1 UDTAB TABLET GT SCH (09:28)
[2019-01-21] MEDS: CEFEPIME 2 GM in IV D5W 100 ML IV SCH (10:13)
[2019-01-21] MEDS: ACETAMINOPHEN 650 MG/20.3 ML UDC GT PRN (12:05)
[2019-01-21 16:01] VITALS: BP 127/77
--- NOTE | 2019-01-21 18:25 | NUR ---
MS RN NOTES PATIENT IN BED RESTING NO SOB OR ACUTE DISTRESS NOTED. PATIENT WITH G-TUBE INTACT PATENT. MIDLINE ON RIGHT UPPER ARM INTACT PATIENT. ALL DUE MEDICATIONS ADMINISTERED. ALL NEEDS MET WILL ENDORSE TO PM SHIFT.
[2019-01-21 20:00] VITALS: BP 152/69
[2019-01-21] MEDS: CEFTAZIDIME 1 G in IV D5W 50 ML IV SCH (21:23)
[2019-01-21] MEDS: ENOXAPARIN SODIUM 40 MG/0.4 ML DISP.SYRIN SQ SCH (22:44)
[2019-01-22] MEDS: GLUCERNA 1.2 1,000 ML BOTTLE GT PRN (02:34)
[2019-01-22] MEDS: CEFTAZIDIME 1 G in IV D5W 50 ML IV SCH ×3 (05:24→20:51)
--- NOTE | 2019-01-22 06:30 | NUR ---
PATIENT ASLEEP, EASILY AROUSABLE. RESPIRATIONS EVEN. NO SIGNS OF PAIN NOTED. DUE MEDS GIVEN WITH NO ASE NOTED. NEEDS ATTENDED. KEPT CLEAN, DRY, AND COMFORTABLE. TURNED AND REPOSITIONED Q 2 HOURS. WOUND DRESSINGS CHANGED. SAFETY REMINDERS AND COMFORT MEASURES IN PLACE. WILL GIVE REPORT TO DAY SHIFT FOR CONTINUITY OF CARE.
[2019-01-22 06:37] LABS: BASOPHILS % (AUTO) 0.4 % (0.0-2.0); EOSINOPHILS % (AUTO) 11.7 % (0.0-6.0); HEMATOCRIT 27 % (39-51); LYMPHOCYTES # (AUTO) 0.5 /CMM (0.8-4.8); LYMPHOCYTES % (AUTO) 4.2 % (20.0-44.0); MEAN CORPUSCULAR HGB CONC 33 g/dl (31.0-36.0); MEAN CORPUSCULAR VOLUME 82 fL (80-96); MONOCYTES % (AUTO) 8.7 % (2.0-12.0); NEUTROPHILS # (AUTO) 8.9 /CMM (1.8-8.9); PLATELET COUNT (AUTO) 235 /CMM (150-450); RED BLOOD CELL COUNT(AUTO) 3.32 MIL/uL (4.5-6.0); WHITE BLOOD COUNT (AUTO) 11.9 K/uL (4.3-11.0)
[2019-01-22 06:45] LABS: ALANINE AMINOTRANSFERASE 17 U/L (12-78); ALBUMIN 2.3 g/dL (3.4-5.0); ALKALINE PHOSPHATASE 95 U/L (46-116); ASPARTATE AMINOTRANSFERASE 9 U/L (15-37); BILIRUBIN,TOTAL 0.4 mg/dL (0.2-1.0); CALCIUM, SERUM 8.9 mg/dL (8.5-10.1); CARBON DIOXIDE 30 mmol/L (21-32); CHLORIDE 101 mmol/L (98-107); CREATININE 0.6 mg/dL (0.6-1.3); GLUCOSE 151 mg/dL (74-106); MAGNESIUM 2.1 mg/dL (1.8-2.4); PHOSPHORUS 1.9 mg/dL (2.5-4.9); POTASSIUM 3.5 mmol/L (3.5-5.1); SODIUM SERUM 139 mmol/L (136-145); TOTAL PROTEIN, SERUM 7.1 g/dL (6.4-8.2); UREA NITROGEN, BLOOD 15 mg/dL (7-18)
[2019-01-22 08:00] VITALS: BP 156/81
--- NOTE | 2019-01-22 08:00 | NUR ---
MS RN NOTES PATIENT IN BED RESTING NO SOB OR ACUTE DISTRESS NOTED. PATIENT CONFUSED ON G-TUBE FEEDING. BED IN LOW LOCKED POSITION. CALL LIGHT WITHIN REACH. MIDLINE INTACT PATENT. WILL CONTINUE TO MONITOR.
[2019-01-22] MEDS: VANCOMYCIN 0.75 GM in IV D5W 250 ML IV SCH (08:45)
[2019-01-22] MEDS: LACTOBACILLUS RHAMNOSUS GG 1 EACH CAP.SPRINK PO SCH ×2 (08:45→17:25)
[2019-01-22] MEDS: PANTOPRAZOLE 40 MG/PACK PACK GT SCH ×2 (08:45→20:50)
[2019-01-22] MEDS: MULTIVITAMINS,THERAGRAN 1 UDTAB TABLET GT SCH (08:45)
[2019-01-22] MEDS: ASPIRIN 81 MG TAB.CHEW GT SCH (08:45)
[2019-01-22] MEDS: BACLOFEN (10 MG) 10 MG TABLET GT SCH ×2 (08:45→20:50)
[2019-01-22] MEDS: DOCUSATE SODIUM LIQ 100 MG/10 ML UDC GT SCH ×2 (08:45→17:25)
[2019-01-22] MEDS: LEVETIRACETAM SOL (5 ML) 100 MG/ML UDC GT SCH ×2 (08:45→20:50)
[2019-01-22] MEDS: AMLODIPINE BESYLATE 5 MG TABLET GT SCH (08:46)
[2019-01-22] MEDS: ASCORBIC ACID 500 MG TABLET GT SCH (08:46)
[2019-01-22] MEDS: Z GUARD REMEDY 2 OZ OINT TP SCH (08:47)
[2019-01-22 10:37] VITALS: BP 111/69
[2019-01-22] MEDS ORDERED: NEUTRA PHOS 1 POWD.PACKET NG ONE ×2 (13:30→17:30)
[2019-01-22 16:00] VITALS: BP 152/76
[2019-01-22] MEDS: ACETAMINOPHEN 650 MG/20.3 ML UDC GT PRN ×2 (17:25→23:51)
--- NOTE | 2019-01-22 19:00 | NUR ---
MS RN NOTES PATIENT IN BED RESTING NO SOB OR ACUTE DISTRESS NOTED. PATIENT WITH G-TUBE INTACT PATENT TOLERATED FEEDING. MIDLINE ON RIGHT UPPER ARM INTACT PATIENT. ALL DUE MEDICATIONS ADMINISTERED. ALL NEEDS MET, WILL ENDORSE TO PM SHIFT.
--- NOTE | 2019-01-22 19:05 | NUR ---
RN MS OPENING NOTES RECEIVED PATIENT IN BED AWAKE, APHASIC, EYES OPEN, ON 2 L VIA NC RESPIRATIONS EVEN AND UNLABORED WITH EQUAL RISE AND FALL OF CHEST, HEAD OF ELEVATED FOR ASPIRATION PRECAUTIONS, GTUBE INTACT AND PATENT, TOLERATING WELL, NO RESIDUALS, CONDOM CATH IN PLACE AND DRAINING WELL, PATIENT REPOSITIONED TO SIDE FOR WOUND AND SKIN CARE MANAGEMENT, BOTH HEELS OFFLOADED, MIDLINE TO RIGHT UPPER ARM #18G INTACT AND PATENT, DRESSING CLEAN, DRY AND INTACT, NO REDNESS, NO INFILTRATION PRESENT, ORIENTED TO STAFF AND CALL LIGHT AND KEPT WITHIN REACH, SPECIAL PRESSURE RELIEVING MATTRESS INTACT AND WORKING WELL. ALL NEEDS ATTENDED AT THIS TIME, WILL CONTINUE TO MONITOR AND ATTEND TO NEEDS.
[2019-01-22 20:00] VITALS: BP 134/72
--- NOTE | 2019-01-22 20:00 | NUR ---
RN MS NOTES NOTIFIED PHARMACY REGARDING VANCO TROUGH AT 22. PER PHARMACY HOLD 2000 DOSE. PHARM WILL RESCHEDULE
[2019-01-22] MEDS: ENOXAPARIN SODIUM 40 MG/0.4 ML DISP.SYRIN SQ SCH (22:03)
--- NOTE | 2019-01-22 23:52 | NUR ---
RN MS NOTES PATIENT NOTED WITH SLIGHT FACIAL GRIMACING UPON ASSESSMENT , REPOSITIONED, PER DAUGHTER ALSO WOULD LIKE FOR PATIENT TO RECEIVE PAIN MEDICATION, WILL GIVE TYLENOL PRN ORDERED.
[2019-01-23] MEDS: VANCOMYCIN 0.75 GM in IV D5W 250 ML IV SCH ×2 (01:08→20:41)
[2019-01-23] MEDS: GLUCERNA 1.2 1,000 ML BOTTLE GT PRN (01:13)
--- NOTE | 2019-01-23 03:28 | NUR ---
RN MS NOTES CONDOM CATHETER CHANGED D/T SOILAGE, SKIN ASSESSED INTACT, TOLERATED WELL. INTACT AND DRAINING.
[2019-01-23] MEDS: CEFTAZIDIME 1 G in IV D5W 50 ML IV SCH ×3 (04:13→21:35)
[2019-01-23 06:58] LABS: CALCIUM, SERUM 9.2 mg/dL (8.5-10.1); CARBON DIOXIDE 31 mmol/L (21-32); CHLORIDE 101 mmol/L (98-107); CREATININE 0.6 mg/dL (0.6-1.3); GLUCOSE 145 mg/dL (74-106); POTASSIUM 3.8 mmol/L (3.5-5.1); SODIUM SERUM 138 mmol/L (136-145); UREA NITROGEN, BLOOD 18 mg/dL (7-18)
--- NOTE | 2019-01-23 07:36 | NUR ---
RN MS CLOSING NOTES PATIENT IN BED AWAKE, APHASIC, EYES OPEN, ON 2 L VIA NC RESPIRATIONS EVEN AND UNLABORED WITH EQUAL RISE AND FALL OF CHEST, HEAD OF ELEVATED FOR ASPIRATION PRECAUTIONS, GTUBE INTACT AND PATENT, TOLERATING WELL, NO RESIDUALS, CONDOM CATH IN PLACE AND DRAINING WELL, PATIENT REPOSITIONED TO SIDES FOR WOUND AND SKIN CARE MANAGEMENT, BOTH HEELS OFFLOADED, MIDLINE TO RIGHT UPPER ARM #18G INTACT AND PATENT, DRESSING CLEAN, DRY AND INTACT, NO REDNESS, NO INFILTRATION PRESENT, CALL LIGHT KEPT WITHIN REACH, SPECIAL PRESSURE RELIEVING MATTRESS INTACT AND WORKING WELL. ALL NEEDS ATTENDED AT THIS TIME, WILL CONTINUE TO MONITOR AND ENDORSE TO NEXT SHIFT , NO CHANGES THROUGHOUT NIGHT.
--- NOTE | 2019-01-23 07:47 | NUR ---
MS RN OPENING NOTES RECEIVED PT IN BED. HOB ELEVATED. AWAKE, APHASIC, OPENS EYES. NO SIGNS OF PAIN NOTED. O2 AT 2LPM, WITH NO ACUTE SIGNS OF RESPIRATORY DISTRESS. ON GOING GT FEEDING OF GLUCERNA 1.2 AT 65ML/HR, INFUSING WELL. HEAVEN MIDLINE NOTED, FLUSHED WITH NS, INTACT AND PATENT. CONDOM CATH NOTED WITH CLEAR YELLOW URINE IN THE BAG PRESENT. BILATERAL HEELS OFFLOADED. CALL LIGHT WITHIN REACH. WILL CONTINUE PLAN OF CARE.
[2019-01-23 08:00] VITALS: BP 153/77
[2019-01-23] MEDS: LACTOBACILLUS RHAMNOSUS GG 1 EACH CAP.SPRINK PO SCH ×2 (08:29→16:38)
[2019-01-23] MEDS: DOCUSATE SODIUM LIQ 100 MG/10 ML UDC GT SCH ×3 (08:29→16:40)
[2019-01-23] MEDS: ASCORBIC ACID 500 MG TABLET GT SCH (08:29)
[2019-01-23] MEDS: LEVETIRACETAM SOL (5 ML) 100 MG/ML UDC GT SCH ×2 (08:29→20:55)
[2019-01-23] MEDS: ASPIRIN 81 MG TAB.CHEW GT SCH (08:29)
[2019-01-23] MEDS: BACLOFEN (10 MG) 10 MG TABLET GT SCH ×2 (08:29→20:56)
[2019-01-23] MEDS: MULTIVITAMINS,THERAGRAN 1 UDTAB TABLET GT SCH (08:29)
[2019-01-23] MEDS: PANTOPRAZOLE 40 MG/PACK PACK GT SCH ×2 (08:30→20:56)
[2019-01-23] MEDS: AMLODIPINE BESYLATE 5 MG TABLET GT SCH (08:30)
[2019-01-23] MEDS: Z GUARD REMEDY 2 OZ OINT TP SCH (08:34)
--- NOTE | 2019-01-23 12:30 | NUR ---
MS RN NOTES DR MARIE CAME WITH LAB WORKS TO BE DONE TOMORROW. WILL ENDORSE TO NEXT SHIFT.
[2019-01-23 16:00] VITALS: BP 148/79
--- NOTE | 2019-01-23 18:31 | NUR ---
MS RN CLOSING NOTES PT RESTING IN BED. O2 AT 2LPM, WITH NO SOB NOTED. APHASIC. HOB ELEVATED. ON GT FEEDING GLUCERNA 1.2 AT 65ML/HR, TOLERATING FEEDING. HEAVEN MIDLINE NOTED, FLUSHED WITH NS INTACT AND PATENT. CONDOM CATHETER IN PLACE. ALL CARE AND NEEDS ATTENDED. BILATERAL HEELS OFFLOADED. CALL LIGHT KEPT WITHIN REACH. WILL ENDORSE TO NEXT SHIFT NURSE FOR MARILYNN.
--- NOTE | 2019-01-23 19:43 | NUR ---
MS/RN OPENING NOTES RECEIVED PATIENT IN BED, CAN OPEN EYES, UNABLE TO VERBALIZED NEED, REQUIRE ASSISTANCE, WITH MULTIPLE SKIN ISSUES ON OXYGEN VIA NC. WITH 2 LITE, ON CONDOM CATHETER, INCONTINENT WITH SACRAL WOUND, ON GTUBE FEEDING , RESIDUAL CHECK WITH MINIMAL RESIDUAL, WILL CONTINUE TO PROVIDE CARE. RECEIVED ENDORSEMENT FROM AM RN FOR MARILYNN.BED LOCKED.
[2019-01-23 20:00] VITALS: BP 148/85
--- NOTE | 2019-01-23 20:34 | NUR ---
VANCO TROUGH LEVEL WNL
[2019-01-23] MEDS: ACETAMINOPHEN 650 MG/20.3 ML UDC GT PRN (21:35)
[2019-01-23] MEDS: ENOXAPARIN SODIUM 40 MG/0.4 ML DISP.SYRIN SQ SCH (23:28)
[2019-01-24] MEDS: GLUCERNA 1.2 1,000 ML BOTTLE GT PRN (01:31)
[2019-01-24] MEDS: CEFTAZIDIME 1 G in IV D5W 50 ML IV SCH ×3 (05:35→20:42)
--- NOTE | 2019-01-24 06:24 | NUR ---
310-2 MS/RN NOTES PATIENT NON VERBAL, MONITORED FOR SAFETY, KEPT COMFORTABLE, ON OXYGEN VIA NC , SKIN WARM TO TOUCH, REQUIRE EXTENSIVE ASSISTACNE FOR SAFETY.WILL ENDORSE TO AM RN FOR MARILYNN.
[2019-01-24 06:45] LABS: ALANINE AMINOTRANSFERASE 15 U/L (12-78); ALBUMIN 2.5 g/dL (3.4-5.0); ALKALINE PHOSPHATASE 92 U/L (46-116); ASPARTATE AMINOTRANSFERASE 18 U/L (15-37); BILIRUBIN,TOTAL 0.3 mg/dL (0.2-1.0); CALCIUM, SERUM 9.3 mg/dL (8.5-10.1); CARBON DIOXIDE 29 mmol/L (21-32); CHLORIDE 101 mmol/L (98-107); CREATININE 0.5 mg/dL (0.6-1.3); GLUCOSE 119 mg/dL (74-106); MAGNESIUM 2.1 mg/dL (1.8-2.4); PHOSPHORUS 2.5 mg/dL (2.5-4.9); SODIUM SERUM 136 mmol/L (136-145); TOTAL PROTEIN, SERUM 7.4 g/dL (6.4-8.2); UREA NITROGEN, BLOOD 15 mg/dL (7-18)
[2019-01-24 06:50] LABS: BASOPHILS # (AUTO) 0.1 /CMM (0.0-0.2); BASOPHILS % (AUTO) 0.8 % (0.0-2.0); EOSINOPHILS % (AUTO) 21.9 % (0.0-6.0); HEMATOCRIT 31 % (39-51); HEMOGLOBIN 10.1 g/dL (13.5-17.5); LYMPHOCYTES # (AUTO) 0.7 /CMM (0.8-4.8); LYMPHOCYTES % (AUTO) 8.7 % (20.0-44.0); MEAN CORPUSCULAR HGB CONC 33 g/dl (31.0-36.0); MEAN CORPUSCULAR VOLUME 83 fL (80-96); MONOCYTES # (AUTO) 0.9 /CMM (0.1-1.30); MONOCYTES % (AUTO) 11.7 % (2.0-12.0); NEUTROPHILS # (AUTO) 4.4 /CMM (1.8-8.9); NEUTROPHILS % (AUTO) 56.9 % (43.0-81.0); PLATELET COUNT (AUTO) 259 /CMM (150-450); RED BLOOD CELL COUNT(AUTO) 3.72 MIL/uL (4.5-6.0); WHITE BLOOD COUNT (AUTO) 7.8 K/uL (4.3-11.0)
--- NOTE | 2019-01-24 07:22 | NUR ---
MS RN OPENING NOTES RECEIVED PATIENT IN STABLE CONDITION. IN NO APPARENT DISTRESS. BEDSIDE RAILS ARE UPX2. BED IS LOCKED AND LOWERED. CALL LIGHT IS WITHIN REACH. IV LINE IS INTACT AND PATENT. WILL CONTINUE TO MONITOR PATIENT.
[2019-01-24 08:00] VITALS: BP 148/74
[2019-01-24 08:04] LABS: EOSINOPHILS % (MANUAL) 21 % (0-4); LYMPHOCYTES % (MANUAL) 13 % (16-48); MONOCYTES % (MANUAL) 9 % (0-11.0); NEUTROPHILS % (MANUAL) 57 (42-76)
[2019-01-24] MEDS: ASPIRIN 81 MG TAB.CHEW GT SCH (08:28)
[2019-01-24] MEDS: AMLODIPINE BESYLATE 5 MG TABLET GT SCH (08:28)
[2019-01-24] MEDS: BACLOFEN (10 MG) 10 MG TABLET GT SCH ×2 (08:29→20:42)
[2019-01-24] MEDS: LACTOBACILLUS RHAMNOSUS GG 1 EACH CAP.SPRINK PO SCH ×2 (08:29→17:10)
[2019-01-24] MEDS: MULTIVITAMINS,THERAGRAN 1 UDTAB TABLET GT SCH (08:29)
[2019-01-24] MEDS: ASCORBIC ACID 500 MG TABLET GT SCH (08:29)
[2019-01-24] MEDS: PANTOPRAZOLE 40 MG/PACK PACK GT SCH ×2 (08:30→20:42)
[2019-01-24] MEDS: LEVETIRACETAM SOL (5 ML) 100 MG/ML UDC GT SCH ×2 (08:30→20:42)
[2019-01-24] MEDS: DOCUSATE SODIUM LIQ 100 MG/10 ML UDC GT SCH ×2 (08:30→17:10)
[2019-01-24] MEDS: Z GUARD REMEDY 2 OZ OINT TP SCH (08:30)
--- NOTE | 2019-01-24 11:00 | NUR ---
AT 0900 CHECKED RESIDUAL AND ASPIRATED 140MLS. GAVE GASTRIC CONTENTS BACK TO PATIENT AND HELD TUBE FEEDING UNTIL 1100. NO RESIDUALS AT 1100. RESTARTED TUBE FEEDING. WILL CONTINUE TO MONITOR FOR GASTRIC RESIDUALS.
[2019-01-24] MEDS: PROSOURCE / PROSTAT (PYXIS) 30 ML UDC GT SCH ×2 (12:12→17:10)
[2019-01-24 16:00] VITALS: BP 129/70
[2019-01-24] MEDS: VANCOMYCIN 1 GM in IV D5W 250 ML IV SCH (17:07)
--- NOTE | 2019-01-24 18:32 | NUR ---
MS RN CLOSING NOTES PATIENT IS IN STABLE CONDITION. IN NO APPARENT DISTRESS. BEDSIDE RAILS ARE UPX2. BED IS LOCKED AND LOWERED. CALL LIGHT IS WITHIN REACH. IV LINE IS INTACT AND PATENT. ALL NEEDS WERE MET. WILL ENDORSE CARE TO BRASS BOBBIN WINDER NURSE FOR MARILYNN.
[2019-01-24 20:00] VITALS: BP 145/75
[2019-01-24] MEDS: ENOXAPARIN SODIUM 40 MG/0.4 ML DISP.SYRIN SQ SCH (23:14)
--- NOTE | 2019-01-25 02:51 | NUR ---
RN OPENING NOTES RECEIVED PATIENT IN STABLE CONDITION. NO SIGNS RESPIRATORY DISTRESS. NO SIGNS OF SHORTNESS OF BREATH. SAFETY PRECAUTIONS IMPLEMENTED. WILL CONTINUE TO MONITOR PATIENT THROUGHOUT THE SHIFT.
[2019-01-25] MEDS: CEFTAZIDIME 1 G in IV D5W 50 ML IV SCH ×2 (04:03→12:13)
[2019-01-25 06:20] LABS: CALCIUM, SERUM 9.4 mg/dL (8.5-10.1); CARBON DIOXIDE 29 mmol/L (21-32); CHLORIDE 99 mmol/L (98-107); CREATININE 0.6 mg/dL (0.6-1.3); GLUCOSE 149 mg/dL (74-106); POTASSIUM 3.8 mmol/L (3.5-5.1); SODIUM SERUM 136 mmol/L (136-145); UREA NITROGEN, BLOOD 22 mg/dL (7-18)
--- NOTE | 2019-01-25 06:37 | NUR ---
RN CLOSING NOTES PATIENT IS IN STABLE CONDITION. NO SIGNS RESPIRATORY DISTRESS. NO SIGNS OF SHORTNESS OF BREATH. SAFETY PRECAUTIONS IMPLEMENTED. IV SITE: INTACT AND PATENT. ALL NEEDS WERE MET. WILL ENDORSE TO AM SHIFT.
[2019-01-25 08:00] VITALS: BP 148/92
[2019-01-25] MEDS: DOCUSATE SODIUM LIQ 100 MG/10 ML UDC GT SCH ×2 (09:09→17:22)
[2019-01-25] MEDS: ASCORBIC ACID 500 MG TABLET GT SCH (09:09)
[2019-01-25] MEDS: LACTOBACILLUS RHAMNOSUS GG 1 EACH CAP.SPRINK PO SCH ×2 (09:09→17:22)
[2019-01-25] MEDS: LEVETIRACETAM SOL (5 ML) 100 MG/ML UDC GT SCH (09:09)
[2019-01-25] MEDS: MULTIVITAMINS,THERAGRAN 1 UDTAB TABLET GT SCH (09:09)
[2019-01-25] MEDS: ASPIRIN 81 MG TAB.CHEW GT SCH (09:09)
[2019-01-25] MEDS: PANTOPRAZOLE 40 MG/PACK PACK GT SCH (09:10)
[2019-01-25] MEDS: AMLODIPINE BESYLATE 5 MG TABLET GT SCH (09:10)
[2019-01-25] MEDS: BACLOFEN (10 MG) 10 MG TABLET GT SCH (09:10)
[2019-01-25] MEDS: PROSOURCE / PROSTAT (PYXIS) 30 ML UDC GT SCH ×3 (09:10→17:22)
[2019-01-25] MEDS: Z GUARD REMEDY 2 OZ OINT TP SCH (09:11)
[2019-01-25 16:00] VITALS: BP 141/71
[2019-01-25] MEDS: VANCOMYCIN 1 GM in IV D5W 250 ML IV SCH (17:17)
--- NOTE | 2019-01-25 18:50 | NUR ---
MS RN CLOSING NOTES PATIENT IS IN STABLE CONDITION. IN NO APPARENT DISTRESS. BEDSIDE RAILS ARE UPX2. BED IS LOCKED AND LOWERED. CALL LIGHT IS WITHIN REACH. IV LINE IS INTACT AND PATENT. WILL ENDORSE CARE TO RICE FIELD WORKER NURSE FOR MARILYNN.
--- NOTE | 2019-01-25 19:30 | NUR ---
MS RN NOTES RECEIVED PATIENT AWAKE IN BED WITH NO DISTRESS NOTED. CALL LIGHT WITHIN REACH. PERIPHERAL LINE INTACT AND PATENT. CONDOM CATH INTACT AND PATENT. NO FACIAL GRIMACING OR GROANING TO INDICATE PAIN OR DISCOMFORT. BED IN LOW LOCK SETTING. ALL BELONGINGS KEPT NEAR BEDSIDE. WILL CONTINUE TO MONITOR.
--- NOTE | 2019-01-25 20:30 | NUR ---
PATIENT PICKED UP BY [facility] VIA GURNEY. NO DISTRESS NOTED. PERIPHERAL LINE REMAINS INTACT AND PATENT. CONDOM CATH INTACT, PATENT, AND DRAINING 200ML YELLOW CLEAR URINE. GT INTACT AND PATENT. SKIN ASSESSMENT RENDERED. WOUND SUPPLIES AND ALL BELONGINGS INCLUDING PATIENT'S PERSONAL PILLOW TAKEN WITH PATIENT. PATIENT IN STABLE CONDITION. NO FACIAL GRIMACING OR GROANING TO INDICATE PAIN OR DISCOMFORT. DTNestor TAYLOR MADE AWARE OF PATIENT LEAVING HOSPITAL.
== END 2019-01-25 20:30 | disposition home health service (06) | DRG 871 ==
LOC: EDBD → MERGE 15:48 → ER 15:48 → TELE 19:06 → MED 01-19 07:59
PROVIDERS: ADMIT Internal Medicine; ATTEND Internal Medicine Nephrology
PROC: 05H533Z Insertion of Infusion Device into Right Subclavian Vein, Percutaneous Approach (ICD-10-PCS; principal; 2019-01-19)
PROC: B546ZZA Ultrasonography of Right Subclavian Vein, Guidance (ICD-10-PCS; 2019-01-19)
DX: A41.9 Sepsis, unspecified organism (principal); L89.224 Pressure ulcer of left hip, stage 4; L89.324 Pressure ulcer of left buttock, stage 4; L89.314 Pressure ulcer of right buttock, stage 4; L89.154 Pressure ulcer of sacral region, stage 4; G92 Toxic encephalopathy; R53.2 Functional quadriplegia; J69.0 Pneumonitis due to inhalation of food and vomit; L03.115 Cellulitis of right lower limb; N39.0 Urinary tract infection, site not specified; Z79.82 Long term (current) use of aspirin; I25.10 Atherosclerotic heart disease of native coronary artery without angina pectoris; E11.9 Type 2 diabetes mellitus without complications; Z87.440 Personal history of urinary (tract) infections; Z86.73 Personal history of transient ischemic attack (TIA), and cerebral infarction without residual deficits; Z87.442 Personal history of urinary calculi; Z93.1 Gastrostomy status; L98.9 Disorder of the skin and subcutaneous tissue, unspecified; L89.620 Pressure ulcer of left heel, unstageable; L89.611 Pressure ulcer of right heel, stage 1; J44.9 Chronic obstructive pulmonary disease, unspecified; Z86.61 Personal history of infections of the central nervous system; B96.5 Pseudomonas (aeruginosa) (mallei) (pseudomallei) as the cause of diseases classified elsewhere; E78.5 Hyperlipidemia, unspecified; F03.90 Unspecified dementia, unspecified severity, without behavioral disturbance, psychotic disturbance, mood disturbance, and anxiety; G20 Parkinson's disease; I10 Essential (primary) hypertension; N40.0 Benign prostatic hyperplasia without lower urinary tract symptoms; R13.10 Dysphagia, unspecified; Z79.4 Long term (current) use of insulin; Z82.49 Family history of ischemic heart disease and other diseases of the circulatory system
CPT/HCPCS: 36415; 36569; 71045-TC; 76856-TC; 80048-TC; 80053-TC; 80076-TC; 80202-TC; 81000-TC; 82728-TC; 83540-TC; 83605-TC; 83735-TC; 84100-TC; 84484-TC; 85025-TC; 85730-TC; 87040-TC; 87081-TC; 87086-TC; 87186-TC; 87400; A4216; A4349; A6253; A6402; A6403; G0378; J0456; J0692; J0696; J0713; J1650; J1953; J2270; J2405; J3370; J7030; J7050; J7060

== ENCOUNTER 2019-04-21 20:42 | Inpatient (IN) | payer MEDICARE, OTHER ==
[~2019-04-21] VITALS: Ht 167.6 cm; Wt 67.1 kg
[2019-04-21 20:00] VITALS: BP 99/64
[~2019-04-21 20:42] MED LIST changes: -ASCO500T9 PO; -DOCU-141 GT; +DOCU-141 PO; +LANS30CA56 GT; -LANS30CA56 PO; +MULT-24 GT; -MULT-661 GT; +VIT500LI GT; -tobramycin
[2019-04-21] MEDS ORDERED: ACETAMINOPHEN 650 MG/SUPP.RECT RC ONE (21:00)
[2019-04-21] MEDS ORDERED: ALBUTEROL FS 2.5 MG/3 ML VIAL.NEB NEB ONE (21:00)
--- NOTE | 2019-04-21 21:00 | NUR ---
BIB RA FROM HOME. PT IS AWAKE, DOES NOT RESPOND TO VERBAL OR TACTILE STIMULI. BEDBOUND. C/O PT DESATURATING AT HOME, REPORTED AT 85%-90% W/O O2. PT ARRIVED TO ER WITH O2 VIA NC AT 4LPM SATTING @97%, NOTED PRODUCTIVE COUGH AND CRACKLES ON BILAT LUNGS. RECTAL TEMP AT 99.2. TO ER BED 9. MD AT BEDSIDE. RT CALLED FOR SUCTIONING AND BREATHING TX
[2019-04-21] MEDS ORDERED: ACETAMINOPHEN 120 MG/SUPP.RECT RC ONE (21:02)
--- NOTE | 2019-04-21 21:10 | NUR ---
IV LINE OBTAINED ON L UPPER ARM 20G. BLOOD DARWN AND GIVEN TO VARNISH BLENDER AT BEDSIDE.
--- NOTE | 2019-04-21 21:32 | NUR ---
xray at bedside
[2019-04-21 21:33] LABS: BASOPHILS # (AUTO) 0.1 /CMM (0.0-0.2); EOSINOPHILS % (AUTO) 7.9 % (0.0-6.0); HEMATOCRIT 38 % (39-51); HEMOGLOBIN 12.5 g/dL (13.5-17.5); LYMPHOCYTES # (AUTO) 0.7 /CMM (0.8-4.8); LYMPHOCYTES % (AUTO) 10.1 % (20.0-44.0); MEAN CORPUSCULAR HGB CONC 33 g/dl (31.0-36.0); MEAN CORPUSCULAR VOLUME 86 fL (80-96); MONOCYTES # (AUTO) 0.6 /CMM (0.1-1.30); MONOCYTES % (AUTO) 8.7 % (2.0-12.0); NEUTROPHILS # (AUTO) 5.1 /CMM (1.8-8.9); NEUTROPHILS % (AUTO) 72.3 % (43.0-81.0); PLATELET COUNT (AUTO) 345 /CMM (150-450); RED BLOOD CELL COUNT(AUTO) 4.46 MIL/uL (4.5-6.0); WHITE BLOOD COUNT (AUTO) 7.1 K/uL (4.3-11.0)
[2019-04-21] MEDS ORDERED: ALBUTEROL FS 2.5 MG/3 ML VIAL.NEB ONE (21:46)
[2019-04-21 21:49] LABS: CALCIUM, SERUM 9.5 mg/dL (8.5-10.1); CARBON DIOXIDE 27 mmol/L (21-32); CHLORIDE 101 mmol/L (98-107); CREATININE 0.7 mg/dL (0.6-1.3); GLUCOSE 158 mg/dL (74-106); POTASSIUM 3.8 mmol/L (3.5-5.1); SODIUM SERUM 139 mmol/L (136-145); UREA NITROGEN, BLOOD 29 mg/dL (7-18)
[2019-04-21] MEDS ORDERED: PIPERACILLIN /TAZOBACTAM 3.375 G in IV D5W 50 ML IV ONE (22:00)
[2019-04-21 22:02] LABS: ALANINE AMINOTRANSFERASE 45 U/L (12-78); ALKALINE PHOSPHATASE 157 U/L (46-116); ASPARTATE AMINOTRANSFERASE 21 U/L (15-37); B-TYPE NATRIURETIC PEPTIDE 489 PG/ML (0-125); BILIRUBIN,DIRECT 0.1 mg/dL (0.0-0.2); BILIRUBIN,TOTAL 0.2 mg/dL (0.2-1.0); TOTAL PROTEIN, SERUM 8.1 g/dL (6.4-8.2)
--- NOTE | 2019-04-21 22:06 | NUR ---
BED ASSIGNMENT 116
[2019-04-21] MEDS ORDERED: PIPERACILLIN /TAZOBACTAM 3.375 G VIAL IV ONE (22:14)
--- NOTE | 2019-04-21 22:42 | NUR ---
REPORT GIVEN TO RONNA KUHN FOR MARILYNN.
[2019-04-21] MEDS ORDERED: ONDANSETRON HCL/PF 4 MG/2 ML VIAL IVP PRN (23:00)
[2019-04-21] MEDS ORDERED: ZOLPIDEM TARTRATE 5 MG TABLET PO PRN (23:00)
[2019-04-21] MEDS ORDERED: ACETAMINOPHEN 325 MG TABLET PO PRN (23:00)
[2019-04-21] MEDS ORDERED: Z GUARD REMEDY 2 OZ OINT TP PRN (23:00)
[2019-04-21] MEDS ORDERED: DEXTROSE 50%-WATER 50 ML DISP.SYRIN IV PRN (23:00)
[2019-04-21] MEDS: IV NS 0.9% 1,000 ML IV PRN (23:33)
[2019-04-21] MEDS: BLOOD SUGAR DIAGNOSTIC 1 EACH STRIP IN SCH (23:38)
[2019-04-21] MEDS: INSULIN REGULAR, HUMAN 100 UNIT/ML 3 ML VIAL SQ PRN (23:39)
--- NOTE | 2019-04-21 23:46 | NUR ---
PT TRANSPORTED TO UNIT WITH EMT AND RN AT BEDSIDE. NAD NOTED DURING TRANSPORT.
[2019-04-22] VITALS (7 sets, daily range): BP systolic 96–179; BP diastolic 50–92
[2019-04-22] MEDS ORDERED: LISI40TA4 PO (00:18)
[2019-04-22] MEDS ORDERED: METO50TA16 PO (00:18)
[2019-04-22] MEDS ORDERED: HYDR-4077 PO (00:18)
[2019-04-22] MEDS ORDERED: VANCOMYCIN 1 GM in IV D5W 250 ML IV SCH (01:00)
[2019-04-22] MEDS ORDERED: GLUCERNA 1.2 1,000 ML BOTTLE NG PRN (01:00)
[2019-04-22] MEDS ORDERED: LEVETIRACETAM SOL (5 ML) 100 MG/ML UDC GT ONE (01:30)
[2019-04-22] MEDS ORDERED: METOPROLOL TARTRATE 50 MG TABLET PO ONE (01:30)
[2019-04-22] MEDS ORDERED: VANCOMYCIN 1 GM in IV D5W 250 ML IV ONE (02:00)
[2019-04-22] MEDS ORDERED: VANCOMYCIN 1 GM VIAL ONE (02:05)
[2019-04-22] MEDS ORDERED: PIPERACILLIN /TAZOBACTAM 3.375 G VIAL IV ONE (06:04)
[2019-04-22] MEDS: BLOOD SUGAR DIAGNOSTIC 1 EACH STRIP IN SCH ×3 (06:13→18:13)
[2019-04-22] MEDS: INSULIN REGULAR, HUMAN 100 UNIT/ML 3 ML VIAL SQ PRN ×2 (06:15→18:37)
[2019-04-22] MEDS: PIPERACILLIN /TAZOBACTAM 3.375 G in IV D5W 50 ML IV SCH ×2 (06:16→12:07)
[2019-04-22 06:25] LABS: BASOPHILS # (AUTO) 0.1 /CMM (0.0-0.2); BASOPHILS % (AUTO) 0.6 % (0.0-2.0); EOSINOPHILS % (AUTO) 4.9 % (0.0-6.0); HEMATOCRIT 37 % (39-51); HEMOGLOBIN 12.3 g/dL (13.5-17.5); LYMPHOCYTES # (AUTO) 0.5 /CMM (0.8-4.8); LYMPHOCYTES % (AUTO) 4.7 % (20.0-44.0); MEAN CORPUSCULAR HGB CONC 33 g/dl (31.0-36.0); MEAN CORPUSCULAR VOLUME 86 fL (80-96); MONOCYTES # (AUTO) 0.8 /CMM (0.1-1.30); MONOCYTES % (AUTO) 8.3 % (2.0-12.0); NEUTROPHILS # (AUTO) 8.1 /CMM (1.8-8.9); NEUTROPHILS % (AUTO) 81.5 % (43.0-81.0); PLATELET COUNT (AUTO) 321 /CMM (150-450)
[2019-04-22 06:44] LABS: CARBON DIOXIDE 25 mmol/L (21-32); CHLORIDE 101 mmol/L (98-107); CREATININE 0.6 mg/dL (0.6-1.3); GLUCOSE 165 mg/dL (74-106); MAGNESIUM 2.1 mg/dL (1.8-2.4); PHOSPHORUS 2.9 mg/dL (2.5-4.9); POTASSIUM 3.4 mmol/L (3.5-5.1); SODIUM SERUM 137 mmol/L (136-145); UREA NITROGEN, BLOOD 25 mg/dL (7-18)
[2019-04-22 06:45] LABS: CHOLESTEROL 171 mg/dL (<200); HDL CHOLESTEROL 38 mg/dL (40-60); LDL 93 mg/dL (0-99); TRIGLYCERIDES 234 mg/dL (30-150)
[2019-04-22 06:54] LABS: APPEARANCE,URINE CLEAR (CLEAR); BILIRUBIN,URINE NEGATIVE (NEGATIVE); BLOOD, URINE NEGATIVE Ery/uL (NEGATIVE); COLOR,URINE YELLOW (YELLOW); KETONES,URINE NEGATIVE (NEGATIVE); LEUKOCYTE ESTERASE ,URINE NEGATIVE (NEGATIVE); NITRITE, URINE NEGATIVE (NEGATIVE); PROTEIN,URINE 1+ mg/dl (NEGATIVE); UGLUCOSE NEGATIVE (NEGATIVE); UROBILINOGEN,URINE 0.2 EU/dL (0.2)
[2019-04-22 07:36] LABS: BACTERIA,URINE Few /HPF (None Seen); RBC,URINE 0-2 /HPF (0-2); SQUAMOUS EPITHELIAL CELL,UR Few /HPF (None Seen); WBC,URINE 0-2 /HPF (0-3)
--- NOTE | 2019-04-22 07:37 | NUR ---
BINDERY MACHINE SETTER OPENING NOTE RECEIVED PATIENT IN BED AWAKE, A/O X 1, NON- VERBAL. NO SOB, PAIN OR ACUTE DISTRESS NOTED. ON TELE SR 70'S. ON 2L 02 VIA NC, CONDOM CATHETER IN PLACE AND DRAINING CLEAR YELLOW. HEAVEN #22 IV INTACT AND PATENT RUNNING NS @ 75ML/HR. MORNING LABS NOTED. SAFETY MEASURES IN PLACE, BED IN LOW LOCKED POSITION. CALL LIGHT WITHIN REACH. WILL CONTINUE TO MONITOR.
[2019-04-22] MEDS ORDERED: FEE PK DOSING 1 MIN EA MC ONE (07:57)
[2019-04-22] MEDS ORDERED: ASCORBIC ACID SYRUP 500 MG/5 ML UDC PO SCH (09:00)
[2019-04-22] MEDS: MULTIVITAMINS,THERAGRAN 1 UDTAB TABLET GT SCH (09:27)
[2019-04-22] MEDS: AMLODIPINE BESYLATE 5 MG TABLET GT SCH (09:27)
[2019-04-22] MEDS: ASPIRIN 81 MG TAB.CHEW GT SCH (09:27)
[2019-04-22] MEDS: BACLOFEN (10 MG) 10 MG TABLET GT SCH ×2 (09:27→20:14)
[2019-04-22] MEDS: ASCORBIC ACID 500 MG TABLET PO SCH (09:27)
[2019-04-22] MEDS: LISINOPRIL (20MG) 20 MG TABLET PO SCH (09:28)
[2019-04-22] MEDS: LEVETIRACETAM SOL (5 ML) 100 MG/ML UDC GT SCH ×2 (09:28→20:14)
[2019-04-22] MEDS: DOCUSATE SODIUM 100 MG CAPSULE PO SCH ×2 (09:29→17:38)
[2019-04-22] MEDS: PANTOPRAZOLE 40 MG/PACK PACK GT SCH (09:29)
[2019-04-22] MEDS: METOPROLOL TARTRATE 50 MG TABLET PO SCH ×2 (09:29→17:38)
[2019-04-22] MEDS ORDERED: POTASSIUM CHLORIDE 20 MEQ POWDER PACKET GT SCH (12:30)
[2019-04-22] MEDS: VANCOMYCIN 0.75 GM in IV D5W 250 ML IV SCH (14:40)
[2019-04-22] MEDS: ENOXAPARIN SODIUM 40 MG/0.4 ML DISP.SYRIN SQ SCH (14:40)
[2019-04-22] MEDS: IPRATROPIUM NEB FS 0.5 MG/2.5 ML AMPUL.NEB NEB SCH ×2 (15:00→20:21)
[2019-04-22] MEDS: ALBUTEROL HALF STRENGTH 1.25 MG/3 ML VIAL.NEB NEB SCH ×2 (15:00→20:21)
--- NOTE | 2019-04-22 15:50 | NUR ---
CAN FEEDER NOTE WOUND CARE COMPLETED ORDERED
--- NOTE | 2019-04-22 17:10 | NUR ---
RN NOTE: JABARI, DAUGHTER CAME BY AND WAS REQUESTING FOR HIS FATHER TO BE SEEN BY A WOUND CARE NURSE AND IF POSSIBLE TO USE SANTYL OINTMENT TO PUT ON THE SACRAL WOUND (DAUGHTER, JABARI WAS WILLING TO BRING THE SANTYL OINTMENT FROM HOME), TO POSSIBLY GET A CHANGE OF THE GASTROSTOMY TUBE AND TO HAVE DR. Gregg JANE TO TAKE OVER THE CARE OF HIS FATHER SINCE HE WAS THE PCP AT [facility]. CHIP MUCKER CLEMENTE WAS MADE AWARE.
[2019-04-22] MEDS: PIPERACILLIN /TAZOBACTAM 3.375 G in IV D5W 100 ML IV SCH (17:39)
[2019-04-22] MEDS: HYDROGEL DRESSING 90 GM TUBE TP SCH ×2 (18:13→20:15)
[2019-04-22] MEDS: Z GUARD REMEDY 2 OZ OINT TP SCH ×2 (18:13→20:15)
[2019-04-22] MEDS: IV NS 0.9% 1,000 ML IV PRN (20:07)
[2019-04-22] MEDS: HYDROCODONE/APAP 5/325MG 1 EACH TABLET PO PRN (20:14)
--- NOTE | 2019-04-22 20:24 | NUR ---
GOVERNMENT SALES MANAGER CLOSING NOTE PATIENT IN BED AWAKE, A/O X 1, NON- VERBAL. NO SOB, PAIN OR ACUTE DISTRESS NOTED. ON TELE SR 70'S. ON 2L 02 VIA NC, CONDOM CATHETER IN PLACE AND DRAINING CLEAR YELLOW. AIR MATTRESS PLACED TODAY. HEAVEN #22 IV INTACT AND PATENT RUNNING NS @ 75ML/HR. HEAVEN MIDLINE INTACT AND PATENT. SAFETY MEASURES IN PLACE, BED IN LOW LOCKED POSITION. CALL LIGHT WITHIN REACH. CARE ENDORSED TO CONTRACT COORDINATOR RN.
[2019-04-22] MEDS: GLUCERNA 1.2 1,000 ML BOTTLE NG PRN (21:35)
[2019-04-23] VITALS: BP 175/79
[2019-04-23] MEDS: BLOOD SUGAR DIAGNOSTIC 1 EACH STRIP IN SCH ×4 (00:22→17:46)
[2019-04-23] MEDS: HYDROCODONE/APAP 5/325MG 1 EACH TABLET PO PRN ×2 (00:22→05:04)
[2019-04-23] MEDS: hydrALAZINE HCL 50 MG TABLET PO PRN (00:22)
[2019-04-23] MEDS: VANCOMYCIN 0.75 GM in IV D5W 250 ML IV SCH ×2 (01:09→14:56)
[2019-04-23] MEDS: ALBUTEROL HALF STRENGTH 1.25 MG/3 ML VIAL.NEB NEB SCH ×4 (01:11→20:18)
[2019-04-23] MEDS: IPRATROPIUM NEB FS 0.5 MG/2.5 ML AMPUL.NEB NEB SCH ×4 (01:11→20:18)
[2019-04-23] MEDS: PIPERACILLIN /TAZOBACTAM 3.375 G in IV D5W 100 ML IV SCH ×3 (01:45→17:46)
[2019-04-23 04:00] VITALS: BP 155/70
[2019-04-23] MEDS: INSULIN REGULAR, HUMAN 100 UNIT/ML 3 ML VIAL SQ PRN ×2 (05:09→18:09)
[2019-04-23 07:00] LABS: BASOPHILS # (AUTO) 0.1 /CMM (0.0-0.2); BASOPHILS % (AUTO) 0.6 % (0.0-2.0); EOSINOPHILS % (AUTO) 7.3 % (0.0-6.0); HEMATOCRIT 34 % (39-51); HEMOGLOBIN 11.4 g/dL (13.5-17.5); LYMPHOCYTES # (AUTO) 0.5 /CMM (0.8-4.8); LYMPHOCYTES % (AUTO) 5.3 % (20.0-44.0); MEAN CORPUSCULAR HGB CONC 33 g/dl (31.0-36.0); MEAN CORPUSCULAR VOLUME 86 fL (80-96); MONOCYTES # (AUTO) 1.1 /CMM (0.1-1.30); MONOCYTES % (AUTO) 10.5 % (2.0-12.0); NEUTROPHILS # (AUTO) 7.8 /CMM (1.8-8.9); NEUTROPHILS % (AUTO) 76.3 % (43.0-81.0); PLATELET COUNT (AUTO) 297 /CMM (150-450); RED BLOOD CELL COUNT(AUTO) 3.96 MIL/uL (4.5-6.0); WHITE BLOOD COUNT (AUTO) 10.2 K/uL (4.3-11.0)
[2019-04-23 07:21] LABS: CALCIUM, SERUM 8.7 mg/dL (8.5-10.1); CARBON DIOXIDE 25 mmol/L (21-32); CHLORIDE 102 mmol/L (98-107); CREATININE 0.5 mg/dL (0.6-1.3); GLUCOSE 150 mg/dL (74-106); POTASSIUM 4.2 mmol/L (3.5-5.1); SODIUM SERUM 135 mmol/L (136-145); UREA NITROGEN, BLOOD 19 mg/dL (7-18)
[2019-04-23 08:00] VITALS: BP 93/60
[2019-04-23] MEDS: PANTOPRAZOLE 40 MG/PACK PACK GT SCH (08:22)
[2019-04-23] MEDS: MULTIVITAMINS,THERAGRAN 1 UDTAB TABLET GT SCH (08:22)
[2019-04-23] MEDS: DOCUSATE SODIUM 100 MG CAPSULE PO SCH ×2 (08:22→17:46)
[2019-04-23] MEDS: ASPIRIN 81 MG TAB.CHEW GT SCH (08:22)
[2019-04-23] MEDS: BACLOFEN (10 MG) 10 MG TABLET GT SCH ×2 (08:22→22:00)
[2019-04-23] MEDS: ASCORBIC ACID 500 MG TABLET PO SCH (08:22)
[2019-04-23] MEDS: LEVETIRACETAM SOL (5 ML) 100 MG/ML UDC GT SCH ×2 (08:22→22:00)
[2019-04-23] MEDS: AMLODIPINE BESYLATE 5 MG TABLET GT SCH (08:23)
[2019-04-23] MEDS: LISINOPRIL (20MG) 20 MG TABLET PO SCH (08:23)
[2019-04-23] MEDS: METOPROLOL TARTRATE 50 MG TABLET PO SCH ×2 (08:23→17:46)
[2019-04-23] MEDS: HYDROGEL DRESSING 90 GM TUBE TP SCH ×3 (08:28→22:03)
[2019-04-23] MEDS: Z GUARD REMEDY 2 OZ OINT TP SCH ×2 (08:29→22:04)
--- NOTE | 2019-04-23 09:00 | NUR ---
DAUGHTER REFUSES TO SIGN CONSENT FOR DEBRIDEMENT. SURGERY PAC AWARE.
--- NOTE | 2019-04-23 10:00 | NUR ---
PER DR. JANE, PATIENT MUST BE ON TELEMETRY FOR THREE DAYS.
--- NOTE | 2019-04-23 10:03 | NUR ---
WOUND CARE CONSULT WOUND CARE RECEIVED CONSULT FOR HIP AND SACRAL WOUNDS. WOUND CARE WILL DEFER CONSULT AND TREATMENT PLANS TO PLASTIC SURGICAL TEAM WHO ARE CURRENTLY FOLLOWING THIS PATIENT. PATIENT WITH ABDIAZIZ AT 11, ALL PRESSURE ULCER PREVENTION MEASURES ARE NOTED TO BE IN PLACE AT THIS TIME. WILL SEE PRN. WOUND TREATMENT ORDERS CLARIFIED WITH DR MOORE AND DISCUSSED WITH NURSING STAFF REGARDING USE OF SANTYL OINTMENT PER DAUGHTER'S REQUEST. DAUGHTER WILL BRING IN FROM HOME.
[2019-04-23 12:00] VITALS: BP 140/50
--- NOTE | 2019-04-23 13:00 | NUR ---
RECEIVED SANTYL FROM DAUGHTER, SENT TO PHARMACY FOR LABELING.
[2019-04-23] MEDS: SANTYL TP SCH (15:50)
[2019-04-23 16:00] VITALS: BP 162/76
[2019-04-23] MEDS: GLUCERNA 1.2 1,000 ML BOTTLE NG PRN (16:08)
[2019-04-23 19:34] LABS: OCCULT BLOOD STOOL NEGATIVE (NEGATIVE)
--- NOTE | 2019-04-23 19:40 | NUR ---
INSTRUCTOR DECORATING INITIAL NOTE RECEIVED PATIENT IN BED AWAKE, A/O X 1, NON- VERBAL. NO SOB, PAIN OR ACUTE DISTRESS NOTED. ON TELE SR 80'S. ON 2L 02 VIA NC, CONDOM CATHETER IN PLACE AND DRAINING CLEAR YELLOW. HEAVEN #22 IV INTACT AND PATENT RUNNING NS @ 75ML/HR. SAFETY MEASURES IN PLACE, BED IN LOW LOCKED POSITION. CALL LIGHT WITHIN REACH. WILL CONTINUE TO MONITOR.
[2019-04-23 20:00] VITALS: BP 150/88
[2019-04-23] MEDS: ENOXAPARIN SODIUM 40 MG/0.4 ML DISP.SYRIN SQ SCH (22:01)
[2019-04-23] MEDS: IV NS 0.9% 1,000 ML IV PRN (22:12)
[2019-04-24] MEDS: BLOOD SUGAR DIAGNOSTIC 1 EACH STRIP IN SCH ×3 (00:03→13:03)
[2019-04-24 00:08] VITALS: BP 160/88
[2019-04-24] MEDS: hydrALAZINE HCL 50 MG TABLET PO PRN (00:23)
[2019-04-24] MEDS: HYDROCODONE/APAP 5/325MG 1 EACH TABLET PO PRN (00:24)
[2019-04-24] MEDS: IPRATROPIUM NEB FS 0.5 MG/2.5 ML AMPUL.NEB NEB SCH ×3 (01:13→13:55)
[2019-04-24] MEDS: ALBUTEROL HALF STRENGTH 1.25 MG/3 ML VIAL.NEB NEB SCH ×3 (01:13→13:55)
[2019-04-24] MEDS: VANCOMYCIN 0.75 GM in IV D5W 250 ML IV SCH ×2 (02:14→15:24)
[2019-04-24] MEDS: PIPERACILLIN /TAZOBACTAM 3.375 G in IV D5W 100 ML IV SCH ×2 (03:02→10:55)
[2019-04-24 04:51] VITALS: BP 122/74
[2019-04-24] MEDS: INSULIN REGULAR, HUMAN 100 UNIT/ML 3 ML VIAL SQ PRN ×2 (05:50→13:06)
--- NOTE | 2019-04-24 06:05 | NUR ---
LEARN TO SWIM INSTRUCTOR CLOSING NOTE ENDORSED PATIENT IN BED AWAKE, A/O X 1, NON- VERBAL. NO SOB, PAIN OR ACUTE DISTRESS NOTED. ON TELE SR 70'S. ON 2L 02 VIA NC, CONDOM CATHETER IN PLACE AND DRAINING CLEAR YELLOW. HEAVEN #22 IV INTACT AND PATENT RUNNING NS @ 75ML/HR. SAFETY MEASURES IN PLACE, BED IN LOW LOCKED POSITION. CALL LIGHT WITHIN REACH. WILL CONTINUE TO MONITOR.
--- NOTE | 2019-04-24 07:30 | NUR ---
RN NOTES RECEIVED PATIENT IN BED WITH BREATHING NORMAL, EVEN AND UNLABORED. NO SOB NOTED. NO ACUTE DISTRESS NOTED. TELE MONITOR REVEALS SR, HR=70. HEAVEN MIDLINE IS PATENT AND INTACT. KEPT CLEAN, DRY AND COMFORTABLE. ALL NEEDS ATTENDED. REPOSITIONED Q2H AND PRN. SAFETY MEASURE OBSERVED. CALL LIGHT WITH IN REACH. WILL CONT TO MONITOR.
[2019-04-24 08:00] VITALS: BP 145/82
[2019-04-24 08:05] LABS: CARBON DIOXIDE 26 mmol/L (21-32); CHLORIDE 101 mmol/L (98-107); CREATININE 0.5 mg/dL (0.6-1.3); GLUCOSE 135 mg/dL (74-106); POTASSIUM 4.5 mmol/L (3.5-5.1); SODIUM SERUM 134 mmol/L (136-145); UREA NITROGEN, BLOOD 16 mg/dL (7-18)
[2019-04-24] MEDS: PANTOPRAZOLE 40 MG/PACK PACK GT SCH (09:37)
[2019-04-24] MEDS: METOPROLOL TARTRATE 50 MG TABLET PO SCH ×2 (09:38→17:21)
[2019-04-24] MEDS: LEVETIRACETAM SOL (5 ML) 100 MG/ML UDC GT SCH (09:39)
[2019-04-24] MEDS: ASPIRIN 81 MG TAB.CHEW GT SCH (09:39)
[2019-04-24] MEDS: MULTIVITAMINS,THERAGRAN 1 UDTAB TABLET GT SCH (09:40)
[2019-04-24] MEDS: LISINOPRIL (20MG) 20 MG TABLET PO SCH (09:40)
[2019-04-24] MEDS: AMLODIPINE BESYLATE 5 MG TABLET GT SCH (09:40)
[2019-04-24] MEDS: BACLOFEN (10 MG) 10 MG TABLET GT SCH (09:40)
[2019-04-24] MEDS: ASCORBIC ACID 500 MG TABLET PO SCH (09:40)
[2019-04-24] MEDS: SANTYL TP SCH (09:42)
[2019-04-24] MEDS: Z GUARD REMEDY 2 OZ OINT TP SCH (09:43)
[2019-04-24] MEDS: HYDROGEL DRESSING 90 GM TUBE TP SCH (09:43)
[2019-04-24] MEDS: DOCUSATE SODIUM LIQ 100 MG/10 ML UDC GT SCH ×2 (10:55→17:21)
[2019-04-24 12:00] VITALS: BP 163/79
[2019-04-24 16:00] VITALS: BP 140/62
[2019-04-24 17:21] VITALS: BP 168/78
--- NOTE | 2019-04-24 18:23 | NUR ---
RN NOTES PATIENT DISCHARGED IN STABLE CONDITION WITH BREATHING NORMAL, EVEN AND UNLABORED. NO SOB NOTED. NO ACUTE DISTRESS NOTED. REPORT CALLED AND GIVEN TO OLIVIA FRIEND IN [place] WITH FEEDBACK. UNDERSTOOD WELL. PATIENT LEFT IN STABLE CONDITION. DAUGHTER AT BEDSIDE.
== END 2019-04-24 18:23 | disposition short-term general hospital (02) | DRG 177 ==
LOC: ER 20:44 → TELE1 22:14 → MEDSG1 04-23 09:50 → TELE1 04-23 11:34
PROVIDERS: ADMIT Nurse Practitioner Acute Care; ATTEND Internal Medicine Nephrology
PROC: 05H533Z Insertion of Infusion Device into Right Subclavian Vein, Percutaneous Approach (ICD-10-PCS; principal; 2019-04-22)
PROC: B546ZZA Ultrasonography of Right Subclavian Vein, Guidance (ICD-10-PCS; 2019-04-22)
DX: J69.0 Pneumonitis due to inhalation of food and vomit (principal); L89.324 Pressure ulcer of left buttock, stage 4; J96.21 Acute and chronic respiratory failure with hypoxia; R53.2 Functional quadriplegia; G92 Toxic encephalopathy; L89.314 Pressure ulcer of right buttock, stage 4; L89.224 Pressure ulcer of left hip, stage 4; D68.59 Other primary thrombophilia; E44.0 Moderate protein-calorie malnutrition; J90 Pleural effusion, not elsewhere classified; J98.11 Atelectasis; N17.9 Acute kidney failure, unspecified; E11.9 Type 2 diabetes mellitus without complications; I25.10 Atherosclerotic heart disease of native coronary artery without angina pectoris; E78.5 Hyperlipidemia, unspecified; I10 Essential (primary) hypertension; Z87.442 Personal history of urinary calculi; Z86.73 Personal history of transient ischemic attack (TIA), and cerebral infarction without residual deficits; Z79.899 Other long term (current) drug therapy; Z79.82 Long term (current) use of aspirin; Z86.19 Personal history of other infectious and parasitic diseases; Z93.1 Gastrostomy status; Z98.890 Other specified postprocedural states; Z91.041 Radiographic dye allergy status; R33.8 Other retention of urine; D63.8 Anemia in other chronic diseases classified elsewhere; G20 Parkinson's disease; F02.80 Dementia in other diseases classified elsewhere, unspecified severity, without behavioral disturbance, psychotic disturbance, mood disturbance, and anxiety; E87.6 Hypokalemia; L89.611 Pressure ulcer of right heel, stage 1; L89.620 Pressure ulcer of left heel, unstageable; L89.90 Pressure ulcer of unspecified site, unspecified stage; E86.0 Dehydration; N40.1 Benign prostatic hyperplasia with lower urinary tract symptoms; R13.10 Dysphagia, unspecified; L98.9 Disorder of the skin and subcutaneous tissue, unspecified
CPT/HCPCS: 36415; 36569; 71045-TC; 80048-TC; 80061-TC; 80076-TC; 80202-TC; 81000-TC; 82272-TC; 82962-TC; 83605-TC; 83735-TC; 83880; 84100-TC; 84484-TC; 85025-TC; 85730-TC; 87040-TC; 87081-TC; 87086-TC; 94760-TC; A6248; A6253; A6403; G0378; J1650; J1815; J1953; J2543; J3370; J7030; J7060

== ENCOUNTER 2019-08-29 23:23 | Emergency (ER) | payer MEDICARE, OTHER ==
[~2019-08-29] VITALS: Ht 170.2 cm; Wt 78.9 kg
[~2019-08-29 23:23] MED LIST changes: +HYDR-4077 PO; +LISI40TA4 PO; +METO50TA16 PO
--- NOTE | 2019-08-30 | NUR ---
PT BIBRA FROM HOME. PER FAMILY MEMBER, PT PULLED OUT GTUBE X30 MIN MAIL MESSENGER, UNKNOWN SIZE. PT AWAKE, NONVERBAL. VITAL SIGNS STABLE. NOTED SURROUNDING REDDNESS ON G TUBE STOMA. NO ACUTE DISTRESS NOTED AT THIS TIME.
--- NOTE | 2019-08-30 00:30 | NUR ---
DR. CEDILLO AT BEDSIDE FOR GTUBE REPLACEMENT, 22FR
--- NOTE | 2019-08-30 00:38 | NUR ---
PER FAMILY MEMBER, PT FEBRILE X1 DAY AGO. PT ARRIVED TO ER AFEBRILE. REQUESTING SEPTIC WORKUP. ER AWARE
--- NOTE | 2019-08-30 00:59 | NUR ---
BLOOD DRAWN AND GIVEN TO LAB
[2019-08-30 01:04] LABS: EOSINOPHILS % (AUTO) 9.5 % (0.0-6.0); HEMATOCRIT 34 % (39-51); HEMOGLOBIN 11.3 g/dL (13.5-17.5); LYMPHOCYTES # (AUTO) 0.4 /CMM (0.8-4.8); LYMPHOCYTES % (AUTO) 4.1 % (20.0-44.0); MEAN CORPUSCULAR HGB CONC 33 g/dl (31.0-36.0); MEAN CORPUSCULAR VOLUME 85 fL (80-96); MONOCYTES # (AUTO) 1.3 /CMM (0.1-1.30); MONOCYTES % (AUTO) 13.2 % (2.0-12.0); NEUTROPHILS # (AUTO) 7.1 /CMM (1.8-8.9); NEUTROPHILS % (AUTO) 73.2 % (43.0-81.0); PLATELET COUNT (AUTO) 276 /CMM (150-450); RED BLOOD CELL COUNT(AUTO) 4.04 MIL/uL (4.5-6.0); WHITE BLOOD COUNT (AUTO) 9.7 K/uL (4.3-11.0)
[2019-08-30] MEDS ORDERED: DIATR MEGLU/DIATRIZOATE SODIUM 30 ML BOTTLE (GASTROGRAPHIN) ONE (01:12)
[2019-08-30 01:13] LABS: CALCIUM, SERUM 8.9 mg/dL (8.5-10.1); CARBON DIOXIDE 29 mmol/L (21-32); CHLORIDE 102 mmol/L (98-107); CREATININE 0.7 mg/dL (0.6-1.3); GLUCOSE 152 mg/dL (74-106); POTASSIUM 4.3 mmol/L (3.5-5.1); SODIUM SERUM 138 mmol/L (136-145); UREA NITROGEN, BLOOD 60 mg/dL (7-18)
--- NOTE | 2019-08-30 01:13 | NUR ---
URINE SPECIMEN COLLECTED AND SENT TO LAB.
[2019-08-30 01:23] LABS: APPEARANCE,URINE Clear (CLEAR); BILIRUBIN,URINE Negative (NEGATIVE); BLOOD, URINE Negative Ery/uL (NEGATIVE); COLOR,URINE Yellow (YELLOW); KETONES,URINE Negative (NEGATIVE); LEUKOCYTE ESTERASE ,URINE Trace (NEGATIVE); NITRITE, URINE Negative (NEGATIVE); PROTEIN,URINE Negative (NEGATIVE); UGLUCOSE Negative (NEGATIVE); UROBILINOGEN,URINE 0.2 EU/dL (0.2)
[2019-08-30 01:26] LABS: ALANINE AMINOTRANSFERASE 23 U/L (12-78); ALBUMIN 2.8 g/dL (3.4-5.0); ALKALINE PHOSPHATASE 127 U/L (46-116); ASPARTATE AMINOTRANSFERASE 18 U/L (15-37); B-TYPE NATRIURETIC PEPTIDE 285 PG/ML (0-125); BILIRUBIN,TOTAL 0.2 mg/dL (0.2-1.0); TOTAL PROTEIN, SERUM 7.5 g/dL (6.4-8.2)
[2019-08-30 01:51] LABS: BACTERIA,URINE Few /HPF (None Seen); RBC,URINE 0-2 /HPF (0-2); SQUAMOUS EPITHELIAL CELL,UR Rare /HPF (None Seen); WBC,URINE 51-80 /HPF (0-3)
[2019-08-30] MEDS ORDERED: IV NS 0.9% 1,000 ML BAG IV ONE (02:00)
[2019-08-30] MEDS ORDERED: CEFTRIAXONE 1GM BAG (ER ONLY) 1 GM/50 ML PIGGYBACK IV ONE (04:00)
--- NOTE | 2019-08-30 04:29 | NUR ---
GAVE REPORT TO [place] [id number] FOR TRANSPORTATION MARILYNN
[2019-08-30] MEDS ORDERED: CEFTRIAXONE 1GM BAG (ER ONLY) 50 ML IV ONE (05:13)
[2019-08-30 05:39] VITALS: BP 107/73
== END 2019-08-30 04:29 | disposition home or self-care (01) ==
LOC: ER 23:26
DX: K94.23 Gastrostomy malfunction (principal); E86.0 Dehydration; R82.81 Pyuria; I10 Essential (primary) hypertension; E11.9 Type 2 diabetes mellitus without complications; Z98.890 Other specified postprocedural states; Z86.73 Personal history of transient ischemic attack (TIA), and cerebral infarction without residual deficits; Z88.8 Allergy status to other drugs, medicaments and biological substances; Z79.899 Other long term (current) drug therapy; Z79.82 Long term (current) use of aspirin
CPT/HCPCS: 36415; 43762; 71045; 74018; 80048; 80076; 81001; 83605; 83880; 84484; 85025; 85730; 87040 ×2; 87086; 87804; 93005; 96361; 96365; 99284; J0696; J7030 ×2; Q9963; 81000-TC; 87186-TC

== ENCOUNTER 2019-10-23 20:37 | Inpatient (IN) | payer MEDICARE, OTHER ==
[~2019-10-23] VITALS: Ht 167.6 cm; Wt 69.4 kg
--- NOTE | 2019-10-23 20:46 | NUR ---
SEEN AND EXMAINED BY
--- NOTE | 2019-10-23 21:08 | NUR ---
BLOOD RETRIEVED AND SENT TO LAB
[2019-10-23 21:13] LABS: EOSINOPHILS % (AUTO) 6.9 % (0.0-6.0); HEMATOCRIT 37 % (39-51); HEMOGLOBIN 11.9 g/dL (13.5-17.5); LYMPHOCYTES # (AUTO) 0.3 /CMM (0.8-4.8); MEAN CORPUSCULAR HGB CONC 32 g/dl (31.0-36.0); MEAN CORPUSCULAR VOLUME 84 fL (80-96); MONOCYTES # (AUTO) 0.7 /CMM (0.1-1.30); MONOCYTES % (AUTO) 6.7 % (2.0-12.0); NEUTROPHILS # (AUTO) 9.3 /CMM (1.8-8.9); NEUTROPHILS % (AUTO) 83.4 % (43.0-81.0); PLATELET COUNT (AUTO) 355 /CMM (150-450); RED BLOOD CELL COUNT(AUTO) 4.46 MIL/uL (4.5-6.0); WHITE BLOOD COUNT (AUTO) 11.2 K/uL (4.3-11.0)
--- NOTE | 2019-10-23 21:15 | NUR ---
URINE RETRIEVED FROM PATIENT AND SENT TO LAB
--- NOTE | 2019-10-23 21:18 | NUR ---
PT TAKEN TO CT
[2019-10-23 21:29] LABS: ALANINE AMINOTRANSFERASE 27 U/L (12-78); ALBUMIN 3.2 g/dL (3.4-5.0); ALKALINE PHOSPHATASE 133 U/L (46-116); ASPARTATE AMINOTRANSFERASE 18 U/L (15-37); BILIRUBIN,DIRECT 0.1 mg/dL (0.0-0.2); BILIRUBIN,TOTAL 0.3 mg/dL (0.2-1.0); CARBON DIOXIDE 29 mmol/L (21-32); CHLORIDE 101 mmol/L (98-107); CREATININE 0.6 mg/dL (0.6-1.3); GLUCOSE 158 mg/dL (74-106); LIPASE 83 U/L (73-393); POTASSIUM 3.8 mmol/L (3.5-5.1); SODIUM SERUM 137 mmol/L (136-145); TOTAL PROTEIN, SERUM 8.1 g/dL (6.4-8.2); UREA NITROGEN, BLOOD 43 mg/dL (7-18)
--- NOTE | 2019-10-23 21:32 | NUR ---
PATIENT RETURNED FROM CT
[2019-10-23 21:57] LABS: APPEARANCE,URINE CLEAR (CLEAR); BILIRUBIN,URINE NEGATIVE (NEGATIVE); BLOOD, URINE TRACE Ery/uL (NEGATIVE); COLOR,URINE YELLOW (YELLOW); KETONES,URINE NEGATIVE (NEGATIVE); LEUKOCYTE ESTERASE ,URINE LARGE (NEGATIVE); NITRITE, URINE POSITIVE (NEGATIVE); PROTEIN,URINE NEGATIVE (NEGATIVE); UGLUCOSE NEGATIVE (NEGATIVE); UROBILINOGEN,URINE 0.2 EU/dL (0.2)
[2019-10-23 22:03] LABS: BACTERIA,URINE 3+ /HPF (None Seen); RBC,URINE 0-2 /HPF (0-2); SQUAMOUS EPITHELIAL CELL,UR Few /HPF (None Seen); WBC,URINE 81-100 /HPF (0-3)
[2019-10-23] MEDS ORDERED: CEFTRIAXONE 1GM BAG (ER ONLY) 1 GM/50 ML PIGGYBACK IV ONE (23:00)
--- NOTE | 2019-10-23 23:23 | NUR ---
CALLED NURSING SUP FOR BED
--- NOTE | 2019-10-23 23:58 | NUR ---
report given to Janelle Malone for MARILYNN.
--- NOTE | 2019-10-24 | NUR ---
FAMILY REQUESING BED ASSIGNMENT ON THIRD FLOOR. CALLED NURSING SUP FOR REQUEST
--- NOTE | 2019-10-24 01:02 | NUR ---
BED ASSIGNMENT 325-1
--- NOTE | 2019-10-24 01:18 | NUR ---
report given to Reyna FRIEND for MARILYNN.
[2019-10-24 01:25] VITALS: BP 142/78
--- NOTE | 2019-10-24 01:26 | NUR ---
MS RN NOTES RECEIVED PATIENT IN BED, AWAKE, UNRESPONSIVE. UNABLE TO ASSESS PT. BREATHING EVEN AND UNLABORED ON ROOM AIR. DISPLAYS NO SIGNS OF ACUTE RESPIRATORY DISTRESS, NO ACUTE PAIN. DAUGHTER BY BEDSIDE. IV ON L HAND 20G RUNNING 75ML/HR. CLEAN DRY AND INTACT, SHOWS NO SIGNS OF REDNESS. NO INFILTRATION. G-TUBE IS CLEAN DRY AND INTACT, FLUSHING WELL, AND ASPIRATED. CONDOM CATH IS CLEAN DRY AND INTACT. SAFETY PRECAUTION IN PLACE. BED IN LOWEST POSITION LOCKED. WILL CONTINUE TO MONITOR.
[2019-10-24] MEDS ORDERED: ACETAMINOPHEN 325 MG TABLET PO PRN (02:00)
[2019-10-24] MEDS ORDERED: ONDANSETRON HCL/PF 4 MG/2 ML VIAL IVP PRN (02:00)
[2019-10-24] MEDS ORDERED: Z GUARD REMEDY 2 OZ OINT TP PRN (02:00)
[2019-10-24] MEDS ORDERED: MAGNESIUM HYDROXIDE 30 ML UDC PO PRN (02:00)
[2019-10-24] MEDS ORDERED: HYDROCODONE/APAP 5/325MG 1 EACH TABLET PO PRN (02:00)
[2019-10-24] MEDS ORDERED: ZOLPIDEM TARTRATE 5 MG TABLET PO PRN (02:00)
[2019-10-24] MEDS ORDERED: MAG HYDROX/AL HYDROX/SIMETH 30 ML UDC PO PRN (02:00)
[2019-10-24] MEDS ORDERED: IV NS 0.9% 1,000 ML IV PRN (02:30)
[2019-10-24] MEDS ORDERED: ENOXAPARIN SODIUM 40 MG/0.4 ML DISP.SYRIN SQ SCH (03:30)
[2019-10-24] MEDS ORDERED: PIPERACILLIN /TAZOBACTAM 3.375 G in IV D5W 50 ML IV ONE (04:00)
[2019-10-24] MEDS ORDERED: PIPERACILLIN /TAZOBACTAM 3.375 G VIAL IV ONE (04:08)
--- NOTE | 2019-10-24 06:41 | NUR ---
MS RN NOTES RECEIVED PATIENT IN BED, ASLEEP, UNRESPONSIVE. UNABLE TO ASSESS PT. BREATHING EVEN AND UNLABORED ON ROOM AIR. DISPLAYS NO SIGNS OF ACUTE RESPIRATORY DISTRESS, NO ACUTE PAIN. . IV ON L HAND 20G RUNNING 75ML/HR. CLEAN DRY AND INTACT, SHOWS NO SIGNS OF REDNESS. NO INFILTRATION. G-TUBE IS CLEAN DRY AND INTACT, FLUSHING WELL, AND ASPIRATED. CONDOM CATH IS CLEAN DRY AND INTACT. ALL DUE MEDICATIONS GIVEN, SAFETY PRECAUTION IN PLACE. BED IN LOWEST POSITION LOCKED. WILL ENDORSE TO ONCOMING NURSE.
[2019-10-24] MEDS ORDERED: ALBUTEROL FS 2.5 MG/3 ML VIAL.NEB NEB PRN (07:30)
[2019-10-24] MEDS ORDERED: IPRATROPIUM NEB FS 0.5 MG/2.5 ML AMPUL.NEB NEB PRN (07:30)
--- NOTE | 2019-10-24 07:40 | NUR ---
RN NOTES OPENING Patient received on room air, no sob noted, patient a/o x1 at this time. Patient shows no s/s of pain at this time and is asleep comfortably on his bed. Patient with condom cath that was apparently placed at home by daughter, drained 400 ml at time of check. NPO but has g tube, and is awaiting for feeding orders. L hand 20 gauge NS 75 ml per hour. Bed at the lowest setting, call light within reach, side rails up x2.
[2019-10-24 08:23] LABS: BASOPHILS # (AUTO) 0.1 /CMM (0.0-0.2); BASOPHILS % (AUTO) 0.4 % (0.0-2.0); EOSINOPHILS % (AUTO) 4.8 % (0.0-6.0); HEMATOCRIT 39 % (39-51); HEMOGLOBIN 12.5 g/dL (13.5-17.5); LYMPHOCYTES # (AUTO) 0.4 /CMM (0.8-4.8); LYMPHOCYTES % (AUTO) 3.1 % (20.0-44.0); MEAN CORPUSCULAR HGB CONC 32 g/dl (31.0-36.0); MEAN CORPUSCULAR VOLUME 83 fL (80-96); MONOCYTES # (AUTO) 0.9 /CMM (0.1-1.30); MONOCYTES % (AUTO) 6.7 % (2.0-12.0); NEUTROPHILS # (AUTO) 11.7 /CMM (1.8-8.9); PLATELET COUNT (AUTO) 337 /CMM (150-450); RED BLOOD CELL COUNT(AUTO) 4.64 MIL/uL (4.5-6.0); WHITE BLOOD COUNT (AUTO) 13.8 K/uL (4.3-11.0)
[2019-10-24 08:24] LABS: CALCIUM, SERUM 9.8 mg/dL (8.5-10.1); CARBON DIOXIDE 27 mmol/L (21-32); CHLORIDE 103 mmol/L (98-107); CREATININE 0.5 mg/dL (0.6-1.3); GLUCOSE 153 mg/dL (74-106); MAGNESIUM 2.2 mg/dL (1.8-2.4); PHOSPHORUS 2.3 mg/dL (2.5-4.9); POTASSIUM 3.5 mmol/L (3.5-5.1); SODIUM SERUM 141 mmol/L (136-145); UREA NITROGEN, BLOOD 30 mg/dL (7-18)
[2019-10-24 08:39] VITALS: BP 159/96
[2019-10-24] MEDS: METOPROLOL TARTRATE 50 MG TABLET PO SCH ×2 (08:49→16:59)
[2019-10-24] MEDS: ASCORBIC ACID 500 MG TABLET PO SCH (08:49)
[2019-10-24] MEDS: BACLOFEN (10 MG) 10 MG TABLET GT SCH ×2 (08:49→21:19)
[2019-10-24] MEDS: ASPIRIN 81 MG TAB.CHEW GT SCH (08:49)
[2019-10-24] MEDS: AMLODIPINE BESYLATE 5 MG TABLET GT SCH (08:49)
[2019-10-24] MEDS: hydrALAZINE HCL 50 MG TABLET PO SCH ×3 (08:49→16:59)
[2019-10-24] MEDS: MULTIVITAMINS,THERAGRAN 1 UDTAB TABLET GT SCH (08:49)
[2019-10-24] MEDS: LEVETIRACETAM SOL (5 ML) 100 MG/ML UDC GT SCH ×2 (08:50→21:19)
[2019-10-24] MEDS: PANTOPRAZOLE 40 MG/PACK PACK GT SCH ×2 (08:50→21:19)
[2019-10-24] MEDS: LISINOPRIL (20MG) 20 MG TABLET PO SCH (08:50)
[2019-10-24] MEDS ORDERED: DOCUSATE SODIUM 100 MG CAPSULE PO SCH (09:00)
[2019-10-24] MEDS ORDERED: DIAZEPAM 2 MG TABLET GT SCH (09:00)
[2019-10-24] MEDS ORDERED: Sodium Phosphate 7.5 MMOL in IV D5W 100 ML IV ONE (10:00)
[2019-10-24] MEDS ORDERED: NA PHOS,M-B/NA PHOS,DI-BA 1 EA ENEMA RC ONE (11:30)
[2019-10-24] MEDS: DOCUSATE SODIUM LIQ 100 MG/10 ML UDC NG SCH ×2 (11:46→17:00)
[2019-10-24] MEDS ORDERED: PIPERACILLIN /TAZOBACTAM 3.375 G in IV D5W 50 ML IV SCH (12:00)
[2019-10-24] MEDS ORDERED: DEXTROSE 50%-WATER 50 ML DISP.SYRIN IV PRN (12:00)
[2019-10-24] MEDS: BLOOD SUGAR DIAGNOSTIC 1 EACH STRIP IN SCH ×2 (12:14→17:17)
[2019-10-24] MEDS ORDERED: FEE PK DOSING 1 MIN EA MC ONE (15:53)
[2019-10-24 16:39] VITALS: BP 132/75
[2019-10-24] MEDS: IV D5/0.45 NACL 1,000 ML IV PRN (16:55)
--- NOTE | 2019-10-24 18:37 | NUR ---
RN CLOSING NOTES Patient remains on room air, no sob noted, patient remains a/o x1 at this time. Condom cath remains draining and is holding, currently has a gain of 700 ml for the whole day. NPO and is awaiting dietary feeding consult. L hand 20 gauge NS 75 ml per hour. D5 1/2 NS placed on patient. Blood sugar level WNL all shift. Bed at the lowest setting, call light within reach, side rails up x2. Will give report to NOC RN for MARILYNN bedside.
[2019-10-24] MEDS: VANCOMYCIN 1 GM in IV D5W 250 ML IV SCH (18:44)
--- NOTE | 2019-10-24 19:25 | NUR ---
RN NOTES RECEIVED PATIENT ASLEEP, NO SIGNS OF DISTRESS, IV ACCESS INTACT AND PATENT, IV FLUID INFUSING WELL. GT INTACT AND PATENT NO ABDOMINAL DISTENTION NOTED. SAFETY MEASURES IN PLACED, ASPIRATION PRECAUTION EMPHASIZED, ALL NEEDS ANTICIPATED, KEPT CLEAN DRY AND COMFORTABLE, CALL LIGHT WITHIN EASY REACH. WILL CONTINUE TO MONITOR ACCORDINGLY.
[2019-10-24 20:00] VITALS: BP 147/76
[2019-10-24] MEDS ORDERED: CEFTRIAXONE 1 G in IV D5W 50 ML IV SCH ×2 (21:00→23:00)
[2019-10-24] MEDS: CEFEPIME 1 GM in IV D5W 50 ML IV SCH (21:19)
[2019-10-24] MEDS: DIAZEPAM 5 MG TABLET GT SCH (21:19)
[2019-10-24] MEDS ORDERED: GLUCERNA 1.2 1,000 ML BOTTLE GT PRN (22:30)
[2019-10-24] MEDS ORDERED: GLUCERNA 1.2 1,000 ML BOTTLE NG PRN (22:30)
[2019-10-24] MEDS: INSULIN REGULAR, HUMAN 100 UNIT/ML 3 ML VIAL SQ PRN (23:13)
[2019-10-25] MEDS ORDERED: GLUCERNA 1.2 1,000 ML BOTTLE GT PRN
[2019-10-25] MEDS: BLOOD SUGAR DIAGNOSTIC 1 EACH STRIP IN SCH ×4 (00:56→17:07)
[2019-10-25] MEDS: VANCOMYCIN 1 GM in IV D5W 250 ML IV SCH ×2 (05:24→17:07)
[2019-10-25] MEDS: INSULIN REGULAR, HUMAN 100 UNIT/ML 3 ML VIAL SQ PRN ×3 (06:39→17:11)
--- NOTE | 2019-10-25 07:14 | NUR ---
RN NOTES PATIENT ASLEEP, NO SIGNS OF DISTRESS, IV ACCESS INTACT AND PATENT, IV FLUID INFUSING WELL. GT INTACT AND PATENT NO ABDOMINAL DISTENTION NOTED. SAFETY MEASURES IN PLACED, ASPIRATION PRECAUTION EMPHASIZED, ALL NEEDS ANTICIPATED, KEPT CLEAN DRY AND COMFORTABLE, CALL LIGHT WITHIN EASY REACH. WILL ENDORSE TO AM NURSE FOR CONTINUITY OF CARE.
[2019-10-25 07:27] LABS: BASOPHILS % (AUTO) 0.3 % (0.0-2.0); HEMATOCRIT 37 % (39-51); HEMOGLOBIN 11.8 g/dL (13.5-17.5); LYMPHOCYTES # (AUTO) 0.5 /CMM (0.8-4.8); LYMPHOCYTES % (AUTO) 3.7 % (20.0-44.0); MEAN CORPUSCULAR HGB CONC 32 g/dl (31.0-36.0); MEAN CORPUSCULAR VOLUME 83 fL (80-96); MONOCYTES % (AUTO) 7.8 % (2.0-12.0); NEUTROPHILS # (AUTO) 10.1 /CMM (1.8-8.9); NEUTROPHILS % (AUTO) 82.2 % (43.0-81.0); PLATELET COUNT (AUTO) 320 /CMM (150-450); RED BLOOD CELL COUNT(AUTO) 4.39 MIL/uL (4.5-6.0); WHITE BLOOD COUNT (AUTO) 12.3 K/uL (4.3-11.0)
[2019-10-25 07:30] LABS: CALCIUM, SERUM 9.1 mg/dL (8.5-10.1); CARBON DIOXIDE 26 mmol/L (21-32); CHLORIDE 104 mmol/L (98-107); CREATININE 0.5 mg/dL (0.6-1.3); GLUCOSE 168 mg/dL (74-106); MAGNESIUM 2.2 mg/dL (1.8-2.4); PHOSPHORUS 2.4 mg/dL (2.5-4.9); POTASSIUM 3.2 mmol/L (3.5-5.1); SODIUM SERUM 140 mmol/L (136-145); UREA NITROGEN, BLOOD 16 mg/dL (7-18)
--- NOTE | 2019-10-25 07:33 | NUR ---
RN MS OPENING NOTES Patient received on room air, no sob noted, a/o x1, condom cath remains on place and is draining at this time. GTF @ 40 ml per hour with GT glucerna 1.2 for 24 hours. IVF D5 1/2 NS @ 75 ml per hour dc'd at this time due to feeding on going. Bed at the lowest setting, call light within reach, side rails up x2.
[2019-10-25 07:50] LABS: CHOLESTEROL 161 mg/dL (<200); HDL CHOLESTEROL 45 mg/dL (40-60); LDL 95 mg/dL (0-99); TRIGLYCERIDES 180 mg/dL (30-150)
[2019-10-25 08:00] VITALS: BP 147/75
[2019-10-25] MEDS: ASCORBIC ACID 500 MG TABLET PO SCH (08:26)
[2019-10-25] MEDS: DIAZEPAM 5 MG TABLET GT SCH ×2 (08:26→21:45)
[2019-10-25] MEDS: LEVETIRACETAM SOL (5 ML) 100 MG/ML UDC GT SCH ×2 (08:26→21:45)
[2019-10-25] MEDS: hydrALAZINE HCL 50 MG TABLET PO SCH ×3 (08:27→16:08)
[2019-10-25] MEDS: BACLOFEN (10 MG) 10 MG TABLET GT SCH ×2 (08:27→21:45)
[2019-10-25] MEDS: AMLODIPINE BESYLATE 5 MG TABLET GT SCH (08:27)
[2019-10-25] MEDS: LISINOPRIL (20MG) 20 MG TABLET PO SCH (08:27)
[2019-10-25] MEDS: METOPROLOL TARTRATE 50 MG TABLET PO SCH ×2 (08:27→16:07)
[2019-10-25] MEDS: DOCUSATE SODIUM LIQ 100 MG/10 ML UDC NG SCH ×2 (08:28→16:07)
[2019-10-25] MEDS: MULTIVITAMINS,THERAGRAN 1 UDTAB TABLET GT SCH (08:28)
[2019-10-25] MEDS: ASPIRIN 81 MG TAB.CHEW GT SCH (08:28)
[2019-10-25] MEDS: PANTOPRAZOLE 40 MG/PACK PACK GT SCH ×2 (08:28→21:45)
[2019-10-25] MEDS: ENOXAPARIN SODIUM 40 MG/0.4 ML DISP.SYRIN SQ SCH (08:29)
[2019-10-25] MEDS: CEFEPIME 1 GM in IV D5W 50 ML IV SCH ×2 (08:43→21:54)
[2019-10-25] MEDS ORDERED: NEUTRA PHOS 1 POWD.PACKET NG ONE (11:00)
[2019-10-25] MEDS: POTASSIUM CHLORIDE 20 MEQ POWDER PACKET GT SCH ×2 (11:49→13:12)
[2019-10-25 16:00] VITALS: BP 152/72
--- NOTE | 2019-10-25 18:12 | NUR ---
RN CLOSING NOTES Patient remains on room air, no sob noted, a/o x1 at this time. Condom cath remains draining at this time. Patient remains on GTF glucerna 1.2 @ 40 ml per hour at this time. Insulin stable all shift and all medications were given without any adverse effects. Bed at the lowest setting, call light within reach, side rails up x2. Addendum: 10/25/19 at 1844 by LETHA DAMON RN Patient turbned Q2HRs
--- NOTE | 2019-10-25 19:24 | NUR ---
RN NOTES Daughter refused sacral debridement. Stated that she does not want it done.
--- NOTE | 2019-10-25 19:55 | NUR ---
RN NOTES RECEIVED PATIENT ASLEEP, NO SIGNS OF DISTRESS, IV ACCESS INTACT AND PATENT, IV FLUID INFUSING WELL. GT INTACT AND PATENT FEEDING TOLERATING WELL NO ABDOMINAL DISTENTION NOTED. SAFETY MEASURES IN PLACED, ASPIRATION PRECAUTION EMPHASIZED, ALL NEEDS ANTICIPATED, RECEIVED REPORT FROM AM NURSE THAT PATIENT'S DAUGHTER REFUSED WOUND DEBRIDEMENT, KEPT CLEAN DRY AND COMFORTABLE, CALL LIGHT WITHIN EASY REACH. WILL CONTINUE TO MONITOR ACCORDINGLY.
[2019-10-25 20:11] VITALS: BP 120/64
[2019-10-25] MEDS: MUPIROCIN OINT 2% 22 GM TUBE SCH (21:55)
[2019-10-26] MEDS: INSULIN REGULAR, HUMAN 100 UNIT/ML 3 ML VIAL SQ PRN ×4 (00:06→18:26)
[2019-10-26] MEDS: BLOOD SUGAR DIAGNOSTIC 1 EACH STRIP IN SCH ×4 (00:08→18:00)
[2019-10-26] MEDS: VANCOMYCIN 1 GM in IV D5W 250 ML IV SCH ×3 (01:26→17:16)
--- NOTE | 2019-10-26 07:14 | NUR ---
RN NOTES ABLE TO REST AND SLEPT AT INTERVALS, PATIENT ASLEEP, NO SIGNS OF DISTRESS, IV ACCESS INTACT AND PATENT, IV FLUID INFUSING WELL. GT INTACT AND PATENT FEEDING TOLERATING WELL NO ABDOMINAL DISTENTION NOTED. SAFETY MEASURES IN PLACED, ASPIRATION PRECAUTION EMPHASIZED, ALL NEEDS ANTICIPATED, RECEIVED REPORT FROM AM NURSE THAT PATIENT'S DAUGHTER REFUSED WOUND DEBRIDEMENT, KEPT CLEAN DRY AND COMFORTABLE, CALL LIGHT WITHIN EASY REACH. ENDORSED TO AM NURSE ADVANCED GT FEEDING AT 12 AM AT 50 ML/HR, WILL MONITOR ONCE TOLERATED, TO REACH THE GOAL TO 65ML/HR.
[2019-10-26 07:46] LABS: CALCIUM, SERUM 9.4 mg/dL (8.5-10.1); CARBON DIOXIDE 24 mmol/L (21-32); CHLORIDE 104 mmol/L (98-107); CREATININE 0.5 mg/dL (0.6-1.3); GLUCOSE 152 mg/dL (74-106); POTASSIUM 4.3 mmol/L (3.5-5.1); SODIUM SERUM 138 mmol/L (136-145); UREA NITROGEN, BLOOD 16 mg/dL (7-18)
[2019-10-26 08:00] VITALS: BP 147/86
--- NOTE | 2019-10-26 08:02 | NUR ---
MS/RN RECIEVED PT IS ON BED, NO SOB NOTED, NO PAIN NOTED, RECIEVED REPORT TO FLORIST HELPER.
--- NOTE | 2019-10-26 09:55 | NUR ---
WOUND CARE CONSULT: PT FOLLOWED BY PLASTIC SURGERY TEAM FOR WOUNDS. DEFER TO SURGICAL TEAM FOR WOUND TREATMENT PLAN. PT ON FIRST STEP CIRRUS LOW AIRLOSS MATTRESS. ALL SKIN PROTECTION MEASURES IN PLACE AND DISCUSSED WITH NURSING STAFF. WILL SEE PRN.
[2019-10-26] MEDS: DOCUSATE SODIUM LIQ 100 MG/10 ML UDC NG SCH ×2 (10:30→17:22)
[2019-10-26] MEDS: METOPROLOL TARTRATE 50 MG TABLET PO SCH ×2 (10:32→17:22)
[2019-10-26] MEDS: ENOXAPARIN SODIUM 40 MG/0.4 ML DISP.SYRIN SQ SCH (10:33)
[2019-10-26] MEDS: hydrALAZINE HCL 50 MG TABLET PO SCH ×3 (10:34→17:21)
[2019-10-26] MEDS: PANTOPRAZOLE 40 MG/PACK PACK GT SCH ×2 (10:35→20:56)
[2019-10-26] MEDS: LEVETIRACETAM SOL (5 ML) 100 MG/ML UDC GT SCH ×2 (10:35→20:55)
[2019-10-26] MEDS: ASCORBIC ACID 500 MG TABLET PO SCH (10:35)
[2019-10-26] MEDS: MULTIVITAMINS,THERAGRAN 1 UDTAB TABLET GT SCH (10:35)
[2019-10-26] MEDS: DIAZEPAM 5 MG TABLET GT SCH ×2 (10:35→20:56)
[2019-10-26] MEDS: AMLODIPINE BESYLATE 5 MG TABLET GT SCH (10:35)
[2019-10-26] MEDS: LISINOPRIL (20MG) 20 MG TABLET PO SCH (10:36)
[2019-10-26] MEDS: ASPIRIN 81 MG TAB.CHEW GT SCH (10:36)
[2019-10-26] MEDS: BACLOFEN (10 MG) 10 MG TABLET GT SCH ×2 (10:36→20:56)
[2019-10-26] MEDS: MUPIROCIN OINT 2% 22 GM TUBE SCH ×2 (11:27→20:57)
[2019-10-26] MEDS: CEFEPIME 1 GM in IV D5W 50 ML IV SCH ×2 (12:30→20:56)
--- NOTE | 2019-10-26 12:45 | NUR ---
MS/RN BP MEDS IS NOT GIVEN DUE TO THE RESULT 106/55 , WILL CONTINUE TO MONITOR.
[2019-10-26] MEDS: IV D5/0.45 NACL 1,000 ML IV PRN (15:08)
[2019-10-26 16:00] VITALS: BP 137/62
--- NOTE | 2019-10-26 18:28 | NUR ---
MS/RN BLOOD SUGAR RESULT 130MG/DL, AT 1830 PER SLIDING SCALE 0.
--- NOTE | 2019-10-26 19:04 | NUR ---
MS/RN Patient remains on room air, no sob noted, a/o x1 at this time. Condom cath remains draining at this time. Patient remains on GTF glucerna 1.2 @ 65ml per hour at this time. latest blood sugar 130, Bed at the lowest setting, call light within reach, side rails up x2.
[2019-10-26 20:33] VITALS: BP 150/79
[2019-10-27] MEDS: GLUCERNA 1.2 1,000 ML BOTTLE GT PRN ×2 (01:01→19:26)
[2019-10-27] MEDS: BLOOD SUGAR DIAGNOSTIC 1 EACH STRIP IN SCH ×4 (01:22→17:10)
[2019-10-27] MEDS: VANCOMYCIN 1 GM in IV D5W 250 ML IV SCH ×2 (01:22→09:00)
[2019-10-27] MEDS: INSULIN REGULAR, HUMAN 100 UNIT/ML 3 ML VIAL SQ PRN ×4 (01:24→17:10)
[2019-10-27] MEDS: IV D5/0.45 NACL 1,000 ML IV PRN (06:30)
--- NOTE | 2019-10-27 06:30 | NUR ---
MS/RN PM CLOSING NOTES. PATIENT ON RA BREATHING EVEN AND UNLABORED. PATIENT TOLERATING GT FEEDING AT 65 ML WITH RESIDUALS NOT ANY HIGHER THEN 15 ML FOUND WHEN CHECKED PER PROTOCOL. CONDOM CATH REMAINS INTACT. DRAINED 900 ML OUT OF CLEAR YELLOW URINE. GTF glucerna 1.2 @ 65ml per hour RUNNING. Bed at the lowest setting, call light within reach, side rails up x2. SCDS ON AND PATIENT ON AIR MATTRESS.
[2019-10-27 08:00] VITALS: BP 71/80
--- NOTE | 2019-10-27 08:00 | NUR ---
MS RN NOTES PATIENT IN BED RESTING NO SOB OR ACUTE DISTRESS NOTED. PATIENT ONLY OPENS EYES. NONE VERBAL. BED IN LOW LOCKED POSITION. CALL LIGHT WITHIN REACH. WITH CONDOM CATH, INTACT PATENT, DRAINING YELLOW CLEAR URIN. WILL CONTINUE TO [id number].
[2019-10-27] MEDS: BACLOFEN (10 MG) 10 MG TABLET GT SCH ×2 (09:19→21:15)
[2019-10-27] MEDS: PANTOPRAZOLE 40 MG/PACK PACK GT SCH ×2 (09:19→21:15)
[2019-10-27] MEDS: AMLODIPINE BESYLATE 5 MG TABLET GT SCH (09:19)
[2019-10-27] MEDS: LISINOPRIL (20MG) 20 MG TABLET PO SCH (09:19)
[2019-10-27] MEDS: ASPIRIN 81 MG TAB.CHEW GT SCH (09:19)
[2019-10-27] MEDS: DOCUSATE SODIUM LIQ 100 MG/10 ML UDC NG SCH ×2 (09:19→17:00)
[2019-10-27] MEDS: DIAZEPAM 5 MG TABLET GT SCH ×2 (09:20→21:14)
[2019-10-27] MEDS: ASCORBIC ACID 500 MG TABLET PO SCH (09:20)
[2019-10-27] MEDS: hydrALAZINE HCL 50 MG TABLET PO SCH ×3 (09:20→17:01)
[2019-10-27] MEDS: LEVETIRACETAM SOL (5 ML) 100 MG/ML UDC GT SCH ×2 (09:20→21:15)
[2019-10-27] MEDS: MULTIVITAMINS,THERAGRAN 1 UDTAB TABLET GT SCH (09:20)
[2019-10-27] MEDS: METOPROLOL TARTRATE 50 MG TABLET PO SCH ×2 (09:20→17:01)
[2019-10-27] MEDS: CEFEPIME 1 GM in IV D5W 50 ML IV SCH ×2 (09:21→21:14)
[2019-10-27 09:22] LABS: CALCIUM, SERUM 8.9 mg/dL (8.5-10.1); CARBON DIOXIDE 21 mmol/L (21-32); CHLORIDE 101 mmol/L (98-107); CREATININE 0.4 mg/dL (0.6-1.3); GLUCOSE 161 mg/dL (74-106); POTASSIUM 3.8 mmol/L (3.5-5.1); SODIUM SERUM 133 mmol/L (136-145); UREA NITROGEN, BLOOD 14 mg/dL (7-18)
[2019-10-27] MEDS: MUPIROCIN OINT 2% 22 GM TUBE SCH ×2 (09:23→21:15)
[2019-10-27] MEDS: ENOXAPARIN SODIUM 40 MG/0.4 ML DISP.SYRIN SQ SCH (09:24)
[2019-10-27 10:10] VITALS: BP 154/78
[2019-10-27 16:00] VITALS: BP 156/81
--- NOTE | 2019-10-27 19:19 | NUR ---
MS RN NOTES PATIENT IN BED RESTING SOB OR ACUTE DISTRESS NOTED. ALL DUE MEDICATIONS ADMINISTERED. ALL NEEDS MET. NO ACUTE CHANGES NOTED DURING SHIFT. WILL ENDORSE CARE TO PM SHIFT.
[2019-10-27 20:00] VITALS: BP 139/71
--- NOTE | 2019-10-27 20:30 | NUR ---
MS RN NOTES AMBULANCE CAME IN TO CLIP LOADING MACHINE FEEDER PT TO BE TRANSPORTED BACK HOME. NO D/C ORDER FROM MD OF THIS TIME. NOTIFIED PLASTER AND STUCCO WORKER GILL. NOTIFIED FAMILY REGARDING D/C TO HOME. PER DTR CLARA, SHE SPOKE WITH MORNING NURSE ELO ROMAN D/C BUT PER ELO FRIEND, PT WILL NOT BE D/CD TODAY. SHE IS NOT AT HOME AT THE MOMENT. NOBODY'S GOING TO TAKE CARE OF HER DAD. PLASTER AND STUCCO WORKER AWARE. WILL RESCHEDULE CLIP LOADING MACHINE FEEDER FILIBERTO.
[2019-10-28] MEDS: BLOOD SUGAR DIAGNOSTIC 1 EACH STRIP IN SCH ×4 (00:01→18:11)
[2019-10-28] MEDS: INSULIN REGULAR, HUMAN 100 UNIT/ML 3 ML VIAL SQ PRN ×3 (00:03→13:56)
--- NOTE | 2019-10-28 06:29 | NUR ---
JOURNEYMAN MILLWRIGHT NOTES AWAKE. NON VERBAL. NOT IN ANY DISTRESS. NO SOB NOTED. NO S/SX OF ANY PAIN OR DISCOMFORT AT THIS TIME. WITH IV-HL PATENT & INTACT. WITH CONDOM CATH DRAINING YELLOWISH OUTPUT MODERATE IN AMOUNT. AM CARE DONE. MONITORED ACCORDINGLY. CALL LIGHT WITHIN REACH. BED IN LOWEST POSITION. SR UP X 3 WITH BED ALARM ON FOR SAFETY. WILL ENDORSE TO NEXT SHIFT. Addendum: 10/28/19 at 0631 by MIRNA CROCKETT RN MS RN NOTES NOT TELE
[2019-10-28 06:42] LABS: BASOPHILS # (AUTO) 0.1 /CMM (0.0-0.2); BASOPHILS % (AUTO) 0.6 % (0.0-2.0); EOSINOPHILS % (AUTO) 12.3 % (0.0-6.0); HEMATOCRIT 36 % (39-51); HEMOGLOBIN 11.9 g/dL (13.5-17.5); LYMPHOCYTES # (AUTO) 0.4 /CMM (0.8-4.8); LYMPHOCYTES % (AUTO) 4.3 % (20.0-44.0); MEAN CORPUSCULAR HGB CONC 33 g/dl (31.0-36.0); MEAN CORPUSCULAR VOLUME 83 fL (80-96); MONOCYTES # (AUTO) 0.7 /CMM (0.1-1.30); MONOCYTES % (AUTO) 7.3 % (2.0-12.0); NEUTROPHILS # (AUTO) 6.7 /CMM (1.8-8.9); NEUTROPHILS % (AUTO) 75.5 % (43.0-81.0); PLATELET COUNT (AUTO) 281 /CMM (150-450); RED BLOOD CELL COUNT(AUTO) 4.39 MIL/uL (4.5-6.0); WHITE BLOOD COUNT (AUTO) 8.9 K/uL (4.3-11.0)
[2019-10-28 07:44] LABS: ALANINE AMINOTRANSFERASE 25 U/L (12-78); ALBUMIN 2.9 g/dL (3.4-5.0); ALKALINE PHOSPHATASE 141 U/L (46-116); ASPARTATE AMINOTRANSFERASE 21 U/L (15-37); BILIRUBIN,TOTAL 0.3 mg/dL (0.2-1.0); CARBON DIOXIDE 22 mmol/L (21-32); CHLORIDE 101 mmol/L (98-107); CREATININE 0.5 mg/dL (0.6-1.3); GLUCOSE 170 mg/dL (74-106); MAGNESIUM 2.2 mg/dL (1.8-2.4); PHOSPHORUS 2.5 mg/dL (2.5-4.9); POTASSIUM 4.5 mmol/L (3.5-5.1); SODIUM SERUM 136 mmol/L (136-145); TOTAL PROTEIN, SERUM 7.2 g/dL (6.4-8.2); UREA NITROGEN, BLOOD 19 mg/dL (7-18)
[2019-10-28 08:00] VITALS: BP 140/75
--- NOTE | 2019-10-28 08:00 | NUR ---
ms rn received on bed, awake,oriented x1 only, not in any form of distress, gtube intact w/ feeding going on 65ml/hour, tolerated well w/o residual, repositioned for comfort.
[2019-10-28] MEDS ORDERED: VANCOMYCIN 1 GM in IV D5W 250 ML IV SCH (09:00)
--- NOTE | 2019-10-28 10:00 | NUR ---
ms rn on bed, due meds given,tolerated well.
[2019-10-28] MEDS: LEVETIRACETAM SOL (5 ML) 100 MG/ML UDC GT SCH ×2 (10:21→20:55)
[2019-10-28] MEDS: AMLODIPINE BESYLATE 5 MG TABLET GT SCH (10:22)
[2019-10-28] MEDS: METOPROLOL TARTRATE 50 MG TABLET PO SCH ×2 (10:22→17:58)
[2019-10-28] MEDS: ASPIRIN 81 MG TAB.CHEW GT SCH (10:22)
[2019-10-28] MEDS: PANTOPRAZOLE 40 MG/PACK PACK GT SCH ×2 (10:22→20:55)
[2019-10-28] MEDS: hydrALAZINE HCL 50 MG TABLET PO SCH ×3 (10:23→17:58)
[2019-10-28] MEDS: MULTIVITAMINS,THERAGRAN 1 UDTAB TABLET GT SCH (10:23)
[2019-10-28] MEDS: LISINOPRIL (20MG) 20 MG TABLET PO SCH (10:53)
[2019-10-28] MEDS: DOCUSATE SODIUM LIQ 100 MG/10 ML UDC NG SCH ×2 (10:53→17:58)
[2019-10-28] MEDS: ASCORBIC ACID 500 MG TABLET PO SCH (10:53)
[2019-10-28] MEDS: BACLOFEN (10 MG) 10 MG TABLET GT SCH ×2 (10:53→20:55)
[2019-10-28] MEDS: ENOXAPARIN SODIUM 40 MG/0.4 ML DISP.SYRIN SQ SCH (10:56)
[2019-10-28] MEDS: DIAZEPAM 5 MG TABLET GT SCH ×2 (10:56→20:55)
[2019-10-28] MEDS ORDERED: FEE PK DOSING 1 MIN EA MC ONE (11:31)
[2019-10-28] MEDS: DOXYCYCLINE HYCLATE (100 MG) 100 MG TABLET PO SCH ×2 (11:58→20:55)
[2019-10-28] MEDS ORDERED: TOBRAMYCIN 80 MG in IV D5W 50 ML IV SCH (12:00)
[2019-10-28] MEDS: MUPIROCIN OINT 2% 22 GM TUBE SCH ×2 (12:01→20:56)
[2019-10-28 16:00] VITALS: BP 142/71
--- NOTE | 2019-10-28 18:00 | NUR ---
ms llanos bs - 128 - no coverage noted.
[2019-10-28] MEDS: GLUCERNA 1.2 1,000 ML BOTTLE GT PRN (18:02)
--- NOTE | 2019-10-28 18:48 | NUR ---
ms rn on bed,no distress noted.
[2019-10-28 20:20] VITALS: BP 150/67
[2019-10-29] MEDS: BLOOD SUGAR DIAGNOSTIC 1 EACH STRIP IN SCH ×4 (00:24→18:58)
[2019-10-29] MEDS: INSULIN REGULAR, HUMAN 100 UNIT/ML 3 ML VIAL SQ PRN ×4 (00:25→12:58)
[2019-10-29] MEDS ORDERED: TOBRAMYCIN 100 MG in IV D5W 50 ML IV SCH (06:00)
--- NOTE | 2019-10-29 06:32 | NUR ---
MS RN NOTES AWAKE. NON VERBAL. NOT IN ANY DISTRESS. NO SOB NOTED. NO S/SX OF ANY PAIN OR DISCOMFORT AT THIS TIME. WITH IV-HL PATENT & INTACT. WITH CONDOM CATH DRAINING YELLOWISH OUTPUT MODERATE IN AMOUNT. AM CARE DONE. MONITORED ACCORDINGLY. CALL LIGHT WITHIN REACH. BED IN LOWEST POSITION. SR UP X 3 WITH BED ALARM ON FOR SAFETY. WILL ENDORSE TO NEXT SHIFT.
[2019-10-29 08:00] VITALS: BP 136/74
[2019-10-29] MEDS: ENOXAPARIN SODIUM 40 MG/0.4 ML DISP.SYRIN SQ SCH (08:53)
[2019-10-29] MEDS: PANTOPRAZOLE 40 MG/PACK PACK GT SCH (08:54)
[2019-10-29] MEDS: ASPIRIN 81 MG TAB.CHEW GT SCH (08:54)
[2019-10-29] MEDS: DOCUSATE SODIUM LIQ 100 MG/10 ML UDC NG SCH ×2 (08:54→18:31)
[2019-10-29] MEDS: LEVETIRACETAM SOL (5 ML) 100 MG/ML UDC GT SCH (08:54)
[2019-10-29] MEDS: DIAZEPAM 5 MG TABLET GT SCH (08:55)
[2019-10-29] MEDS: ASCORBIC ACID 500 MG TABLET PO SCH (08:55)
[2019-10-29] MEDS: METOPROLOL TARTRATE 50 MG TABLET PO SCH ×2 (08:55→18:31)
[2019-10-29] MEDS: LISINOPRIL (20MG) 20 MG TABLET PO SCH (08:56)
[2019-10-29] MEDS: BACLOFEN (10 MG) 10 MG TABLET GT SCH (08:56)
[2019-10-29] MEDS: DOXYCYCLINE HYCLATE (100 MG) 100 MG TABLET PO SCH (08:56)
[2019-10-29] MEDS: AMLODIPINE BESYLATE 5 MG TABLET GT SCH (08:57)
[2019-10-29] MEDS: MULTIVITAMINS,THERAGRAN 1 UDTAB TABLET GT SCH (08:57)
[2019-10-29] MEDS: hydrALAZINE HCL 50 MG TABLET PO SCH ×3 (08:57→18:32)
[2019-10-29] MEDS: MUPIROCIN OINT 2% 22 GM TUBE SCH (08:58)
[2019-10-29 09:05] LABS: BASOPHILS # (AUTO) 0.1 /CMM (0.0-0.2); BASOPHILS % (AUTO) 0.9 % (0.0-2.0); EOSINOPHILS % (AUTO) 14.2 % (0.0-6.0); HEMATOCRIT 39 % (39-51); HEMOGLOBIN 12.8 g/dL (13.5-17.5); LYMPHOCYTES # (AUTO) 0.5 /CMM (0.8-4.8); LYMPHOCYTES % (AUTO) 6.8 % (20.0-44.0); MEAN CORPUSCULAR HGB CONC 33 g/dl (31.0-36.0); MEAN CORPUSCULAR VOLUME 82 fL (80-96); MONOCYTES # (AUTO) 0.7 /CMM (0.1-1.30); MONOCYTES % (AUTO) 9.7 % (2.0-12.0); NEUTROPHILS # (AUTO) 4.7 /CMM (1.8-8.9); NEUTROPHILS % (AUTO) 68.4 % (43.0-81.0); PLATELET COUNT (AUTO) 289 /CMM (150-450); RED BLOOD CELL COUNT(AUTO) 4.74 MIL/uL (4.5-6.0); WHITE BLOOD COUNT (AUTO) 6.8 K/uL (4.3-11.0)
[2019-10-29 10:25] LABS: ALANINE AMINOTRANSFERASE 24 U/L (12-78); ALBUMIN 2.9 g/dL (3.4-5.0); ALKALINE PHOSPHATASE 127 U/L (46-116); ASPARTATE AMINOTRANSFERASE 18 U/L (15-37); BILIRUBIN,TOTAL 0.3 mg/dL (0.2-1.0); CALCIUM, SERUM 9.7 mg/dL (8.5-10.1); CARBON DIOXIDE 20 mmol/L (21-32); CHLORIDE 102 mmol/L (98-107); CREATININE 0.5 mg/dL (0.6-1.3); GLUCOSE 157 mg/dL (74-106); MAGNESIUM 2.3 mg/dL (1.8-2.4); PHOSPHORUS 3.1 mg/dL (2.5-4.9); POTASSIUM 4.1 mmol/L (3.5-5.1); SODIUM SERUM 137 mmol/L (136-145); TOTAL PROTEIN, SERUM 7.8 g/dL (6.4-8.2); UREA NITROGEN, BLOOD 21 mg/dL (7-18)
--- NOTE | 2019-10-29 11:25 | NUR ---
MS/RN RECEIVED PATIENT IN BED SLEEPING. NON VERBAL. NOT IN ANY DISTRESS. NO SOB NOTED. NO S/SX OF ANY PAIN OR DISCOMFORT AT THIS TIME. WITH IV-HL PATENT & INTACT. WITH CONDOM CATH DRAINING YELLOWISH OUTPUT MODERATE IN AMOUNT. AM CARE DONE. ADMINISTERED AM MEDS TROUGH GT.MONITORED ACCORDINGLY. CALL LIGHT WITHIN REACH. BED IN LOWEST POSITION. SR UP X 3 WITH BED ALARM ON FOR SAFETY.
[2019-10-29] MEDS ORDERED: TOBR60PI2 IV (14:52)
[2019-10-29] MEDS ORDERED: DOXY100T2 PO (14:52)
[2019-10-29 16:00] VITALS: BP 158/85
--- NOTE | 2019-10-29 17:00 | NUR ---
DR IRVIN INSERTED LEFT BASILIC MIDLINE FOR CONTINUED ATB IV THERAPY VIA [facility].
[2019-10-29 18:32] VITALS: BP 150/85
--- NOTE | 2019-10-29 18:34 | NUR ---
CALLED PT'S DAUGHTER,JABARI CONTEH AND LEFT MESSAGE IN HER VOICEMAIL 3X.TRIED CALLING PT'S HOME HEALTH [facility] BUT TO NO AVAIL TO FOLLOW UP IF THEY HAVE RECEIVED ALL THE FAXED INFO AND DOCTOR'S ORDERS BUT TO NO AVAIL.
--- NOTE | 2019-10-29 18:44 | NUR ---
MS/RN PATIENT ON RA BREATHING EVEN AND UNLABORED. PATIENT TOLERATING GT FEEDING AT 65 ML WITH RESIDUALS NOT ANY HIGHER THEN 15 ML FOUND WHEN CHECKED PER PROTOCOL. CONDOM CATH REMAINS INTACT. NO SOB NOTED, PT IS ON PICC LINE, WITH STABLE V/S NOTED,PATIENT IS FOR DISCHARGED TODAY. WAITING FOR AMBULACE.
--- NOTE | 2019-10-29 19:15 | NUR ---
DISCHARGED PT HOME WITH STABLE V/S VIA AMBULANCE.WITH LT BASILIC VEIN MIDLINE INSERTED TODAY-INTACT AND PATENT FOR ATB IV CONTINUATION AT HOME VIA [facility].PEG TUBE INTACT AND PATENT. BLD SUGAR 147.WITH CONDOM CATHETER INTACT AND DRAINING CLEAR YELLOW URINE OUTPUT.WITH STABLE V/S.ALL DISCHARGE INFO AND PRESCRIPTIONS HAD BEEN FAXED TO [facility].SPOKE TO JABARI,PT'S DAUGHTER AND MADE AWARE OF PT'S DISCHARGE AND CONTINUATION OF PT'S IV ATB THERAPY AND DOXYCYCLINE VIA PEG TUBE.
== END 2019-10-29 19:15 | disposition home health service (06) | DRG 871 ==
LOC: ER 20:38 → MEDSG1 23:56 → MED 10-24 01:04
PROVIDERS: ADMIT Internal Medicine Nephrology; ATTEND Internal Medicine
DX: A41.9 Sepsis, unspecified organism (principal); L89.224 Pressure ulcer of left hip, stage 4; L89.154 Pressure ulcer of sacral region, stage 4; J69.0 Pneumonitis due to inhalation of food and vomit; N39.0 Urinary tract infection, site not specified; G93.40 Encephalopathy, unspecified; E46 Unspecified protein-calorie malnutrition; I25.10 Atherosclerotic heart disease of native coronary artery without angina pectoris; R13.10 Dysphagia, unspecified; Z93.1 Gastrostomy status; Z86.73 Personal history of transient ischemic attack (TIA), and cerebral infarction without residual deficits; Z86.61 Personal history of infections of the central nervous system; Z87.442 Personal history of urinary calculi; Z83.3 Family history of diabetes mellitus; Z98.890 Other specified postprocedural states; Z91.041 Radiographic dye allergy status; Z79.82 Long term (current) use of aspirin; Z79.899 Other long term (current) drug therapy; K80.20 Calculus of gallbladder without cholecystitis without obstruction; E86.0 Dehydration; K59.00 Constipation, unspecified; I10 Essential (primary) hypertension; E11.9 Type 2 diabetes mellitus without complications; E86.1 Hypovolemia; I70.0 Atherosclerosis of aorta; K76.89 Other specified diseases of liver; N40.0 Benign prostatic hyperplasia without lower urinary tract symptoms; Z82.49 Family history of ischemic heart disease and other diseases of the circulatory system; N32.89 Other specified disorders of bladder; M47.815 Spondylosis without myelopathy or radiculopathy, thoracolumbar region; J47.9 Bronchiectasis, uncomplicated; M85.9 Disorder of bone density and structure, unspecified; F09 Unspecified mental disorder due to known physiological condition
CPT/HCPCS: 36415; 71250-TC; 80048-TC; 80053-TC; 80061-TC; 80076-TC; 80202-TC; 81000-TC; 82962-TC; 83605-TC; 83690-TC; 83735-TC; 84100-TC; 84484-TC; 85025-TC; 87040-TC; 87081-TC; 87086-TC; 87186-TC; A4217; A6253; A6403; A6407; A9563; G0378; J0692; J0696; J1650; J1815; J1953; J2543; J3260; J3370; J3490; J7030; J7060

== ENCOUNTER 2020-05-25 13:09 | Inpatient (IN) | payer MEDICARE, OTHER ==
[~2020-05-25] VITALS: Ht 170.2 cm; Wt 81.6 kg
[~2020-05-25 13:09] MED LIST changes: +DOXY100T2 PO; +TOBR60PI2 IV
--- NOTE | 2020-05-25 13:10 | NUR ---
PT [id number] FRM HOME, PMD CALLED FAMILY FOR LOW H&H REQUESTING BT. PT IS AAOX0, NOT IN RESPIRATORY DISTRESS, HOOKED TO FURNISHINGS CONSERVATOR, KEPT RESTED AND COMFORTABLE. WILL CONTINUE TO MONITOR.
--- NOTE | 2020-05-25 13:17 | NUR ---
SEEN AND EXAMINED BY .
[2020-05-25] MEDS ORDERED: IV NS 0.9% 500 ML BAG IV ONE (13:30)
--- NOTE | 2020-05-25 13:30 | NUR ---
IV LINE ESTABLISHED BLOOD DRAWN AND SENT TO LAB.
[2020-05-25 13:35] LABS: BASOPHILS % (AUTO) 0.4 % (0.0-2.0); HEMATOCRIT 22 % (39-51); HEMOGLOBIN 7.1 g/dL (13.5-17.5); LYMPHOCYTES # (AUTO) 0.3 /CMM (0.8-4.8); LYMPHOCYTES % (AUTO) 3.2 % (20.0-44.0); MEAN CORPUSCULAR HGB CONC 32 g/dl (31.0-36.0); MEAN CORPUSCULAR VOLUME 75 fL (80-96); MONOCYTES # (AUTO) 0.8 /CMM (0.1-1.30); MONOCYTES % (AUTO) 9.1 % (2.0-12.0); NEUTROPHILS % (AUTO) 84.3 % (43.0-81.0); PLATELET COUNT (AUTO) 449 /CMM (150-450); RED BLOOD CELL COUNT(AUTO) 2.94 MIL/uL (4.5-6.0); WHITE BLOOD COUNT (AUTO) 8.4 K/uL (4.3-11.0)
--- NOTE | 2020-05-25 13:45 | NUR ---
INSURANCE BILLER AT BEDSIDE FOR XRAY.
[2020-05-25 13:48] LABS: ALANINE AMINOTRANSFERASE 17 U/L (12-78); ALBUMIN 2.2 g/dL (3.4-5.0); ALKALINE PHOSPHATASE 114 U/L (46-116); ASPARTATE AMINOTRANSFERASE 16 U/L (15-37); BILIRUBIN,DIRECT 0.1 mg/dL (0.0-0.2); BILIRUBIN,TOTAL 0.2 mg/dL (0.2-1.0); TOTAL PROTEIN, SERUM 7.9 g/dL (6.4-8.2)
--- NOTE | 2020-05-25 14:40 | NUR ---
URINE SPECIMEN COLLECTED AND SENT TO LAB.
[2020-05-25] MEDS ORDERED: DUTA0.5C GT (14:45)
[2020-05-25] MEDS ORDERED: METH1TAB30 GT (14:45)
[2020-05-25] MEDS ORDERED: TAMS-12 GT (14:45)
[2020-05-25] MEDS ORDERED: DICY20TA11 GT ×2 (14:45)
[2020-05-25] MEDS ORDERED: ROSU10TA29 GT (14:45)
[2020-05-25 14:58] LABS: CALCIUM, SERUM 8.9 mg/dL (8.5-10.1); CREATININE 0.8 mg/dL (0.6-1.3); POTASSIUM 4.8 mmol/L (3.5-5.1)
--- NOTE | 2020-05-25 15:00 | NUR ---
DR VALDES PAGED THRU [facility]
[2020-05-25 15:04] LABS: APPEARANCE,URINE SL CLOUDY (CLEAR); BILIRUBIN,URINE NEGATIVE (NEGATIVE); BLOOD, URINE SMALL Ery/uL (NEGATIVE); COLOR,URINE YELLOW (YELLOW); KETONES,URINE NEGATIVE (NEGATIVE); LEUKOCYTE ESTERASE ,URINE LARGE (NEGATIVE); NITRITE, URINE POSITIVE (NEGATIVE); PROTEIN,URINE 30 mg/dl (NEGATIVE); UGLUCOSE NEGATIVE (NEGATIVE); UROBILINOGEN,URINE 0.2 EU/dL (0.2)
--- NOTE | 2020-05-25 15:19 | NUR ---
CONTACTED DR. VALDES WILL CALL US BACK. IN THIRD FLOOR.
[2020-05-25] MEDS ORDERED: CEFTRIAXONE 1 G in IV D5W 50 ML IV ONE (15:30)
[2020-05-25 15:38] LABS: BACTERIA,URINE 3+ /HPF (None Seen); SQUAMOUS EPITHELIAL CELL,UR Many /HPF (None Seen)
[2020-05-25] MEDS ORDERED: CEFTRIAXONE 1GM BAG (ER ONLY) 50 ML IV ONE (15:44)
[2020-05-25] MEDS ORDERED: LEVE500T20 PO (15:45)
--- NOTE | 2020-05-25 16:49 | NUR ---
CALLED [facility] FOR TELE BED.
--- NOTE | 2020-05-25 17:25 | NUR ---
ROOM ASSIGNMENT: [id number]
--- NOTE | 2020-05-25 17:30 | NUR ---
REPORT GIVEN TO RONNA MUÑIZ FOR MARILYNN.
[2020-05-25 17:50] VITALS: BP 123/74
--- NOTE | 2020-05-25 17:55 | NUR ---
RECEIVED PATIENT IN BED. NO ACUTE DISTRESS NOTED. PATIENT ALERT & ORIENTED X0, NONVERBAL. PATIENT ON 2L OXYGEN VIA NASAL CANNULA, SATURATING WELL AT 98%. PATIENT ON APPLICATION DESIGN ENGINEER, SINUS RHYTHM NOTED WITH HEART RATE IN 80S. PATIENT G-TUBE IN PLACE, INTACT. PATIENT LEFT ANTECUBITAL IV ACCESS INTACT, PATENT, FLUSHED WELL. PATIENT SAFETY MAINTAINED. CALL LIGHT WITHIN REACH. WILL CONTINUE TO MONITOR. PATIENT VITAL SIGNS- BP 123/74, HEART RATE 76, TEMPERATURE 98.6, OXYGEN SATURATION 98%, RESPIRATIONS 18.
--- NOTE | 2020-05-25 18:47 | NUR ---
PATIENT IN BED. NO ACUTE DISTRESS NOTED. PATIENT ALERT & ORIENTED X0, NONVERBAL. PATIENT ON 2L OXYGEN VIA NASAL CANNULA, SATURATING WELL AT 98%. PATIENT ON RECREATION ACTIVITIES COORDINATOR, SINUS RHYTHM NOTED WITH HEART RATE IN 80S. PATIENT G-TUBE IN PLACE, INTACT. PATIENT LEFT ANTECUBITAL IV ACCESS INTACT, PATENT, FLUSHED WELL. PATIENT SAFETY MAINTAINED. CALL LIGHT WITHIN REACH. WILL CONTINUE TO MONITOR. Addendum: 05/25/20 at 1923 by ANTONINO MAGANA RN AMEND- ENDORSED PLAN OF CARE TO ONCOMING NURSE, RONNA TEIXEIRA. COMPLETED ADMISSION PROCESS EXCEPT FOR INITIAL PHYSICAL ASSESSMENT, AND SKIN/WOUND PHOTOS; PUNEET AGREED AND IS TO TAKE OVER AND DO THAT PART OF ADMISSION PROCESS
--- NOTE | 2020-05-25 19:26 | NUR ---
WOOD CARVER HAND NOTES PATIENT IN BED, ALERT AND ORIENTED X 0. BREATHING EVEN AND UNLABORED ON NC 2L. SHOWS NO SIGNS OF ACUTE RESPIRATORY DISTRESS. NO ACUTE PAIN. TELE MONITOR SR 80.GTUBE CLEAN DRY AND INTACT. IV ON LAC 18 CLEAN DRY AND INTACT. SHOWS NO SIGNS OF INFILTRATION NO REDNESS. SAFETY PRECAUTIONS IN PLACE. BED IN LOWEST POSITION, LOCKED, AND CALL LIGHT KEPT WITHIN REACH. WILL CONTINUE TO MONITOR.
--- NOTE | 2020-05-25 19:49 | NUR ---
RESIDENT PROGRAMS ASSISTANT NOTES CALLED AND LEFT MESSAGE AT [address] ZAMBRANO [phone] REGARDING ADMITTING ORDER. WILL CONTINUE TO MONITOR.
[2020-05-25 20:00] VITALS: BP 137/71
--- NOTE | 2020-05-25 21:35 | NUR ---
SCRIBING MACHINE OPERATOR NOTES CALLED DR. VALDES, RECEIVED ORDER FOR 1 UNIT PRBC, CARDIAC DIET, AND NS AT 75ML/HR. WILL FOLLOW THRU.
--- NOTE | 2020-05-25 21:36 | NUR ---
MS RN NOTES ACCORDING TO DR. ZAMBRANO, HE WILL PUT IN THE REST OF THE ORDER AND MEDS. WILL CONTINUE TO MONITOR.
--- NOTE | 2020-05-25 22:00 | NUR ---
RIFLE CASE REPAIRER NOTES RECEIVED TELEPHONE CONSENT FOR BLOOD TRANSFUSION FOR DAUGHTER. PRIYA FRIEND WITNESSED. WILL CONTINUE TO MONITOR.
[2020-05-25] MEDS ORDERED: IV NS 0.9% 1,000 ML IV PRN (23:00)
[2020-05-26] VITALS (13 sets, daily range): BP systolic 116–148; BP diastolic 58–80
--- NOTE | 2020-05-26 01:00 | NUR ---
CHEESE TESTER NOTES STARTED BLOOD TRANSFUSION AT 0100, RN LYNN WITNESSED. PT HAVE VITALS WNL, NO FEVER. WILL CONTINUE TO MONITOR.
--- NOTE | 2020-05-26 04:30 | NUR ---
PAID SEARCH MARKETING STRATEGIST NOTES COMPLETED 1UNIT OF PRBC. VITAL SIGNS WNL, NO S/S OF TRANSFUSION REACTION. WILL CONTINUE TO MONITOR.
--- NOTE | 2020-05-26 07:10 | NUR ---
DRAWING IN MACHINE TENDER OPENING NOTES RECEIVED PT IN BED AWAKE AT THIS TIME, AOX0, PT ON EXTERNAL CARDIAC TELE MONITOR ON READING NSR 74. NO SOB NOTED, NO S/S OF ANY ACUTE DISTRESS OR PAIN NOTED. RESPIRATIONS EVEN AND UNLABORED, IV ACCESS IN LAC G#18, INTACT, PATENT AND FLUSHING WELL. ASPIRATION AND SAFETY PRECAUTIONS IN PLACE AND MAINTAINED AT ALL TIMES, BED IN LOWEST LOCKED POSITION, SIDE RAILS UP, HOB ELEVATED TO SEMI FOWLERS POSITION, CALL LIGHT WITHIN REACH. WILL CONTINUE TO MONITOR
--- NOTE | 2020-05-26 07:14 | NUR ---
RIVET SORTER NOTES PATIENT IN BED, OPENS EYES, NONVERBAL. BREATHING EVEN AND UNLABORED ON 2L NC. SHOWS NO SIGNS OF ACUTE RESPIRATORY DISTRESS, NO ACUTE PAIN. IV ON LAC 18 RUNNING NS AT 75ML/LR. SHOWS NO SIGNS OF INFILTRATION, NO REDNESS. S/P 1UNIT OF PRBC GIVEN 05/26. SAFETY PRECAUTIONS IN PLACE. BED IN LOWEST POSITION, LOCKED, AND CALL LIGHT KEPT WITHIN REACH. WILL CONTINUE TO MONITOR.
[2020-05-26] MEDS ORDERED: Medication Not On Formulary EA (Lansoprazole 30 MG) GT SCH (09:00)
[2020-05-26] MEDS ORDERED: ASPIRIN 81 MG TAB.CHEW GT SCH (09:00)
[2020-05-26] MEDS ORDERED: hydrALAZINE HCL 50 MG TABLET PO PRN (09:00)
[2020-05-26] MEDS ORDERED: METHENAMINE MANDELATE 1 GM TABLET GT SCH (09:00)
[2020-05-26] MEDS: MULTIVITAMINS,THERAGRAN 1 UDTAB TABLET GT SCH (09:25)
[2020-05-26] MEDS: METOPROLOL TARTRATE 50 MG TABLET PO SCH ×2 (09:25→17:40)
[2020-05-26] MEDS: DOCUSATE SODIUM 100 MG CAPSULE PO SCH ×2 (09:25→17:40)
[2020-05-26] MEDS: LEVETIRACETAM (250 MG) 250 MG TABLET PO SCH ×2 (09:25→21:41)
[2020-05-26] MEDS: PANTOPRAZOLE 40 MG/PACK PACK GT SCH (09:25)
[2020-05-26] MEDS: BACLOFEN (10 MG) 10 MG TABLET GT SCH ×2 (09:26→21:41)
[2020-05-26] MEDS: LISINOPRIL (20MG) 20 MG TABLET PO SCH (09:26)
[2020-05-26] MEDS: AMLODIPINE BESYLATE 5 MG TABLET GT SCH (09:26)
[2020-05-26] MEDS: FUROSEMIDE 40 MG/4 ML VIAL IV SCH ×3 (09:28→17:50)
[2020-05-26 10:01] LABS: BASOPHILS % (AUTO) 0.4 % (0.0-2.0); EOSINOPHILS % (AUTO) 3.1 % (0.0-6.0); HEMATOCRIT 27 % (39-51); HEMOGLOBIN 8.9 g/dL (13.5-17.5); LYMPHOCYTES % (AUTO) 3.8 % (20.0-44.0); MEAN CORPUSCULAR HGB CONC 33 g/dl (31.0-36.0); MEAN CORPUSCULAR VOLUME 77 fL (80-96); MONOCYTES % (AUTO) 7.1 % (2.0-12.0); NEUTROPHILS % (AUTO) 85.6 % (43.0-81.0); PLATELET COUNT (AUTO) 466 /CMM (150-450); RED BLOOD CELL COUNT(AUTO) 3.54 MIL/uL (4.5-6.0); WHITE BLOOD COUNT (AUTO) 8.3 K/uL (4.3-11.0)
[2020-05-26 10:02] LABS: LYMPHOCYTES # (AUTO) 0.3 /CMM (0.8-4.8); MONOCYTES # (AUTO) 0.6 /CMM (0.1-1.30); NEUTROPHILS # (AUTO) 7.1 /CMM (1.8-8.9)
[2020-05-26] MEDS: CEFTRIAXONE 1 G in IV D5W 50 ML IV SCH (10:13)
[2020-05-26 10:20] LABS: ALBUMIN 2.2 g/dL (3.4-5.0); BILIRUBIN,TOTAL 0.3 mg/dL (0.2-1.0); CALCIUM, SERUM 9.3 mg/dL (8.5-10.1); CREATININE 0.6 mg/dL (0.6-1.3); PHOSPHORUS 2.8 mg/dL (2.5-4.9); POTASSIUM 3.7 mmol/L (3.5-5.1); TOTAL PROTEIN, SERUM 7.7 g/dL (6.4-8.2)
[2020-05-26 10:24] LABS: THYROID STIMULATING HORMONE 2.288 uIU/mL (0.358-3.74); URIC ACID 10.1 mg/dL (2.6-7.2)
--- NOTE | 2020-05-26 10:54 | NUR ---
WOUND CARE CONSULT: RECEIVED CONSULT FOR MULTIPLE WOUNDS, PRESENT ON ADMISSION. PT FOLLOWED BY SURGICAL AND PODIATRY TEAMS FOR WOUND TREATMENT. DEFER TO SURGICAL TEAMS FOR WOUND TREATMENT PLAN. DR MOORE AND DR DOE NOTIFIED OF PT ADMISSION. RECOMMENDATIONS MADE FOR SKIN PROTECTION. DISCUSSED WITH NURSING STAFF. FIRST STEP LOW AIRLOSS MATTRESS IS ON ORDER. WILL SEE PRN. IN AGREEMENT WITH PLAN OF CARE.
[2020-05-26] MEDS ORDERED: Z GUARD REMEDY 2 OZ OINT TP PRN (11:00)
[2020-05-26] MEDS: Z GUARD REMEDY 2 OZ OINT TP SCH (12:00)
--- NOTE | 2020-05-26 12:30 | NUR ---
PER PT'S DAUGHTER CLARA, PT IS NPO STATUS AT HOME WITH G-TUBE FEEDING (GLUCERNA 1.2 @55ML/HR). DOCTOR KEISHA WAS MADE AWARE. AWAITING ORDERS. WILL CONTINUE TO MONITOR
[2020-05-26] MEDS: DAKINS QUARTER STRENGTH (0.125%) 480 ML BOTTLE TOP SCH (17:40)
--- NOTE | 2020-05-26 18:30 | NUR ---
FIRST STEP LOW AIR LOST MATTRESS ORDERED AND DELIVERED AT THIS TIME. WILL ENDORSE TO TOBACCO ROLLER NURSE FOR MARILYNN
--- NOTE | 2020-05-26 19:00 | NUR ---
GAS ENGINE OPERATOR GENERATORS CLOSING NOTES PT IN BED AWAKE AT THIS TIME, PATIENT REMAINED STABLE THROUGH OUT SHIFT. WOUND CARE TREATMENT DONE. PATIENT KEPT CLEAN AND DRY. ALL CARE, NEEDS, TREATMENT AND MEDICATIONS ADMINISTERED ANTICIPATED PER ORDER. ASPIRATION AND SAFETY PRECAUTIONS IN PLACE AND MAINTAINED AT ALL TIMES, BED IN LOWEST LOCKED POSITION, SIDE RAILS UP, HOB ELEVATED TO SEMI FOWLERS POSITION, CALL LIGHT WITHIN REACH. WILL ENDORSE TO MANAGEMENT COORDINATOR NURSE FOR MARILYNN
--- NOTE | 2020-05-26 19:40 | NUR ---
MSRN AWAKE, OBTUNDED, NONVERBAL. NO RESPIRATORY DISTRESS. 02 MAINTAINED. SR ON THE MONITOR. KEPT COMFORTABLE. PLACED CALL TO DAUGHTER REGARDING TUBE FEEDINGS AND INSULIN. INFO OBTAINED.
[2020-05-26] MEDS ORDERED: DEXTROSE 50%-WATER 50 ML DISP.SYRIN IV PRN (20:00)
[2020-05-26] MEDS ORDERED: GLUCERNA 1.2 1,000 ML BOTTLE NG PRN (21:00)
--- NOTE | 2020-05-26 21:00 | NUR ---
PLACED CALL TO DR ZAMBRANO, ORDERS RECEIVED..
[2020-05-26] MEDS: TAMSULOSIN 0.4 MG CAP.SR.24H GT SCH (21:41)
[2020-05-26 21:43] LABS: URINE SODIUM, RANDOM 82 mmol/l (40-220)
[2020-05-26 21:51] LABS: OSMOLALITY,URINE 232 mOS/kg (340-1090)
[2020-05-27] VITALS (8 sets, daily range): BP systolic 126–147; BP diastolic 63–86
[2020-05-27] MEDS: BLOOD SUGAR DIAGNOSTIC 1 EACH STRIP IN SCH ×4 (00:07→18:03)
[2020-05-27] MEDS: GLUCERNA 1.2 1,000 ML BOTTLE GT PRN ×2 (00:23→18:06)
--- NOTE | 2020-05-27 02:45 | NUR ---
MSRN GT FEEDINGS TOLERATED. REPOSITIONED.
--- NOTE | 2020-05-27 06:50 | NUR ---
MSRN REMAINS UNCHANGED. ON [employer] BED. GT FEEDINGS CONTINUED.
[2020-05-27] MEDS: INSULIN REGULAR, HUMAN 100 UNIT/ML 3 ML VIAL SQ PRN ×3 (07:08→18:05)
--- NOTE | 2020-05-27 07:30 | NUR ---
RN OPENING NOTE Patient is resting in bed, Obtunded, decorticate positioning, saturating 95% on 2L NC. Tele monitor SR. IV line in the LAC #18g is clean and intact s/l. G-tube feeding running glucerna @ 55mls/hour, 10 mls residual, flushing well. Bed is in lowest position, side rails x3 in upright position, call light is within reach, fall safety and aspiration precautions enforced. Will continue with plan of care.
[2020-05-27 07:37] LABS: BASOPHILS % (AUTO) 0.4 % (0.0-2.0); EOSINOPHILS % (AUTO) 2.2 % (0.0-6.0); HEMATOCRIT 31 % (39-51); HEMOGLOBIN 9.7 g/dL (13.5-17.5); LYMPHOCYTES # (AUTO) 0.3 /CMM (0.8-4.8); LYMPHOCYTES % (AUTO) 2.8 % (20.0-44.0); MEAN CORPUSCULAR HGB CONC 31 g/dl (31.0-36.0); MEAN CORPUSCULAR VOLUME 78 fL (80-96); MONOCYTES # (AUTO) 0.5 /CMM (0.1-1.30); MONOCYTES % (AUTO) 4.5 % (2.0-12.0); NEUTROPHILS # (AUTO) 10.5 /CMM (1.8-8.9); NEUTROPHILS % (AUTO) 90.1 % (43.0-81.0); PLATELET COUNT (AUTO) 519 /CMM (150-450); RED BLOOD CELL COUNT(AUTO) 4.03 MIL/uL (4.5-6.0); WHITE BLOOD COUNT (AUTO) 11.7 K/uL (4.3-11.0)
[2020-05-27] MEDS: DOCUSATE SODIUM LIQ 100 MG/10 ML UDC GT SCH ×2 (08:51→18:03)
[2020-05-27] MEDS: METOPROLOL TARTRATE 50 MG TABLET PO SCH ×2 (08:52→18:03)
[2020-05-27] MEDS: LEVETIRACETAM (250 MG) 250 MG TABLET PO SCH ×2 (08:52→21:28)
[2020-05-27] MEDS: BACLOFEN (10 MG) 10 MG TABLET GT SCH ×2 (08:52→21:28)
[2020-05-27] MEDS: AMLODIPINE BESYLATE 5 MG TABLET GT SCH (08:52)
[2020-05-27] MEDS: MULTIVITAMINS,THERAGRAN 1 UDTAB TABLET GT SCH (08:52)
[2020-05-27] MEDS: LISINOPRIL (20MG) 20 MG TABLET PO SCH (08:52)
[2020-05-27] MEDS: PANTOPRAZOLE 40 MG/PACK PACK GT SCH (08:52)
[2020-05-27] MEDS: DUTASTERIDE (0.5 MG) 0.5 MG CAPSULE PO SCH (08:54)
[2020-05-27 08:55] LABS: ALBUMIN 2.3 g/dL (3.4-5.0); BILIRUBIN,TOTAL 0.3 mg/dL (0.2-1.0); CALCIUM, SERUM 9.5 mg/dL (8.5-10.1); CREATININE 0.6 mg/dL (0.6-1.3); MAGNESIUM 2.6 mg/dL (1.8-2.4); PHOSPHORUS 3.6 mg/dL (2.5-4.9); POTASSIUM 3.6 mmol/L (3.5-5.1); TOTAL PROTEIN, SERUM 7.9 g/dL (6.4-8.2)
[2020-05-27] MEDS: CEFTRIAXONE 1 G in IV D5W 50 ML IV SCH (09:00)
[2020-05-27] MEDS: Z GUARD REMEDY 2 OZ OINT TP SCH (09:01)
[2020-05-27] MEDS: DAKINS QUARTER STRENGTH (0.125%) 480 ML BOTTLE TOP SCH (09:01)
[2020-05-27] MEDS: MUPIROCIN OINT 2% 22 GM TUBE TP SCH (18:00)
--- NOTE | 2020-05-27 19:06 | NUR ---
RN CLOSING NOTE Patient is resting in bed, Obtunded, decorticate positioning, saturating 95% on 2L NC. Tele monitor SR. IV line in the LAC #18g is clean and intact s/l. G-tube feeding running glucerna @ 55mls/hour. Patient kept clean and dry throughout shift, turned and reposition q 2 hours, all patient needs met, all due medications ordered, wound care completed as ordered. Bed is in lowest position, side rails x3 in upright position, call light is within reach, fall safety and aspiration precautions enforced. Will endorse to fabric worker supervisor.
--- NOTE | 2020-05-27 19:58 | NUR ---
RN NOTES RECEIVED PATIENT RESTING COMFORTAB;LY, OBTUNDED, DECORTICATE POSITIONING, ON O2 AT 2LPM VIA NC SATING WELL AT 99%. TELE MONITOR READS NSR, IV ACCESS INTACT AND PATENT, ON HIS LAC G#18 INTACT AND PATENT FLUSHING WELL. REPOSITIONED FOR COMFORT, SAFETY MEASURES IN PLACE, ASPIRATION PRECAUTION, CALL LIGHT WITH IN EASY REACH, ASPIRATION PRECAUTION EMPHASIZED, BED IN LOW LOCKED POSITION, ALL NEEDS ANTICIPATED, WILL CONTINUE TO MONITOR ACCORDINGLY.
[2020-05-27] MEDS: CEFEPIME 2 GM in IV D5W 100 ML IV SCH (20:14)
[2020-05-27] MEDS: TAMSULOSIN 0.4 MG CAP.SR.24H GT SCH (21:28)
[2020-05-28] VITALS (7 sets, daily range): BP systolic 139–155; BP diastolic 57–81
[2020-05-28] MEDS: BLOOD SUGAR DIAGNOSTIC 1 EACH STRIP IN SCH ×4 (00:33→18:05)
[2020-05-28] MEDS: INSULIN REGULAR, HUMAN 100 UNIT/ML 3 ML VIAL SQ PRN ×4 (00:34→18:06)
[2020-05-28] MEDS: MUPIROCIN OINT 2% 22 GM TUBE TP SCH ×2 (01:38→14:58)
--- NOTE | 2020-05-28 06:56 | NUR ---
RN NOTES ALL NEEDS ATTENDED AND MET, ABLE TO REST AND SLEPT AT INTERVALS, SAFETY MEASURES IN PLACE, ASPIRATION PRECAUTION EMPHASIZED, CHANGED DRESSING ORDERED, KEEP CLEAN WARM DRY AND COMFORTABLE. IV ACCESS INTACT AND PATENT. ALL NEEDS ANTICIPATED, ISOLATION PRECAUTION MAINTAINED. WILL ENDORSE TO AM NURSE FOR CONTINUITY OF CARE.
[2020-05-28 07:02] LABS: BASOPHILS # (AUTO) 0.1 /CMM (0.0-0.2); BASOPHILS % (AUTO) 0.7 % (0.0-2.0); EOSINOPHILS % (AUTO) 5.2 % (0.0-6.0); HEMATOCRIT 30 % (39-51); HEMOGLOBIN 9.6 g/dL (13.5-17.5); LYMPHOCYTES # (AUTO) 0.4 /CMM (0.8-4.8); LYMPHOCYTES % (AUTO) 5.4 % (20.0-44.0); MEAN CORPUSCULAR HGB CONC 32 g/dl (31.0-36.0); MEAN CORPUSCULAR VOLUME 78 fL (80-96); MONOCYTES # (AUTO) 0.7 /CMM (0.1-1.30); MONOCYTES % (AUTO) 9.5 % (2.0-12.0); NEUTROPHILS # (AUTO) 6.2 /CMM (1.8-8.9); NEUTROPHILS % (AUTO) 79.2 % (43.0-81.0); PLATELET COUNT (AUTO) 531 /CMM (150-450); RED BLOOD CELL COUNT(AUTO) 3.84 MIL/uL (4.5-6.0); WHITE BLOOD COUNT (AUTO) 7.9 K/uL (4.3-11.0)
[2020-05-28 07:09] LABS: CALCIUM, SERUM 9.4 mg/dL (8.5-10.1); CREATININE 0.6 mg/dL (0.6-1.3); MAGNESIUM 2.4 mg/dL (1.8-2.4); PHOSPHORUS 3.1 mg/dL (2.5-4.9); POTASSIUM 3.8 mmol/L (3.5-5.1)
--- NOTE | 2020-05-28 07:45 | NUR ---
RN OPENING NOTE Patient is resting in bed, Obtunded, decorticate positioning, saturating 95% on 2L NC. Tele monitor SR. IV line in the LAC #18g is clean and intact s/l. G-tube feeding running glucerna @ 55mls/hour, 10 mls residual, flushing well. Oral care and patient turned and repositioned. Bed is in lowest position, side rails x3 in upright position, call light is within reach, fall safety and aspiration precautions enforced. Will continue with plan of care.
[2020-05-28] MEDS: METOPROLOL TARTRATE 50 MG TABLET PO SCH ×2 (08:33→16:12)
[2020-05-28] MEDS: DOCUSATE SODIUM LIQ 100 MG/10 ML UDC GT SCH ×2 (08:33→16:11)
[2020-05-28] MEDS: LISINOPRIL (20MG) 20 MG TABLET PO SCH (08:34)
[2020-05-28] MEDS: MULTIVITAMINS,THERAGRAN 1 UDTAB TABLET GT SCH (08:34)
[2020-05-28] MEDS: AMLODIPINE BESYLATE 5 MG TABLET GT SCH (08:37)
[2020-05-28] MEDS: LEVETIRACETAM (250 MG) 250 MG TABLET PO SCH ×2 (08:38→21:06)
[2020-05-28] MEDS: BACLOFEN (10 MG) 10 MG TABLET GT SCH ×2 (08:38→21:06)
[2020-05-28] MEDS: PANTOPRAZOLE 40 MG/PACK PACK GT SCH (08:38)
[2020-05-28] MEDS: DUTASTERIDE (0.5 MG) 0.5 MG CAPSULE PO SCH (08:39)
[2020-05-28] MEDS: Z GUARD REMEDY 2 OZ OINT TP SCH (08:40)
[2020-05-28] MEDS: DAKINS QUARTER STRENGTH (0.125%) 480 ML BOTTLE TOP SCH (08:40)
[2020-05-28] MEDS: GLUCERNA 1.2 1,000 ML BOTTLE GT PRN (16:17)
--- NOTE | 2020-05-28 18:49 | NUR ---
RN CLOSING NOTE Patient is resting in bed, Obtunded, decorticate positioning, saturating 95% on 3L NC. Tele monitor SR. IV line in the LAC #18g is clean and intact s/l. G-tube feeding running glucerna @ 55mls/hour. Patient kept clean and dry throughout shift, turned and reposition q 2 hours, all patient needs met, all due medications ordered, wound care completed as ordered. Bed is in lowest position, side rails x3 in upright position, call light is within reach, fall safety and aspiration precautions enforced. Will endorse to dishwasher busser.
[2020-05-28] MEDS: CEFEPIME 2 GM in IV D5W 100 ML IV SCH (21:05)
[2020-05-28] MEDS: TAMSULOSIN 0.4 MG CAP.SR.24H GT SCH (21:06)
[2020-05-29] MEDS: BLOOD SUGAR DIAGNOSTIC 1 EACH STRIP IN SCH ×5 (01:31→23:55)
[2020-05-29] MEDS: INSULIN REGULAR, HUMAN 100 UNIT/ML 3 ML VIAL SQ PRN ×4 (01:35→23:55)
[2020-05-29] MEDS: MUPIROCIN OINT 2% 22 GM TUBE TP SCH ×2 (01:37→13:29)
--- NOTE | 2020-05-29 05:17 | NUR ---
GTUBE DISLODGED. G TUBE SITE DRESSING CHANGED AND GTUBE DISLODGED FROM STOMA SITE, [place] OUTSIDE OF STOMA SITE. TUBE FEEDING PLACED ON HOLD. TUBE PUSHED BACK INTO POSITION AND SECURED WITH NEW DRESSING. SPOKE WITH AND NOTIFIED SRIDEVI. NO NEW ORDERS INSTRUCTIONS GIVEN. HOLD GTF FOR NOW.
--- NOTE | 2020-05-29 07:25 | NUR ---
RN OPENING NOTE RECEIVED PATIENT IN BED RESTING, PATIENT IS OBTUNDED , OPENS EYES. PATIENT ON NC 3L SATURATING AT 99%. TELE MONITOR READING SR @ 80'S. IV ACCESS LAC #18g CLEAN AND INTACT. GTUBE DISLODGE , FEEDING IS HELD, WILL COMMUNICATE TO MD. BED LOCKED AND IN LOWEST POSITION, SIDERAILS UP X 3 , IN UPRIGHT POSITION. CALL LIGHT WITHIN EASY REACH. WILL CONTINUE TO MONITOR
[2020-05-29 07:49] LABS: BASOPHILS # (AUTO) 0.1 /CMM (0.0-0.2); BASOPHILS % (AUTO) 0.7 % (0.0-2.0); EOSINOPHILS % (AUTO) 8.9 % (0.0-6.0); HEMATOCRIT 31 % (39-51); HEMOGLOBIN 9.7 g/dL (13.5-17.5); LYMPHOCYTES # (AUTO) 0.3 /CMM (0.8-4.8); LYMPHOCYTES % (AUTO) 4.6 % (20.0-44.0); MEAN CORPUSCULAR HGB CONC 31 g/dl (31.0-36.0); MEAN CORPUSCULAR VOLUME 78 fL (80-96); MONOCYTES # (AUTO) 0.5 /CMM (0.1-1.30); MONOCYTES % (AUTO) 7.6 % (2.0-12.0); NEUTROPHILS # (AUTO) 5.5 /CMM (1.8-8.9); NEUTROPHILS % (AUTO) 78.2 % (43.0-81.0); PLATELET COUNT (AUTO) 500 /CMM (150-450); RED BLOOD CELL COUNT(AUTO) 3.95 MIL/uL (4.5-6.0); WHITE BLOOD COUNT (AUTO) 7.1 K/uL (4.3-11.0)
[2020-05-29 08:00] VITALS: BP 147/82
[2020-05-29 08:00] LABS: CALCIUM, SERUM 9.8 mg/dL (8.5-10.1); CARBON DIOXIDE 29 mmol/L (21-32); CHLORIDE 100 mmol/L (98-107); CREATININE 0.5 mg/dL (0.6-1.3); GLUCOSE 150 mg/dL (74-106); MAGNESIUM 2.3 mg/dL (1.8-2.4); PHOSPHORUS 3.4 mg/dL (2.5-4.9); POTASSIUM 3.7 mmol/L (3.5-5.1); SODIUM SERUM 136 mmol/L (136-145); UREA NITROGEN, BLOOD 20 mg/dL (7-18)
[2020-05-29] MEDS: LEVETIRACETAM (250 MG) 250 MG TABLET PO SCH ×2 (09:00→21:00)
[2020-05-29] MEDS: DOCUSATE SODIUM LIQ 100 MG/10 ML UDC GT SCH ×2 (09:00→16:29)
[2020-05-29] MEDS: DUTASTERIDE (0.5 MG) 0.5 MG CAPSULE PO SCH (09:00)
[2020-05-29] MEDS: METOPROLOL TARTRATE 50 MG TABLET PO SCH ×2 (09:00→16:30)
[2020-05-29] MEDS: PANTOPRAZOLE 40 MG/PACK PACK GT SCH (09:00)
[2020-05-29] MEDS: LISINOPRIL (20MG) 20 MG TABLET PO SCH (09:00)
[2020-05-29] MEDS: BACLOFEN (10 MG) 10 MG TABLET GT SCH ×2 (09:00→21:00)
[2020-05-29] MEDS: MULTIVITAMINS,THERAGRAN 1 UDTAB TABLET GT SCH (09:00)
[2020-05-29] MEDS: AMLODIPINE BESYLATE 5 MG TABLET GT SCH (09:00)
[2020-05-29] MEDS: DAKINS QUARTER STRENGTH (0.125%) 480 ML BOTTLE TOP SCH (09:36)
[2020-05-29] MEDS: Z GUARD REMEDY 2 OZ OINT TP SCH (09:37)
--- NOTE | 2020-05-29 09:37 | NUR ---
RN NOTES MEDICATION AND GTUBE FEEDING ON HOLD DUE TO GTUBE DISLODGED FROM STOMA SITE, BALOON OUTSIDE OF STOMA SITE. PM NURSE NOTIFIED SRIDEVI. NO NEW ORDERS INSTRUCTIONS GIVEN. HOLD GTF FOR NOW.
[2020-05-29] MEDS ORDERED: DOSING PER PHARMACY-AMIKACI IV XX PRN (10:00)
[2020-05-29] MEDS ORDERED: FEE PK DOSING 1 MIN EA MC ONE (10:22)
[2020-05-29] MEDS: AMIKACIN 500 MG in IV D5W 100 ML IV SCH (12:59)
[2020-05-29 16:00] VITALS: BP 147/86
--- NOTE | 2020-05-29 19:47 | NUR ---
RN CLOSING NOTE ENDORSED PATIENT TO PM NURSE FOR MARILYNN. PATIENT IN BED RESTING, PATIENT IS OBTUNDED , OPENS EYES. PATIENT ON NC 3L SATURATING AT 100%. TELE MONITOR READING SR @ 80'S. IV ACCESS LAC #18g CLEAN AND INTACT. GTUBE DISLODGE , FEEDING IS HELD, AWARE . BED LOCKED AND IN LOWEST POSITION, SIDERAILS UP X 3 , IN UPRIGHT POSITION. CALL LIGHT WITHIN EASY REACH. WILL CONTINUE TO MONITOR
--- NOTE | 2020-05-29 19:50 | NUR ---
MS RN OPENING NOTES RECEIVED PATIENT FROM MORNING SHIFT OBTUNDED. BREATHING REGULAR AND UNLABORED ON OXYGEN AT 3L/MIN VIA NASAL CANNULA. LEFT AC G18 IV LINE INTACT AND INFUSING WELL WITH NO BLEEDING OR S/S OF INFILTRATION NOTED. GTUBE IN BUT NOT PATENT, GTF ON HOLD. NO S/S OF PAIN/DISCOMFORT SEEN AT THIS TIME. ON ASPIRATION PRECAUTIONS. BED LOW AND LOCKED ON SEMI FOWLERS POSITION. CALL LIGHT IN REACH. WILL CONTINUE TO MONITOR.
[2020-05-29 20:00] VITALS: BP 136/68
--- NOTE | 2020-05-29 20:00 | NUR ---
MS RN NOTES CONSENT FOR GTUBE REPLACEMENT, ANESTHESIA AND BLOOD TRANSFUSION ( NEEDED) GIVEN BY DAUGHTER JABARI CONTEH. REFUSED TO GIVE CONSENT FOR SERIAL WOUND DEBRIDEMENT. PER THE DAUGHTER "DO NOT TOUCH" ANY OF THE PATIENTS WOUND. CONSENTS WITNESSED BY HAIM FRIEND.
--- NOTE | 2020-05-29 21:10 | NUR ---
MS RN NOTES ALL MEDICATIONS DUE FOR 2100 AND 2200 HELD. GTUBE OUT, HOLD FEEDING AND MEDICATIONS PER MD. FOR GTUBE REINSERTION TOMORROW. WILL CONTINUE TO MONITOR.
[2020-05-29] MEDS: TAMSULOSIN 0.4 MG CAP.SR.24H GT SCH (21:11)
[2020-05-29] MEDS: IV D5/ 0.9% NACL 1,000 ML IV PRN (22:10)
--- NOTE | 2020-05-30 | NUR ---
MS RN NOTES BS 136mg/dl, NO INSULIN GIVEN. PATIENT ON NPO, GTF ON HOLD D/T DISLODGED GTUBE. IV FLUIDS INFUSING WELL. WILL CONTINUE TO MONITOR.
[2020-05-30] MEDS: MUPIROCIN OINT 2% 22 GM TUBE TP SCH ×2 (01:34→13:30)
[2020-05-30] MEDS: AMIKACIN 500 MG in IV D5W 100 ML IV SCH (05:44)
[2020-05-30] MEDS: BLOOD SUGAR DIAGNOSTIC 1 EACH STRIP IN SCH ×4 (06:00→23:53)
[2020-05-30] MEDS: INSULIN REGULAR, HUMAN 100 UNIT/ML 3 ML VIAL SQ PRN ×4 (06:00→23:59)
--- NOTE | 2020-05-30 06:30 | NUR ---
MS RN CLOSING NOTES PATIENT IN BED OBTUNDED. AFEBRILE WITH NO S/S OF DISTRESS OBSERVED. LEFT AC G18 IV LINE PATENT AND INFUSING WELL. GTUBE FEEDING STILL ON HOLD. NO S/S OF PAIN/DISCOMFORT SEEN AT THIS TIME. MAINTAINED ON ASPIRATION PRECAUTIONS. BED LOW AND LOCKED ON SEMI FOWLERS POSITION. CALL LIGHT IN REACH. WILL ENDORSE TO MORNING SHIFT FOR MARILYNN.
--- NOTE | 2020-05-30 07:37 | NUR ---
MS/RN OPENING NOTES RECEIVED PATIENT ON BED, OBTUNDED AND OPEN EYES. PATIENT WITH SOB AND SAO2 87 NOTED. RESPIRATORY THERAPIST AND MD IS AWARE. THE RESPIRATORY THERAPIST IS GIVING TREATMENT TO THE PATIENT. WILL CONTINUE TO MONITOR.
--- NOTE | 2020-05-30 07:38 | NUR ---
MS/RN NOTES PER SHELVING SUPERVISOR RN DAUGHTER OF THE PATIENT WAS REFUSED WOUND DEBRIDEMENT MD IS AWARE.
[2020-05-30 08:00] VITALS: BP 136/77
[2020-05-30 08:13] LABS: CALCIUM, SERUM 9.7 mg/dL (8.5-10.1); CREATININE 0.6 mg/dL (0.6-1.3); MAGNESIUM 2.4 mg/dL (1.8-2.4); PHOSPHORUS 3.4 mg/dL (2.5-4.9); POTASSIUM 3.7 mmol/L (3.5-5.1)
[2020-05-30 08:22] LABS: BASOPHILS # (AUTO) 0.1 /CMM (0.0-0.2); BASOPHILS % (AUTO) 1.1 % (0.0-2.0); EOSINOPHILS % (AUTO) 3.9 % (0.0-6.0); HEMATOCRIT 31 % (39-51); HEMOGLOBIN 9.6 g/dL (13.5-17.5); LYMPHOCYTES # (AUTO) 0.3 /CMM (0.8-4.8); LYMPHOCYTES % (AUTO) 2.9 % (20.0-44.0); MEAN CORPUSCULAR HGB CONC 31 g/dl (31.0-36.0); MEAN CORPUSCULAR VOLUME 79 fL (80-96); MONOCYTES # (AUTO) 0.7 /CMM (0.1-1.30); MONOCYTES % (AUTO) 5.6 % (2.0-12.0); NEUTROPHILS # (AUTO) 10.3 /CMM (1.8-8.9); NEUTROPHILS % (AUTO) 86.5 % (43.0-81.0); PLATELET COUNT (AUTO) 533 /CMM (150-450); RED BLOOD CELL COUNT(AUTO) 3.92 MIL/uL (4.5-6.0)
[2020-05-30 08:40] LABS: ABG BASE EXCESS -1.6 mmol/L; ABG OXYGEN SATURATION 99.5 % (92.0-98.5); ABG PCO2 37.3 mmHg (35.0-45.0); ABG PH 7.404 (7.350-7.450); ABG PO2 219.6 mmHg (75.0-100.0); AaDO2 456.1 mmHg; COHb 0.2 % (0.5-1.5); MetHb 0.3 % (0.0-1.5); SITE, ABG Right Brachial; VENT MODE, BG NON REBREATHER
[2020-05-30] MEDS: PANTOPRAZOLE 40 MG/PACK PACK GT SCH (09:00)
[2020-05-30] MEDS: MULTIVITAMINS,THERAGRAN 1 UDTAB TABLET GT SCH (09:00)
[2020-05-30] MEDS: BACLOFEN (10 MG) 10 MG TABLET GT SCH ×2 (09:00→21:00)
[2020-05-30] MEDS: LISINOPRIL (20MG) 20 MG TABLET PO SCH (09:00)
[2020-05-30] MEDS: AMLODIPINE BESYLATE 5 MG TABLET GT SCH (09:00)
[2020-05-30] MEDS: LEVETIRACETAM (250 MG) 250 MG TABLET PO SCH ×2 (09:00→21:00)
[2020-05-30] MEDS: METOPROLOL TARTRATE 50 MG TABLET PO SCH ×2 (09:00→17:00)
[2020-05-30] MEDS: DUTASTERIDE (0.5 MG) 0.5 MG CAPSULE PO SCH (09:00)
[2020-05-30] MEDS: DOCUSATE SODIUM LIQ 100 MG/10 ML UDC GT SCH ×2 (09:00→17:00)
[2020-05-30] MEDS: DAKINS QUARTER STRENGTH (0.125%) 480 ML BOTTLE TOP SCH (09:05)
[2020-05-30] MEDS: Z GUARD REMEDY 2 OZ OINT TP SCH (09:05)
--- NOTE | 2020-05-30 11:18 | NUR ---
TELE/RN NOTES DR. DUNBAR ORDER TO PLACE PATIENT IN TELE MONITOR, HYDRALAZINE 10 MG 1V EVERY 4 HOURS PRN AND NORCO 1 MG IV EVERY 4 HOURS PRN. NOTED AND CARRIED OUT. Addendum: 05/30/20 at 1125 by SALO MARTINEZ RN ERROR
--- NOTE | 2020-05-30 11:24 | NUR ---
TELE/RN NOTES DR. DUNBAR ORDER TO PLACE PATIENT IN TELE MONITOR, HYDRALAZINE 10 MG 1V EVERY 4 HOURS PRN AND MORPHINE 1 MG IV EVERY 4 HOURS PRN. NOTED AND CARRIED OUT.
[2020-05-30] MEDS ORDERED: hydrALAZINE HCL IV 20 MG VIAL IV PRN (11:30)
[2020-05-30] MEDS ORDERED: MORPHINE SULFATE INJ 2 MG/ML DISP.SYRIN IV PRN (11:30)
[2020-05-30] MEDS ORDERED: DOSING PER PHARMACY-AMIKACI IV XX PRN (11:30)
--- NOTE | 2020-05-30 11:48 | NUR ---
TELE/RN NOTES PATIENT BLOOD SUGAR 167 MG/DL, 3 UNIT INSULIN NOT ADMINISTERED PATIENT IS ON NPO.
[2020-05-30 12:00] VITALS: BP 144/88
[2020-05-30] MEDS ORDERED: ZOSYN IVPB 3.375 G in IV D5W 50ml IV SCH (12:00)
[2020-05-30] MEDS ORDERED: VANCOMYCIN 1.25 GM in IV D5W 250 ML IV SCH (13:00)
--- NOTE | 2020-05-30 15:02 | NUR ---
TELE/RN NOTES DR. MYERS CHANGE THE GTUBE AT BEDSIDE AND ORDER KUB WITH PEGOGRAM NOTED AND CARRIED OUT.
[2020-05-30 16:00] VITALS: BP 149/87
--- NOTE | 2020-05-30 17:05 | NUR ---
TELE/RN NOTES KUB WITH PEROGRAM RESULT WAS REPORTED TO DR. MYERS. NO NEW ORDER AT THIS TIME.
--- NOTE | 2020-05-30 17:06 | NUR ---
TELE/ RN NOTES DR. DUNBAR IS AWARE FOR CHEST X RAY RESULT AND ORDER FOR PHYSICIAN CONSULT FOR DR. ZAMORA NOTED AND CARRIED OUT.
[2020-05-30] MEDS ORDERED: DIATR MEGLU/DIATRIZOATE SODIUM 30 ML BOTTLE (GASTROGRAPHIN) ONE (18:09)
--- NOTE | 2020-05-30 18:49 | NUR ---
MS/RN CLOSING NOTES PATIENT IS ON BED. PATIENT IS OBTUNDED AND OPEN EYES. PATIENT IN NO APPARENT RESPIRATORY DISTRESS NOTED. PATIENT NO SIGN AND SYMPTOM OF PAIN NOTED AT THIS TIME. IV ACCESS LEFT AC # 18 G PATENT AND INTACT. IV FLUID D5NS 1L AT 50 ML/HR IS ON HOLD. SEEN AND EXAMINED BY MD WITH ORDERS MADE AND CARRIED OUT. ALL DUE MEDICATION WAS GIVEN. SAFETY PRECAUTION WAS IN PLACED. BED IN LOWEST POSITION AND LOCKED. SIDE RAILS UP X2. CALL LIGHT WITHIN REACH. XR ABDOMEN KUB WITH GASTROGRAFFIN WAS DONE, PLEASE RELAY RESULT TO DR. MYERS ONCE RESULT IS IN. WILL ENDORSED TO ELECTRICIANS TOP HELPER FOR MARILYNN.
--- NOTE | 2020-05-30 19:30 | NUR ---
TELE/MS RN OPENING NOTE RECEIVED PATIENT IN BED. OBTUNDED. ON OXYGEN 6L/MIN VIA SIMPLE MASK. RESPIRATIONS ARE EVEN AND UNLABORED.NO S/S SOB NOTED AT THIS TIME. NO S/S PAIN AT THIS TIME. EXTERNAL TELE MONITOR READS SINUS RHYTHM HR 82. IN NO APPARENT DISTRESS. IV ACCESS IN LAC#18 PATENT AND SALINE LOCKED. GTUBE IS PRESENT, WAITING FOR KUB RESULTS TO INFORM DR. MYERS. BED IS LOW AND LOCKED HOB ELEVATED IN SEMI FOWLERS, SIDE RIAL SUP X2, ON LOW AIR LOSS MATRASS. DVT PUMPS ON. CALL LIGHT WITHIN REACH. WILL CONTINUE TO MONITOR.
--- NOTE | 2020-05-30 19:50 | NUR ---
tele/me rn note called dr. silverio's office, damián called back. informed MD that patient received a gtube replacement today at bedside and we are waiting for confirmation via kub, therefore cannnot administer medication thru gtube. patient has not received keppra 500mg for 24hr and request to change to iv. Dr. Boyce telephone order ok to change to IV, keprra 500mg IV Q12hr. order read back noted and carried out.
[2020-05-30 20:00] VITALS: BP 145/72
--- NOTE | 2020-05-30 20:40 | NUR ---
ms rn note called radiology to ask if they did a kub with gastrograffin d/t kub at 1800 does not specify. radiology informed me that MD with provide addendum with findings. will continue to monitor.
[2020-05-30] MEDS: LINEZOLID RTU BAG 600 MG in PREMIX 1 EA IV SCH (21:57)
[2020-05-30] MEDS: TAMSULOSIN 0.4 MG CAP.SR.24H GT SCH (21:58)
--- NOTE | 2020-05-30 22:14 | NUR ---
ms rn note radiologist came up with printed results of kub with gastrgraphin with adendum. results placed in chart. informed dr. montoya. dr. montoya said ok to start gtube feeding. telephone order read back noted and carried out.
[2020-05-30] MEDS ORDERED: LEVETIRACETAM (500MG) 500 MG in IV NS 0.9% 100 ML IV SCH (22:30)
[2020-05-30] MEDS: GLUCERNA 1.2 1,000 ML BOTTLE GT PRN (22:32)
[2020-05-30] MEDS ORDERED: LEVETIRACETAM (500MG) 500 MG/5 ML VIAL IV ONE (23:31)
[2020-05-31] VITALS (9 sets, daily range): BP systolic 107–158; BP diastolic 54–91
[2020-05-31] MEDS ORDERED: AMIKACIN 500 MG in IV D5W 100 ML IV SCH ×2
[2020-05-31] MEDS: MUPIROCIN OINT 2% 22 GM TUBE TP SCH ×2 (00:37→13:47)
--- NOTE | 2020-05-31 03:48 | NUR ---
ms romi note lab called for critical lab amikicin trough 8.9. informed MD Koki Saldivar, stated to inform pharmacy. called night pharmacy. night pharmacy stated to inform regular pharmacy in AM. Addendum: 05/31/20 at 0356 by NIA HUTCHISON RN spoke with night pharmacy that i administered the amikicin d/t amikicin peak will be taken shortly after the trough was taken. night pharmacy stated amikicin trough can go up to 8.
[2020-05-31] MEDS: BLOOD SUGAR DIAGNOSTIC 1 EACH STRIP IN SCH ×4 (06:05→23:49)
[2020-05-31] MEDS: INSULIN REGULAR, HUMAN 100 UNIT/ML 3 ML VIAL SQ PRN ×4 (06:07→23:51)
--- NOTE | 2020-05-31 06:55 | NUR ---
MS RN NOTE CALLED PHARMACY TO INFORM THEM AT AMIKICIN TROUGH WAS TAKEN AT 2300. DID NOT RECEIVE RESULTS UNTIL 0330 BECAUSE NOT DONE IN HOUSE. AMIKICIN WAS ADMINISTERED AT 0000 BEFORE AMICIKIN PEAK SCHEDULED 0100. PHARMACIST SAID ITS OK WE COULDNT HAVE KNOWN THE RESULT, I WILL CHANGE THE DOSE.
--- NOTE | 2020-05-31 07:00 | NUR ---
MS RN CLOSING NOTE PATIENT IN BED. OBTUNDED, OPENS EYES. ON OXYGEN 6L/MIN VIA SIMPLE MASK. RESPIRATIONS ARE EVEN AND UNLABORED. NO S/S PAIN T/O SHIFT. . IV ACCESS IN LAC#18 AND LEFT WRIST #20 PATENT AND SALINE LOCKED. GTUBE IS MAINTAINED, TUBE FEEDING RUNNING GLUCERNA 1.2@55ML/HR. BED REMAINS LOW AND LOCKED HOB ELEVATED IN SEMI FOWLERS, SIDE RIALS UP X2, ON LOW AIR LOSS MATRASS. DVT PUMPS ON. CALL LIGHT WITHIN REACH. WILL ENDORSE TO NEXT SHIFT.
--- NOTE | 2020-05-31 07:30 | NUR ---
MS/RN OPENING NOTES Patient in bed, obtunded, eye opens upon tactile and verbal stimulation. No s/s of pain/discomfort at this time. Breathing even and non-labored on 6L oxygen via face mask. No respiratory or cardiac distress noted. On tele monitor, reading SR 92. IV access noted on LAC #18 and L wrist #20, both patent and intact and flushing well. No infiltration/bleeding/infection noted on site. G-tube in place, patent and intact, running glucerna 1.2 @55cc/hr, 5 cc of gastric residual noted. Fall precautions maintained. Will continue to monitor patient for any changes in condition.
[2020-05-31 07:59] LABS: BASOPHILS % (AUTO) 0.5 % (0.0-2.0); EOSINOPHILS % (AUTO) 5.8 % (0.0-6.0); HEMATOCRIT 31 % (39-51); HEMOGLOBIN 9.7 g/dL (13.5-17.5); LYMPHOCYTES # (AUTO) 0.3 /CMM (0.8-4.8); LYMPHOCYTES % (AUTO) 2.9 % (20.0-44.0); MEAN CORPUSCULAR HGB CONC 31 g/dl (31.0-36.0); MEAN CORPUSCULAR VOLUME 79 fL (80-96); MONOCYTES # (AUTO) 0.5 /CMM (0.1-1.30); MONOCYTES % (AUTO) 5.4 % (2.0-12.0); NEUTROPHILS # (AUTO) 8.2 /CMM (1.8-8.9); NEUTROPHILS % (AUTO) 85.4 % (43.0-81.0); PLATELET COUNT (AUTO) 468 /CMM (150-450); RED BLOOD CELL COUNT(AUTO) 3.97 MIL/uL (4.5-6.0); WHITE BLOOD COUNT (AUTO) 9.7 K/uL (4.3-11.0)
[2020-05-31 08:10] LABS: CALCIUM, SERUM 9.6 mg/dL (8.5-10.1); CREATININE 0.6 mg/dL (0.6-1.3); MAGNESIUM 2.4 mg/dL (1.8-2.4); PHOSPHORUS 3.2 mg/dL (2.5-4.9)
[2020-05-31] MEDS: DUTASTERIDE (0.5 MG) 0.5 MG CAPSULE PO SCH (08:30)
[2020-05-31] MEDS: BACLOFEN (10 MG) 10 MG TABLET GT SCH ×2 (08:31→21:00)
[2020-05-31] MEDS: DOCUSATE SODIUM LIQ 100 MG/10 ML UDC GT SCH ×2 (08:31→18:23)
[2020-05-31] MEDS: METOPROLOL TARTRATE 50 MG TABLET PO SCH ×2 (08:31→18:23)
[2020-05-31] MEDS: PANTOPRAZOLE 40 MG/PACK PACK GT SCH (08:31)
[2020-05-31] MEDS: MULTIVITAMINS,THERAGRAN 1 UDTAB TABLET GT SCH (08:31)
[2020-05-31] MEDS: AMLODIPINE BESYLATE 5 MG TABLET GT SCH (08:31)
[2020-05-31] MEDS: LISINOPRIL (20MG) 20 MG TABLET PO SCH (08:32)
[2020-05-31] MEDS: LINEZOLID RTU BAG 600 MG in PREMIX 1 EA IV SCH (09:38)
[2020-05-31] MEDS: Z GUARD REMEDY 2 OZ OINT TP SCH (09:39)
[2020-05-31] MEDS: DAKINS QUARTER STRENGTH (0.125%) 480 ML BOTTLE TOP SCH (09:39)
[2020-05-31] MEDS: LEVETIRACETAM (500MG) 500 MG in IV NS 0.9% 100 ML IV SCH ×2 (10:26→22:22)
[2020-05-31] MEDS: IPRATROPIUM NEB FS 0.5 MG/2.5 ML AMPUL.NEB NEB SCH ×3 (13:47→19:43)
[2020-05-31] MEDS: ACETYLCYSTEINE 10% SOLN 400 MG/4 ML VIAL NEB SCH (13:47)
[2020-05-31] MEDS: ALBUTEROL HALF STRENGTH 1.25 MG/3 ML VIAL.NEB NEB SCH ×3 (13:47→19:43)
--- NOTE | 2020-05-31 14:45 | NUR ---
MS/RONNA NOTES ARTERIAL SAMPLE RESULTS SHOW PO2 51.6 mm Hg, reported to Dr. Samaniego. Dr. Samaniego orders as follows: put patient on non-rebreather 15 L, transfer to ICU, ABGs in AM. Addendum: 05/31/20 at 1515 by REGINE WEST RN Orders carried out. Awaiting for bed in ICU.
[2020-05-31 15:16] LABS: ABG BASE EXCESS 1.5 mmol/L; ABG OXYGEN SATURATION 85.6 % (92.0-98.5); ABG PCO2 40.4 mmHg (35.0-45.0); ABG PH 7.426 (7.350-7.450); ABG PO2 51.6 mmHg (75.0-100.0); AaDO2 223.3 mmHg; COHb 0.1 % (0.5-1.5); MetHb 0.3 % (0.0-1.5); O2Hb 85.3 % (94.0-97.0); SITE, ABG Left Brachial; VENT MODE, BG simple mask
--- NOTE | 2020-05-31 16:00 | NUR ---
MS/ADMISSIONS SUPERVISOR NOTES Patient transferred safely to ICU 262 on 15 L non-rebreather mask. Report given to ICU nurse. No belongings noted.
[2020-05-31] MEDS: IV D5/ 0.9% NACL 1,000 ML IV PRN (18:32)
--- NOTE | 2020-05-31 19:24 | NUR ---
RN CLOSING NOTES PATIENT IS RESTING COMFORTABLY AT THIS TIME, NO S.SX OF DISTRESS. PT NEEDS HAVE BEEN MET, VITAL SIGNS ARE STABLE. NO ACUTE CHANGES OCCURRED THROUGHOUT THE SHIFT, SAFETY MEASURES HAVE BEEN IMPLEMENTED, CALL LIGHT IS WITHIN REACH, BED IS IN [id number] AND LOCKED POSITION, PT HAS BEEN ENDORSED TO NIGHTSHIFT RN FOR MARILYNN.
--- NOTE | 2020-05-31 19:30 | NUR ---
SOLE TIER NOTES, PATIENT IN BED, OBTUNDED, NON VERBAL, UNABLE TO COMMUNICATE NEEDS AND CONCERNS WITH EYES SEMI OPEN, BREATHING EVEN AND UNLABORED, NO S.SX OF ACUTE DISTRESS, ON NRM AT 15L WITH O2 SAT 100% AT THIS TIME, HOB ELEVATED AND GTF INFUSING WELL AND PATIENT TOLERATED WELL, ALL SAFETY MEASURES PROVIDED, CALL LIGHT WITHIN REACH, BED LOCKED AND LOWEST POSITION, WILL CONTINUE TO MONITOR CLOSELY.
[2020-05-31] MEDS: GLUCERNA 1.2 1,000 ML BOTTLE GT PRN (20:25)
[2020-05-31] MEDS: TAMSULOSIN 0.4 MG CAP.SR.24H GT SCH (21:01)
[2020-05-31] MEDS: LINEZOLID 600 MG TABLET PO SCH (21:01)
[2020-05-31] MEDS: AMIKACIN 500 MG in IV D5W 100 ML IV SCH (23:54)
[2020-06-01] VITALS (34 sets, daily range): BP systolic 87–161; BP diastolic 44–99
[2020-06-01] MEDS: ALBUTEROL HALF STRENGTH 1.25 MG/3 ML VIAL.NEB NEB SCH ×7 (00:36→23:46)
[2020-06-01] MEDS: IPRATROPIUM NEB FS 0.5 MG/2.5 ML AMPUL.NEB NEB SCH ×7 (00:36→23:46)
[2020-06-01] MEDS: ACETYLCYSTEINE 10% SOLN 400 MG/4 ML VIAL NEB SCH ×4 (00:36→23:46)
[2020-06-01] MEDS: MUPIROCIN OINT 2% 22 GM TUBE TP SCH ×2 (01:36→15:27)
[2020-06-01 04:27] LABS: BASOPHILS % (AUTO) 0.4 % (0.0-2.0); EOSINOPHILS % (AUTO) 4.3 % (0.0-6.0); HEMATOCRIT 31 % (39-51); LYMPHOCYTES # (AUTO) 0.2 /CMM (0.8-4.8); LYMPHOCYTES % (AUTO) 2.5 % (20.0-44.0); MEAN CORPUSCULAR HGB CONC 32 g/dl (31.0-36.0); MEAN CORPUSCULAR VOLUME 79 fL (80-96); MONOCYTES # (AUTO) 0.4 /CMM (0.1-1.30); MONOCYTES % (AUTO) 4.6 % (2.0-12.0); NEUTROPHILS # (AUTO) 8.3 /CMM (1.8-8.9); NEUTROPHILS % (AUTO) 88.2 % (43.0-81.0); PLATELET COUNT (AUTO) 454 /CMM (150-450); WHITE BLOOD COUNT (AUTO) 9.4 K/uL (4.3-11.0)
[2020-06-01 04:40] LABS: CALCIUM, SERUM 9.3 mg/dL (8.5-10.1); CARBON DIOXIDE 27 mmol/L (21-32); CHLORIDE 104 mmol/L (98-107); CREATININE 0.5 mg/dL (0.6-1.3); GLUCOSE 173 mg/dL (74-106); MAGNESIUM 2.1 mg/dL (1.8-2.4); PHOSPHORUS 2.9 mg/dL (2.5-4.9); POTASSIUM 3.9 mmol/L (3.5-5.1); SODIUM SERUM 140 mmol/L (136-145); UREA NITROGEN, BLOOD 21 mg/dL (7-18)
[2020-06-01] MEDS: BLOOD SUGAR DIAGNOSTIC 1 EACH STRIP IN SCH ×4 (05:30→23:42)
[2020-06-01] MEDS: INSULIN REGULAR, HUMAN 100 UNIT/ML 3 ML VIAL SQ PRN ×4 (05:31→23:46)
--- NOTE | 2020-06-01 06:53 | NUR ---
TASTE TESTER CLOSING NOTES, PATIENT IN BED, NON VERBAL, UNABLE TO COMMUNICATE NEEDS AND CONCERNS OPEN EYES SPONTANEOUSLY, BREATHING EVEN AND UNLABORED, NO S/S OF ACUTE DISTRESS, CONT ON NRM AT 15L WITH O2 SAT 97-100% DURING THE NIGHT, HOB ELEVATED AT ALL TIMES, AND GTF INFUSING WELL AND PATIENT TOLERATED WELL, NO SIGNIFICANT CHANGE IN CONDITION DURING THE NIGHT, ALL SAFETY MEASURES PROVIDED, CALL LIGHT WITHIN REACH, BED LOCKED AND LOWEST POSITION, WILL ENDORSE CONTINUITY OF CARE TO ONCOMING NURSE.
--- NOTE | 2020-06-01 08:00 | NUR ---
sustainable agriculture faculty note noted patient with rectal temperature 93.0, order received for fabiano biswas. will continue to monitor.
[2020-06-01] MEDS: LINEZOLID 600 MG TABLET PO SCH ×2 (08:49→21:41)
[2020-06-01] MEDS: DOCUSATE SODIUM LIQ 100 MG/10 ML UDC GT SCH ×2 (08:49→17:43)
[2020-06-01] MEDS: METOPROLOL TARTRATE 50 MG TABLET PO SCH ×2 (08:50→17:43)
[2020-06-01] MEDS: PANTOPRAZOLE 40 MG/PACK PACK GT SCH (08:50)
[2020-06-01] MEDS: LISINOPRIL (20MG) 20 MG TABLET PO SCH (08:50)
[2020-06-01] MEDS: AMLODIPINE BESYLATE 5 MG TABLET GT SCH (08:50)
[2020-06-01] MEDS: BACLOFEN (10 MG) 10 MG TABLET GT SCH ×2 (08:51→21:41)
[2020-06-01] MEDS: MULTIVITAMINS,THERAGRAN 1 UDTAB TABLET GT SCH (08:51)
[2020-06-01 08:56] LABS: ABG BASE EXCESS -0.5 mmol/L; ABG OXYGEN SATURATION 99.3 % (92.0-98.5); ABG PCO2 38.5 mmHg (35.0-45.0); ABG PH 7.412 (7.350-7.450); ABG PO2 175.4 mmHg (75.0-100.0); AaDO2 499.1 mmHg; COHb 0.1 % (0.5-1.5); MetHb 0.3 % (0.0-1.5); O2Hb 98.9 % (94.0-97.0); SITE, ABG Left Brachial; VENT MODE, BG NON REBREATHER
[2020-06-01] MEDS: DAKINS QUARTER STRENGTH (0.125%) 480 ML BOTTLE TOP SCH (08:57)
[2020-06-01] MEDS: Z GUARD REMEDY 2 OZ OINT TP SCH (08:58)
[2020-06-01] MEDS: DUTASTERIDE (0.5 MG) 0.5 MG CAPSULE PO SCH (08:58)
--- NOTE | 2020-06-01 08:58 | NUR ---
RUNNING INSTRUCTOR NOTE CLARIFIED WITH PHARMACY REGARDING AVODART CAPSULE, PATIENT HAS A GT. PER PHARMACY INFORM MD TO CHANGE MEDICATION. DR CHUNG INFORMED, WITH ORDERS TO CHANGE TO PROSCAR 5MG DAILY. NOTED
--- NOTE | 2020-06-01 09:06 | NUR ---
PRODUCT DESIGNER NOTE RT AT BEDSIDE, PATIENT WAS SUCTIONED, LARGE AMOUNT OF SECRETIONS OUT. PATIENT PLACED ON NC 6LPM O2.
--- NOTE | 2020-06-01 10:08 | NUR ---
curriculum assistant principal note seen and examined by dr perez, updates were given.
[2020-06-01] MEDS: FINASTERIDE (5 MG) 5 MG TABLET GT SCH (10:16)
[2020-06-01] MEDS: LEVETIRACETAM (500MG) 500 MG in IV NS 0.9% 100 ML IV SCH ×2 (10:17→22:28)
[2020-06-01] MEDS: IV D5/ 0.9% NACL 1,000 ML IV PRN (16:36)
[2020-06-01] MEDS: GLUCERNA 1.2 1,000 ML BOTTLE GT PRN (17:28)
--- NOTE | 2020-06-01 19:20 | NUR ---
MANUAL ARTS TEACHER CLOSING NOTE NO DISTRESS NOTED. PATIENT ON 4LPMO2 VIA NC. ALL DUE MEDS GIVEN. FREQUENT SUCTIONING DONE. ON TELE MONITOR NSR FIRST DEGREE AV BLOCK. GT PATENT ,INTACT, IN PLACE. KEPT CLEAN AND DRY. WOUND TX DONE. HOB ELEVATED. SIDE RAILS UP AND LOCKED. BED KEPT AT LOWEST POSITION. CONTINUITY OF CARE ENDORSED TO PM NURSE.
--- NOTE | 2020-06-01 19:30 | NUR ---
COMPLEX CASE MANAGER INITIAL SHIFT NOTES RECEIVED PATIENT IN BED, ASLEEP/EYES CLOSED, OBTUNDED AT BASELINE. PATIENT OPENS EYES UPON TACTILE STIMULI, BUT UNABLE TO COMMUNICATE/VERBALIZE NEEDS. BREATHING EVEN AND NONLABORED, TOLERATING O2 VIA NC @ 4LPM, TOLERATING WELL. UPON AUSCULTATION, PATIENT NOTED WITH CRACKLES AND RHONCHI, SCHEDULED FOR BREATHING TREATMENT BY RT. WILL NOTIFY RT REGARDING NEED FOR NT SUCTION. LEFT AC AND LEFT HAND PERIPHERAL IVs PATENT AND INTACT, FLUSHED WITH NS, FREE FROM ANY S/S OF INFILTRATION OR PHLEBITIS. PATIENT IS INCONTINENT OF BOWEL AND BLADDER, FUNERAL CAR DRIVER MADE AWARE. FUNERAL CAR DRIVER WITH NEW ORDER: OK TO APPLY CONDOM CATHETER. HOB KEPT ELEVATED AT ALL TIMES. WILL CARRY OUT NEW ORDERS AND CONTINUE TO CLOSELY MONITOR
--- NOTE | 2020-06-01 20:00 | NUR ---
CLEANING MAID NOTES PATIENT NT SUCTIONED BY RT FERNANDA AFTER BREATHING TREATMENT, NOTED WITH YELLOWISH HARRISON, THICK SECRETIONS. PATIENT TOLERATED WELL, WILL CONTINUE TO MONITOR
[2020-06-01] MEDS: TAMSULOSIN 0.4 MG CAP.SR.24H GT SCH (21:41)
--- NOTE | 2020-06-01 23:30 | NUR ---
CONTROLLER REPAIRER AND TESTER NOTES PATIENT NT SUCTIONED BY RT FERNANDA AFTER BREATHING TREATMENT, NOTED WITH LARGE AMOUNT OF YELLOWISH HARRISON, THICK SECRETIONS. PATIENT TOLERATED WELL, WILL CONTINUE TO MONITOR
[2020-06-01] MEDS: AMIKACIN 500 MG in IV D5W 100 ML IV SCH (23:42)
[2020-06-02] VITALS (20 sets, daily range): BP systolic 110–163; BP diastolic 56–94
[2020-06-02] MEDS: MUPIROCIN OINT 2% 22 GM TUBE TP SCH ×2 (02:01→09:16)
[2020-06-02] MEDS: IPRATROPIUM NEB FS 0.5 MG/2.5 ML AMPUL.NEB NEB SCH ×6 (03:43→23:40)
[2020-06-02] MEDS: ALBUTEROL HALF STRENGTH 1.25 MG/3 ML VIAL.NEB NEB SCH ×6 (03:43→23:40)
[2020-06-02 04:12] LABS: BASOPHILS % (AUTO) 0.3 % (0.0-2.0); EOSINOPHILS % (AUTO) 5.2 % (0.0-6.0); HEMATOCRIT 29 % (39-51); HEMOGLOBIN 9.1 g/dL (13.5-17.5); LYMPHOCYTES # (AUTO) 0.4 /CMM (0.8-4.8); LYMPHOCYTES % (AUTO) 6.9 % (20.0-44.0); MEAN CORPUSCULAR HGB CONC 32 g/dl (31.0-36.0); MEAN CORPUSCULAR VOLUME 78 fL (80-96); MONOCYTES # (AUTO) 0.5 /CMM (0.1-1.30); MONOCYTES % (AUTO) 7.6 % (2.0-12.0); NEUTROPHILS # (AUTO) 5.2 /CMM (1.8-8.9); PLATELET COUNT (AUTO) 368 /CMM (150-450); WHITE BLOOD COUNT (AUTO) 6.5 K/uL (4.3-11.0)
[2020-06-02 04:15] LABS: CALCIUM, SERUM 9.7 mg/dL (8.5-10.1); CREATININE 0.6 mg/dL (0.6-1.3); MAGNESIUM 2.2 mg/dL (1.8-2.4); PHOSPHORUS 3.5 mg/dL (2.5-4.9); POTASSIUM 4.5 mmol/L (3.5-5.1)
--- NOTE | 2020-06-02 06:30 | NUR ---
CHEF HEAD CLOSING NOTES PATIENT REMAINS IN BED, ON O2 VIA NC @ 4LPM, TOLERATING WELL. THROUGHOUT SHIFT, PATIENT WAS NT SUCTIONED X3 BY RT WITH MODERATE TO LARGE AMOUNT OF THICK, YELLOW, HARRISON SECRETIONS. NO EPISODES OF DESATURATION THROUGHOUT SHIFT. WILL ENDORSE THE PATIENT THE AM SHIFT NURSE FOR CONTINUITY OF CARE
[2020-06-02] MEDS: BLOOD SUGAR DIAGNOSTIC 1 EACH STRIP IN SCH ×3 (06:36→17:21)
[2020-06-02] MEDS: INSULIN REGULAR, HUMAN 100 UNIT/ML 3 ML VIAL SQ PRN ×3 (06:38→17:21)
--- NOTE | 2020-06-02 07:45 | NUR ---
BILINGUAL SALES ASSISTANT: pt is obtunded, with open eyes/no eyes contact, unable to follow commands, postured, rest, O2sat. over 96% on 3 L n/c now, suctioned NT x3 over night by report, spoke with RT for suction after resp.Tx, SR, SBP over 100, GTF residual 5 ml, keep HOB over 40, voids by report/condom catheter is off, applied condom catheter back, T 95.9/started warming measures, am w/c done by report, pt.daughter refused for debridement
--- NOTE | 2020-06-02 08:00 | NUR ---
BOX CAR LOADER: updated with pt.current condition, VS, O2sat., suction amount, see new orders
[2020-06-02] MEDS: ACETYLCYSTEINE 10% SOLN 400 MG/4 ML VIAL NEB SCH ×3 (08:06→23:40)
--- NOTE | 2020-06-02 08:30 | NUR ---
MUSIC DEPARTMENT CHAIR: is in room, updated with pt.current condition, VS, O2sat., I/O, IVF, GTF, wounds, BG, see new orders, agree to transfer to Tele
[2020-06-02] MEDS: DOCUSATE SODIUM LIQ 100 MG/10 ML UDC GT SCH ×2 (08:55→16:20)
[2020-06-02] MEDS: MULTIVITAMINS,THERAGRAN 1 UDTAB TABLET GT SCH (08:55)
[2020-06-02] MEDS: METOPROLOL TARTRATE 50 MG TABLET PO SCH ×2 (08:56→16:20)
[2020-06-02] MEDS: PANTOPRAZOLE 40 MG/PACK PACK GT SCH (08:56)
[2020-06-02] MEDS: FINASTERIDE (5 MG) 5 MG TABLET GT SCH (08:56)
[2020-06-02] MEDS: AMLODIPINE BESYLATE 5 MG TABLET GT SCH (08:57)
[2020-06-02] MEDS: LINEZOLID 600 MG TABLET PO SCH ×2 (08:57→22:27)
[2020-06-02] MEDS: LISINOPRIL (20MG) 20 MG TABLET PO SCH (08:57)
[2020-06-02] MEDS: BACLOFEN (10 MG) 10 MG TABLET GT SCH ×2 (08:58→22:33)
[2020-06-02] MEDS: THERAHONEY GEL 1.5 OZ TUBE TP SCH (09:17)
[2020-06-02] MEDS: DAKINS QUARTER STRENGTH (0.125%) 480 ML BOTTLE TOP SCH (09:18)
[2020-06-02] MEDS: Z GUARD REMEDY 2 OZ OINT TP SCH (09:18)
--- NOTE | 2020-06-02 10:45 | NUR ---
CATTLE EXAMINER: pt.daughter called, updated with pt.status, VS, I/O, labs, meds, POC
[2020-06-02] MEDS: LEVETIRACETAM (500MG) 500 MG in IV NS 0.9% 100 ML IV SCH ×2 (11:35→22:29)
--- NOTE | 2020-06-02 12:15 | NUR ---
GALLERY MANAGER: no urine out since 08.00 via condom cath, Pseudomonas is in urine, bladder scan shows 750ml inside, send message to / f/c placement?
--- NOTE | 2020-06-02 12:30 | NUR ---
BUSINESS OBJECTS: ordered place in f/c
[2020-06-02] MEDS: IV D5/ 0.9% NACL 1,000 ML IV PRN (13:44)
[2020-06-02] MEDS: GLUCERNA 1.2 1,000 ML BOTTLE GT PRN (15:45)
[2020-06-02] MEDS: PROSOURCE / PROSTAT (PYXIS) 30 ML UDC GT SCH (16:21)
--- NOTE | 2020-06-02 16:55 | NUR ---
FORENSIC ACCOUNTANT: pt is TRIAL MGR suctioned with mod thick amount after respTX, O2sat. over 94%, no SOB, no distress, SR 64-76, all PM,skin,bedbath,wounds care done, F/c patent, PIVLs ok, rest, no grimacing, same neurostatus
--- NOTE | 2020-06-02 18:23 | NUR ---
STEEL LOADER: pt is transferred to Tele after full report for RONNA Camacho
--- NOTE | 2020-06-02 18:30 | NUR ---
Patient transferred from ICU, received report from Cas FRIEND.
--- NOTE | 2020-06-02 18:30 | NUR ---
RN Closing note Patient in bed comfortably, does no appears pain or distress. Respiratory even and unlabored with oxygen at 2LPM via N/C. Skin is warm to touch, kept clean.dry, intact IV site, G Tube running at 60 ml/hr. Keep bed in locked with elevated HOB for aspiration precaution. Call light within reach, will endorse overnight caregiver.
[2020-06-02] MEDS: TAMSULOSIN 0.4 MG CAP.SR.24H GT SCH (22:28)
[2020-06-03] VITALS: BP 159/70
[2020-06-03] MEDS: AMIKACIN 500 MG in IV D5W 100 ML IV SCH (00:52)
[2020-06-03] MEDS: INSULIN REGULAR, HUMAN 100 UNIT/ML 3 ML VIAL SQ PRN ×4 (00:54→18:06)
[2020-06-03] MEDS: BLOOD SUGAR DIAGNOSTIC 1 EACH STRIP IN SCH ×4 (00:56→17:50)
[2020-06-03] MEDS: MUPIROCIN OINT 2% 22 GM TUBE TP SCH ×2 (02:54→14:15)
[2020-06-03] MEDS: IPRATROPIUM NEB FS 0.5 MG/2.5 ML AMPUL.NEB NEB SCH ×6 (03:16→23:13)
[2020-06-03] MEDS: ALBUTEROL HALF STRENGTH 1.25 MG/3 ML VIAL.NEB NEB SCH ×6 (03:16→23:13)
[2020-06-03 04:00] VITALS: BP_SYST 151; BP_SYST 159; BP_DIAS 70; BP_DIAS 80
[2020-06-03] MEDS: IV D5/ 0.9% NACL 1,000 ML IV PRN (06:00)
[2020-06-03] MEDS: ACETYLCYSTEINE 10% SOLN 400 MG/4 ML VIAL NEB SCH ×3 (07:59→23:13)
[2020-06-03 08:00] VITALS: BP 149/86
--- NOTE | 2020-06-03 08:00 | NUR ---
received ptobtunded,vs stable.tube feeding and iv infusing.no acute distress.
[2020-06-03 08:44] LABS: BASOPHILS % (AUTO) 0.4 % (0.0-2.0); EOSINOPHILS % (AUTO) 4.2 % (0.0-6.0); HEMATOCRIT 31 % (39-51); HEMOGLOBIN 9.8 g/dL (13.5-17.5); LYMPHOCYTES # (AUTO) 0.5 /CMM (0.8-4.8); LYMPHOCYTES % (AUTO) 6.9 % (20.0-44.0); MEAN CORPUSCULAR HGB CONC 31 g/dl (31.0-36.0); MEAN CORPUSCULAR VOLUME 80 fL (80-96); MONOCYTES # (AUTO) 0.7 /CMM (0.1-1.30); MONOCYTES % (AUTO) 9.7 % (2.0-12.0); NEUTROPHILS # (AUTO) 5.6 /CMM (1.8-8.9); NEUTROPHILS % (AUTO) 78.8 % (43.0-81.0); PLATELET COUNT (AUTO) 344 /CMM (150-450); RED BLOOD CELL COUNT(AUTO) 3.88 MIL/uL (4.5-6.0); WHITE BLOOD COUNT (AUTO) 7.1 K/uL (4.3-11.0)
[2020-06-03 08:57] LABS: CALCIUM, SERUM 9.4 mg/dL (8.5-10.1); CREATININE 0.6 mg/dL (0.6-1.3); MAGNESIUM 2.3 mg/dL (1.8-2.4); PHOSPHORUS 3.3 mg/dL (2.5-4.9); POTASSIUM 4.1 mmol/L (3.5-5.1)
[2020-06-03] MEDS: PROSOURCE / PROSTAT (PYXIS) 30 ML UDC GT SCH ×3 (09:39→17:13)
[2020-06-03] MEDS: MULTIVITAMINS,THERAGRAN 1 UDTAB TABLET GT SCH (09:40)
[2020-06-03] MEDS: BACLOFEN (10 MG) 10 MG TABLET GT SCH ×2 (09:40→20:25)
[2020-06-03] MEDS: LINEZOLID 600 MG TABLET PO SCH ×2 (09:40→20:25)
[2020-06-03] MEDS: PANTOPRAZOLE 40 MG/PACK PACK GT SCH (09:40)
[2020-06-03] MEDS: DOCUSATE SODIUM LIQ 100 MG/10 ML UDC GT SCH ×2 (09:40→17:05)
[2020-06-03] MEDS: METOPROLOL TARTRATE 50 MG TABLET PO SCH ×2 (09:41→17:13)
[2020-06-03] MEDS: FINASTERIDE (5 MG) 5 MG TABLET GT SCH (09:41)
[2020-06-03] MEDS: AMLODIPINE BESYLATE 5 MG TABLET GT SCH (09:41)
[2020-06-03] MEDS: THERAHONEY GEL 1.5 OZ TUBE TP SCH (09:54)
[2020-06-03] MEDS: DAKINS QUARTER STRENGTH (0.125%) 480 ML BOTTLE TOP SCH (09:55)
[2020-06-03] MEDS: Z GUARD REMEDY 2 OZ OINT TP SCH (09:55)
[2020-06-03] MEDS: FUROSEMIDE 40 MG/4 ML VIAL IV SCH ×3 (10:11→18:32)
[2020-06-03 10:25] LABS: BAND % (MANUAL) 1 % (0.0-5.0); EOSINOPHILS % (MANUAL) 3 % (0-4); LYMPHOCYTES % (MANUAL) 3 % (16-48); MONOCYTES % (MANUAL) 6 % (0-11.0); NEUTROPHILS % (MANUAL) 87 (42-76)
[2020-06-03] MEDS: LISINOPRIL (20MG) 20 MG TABLET PO SCH (10:52)
[2020-06-03] MEDS: LEVETIRACETAM (500MG) 500 MG in IV NS 0.9% 100 ML IV SCH ×2 (11:26→23:14)
[2020-06-03 16:00] VITALS: BP 152/76
--- NOTE | 2020-06-03 18:00 | NUR ---
given lasix iv 40 mg x3 for chest congestion.
--- NOTE | 2020-06-03 19:30 | NUR ---
RN OPENING NOTE RECEIVED PATIENMT IN BED RESTING OBTUNDED, NONVERBAL,BREATHING IS EVEN AND UNLABORED ON OXYGEN 4L VIA NASAL CANNULA,NO PAIN NO DISCOMFORT NOTED,ON G-TUBE FEEDING GLUCERNA 1.2 60 CC/HR RUNNING,CHECKED PLACEMENT,NO RESIDUAL,ON ANAND CATHETER,URINE DRAINGE GOLDEN,CLEAR,IV ON LEFT AC AND LEFT WRIST INTACT PATENT,HE IS ON IV NORMAL SALINE 0.9% 50CC/HR,IMPLEMENT SAFETY MEASURE,HEAD OF BED ELEVATED,CONTINUE TO MONITOR.
[2020-06-03 20:00] VITALS: BP 144/71
[2020-06-03] MEDS: TAMSULOSIN 0.4 MG CAP.SR.24H GT SCH (22:23)
[2020-06-03] MEDS: GLUCERNA 1.2 1,000 ML BOTTLE GT PRN (23:32)
[2020-06-04] MEDS: BLOOD SUGAR DIAGNOSTIC 1 EACH STRIP IN SCH ×4 (00:05→17:11)
[2020-06-04] MEDS: INSULIN REGULAR, HUMAN 100 UNIT/ML 3 ML VIAL SQ PRN ×5 (00:06→23:59)
--- NOTE | 2020-06-04 00:06 | NUR ---
RN NOTE BLOOD SUGAR CHECKED IT IS 130 NO INSULIN ADMINISTERED.
[2020-06-04] MEDS: AMIKACIN 500 MG in IV D5W 100 ML IV SCH (00:12)
[2020-06-04] MEDS: MUPIROCIN OINT 2% 22 GM TUBE TP SCH (01:50)
[2020-06-04] MEDS: ALBUTEROL HALF STRENGTH 1.25 MG/3 ML VIAL.NEB NEB SCH ×6 (03:20→23:37)
[2020-06-04] MEDS: IPRATROPIUM NEB FS 0.5 MG/2.5 ML AMPUL.NEB NEB SCH ×6 (03:20→23:37)
--- NOTE | 2020-06-04 06:44 | NUR ---
RN CLOSING NOTE PATIENT REMAINS IN BED RESTING, ON 5L OXYGEN VIA NASAL CANNULA,OBTUNED, ON G-TUBE FEEDING GLUCERNA 1.2 60CC/HR,ON ANAND CATHETER DRAINING URINE YELLOW CLEAR, NO SOB NOT ACUTE DISTRESS,ON IV HYDRATION 50CC/HR IV SITE IS ON LEFT AC AND LEFT WRIST,INTACT PATENT.ALL DUE MEDS GIVEN VIA G-TUBE FEEDING TOLERATED WELL,KEPT CLEAN AND DRY ALL THE TIME,KEPT COMFORTABLE,ALL NEEDS MET ,ENDORSE NEXT COMING SHIFT FOR CONTINUATION OF CARE.
[2020-06-04] MEDS: ACETYLCYSTEINE 10% SOLN 400 MG/4 ML VIAL NEB SCH ×3 (07:27→23:37)
--- NOTE | 2020-06-04 07:55 | NUR ---
RN OPENING NOTE RECEIVED PATIENT IN BED RESTING OBTUNDED, NONVERBAL,BREATHING IS EVEN AND UNLABORED ON OXYGEN 4L VIA NASAL CANNULA,NO PAIN NO DISCOMFORT NOTED,ON G-TUBE FEEDING GLUCERNA 1.2 60 CC/HR RUNNING,CHECKED PLACEMENT,NO RESIDUAL,ON ANAND CATHETER,URINE DRAINING GOLDEN,CLEAR,IV ON LEFT AC AND LEFT WRIST INTACT ,IMPLEMENT SAFETY MEASURE,HEAD OF BED ELEVATED,BED LOCK IN LOW POSITION SR X 2 .CONTINUE TO MONITOR.
[2020-06-04 08:00] VITALS: BP 150/88
[2020-06-04 08:07] LABS: BASOPHILS % (AUTO) 0.9 % (0.0-2.0); EOSINOPHILS % (AUTO) 5.1 % (0.0-6.0); HEMATOCRIT 31 % (39-51); HEMOGLOBIN 9.7 g/dL (13.5-17.5); LYMPHOCYTES # (AUTO) 0.4 /CMM (0.8-4.8); MEAN CORPUSCULAR HGB CONC 31 g/dl (31.0-36.0); MEAN CORPUSCULAR VOLUME 79 fL (80-96); MONOCYTES # (AUTO) 0.6 /CMM (0.1-1.30); MONOCYTES % (AUTO) 11.1 % (2.0-12.0); NEUTROPHILS # (AUTO) 4.4 /CMM (1.8-8.9); NEUTROPHILS % (AUTO) 75.9 % (43.0-81.0); PLATELET COUNT (AUTO) 315 /CMM (150-450); RED BLOOD CELL COUNT(AUTO) 3.94 MIL/uL (4.5-6.0); WHITE BLOOD COUNT (AUTO) 5.8 K/uL (4.3-11.0)
[2020-06-04 08:25] LABS: ALBUMIN 2.2 g/dL (3.4-5.0); BILIRUBIN,TOTAL 0.3 mg/dL (0.2-1.0); CALCIUM, SERUM 9.5 mg/dL (8.5-10.1); CREATININE 0.6 mg/dL (0.6-1.3); POTASSIUM 4.1 mmol/L (3.5-5.1); TOTAL PROTEIN, SERUM 7.4 g/dL (6.4-8.2)
[2020-06-04] MEDS: Z GUARD REMEDY 2 OZ OINT TP SCH (09:00)
[2020-06-04] MEDS: DOCUSATE SODIUM LIQ 100 MG/10 ML UDC GT SCH ×2 (09:43→16:31)
[2020-06-04] MEDS: PANTOPRAZOLE 40 MG/PACK PACK GT SCH (09:44)
[2020-06-04] MEDS: BACLOFEN (10 MG) 10 MG TABLET GT SCH ×2 (09:44→21:16)
[2020-06-04] MEDS: METOPROLOL TARTRATE 50 MG TABLET PO SCH ×2 (09:45→16:31)
[2020-06-04] MEDS: LISINOPRIL (20MG) 20 MG TABLET PO SCH (09:46)
[2020-06-04] MEDS: AMLODIPINE BESYLATE 5 MG TABLET GT SCH (09:46)
[2020-06-04] MEDS: LINEZOLID 600 MG TABLET PO SCH ×2 (09:46→21:16)
[2020-06-04] MEDS: FINASTERIDE (5 MG) 5 MG TABLET GT SCH (09:46)
[2020-06-04] MEDS: THERAHONEY GEL 1.5 OZ TUBE TP SCH (09:48)
[2020-06-04] MEDS: DAKINS QUARTER STRENGTH (0.125%) 480 ML BOTTLE TOP SCH (09:48)
[2020-06-04] MEDS: MULTIVITAMINS,THERAGRAN 1 UDTAB TABLET GT SCH (09:50)
[2020-06-04] MEDS: PROSOURCE / PROSTAT (PYXIS) 30 ML UDC GT SCH ×3 (09:57→16:31)
[2020-06-04] MEDS: FUROSEMIDE 100 MG/10 ML VIAL IV SCH ×3 (10:00→18:09)
[2020-06-04] MEDS: LEVETIRACETAM (500MG) 500 MG in IV NS 0.9% 100 ML IV SCH ×2 (11:00→23:06)
[2020-06-04] MEDS: GLUCERNA 1.2 1,000 ML BOTTLE GT PRN (18:22)
--- NOTE | 2020-06-04 19:06 | NUR ---
RN CLOSING NOTE PATIENT REMAINS IN BED RESTING, ON 5L OXYGEN VIA NASAL CANNULA,OBTUNED, ON G-TUBE FEEDING GLUCERNA 1.2 60CC/HR,ON ANAND CATHETER DRAINING URINE YELLOW CLEAR, NO SOB NOT ACUTE DISTRESS, IV HYDRATION 50CC/HR D/C TODAY IV SITE IS ON LEFT AC AND LEFT WRIST,INTACT PATENT.ALL DUE MEDS GIVEN VIA G-TUBE FEEDING TOLERATED WELL, WOUND CARE DONE KEPT CLEAN AND DRY ALL THE TIME,KEPT COMFORTABLE,ALL NEEDS MET ,ENDORSE NEXT COMING SHIFT FOR CONTINUATION OF CARE.
--- NOTE | 2020-06-04 19:58 | NUR ---
MS RN OPENING NOTES PATIENT RECEIVED RESTING IN BED OBTUNDED. ON 4L OF O2 WITH BREATHING EVEN AND UNLABORED, NO SOB NOTED. NO SIGNS OF ACUTE DISTRESS. NO COMPLAINTS OF PAIN OR DISCOMFORT- NO FACIAL GRIMACING NOTED. ANAND CATH IN PLACE DRAINING AND NOTED. GTUBE FEEDING RUNNING GLUCERNA 1.2 @ 60 ML/HR. IV LOCATED ON L AC AND L WRIST #20 SL. SAFETY PRECAUTIONS IN PLACE WITH BED IN LOWEST POSITION, CALL LIGHT WITHIN REACH, BREAKS ON, SIDE RAILS UP. WILL CONTINUE TO MONITOR THROUGHOUT THEN NIGHT.
[2020-06-04 20:00] VITALS: BP 125/70
--- NOTE | 2020-06-04 20:46 | NUR ---
MS RN NOTES CALLED DAUGHTER X3 FOR CONSENT FOR LEFT HEEL EXCISIONAL WOUND DEBRIDEMENT, NO ANSWER. VOICEMAIL LEFT. WILL TRY AGAIN OR AWAITING FOR CALL BACK.
[2020-06-04] MEDS: TAMSULOSIN 0.4 MG CAP.SR.24H GT SCH (21:16)
--- NOTE | 2020-06-04 21:55 | NUR ---
MS RN NOTES SPOKE TO DAUGHTER AND DAUGHTER DECLINED DEBRIDEMENT OF L HEEL.
[2020-06-05] MEDS: AMIKACIN 500 MG in IV D5W 100 ML IV SCH (00:03)
[2020-06-05] MEDS: BLOOD SUGAR DIAGNOSTIC 1 EACH STRIP IN SCH ×4 (00:03→18:05)
[2020-06-05] MEDS: IPRATROPIUM NEB FS 0.5 MG/2.5 ML AMPUL.NEB NEB SCH ×6 (03:12→23:40)
[2020-06-05] MEDS: ALBUTEROL HALF STRENGTH 1.25 MG/3 ML VIAL.NEB NEB SCH ×6 (03:12→23:40)
[2020-06-05] MEDS: INSULIN REGULAR, HUMAN 100 UNIT/ML 3 ML VIAL SQ PRN ×3 (05:48→18:08)
[2020-06-05 06:40] LABS: ALBUMIN 2.4 g/dL (3.4-5.0); BILIRUBIN,TOTAL 0.3 mg/dL (0.2-1.0); CALCIUM, SERUM 9.8 mg/dL (8.5-10.1); CREATININE 0.7 mg/dL (0.6-1.3); MAGNESIUM 2.1 mg/dL (1.8-2.4); PHOSPHORUS 4.7 mg/dL (2.5-4.9); POTASSIUM 3.7 mmol/L (3.5-5.1); TOTAL PROTEIN, SERUM 7.9 g/dL (6.4-8.2)
[2020-06-05 06:44] LABS: BASOPHILS % (AUTO) 0.3 % (0.0-2.0); EOSINOPHILS % (AUTO) 7.2 % (0.0-6.0); HEMATOCRIT 32 % (39-51); HEMOGLOBIN 10.1 g/dL (13.5-17.5); LYMPHOCYTES # (AUTO) 0.5 /CMM (0.8-4.8); LYMPHOCYTES % (AUTO) 8.7 % (20.0-44.0); MEAN CORPUSCULAR HGB CONC 31 g/dl (31.0-36.0); MEAN CORPUSCULAR VOLUME 78 fL (80-96); MONOCYTES # (AUTO) 0.7 /CMM (0.1-1.30); MONOCYTES % (AUTO) 11.1 % (2.0-12.0); NEUTROPHILS # (AUTO) 4.5 /CMM (1.8-8.9); NEUTROPHILS % (AUTO) 72.7 % (43.0-81.0); PLATELET COUNT (AUTO) 319 /CMM (150-450); RED BLOOD CELL COUNT(AUTO) 4.14 MIL/uL (4.5-6.0); WHITE BLOOD COUNT (AUTO) 6.1 K/uL (4.3-11.0)
--- NOTE | 2020-06-05 07:03 | NUR ---
MS RN CLOSING NOTES PATIENT RESTING IN BED OBTUNDED. ON 3L OF O2 WITH BREATHING EVEN AND UNLABORED, NO SOB NOTED. NO SIGNS OF ACUTE DISTRESS. NO COMPLAINTS OF PAIN OR DISCOMFORT- NO FACIAL GRIMACING NOTED. ANAND CATH IN PLACE DRAINING AND NOTED. GTUBE FEEDING RUNNING GLUCERNA 1.2 @ 60 ML/HR. IV LOCATED ON L AC #20 SL. SAFETY PRECAUTIONS IN PLACE WITH BED IN LOWEST POSITION, CALL LIGHT WITHIN REACH, BREAKS ON, SIDE RAILS UP. ALL NEEDS ATTENDED TO, PATIENT KEPT CLEAN AND DRY. WILL ENDORSE TO ONCOMING SHIFT ABOUT MARILYNN.
--- NOTE | 2020-06-05 07:18 | NUR ---
MS RN NOTES PATIENT IN BED OBTUNDED. NO ACUTE DISTRESS NOTED. BREATHING UNLABORED.NO SOB NOTED. IV ACCESS PATENT AND INTACT, NO REDNESS, NO SWELLING NOTED. G TUBE FEEDING INFUSING WELL AT ORDERED RATE, HEAD OF BED ELEVATED. ANAND CATHETER INTACT DRAINING CLEAR YELLOW URINE. SAFETY MEASURES IN PLACE. CALL LIGHT WITHIN REACH. WILL CONTINUE TO MONITOR ACCORDINGLY.
[2020-06-05 08:00] VITALS: BP 138/73
[2020-06-05] MEDS: ACETYLCYSTEINE 10% SOLN 400 MG/4 ML VIAL NEB SCH ×3 (08:27→23:40)
[2020-06-05] MEDS: PANTOPRAZOLE 40 MG/PACK PACK GT SCH (08:36)
[2020-06-05] MEDS: DOCUSATE SODIUM LIQ 100 MG/10 ML UDC GT SCH ×2 (08:36→16:08)
[2020-06-05] MEDS: MULTIVITAMINS,THERAGRAN 1 UDTAB TABLET GT SCH (08:36)
[2020-06-05] MEDS: LINEZOLID 600 MG TABLET PO SCH ×2 (08:36→21:27)
[2020-06-05] MEDS: LISINOPRIL (20MG) 20 MG TABLET PO SCH (08:36)
[2020-06-05] MEDS: AMLODIPINE BESYLATE 5 MG TABLET GT SCH (08:37)
[2020-06-05] MEDS: BACLOFEN (10 MG) 10 MG TABLET GT SCH ×2 (08:37→21:27)
[2020-06-05] MEDS: METOPROLOL TARTRATE 50 MG TABLET PO SCH ×2 (08:37→16:07)
[2020-06-05] MEDS: PROSOURCE / PROSTAT (PYXIS) 30 ML UDC GT SCH ×3 (08:38→16:08)
[2020-06-05] MEDS: THERAHONEY GEL 1.5 OZ TUBE TP SCH (08:40)
[2020-06-05] MEDS: DAKINS QUARTER STRENGTH (0.125%) 480 ML BOTTLE TOP SCH (08:40)
[2020-06-05] MEDS: FINASTERIDE (5 MG) 5 MG TABLET GT SCH (08:45)
[2020-06-05] MEDS: Z GUARD REMEDY 2 OZ OINT TP SCH (08:46)
--- NOTE | 2020-06-05 10:00 | NUR ---
MS RN NOTES SEEN AND EVALUATED BY DR BAR . PATIENT NO ORDER FOR ANTICOAGULANT, DR DUNBAR AWARE SAID SHE'S GONNA LOOK INTO IT. NO NEW ORDER MADE AT THIS TIME.
[2020-06-05] MEDS: LEVETIRACETAM (500MG) 500 MG in IV NS 0.9% 100 ML IV SCH ×2 (10:36→23:10)
[2020-06-05] MEDS ORDERED: POTASSIUM CHLORIDE 20 MEQ TAB.PRT.SR PO SCH (11:00)
[2020-06-05] MEDS: GLUCERNA 1.2 1,000 ML BOTTLE GT PRN (11:37)
[2020-06-05] MEDS: FUROSEMIDE 100 MG/10 ML VIAL IV SCH ×3 (11:37→19:51)
[2020-06-05] MEDS: POTASSIUM CHLORIDE 20 MEQ POWDER PACKET GT SCH ×3 (11:37→13:57)
[2020-06-05 16:00] VITALS: BP 130/75
--- NOTE | 2020-06-05 18:58 | NUR ---
MS RN NOTES PATIENT IN BED OBTUNDED. NO ACUTE DISTRESS NOTED. BREATHING UNLABORED.NO SOB NOTED. IV ACCESS PATENT AND INTACT, NO REDNESS, NO SWELLING NOTED. G TUBE FEEDING INFUSING WELL AT ORDERED RATE,TOLERATING G TUBE FEEDING WELL, HEAD OF BED ELEVATED. ANAND CATHETER INTACT DRAINING CLEAR YELLOW URINE. NEEDS ATTENDED AND ANTICIPATED. TURN AND REPOSITION EVERY 2 HOURS AND NEEDED. SAFETY MEASURES IN PLACE. CALL LIGHT WITHIN REACH. WILL ENDORSE TO NIGHT NURSE FOR CONTINUITY OF CARE.
[2020-06-05 20:00] VITALS: BP 136/69
--- NOTE | 2020-06-05 20:04 | NUR ---
MS RN OPENING NOTES PATIENT RECEIVED RESTING IN BED OBTUNDED. ON 4L OF O2 WITH BREATHING EVEN AND UNLABORED, NO SOB NOTED. NO SIGNS OF ACUTE DISTRESS. NO COMPLAINTS OF PAIN OR DISCOMFORT- NO FACIAL GRIMACING NOTED. ANAND CATH IN PLACE DRAINING AND NOTED. GTUBE FEEDING RUNNING GLUCERNA 1.2 @ 60 ML/HR. IV LOCATED ON L AC #20 SL. SAFETY PRECAUTIONS IN PLACE WITH BED IN LOWEST POSITION, CALL LIGHT WITHIN REACH, BREAKS ON, SIDE RAILS UP. WILL CONTINUE TO MONITOR THROUGHOUT THEN NIGHT.
[2020-06-05] MEDS: TAMSULOSIN 0.4 MG CAP.SR.24H GT SCH (21:27)
[2020-06-06] MEDS: AMIKACIN 500 MG in IV D5W 100 ML IV SCH ×2 (00:11→23:23)
[2020-06-06] MEDS: BLOOD SUGAR DIAGNOSTIC 1 EACH STRIP IN SCH ×5 (00:15→23:23)
[2020-06-06] MEDS: INSULIN REGULAR, HUMAN 100 UNIT/ML 3 ML VIAL SQ PRN ×4 (00:17→22:32)
[2020-06-06] MEDS: IPRATROPIUM NEB FS 0.5 MG/2.5 ML AMPUL.NEB NEB SCH ×6 (02:34→23:58)
[2020-06-06] MEDS: ALBUTEROL HALF STRENGTH 1.25 MG/3 ML VIAL.NEB NEB SCH ×6 (02:34→23:57)
--- NOTE | 2020-06-06 06:50 | NUR ---
MS RN CLOSING NOTES PATIENT RESTING IN BED OBTUNDED. ON 4L OF O2 WITH BREATHING EVEN AND UNLABORED, NO SOB NOTED. NO SIGNS OF ACUTE DISTRESS. NO COMPLAINTS OF PAIN OR DISCOMFORT- NO FACIAL GRIMACING NOTED. ANAND CATH IN PLACE DRAINING AND NOTED. GTUBE FEEDING RUNNING GLUCERNA 1.2 @ 60 ML/HR. IV LOCATED ON L AC #20 SL. SAFETY PRECAUTIONS IN PLACE WITH BED IN LOWEST POSITION, CALL LIGHT WITHIN REACH, BREAKS ON, SIDE RAILS UP. PATIENT WAS KEPT CLEAN AND DRY THROUGHOUT THE NIGHT, WOUND CARE DONE. ALL NEEDS MET. WILL ENDORSE TO ONCOMING SHIFT ABOUT MARILYNN.
[2020-06-06] MEDS ORDERED: hydrALAZINE HCL 50 MG TABLET NG PRN (06:57)
[2020-06-06] MEDS: ACETYLCYSTEINE 10% SOLN 400 MG/4 ML VIAL NEB SCH ×3 (07:30→23:58)
--- NOTE | 2020-06-06 07:46 | NUR ---
MS RN OPENING NOTES RECEIVED PATIENT IN BED, AWAKE, OBTUNDED. PATIENT IS ON OXYGEN THERAPY AT 4 LPM; BREATHING IS EVEN AND UNLABORED, NO SOB PRESENT AT THIS TIME. NO S/S OF PAIN SUCH FACIAL GRIMACING, MOANING OR GUARDING. LAC G#20 PRESENT AND INTACT, FLUSHING WELL. ANAND CATH PRESENT DRAINING YELLOW URINE. G-TUBE RUNNING GLUCERNA 1.2 AT 60 MLS//HR. SAFETY PRECAUTIONS IN PLACE; BED IN LOW POSITION AND LOCKED, RAILS UP X2, CALL LIGHT WITHIN REACH. WILL CONTINUE TO MONITOR PATIENT.
[2020-06-06 08:00] VITALS: BP 131/66
[2020-06-06 08:15] LABS: BASOPHILS % (AUTO) 0.3 % (0.0-2.0); EOSINOPHILS % (AUTO) 6.7 % (0.0-6.0); HEMATOCRIT 33 % (39-51); HEMOGLOBIN 10.5 g/dL (13.5-17.5); LYMPHOCYTES # (AUTO) 0.6 /CMM (0.8-4.8); LYMPHOCYTES % (AUTO) 7.4 % (20.0-44.0); MEAN CORPUSCULAR HGB CONC 32 g/dl (31.0-36.0); MEAN CORPUSCULAR VOLUME 80 fL (80-96); MONOCYTES # (AUTO) 0.7 /CMM (0.1-1.30); MONOCYTES % (AUTO) 8.7 % (2.0-12.0); NEUTROPHILS # (AUTO) 5.8 /CMM (1.8-8.9); NEUTROPHILS % (AUTO) 76.9 % (43.0-81.0); PLATELET COUNT (AUTO) 291 /CMM (150-450); RED BLOOD CELL COUNT(AUTO) 4.16 MIL/uL (4.5-6.0); WHITE BLOOD COUNT (AUTO) 7.6 K/uL (4.3-11.0)
[2020-06-06 08:36] LABS: ALBUMIN 2.6 g/dL (3.4-5.0); BILIRUBIN,TOTAL 0.3 mg/dL (0.2-1.0); CALCIUM, SERUM 10.4 mg/dL (8.5-10.1); CREATININE 0.8 mg/dL (0.6-1.3); MAGNESIUM 2.3 mg/dL (1.8-2.4); PHOSPHORUS 5.3 mg/dL (2.5-4.9); POTASSIUM 3.8 mmol/L (3.5-5.1); TOTAL PROTEIN, SERUM 8.5 g/dL (6.4-8.2)
[2020-06-06] MEDS: DAKINS QUARTER STRENGTH (0.125%) 480 ML BOTTLE TOP SCH (08:52)
[2020-06-06] MEDS: THERAHONEY GEL 1.5 OZ TUBE TP SCH (08:52)
[2020-06-06] MEDS: Z GUARD REMEDY 2 OZ OINT TP SCH (08:52)
[2020-06-06] MEDS: LINEZOLID 600 MG TABLET GT SCH ×2 (08:58→22:30)
[2020-06-06] MEDS: MULTIVITAMINS,THERAGRAN 1 UDTAB TABLET GT SCH (08:58)
[2020-06-06] MEDS: PANTOPRAZOLE 40 MG/PACK PACK GT SCH (08:58)
[2020-06-06] MEDS: BACLOFEN (10 MG) 10 MG TABLET GT SCH ×2 (08:58→22:30)
[2020-06-06] MEDS: FINASTERIDE (5 MG) 5 MG TABLET GT SCH (08:58)
[2020-06-06] MEDS: DOCUSATE SODIUM LIQ 100 MG/10 ML UDC GT SCH ×2 (08:58→17:19)
[2020-06-06] MEDS: PROSOURCE / PROSTAT (PYXIS) 30 ML UDC GT SCH ×3 (08:58→17:19)
[2020-06-06] MEDS: LEVETIRACETAM SOL (5 ML) 100 MG/ML UDC NG SCH ×2 (08:58→22:30)
[2020-06-06] MEDS: AMLODIPINE BESYLATE 5 MG TABLET GT SCH (08:59)
[2020-06-06] MEDS: LISINOPRIL (20MG) 20 MG TABLET PO SCH (08:59)
[2020-06-06] MEDS: METOPROLOL TARTRATE 50 MG TABLET NG SCH ×2 (09:00→17:00)
[2020-06-06] MEDS: GLUCERNA 1.2 1,000 ML BOTTLE GT PRN (11:07)
--- NOTE | 2020-06-06 15:07 | NUR ---
RT NOTE UNABLE TO ADMINISTER 1130 TX DUE TO RAPID RESPONSE AND CODE BLUE IN ICU. NO RESPIRATORY DISTRESS NOTED.
--- NOTE | 2020-06-06 19:25 | NUR ---
MS RN CLOSING NOTES PATIENT IN BED, AWAKE, OBTUNDED AND RECEIVING BREATHING TREATMENT AT THIS TIME. PATIENT IS ON OXYGEN THERAPY AT 5 LPM; BREATHING IS EVEN AND UNLABORED, NO SOB PRESENT AT THIS TIME. NO S/S OF PAIN SUCH FACIAL GRIMACING, MOANING OR GUARDING DURING THE SHIFT. LAC G#20 PRESENT AND INTACT, FLUSHING WELL. ANAND CATH PRESENT DRAINING YELLOW URINE WITH OUTPUT OF 450MLS. G-TUBE RUNNING GLUCERNA 1.2 AT 60 MLS//HR. SAFETY PRECAUTIONS IN PLACE; BED IN LOW POSITION AND LOCKED, RAILS UP X2, CALL LIGHT WITHIN REACH. WILL ENDORSE TO DIRECTOR INBOUND SALES NURSE.
[2020-06-06 20:00] VITALS: BP 128/81
--- NOTE | 2020-06-06 20:15 | NUR ---
MS/RN OPENING NOTE Patient in bed, obtund. Breathing even, clear, unlabored. Nasal cannula 5 l/min, O2 saturation 100%. No SOB or acute distress noted. Patient does not appear to be in pain. Abdomen soft, round, non-distended. GTF @ 60 ml/hr, no residual. Patient tolerating well. Condom almanzar catheter in place, draining clear, yellow, urine, no sediment. IV site left AC 20g, patent and intact. No signs of redness or infiltration. Bed in low position, wheels locked, side rails up x2, call light within reach.
[2020-06-06 20:24] VITALS: BP 128/81
[2020-06-06] MEDS: TAMSULOSIN 0.4 MG CAP.SR.24H GT SCH (22:30)
[2020-06-07] MEDS: IPRATROPIUM NEB FS 0.5 MG/2.5 ML AMPUL.NEB NEB SCH ×6 (03:30→23:48)
[2020-06-07] MEDS: ALBUTEROL HALF STRENGTH 1.25 MG/3 ML VIAL.NEB NEB SCH ×6 (03:30→23:48)
[2020-06-07] MEDS: GLUCERNA 1.2 1,000 ML BOTTLE GT PRN ×2 (04:49→23:41)
[2020-06-07] MEDS: BLOOD SUGAR DIAGNOSTIC 1 EACH STRIP IN SCH ×4 (05:20→23:42)
[2020-06-07] MEDS: INSULIN REGULAR, HUMAN 100 UNIT/ML 3 ML VIAL SQ PRN ×4 (05:21→23:49)
[2020-06-07 07:13] LABS: BASOPHILS % (AUTO) 0.3 % (0.0-2.0); EOSINOPHILS % (AUTO) 6.4 % (0.0-6.0); HEMATOCRIT 31 % (39-51); HEMOGLOBIN 9.9 g/dL (13.5-17.5); LYMPHOCYTES # (AUTO) 0.4 /CMM (0.8-4.8); LYMPHOCYTES % (AUTO) 6.1 % (20.0-44.0); MEAN CORPUSCULAR HGB CONC 31 g/dl (31.0-36.0); MEAN CORPUSCULAR VOLUME 80 fL (80-96); MONOCYTES # (AUTO) 0.5 /CMM (0.1-1.30); MONOCYTES % (AUTO) 7.5 % (2.0-12.0); NEUTROPHILS # (AUTO) 5.5 /CMM (1.8-8.9); NEUTROPHILS % (AUTO) 79.7 % (43.0-81.0); PLATELET COUNT (AUTO) 257 /CMM (150-450); RED BLOOD CELL COUNT(AUTO) 3.94 MIL/uL (4.5-6.0); WHITE BLOOD COUNT (AUTO) 6.9 K/uL (4.3-11.0)
--- NOTE | 2020-06-07 07:35 | NUR ---
MS RN NOTES RECEIVED PT IN BED, EASILY AROUSED, NONVERBAL, APPEARS CALM. PT ON SUPPLEMENTARY OXYGEN AT 5LPM VIA NC, WITH NO ACUTE RESPIRATORY DISTRESS NOTED. PT NO EXHIBITING ANY PAIN OR DISCOMFORT AT THIS TIME. NS AT TKO TO LAC G20, INTACT AND FLUID INFUSING WELL. PT KEPT COMFORTABLE. CALL LIGHT KEPT WITHIN REACH. PT'S BED IN LOWEST, LOCKED POSITION, WITH SR X3. WILL CONTINUE PLAN OF CARE.
[2020-06-07] MEDS: ACETYLCYSTEINE 10% SOLN 400 MG/4 ML VIAL NEB SCH ×3 (07:38→23:47)
[2020-06-07 07:49] LABS: CALCIUM, SERUM 10.3 mg/dL (8.5-10.1); CREATININE 0.7 mg/dL (0.6-1.3); MAGNESIUM 2.5 mg/dL (1.8-2.4); PHOSPHORUS 4.9 mg/dL (2.5-4.9); POTASSIUM 3.8 mmol/L (3.5-5.1)
[2020-06-07 08:00] VITALS: BP 116/79
[2020-06-07] MEDS: FINASTERIDE (5 MG) 5 MG TABLET GT SCH (09:32)
[2020-06-07] MEDS: METOPROLOL TARTRATE 50 MG TABLET NG SCH ×2 (09:32→16:26)
[2020-06-07] MEDS: PANTOPRAZOLE 40 MG/PACK PACK GT SCH (09:32)
[2020-06-07] MEDS: AMLODIPINE BESYLATE 5 MG TABLET GT SCH (09:32)
[2020-06-07] MEDS: LINEZOLID 600 MG TABLET GT SCH (09:32)
[2020-06-07] MEDS: BACLOFEN (10 MG) 10 MG TABLET GT SCH ×2 (09:32→21:56)
[2020-06-07] MEDS: LEVETIRACETAM SOL (5 ML) 100 MG/ML UDC NG SCH ×2 (09:32→21:56)
[2020-06-07] MEDS: DOCUSATE SODIUM LIQ 100 MG/10 ML UDC GT SCH ×2 (09:32→16:26)
[2020-06-07] MEDS: MULTIVITAMINS,THERAGRAN 1 UDTAB TABLET GT SCH (09:32)
[2020-06-07] MEDS: LISINOPRIL (20MG) 20 MG TABLET PO SCH (09:33)
[2020-06-07] MEDS: DAKINS QUARTER STRENGTH (0.125%) 480 ML BOTTLE TOP SCH (09:49)
[2020-06-07] MEDS: Z GUARD REMEDY 2 OZ OINT TP SCH (09:49)
[2020-06-07] MEDS: THERAHONEY GEL 1.5 OZ TUBE TP SCH (09:49)
[2020-06-07] MEDS: PROSOURCE / PROSTAT (PYXIS) 30 ML UDC GT SCH ×3 (09:50→16:26)
[2020-06-07 16:12] VITALS: BP 137/73
--- NOTE | 2020-06-07 18:53 | NUR ---
MS RN NOTES PT REMAINS IN BED, INTERMITTENTLY DOZING OFF, EASILY AROUSED, NONVERBAL, APPEARS CALM. PT ON SUPPLEMENTARY OXYGEN AT 3LPM VIA NC, WITH NO ACUTE RESPIRATORY DISTRESS NOTED. PT NO EXHIBITING ANY PAIN OR DISCOMFORT AT THIS TIME. NS AT TKO TO LAC G20, INTACT AND FLUID INFUSING WELL. PT KEPT COMFORTABLE. ALL NEEDS AND CARE ATTENDED. CALL LIGHT KEPT WITHIN REACH. PT'S BED IN LOWEST, LOCKED POSITION, WITH SR X3. TURNED AND REPOSITIONED Q2H. WILL ENDORSE TO INCOMING NIGHT NURSE FOR MARILYNN.
--- NOTE | 2020-06-07 19:30 | NUR ---
ms digital community manager initial notes Received pt in bed on his right side /semi fowlers position. Respiration even and non-labored not in any acute distress noted at this time. Pt on g-tube Glucerna feeding at 60ml/hr , no aspiration noted, no residual noted at this time. skin warm and dry to touch. he also had [place] to gravity with yellow output noted at this time. kept him warm and comfortable at all times. side rails x2 up and bed in low and lock in position. will continue monitoring.
[2020-06-07 20:00] VITALS: BP 134/71
[2020-06-07] MEDS: TAMSULOSIN 0.4 MG CAP.SR.24H GT SCH (21:56)
--- NOTE | 2020-06-07 23:45 | NUR ---
ms esthetician/owner noes blood suagr checked done 135, 2 units of insulin juan r SQ as ordered. no signs of hypo/ hyper Glycemia noted at this time. pt still on g-tube feeding. will continue monitoring.
--- NOTE | 2020-06-08 03:25 | NUR ---
ms manager endoscopy notes pt resting comfortably in bed not in any distress noted. g-tube feding tolerated well. no aspiration noted. will continue monitoring.
[2020-06-08] MEDS: IPRATROPIUM NEB FS 0.5 MG/2.5 ML AMPUL.NEB NEB SCH ×5 (03:49→19:47)
[2020-06-08] MEDS: ALBUTEROL HALF STRENGTH 1.25 MG/3 ML VIAL.NEB NEB SCH ×5 (03:49→19:47)
[2020-06-08] MEDS: BLOOD SUGAR DIAGNOSTIC 1 EACH STRIP IN SCH ×4 (06:50→23:08)
[2020-06-08] MEDS: INSULIN REGULAR, HUMAN 100 UNIT/ML 3 ML VIAL SQ PRN ×4 (06:52→23:10)
--- NOTE | 2020-06-08 07:30 | NUR ---
MS RN NOTES RECEIVED PT IN BED, EASILY AROUSED, NONVERBAL, APPEARS CALM. PT ON SUPPLEMENTARY OXYGEN AT 3LPM VIA NC, WITH NO ACUTE RESPIRATORY DISTRESS NOTED. PT NO EXHIBITING ANY PAIN OR DISCOMFORT AT THIS TIME. NS AT TKO TO LAC G20, INTACT AND FLUID INFUSING WELL. PT KEPT COMFORTABLE. CALL LIGHT KEPT WITHIN REACH. PT'S BED IN LOWEST, LOCKED POSITION, WITH SR X3. WILL CONTINUE PLAN OF CARE.
[2020-06-08] MEDS: ACETYLCYSTEINE 10% SOLN 400 MG/4 ML VIAL NEB SCH ×2 (07:35→14:44)
[2020-06-08 08:00] VITALS: BP 144/52
[2020-06-08 08:46] LABS: CALCIUM, SERUM 10.5 mg/dL (8.5-10.1); CREATININE 0.9 mg/dL (0.6-1.3); POTASSIUM 3.9 mmol/L (3.5-5.1)
[2020-06-08 08:49] LABS: BASOPHILS % (AUTO) 0.1 % (0.0-2.0); EOSINOPHILS % (AUTO) 0.2 % (0.0-6.0); HEMATOCRIT 32 % (39-51); HEMOGLOBIN 9.7 g/dL (13.5-17.5); LYMPHOCYTES # (AUTO) 0.3 /CMM (0.8-4.8); LYMPHOCYTES % (AUTO) 1.5 % (20.0-44.0); MEAN CORPUSCULAR HGB CONC 31 g/dl (31.0-36.0); MEAN CORPUSCULAR VOLUME 79 fL (80-96); MONOCYTES # (AUTO) 0.8 /CMM (0.1-1.30); MONOCYTES % (AUTO) 4.2 % (2.0-12.0); NEUTROPHILS # (AUTO) 17.6 /CMM (1.8-8.9); PLATELET COUNT (AUTO) 221 /CMM (150-450); RED BLOOD CELL COUNT(AUTO) 4.01 MIL/uL (4.5-6.0); WHITE BLOOD COUNT (AUTO) 18.7 K/uL (4.3-11.0)
[2020-06-08] MEDS: PROSOURCE / PROSTAT (PYXIS) 30 ML UDC GT SCH ×3 (09:05→16:26)
[2020-06-08] MEDS: MULTIVITAMINS,THERAGRAN 1 UDTAB TABLET GT SCH (09:07)
[2020-06-08] MEDS: PANTOPRAZOLE 40 MG/PACK PACK GT SCH (09:07)
[2020-06-08] MEDS: DOCUSATE SODIUM LIQ 100 MG/10 ML UDC GT SCH ×2 (09:07→16:26)
[2020-06-08] MEDS: LEVETIRACETAM SOL (5 ML) 100 MG/ML UDC NG SCH ×2 (09:07→21:06)
[2020-06-08] MEDS: BACLOFEN (10 MG) 10 MG TABLET GT SCH ×2 (09:07→21:06)
[2020-06-08] MEDS: AMLODIPINE BESYLATE 5 MG TABLET GT SCH (09:08)
[2020-06-08] MEDS: FINASTERIDE (5 MG) 5 MG TABLET GT SCH (09:08)
[2020-06-08] MEDS: LISINOPRIL (20MG) 20 MG TABLET PO SCH (09:09)
[2020-06-08] MEDS: METOPROLOL TARTRATE 50 MG TABLET NG SCH ×2 (09:09→16:26)
[2020-06-08] MEDS: Z GUARD REMEDY 2 OZ OINT TP SCH (09:10)
[2020-06-08] MEDS: DAKINS QUARTER STRENGTH (0.125%) 480 ML BOTTLE TOP SCH (09:10)
[2020-06-08] MEDS: THERAHONEY GEL 1.5 OZ TUBE TP SCH (09:11)
--- NOTE | 2020-06-08 10:52 | NUR ---
MS RN NOTES SEEN AND EVALUATED BY DNP/CC, ORDERS PLACED. AND STATED TO HOLDDISCHARGE. ID CONSULT/NERA CONTACTED WELL. WILL CONTINUE TO MONITOR.
[2020-06-08] MEDS ORDERED: MEROPENEM 500 MG in IV NS 0.9% 50 ML IV SCH (11:00)
[2020-06-08] MEDS ORDERED: MEROPENEM 500 MG in IV NS 0.9% 50 ML IV ONE (11:30)
[2020-06-08] MEDS ORDERED: AMIKACIN 500 MG in IV D5W 100 ML IV SCH (12:00)
[2020-06-08 16:00] VITALS: BP 116/58
[2020-06-08 16:33] LABS: APPEARANCE,URINE SL CLOUDY (CLEAR); BILIRUBIN,URINE NEGATIVE (NEGATIVE); BLOOD, URINE LARGE Ery/uL (NEGATIVE); COLOR,URINE YELLOW (YELLOW); KETONES,URINE TRACE (NEGATIVE); LEUKOCYTE ESTERASE ,URINE SMALL (NEGATIVE); NITRITE, URINE NEGATIVE (NEGATIVE); PROTEIN,URINE 100 mg/dl (NEGATIVE); UGLUCOSE NEGATIVE (NEGATIVE); UROBILINOGEN,URINE 0.2 EU/dL (0.2)
[2020-06-08 16:45] LABS: BACTERIA,URINE 3+ /HPF (None Seen); SQUAMOUS EPITHELIAL CELL,UR 0-2 /HPF (None Seen); YEAST,URINE Few /HPF (None Seen)
[2020-06-08] MEDS: GLUCERNA 1.2 1,000 ML BOTTLE GT PRN (17:06)
--- NOTE | 2020-06-08 19:25 | NUR ---
MS RN NOTES PT REMAINS IN BED, EASILY AROUSED, NONVERBAL, APPEARS CALM. PT ON SUPPLEMENTARY OXYGEN AT 3LPM VIA NC, WITH NO ACUTE RESPIRATORY DISTRESS NOTED. PT NO EXHIBITING ANY PAIN OR DISCOMFORT AT THIS TIME. NS AT TKO TO LAC G20, INTACT AND FLUID INFUSING WELL. ON GOING GT FEEDING GLUCERNA AT 60ML/HR, NO RESIDUALS NOTED. PT KEPT COMFORTABLE. ALL NEEDS AND CARE ATTENDED. CALL LIGHT KEPT WITHIN REACH. PT'S BED IN LOWEST, LOCKED POSITION, WITH SR X3. ENDORSED TO INCOMING NIGHT NURSE FOR MARILYNN.
[2020-06-08] MEDS: MEROPENEM 500 MG in IV NS 0.9% 100 ML IV SCH (19:30)
--- NOTE | 2020-06-08 19:54 | NUR ---
MECHANICAL DETAILER: RECEIVED RPEORT FROM KRISSY FRIEND. PT ON ISOLATION MRSA NARES(BACTROBAN COMPLETED), PSEUDOMONAS ON URINE. PPE UTILIZED. PT'S DC HELD TODAY DUE TO ELEVATED WBC AND RECENT CXR SHOWING INCREASED LEFT LOWER LOBE PNA. DAY RN KRISSY SPOKED WITH DAUGHTER TO INFORM ABOUT THE HOLD FOR DC. PT LETHARGIC, ON 3L OXYGEN, RESPIRATIONS EVEN AND UNLABORED. PT HAS NEW PEG WHICH WAS REPLACED ON 05/30, ABDOMEN SOFT TOT TOUCH WITH ACTIVE BOWEL SOUND HEARD UPON AUSCULTATION. GTUBE EASILY FLUSH WITH WATER, 5ML RESIDUAL NOTED, PT CURRENTLY RECEIVING GLUCERNA AT 60ML/HR. PT KEPT ON HOB 30 DEGREE. IV ACCESS ON LEFT WRIST G 20 PATENT AND FLUSHING WELL, NEW IV ATB MERREM CURRENTLY INFUSING . PER REPORT, PT'S DAUGHTER REMAINS REFUSING FOR WOUND DEBRIDEMENT. MD AWARE. PT ON KCI MATTRESS. SCD IN USE. BLE KEPT OFFLOADED ON PILLOWS. SAFETY PRECAUTIONS FOR FALL INITIATED, CALL LIGHT IN REACH, WILL CONTINUE MONITORING PT.
[2020-06-08 20:00] VITALS: BP 123/75
[2020-06-08 20:35] VITALS: BP 123/75
[2020-06-08] MEDS: TAMSULOSIN 0.4 MG CAP.SR.24H GT SCH (21:06)
--- NOTE | 2020-06-08 21:21 | NUR ---
RN NOTES: ALL DUE MEDS ADMINISTERED AFTER CHECKING GTUBE PATENCY AND RESIDUAL. ALSO SUCTION PT ORALLY, OBTAINED SCANTY AMOUNT OF THICK HARRISON COLORED SECRETIONS.
--- NOTE | 2020-06-08 23:15 | NUR ---
accu check 144: blood sugar test performed result obtained is 144, 2units of insulin administered per sliding scale. pt on gtube feeding, will monitor for anys/s of hypoglycemia.
[2020-06-09] VITALS (35 sets, daily range): BP systolic 68–142; BP diastolic 39–79
[2020-06-09] MEDS: IPRATROPIUM NEB FS 0.5 MG/2.5 ML AMPUL.NEB NEB SCH ×6 (01:48→19:52)
[2020-06-09] MEDS: ACETYLCYSTEINE 10% SOLN 400 MG/4 ML VIAL NEB SCH ×3 (01:48→14:47)
[2020-06-09] MEDS: ALBUTEROL HALF STRENGTH 1.25 MG/3 ML VIAL.NEB NEB SCH ×6 (01:48→19:52)
--- NOTE | 2020-06-09 04:00 | NUR ---
am care/wound care: assisted truck manager in providing bed bath to pt, complete linen change provided. wound care done as ordered, noted bleeding on right buttocks area, minimal, pressured dressing applied. stool collected and sent to lab for ob.
[2020-06-09] MEDS: MEROPENEM 500 MG in IV NS 0.9% 100 ML IV SCH ×3 (04:39→21:11)
--- NOTE | 2020-06-09 04:39 | NUR ---
late admin of iv merrem: pt's iv access noted to be leaking, removed iv, tip intact, pressured dressing applied. after several attempts (pt very hard to stick), able to restart new iv access on right hand using g 22, with good blood return noted. transparent dressing applied, proper label attached, connected pt to iv merrem 33.33 ml/hr.
[2020-06-09] MEDS: BLOOD SUGAR DIAGNOSTIC 1 EACH STRIP IN SCH ×3 (05:16→17:01)
[2020-06-09] MEDS: INSULIN REGULAR, HUMAN 100 UNIT/ML 3 ML VIAL SQ PRN ×3 (05:18→17:40)
--- NOTE | 2020-06-09 05:24 | NUR ---
ACCU CHECK 164: BLOOD SUGAR CHECK PERFORMED RESULT IS 164, 3UNITS OF INSULIN ADMINISTERED PER SLIDING SCALE.
[2020-06-09 05:56] LABS: OCCULT BLOOD STOOL NEGATIVE (NEGATIVE)
--- NOTE | 2020-06-09 05:58 | NUR ---
stool ob result: stool ob result came back negative.
[2020-06-09 06:37] LABS: BASOPHILS % (AUTO) 0.1 % (0.0-2.0); EOSINOPHILS % (AUTO) 0.8 % (0.0-6.0); HEMATOCRIT 28 % (39-51); HEMOGLOBIN 8.5 g/dL (13.5-17.5); LYMPHOCYTES # (AUTO) 0.3 /CMM (0.8-4.8); MEAN CORPUSCULAR HGB CONC 31 g/dl (31.0-36.0); MEAN CORPUSCULAR VOLUME 80 fL (80-96); MONOCYTES # (AUTO) 0.5 /CMM (0.1-1.30); MONOCYTES % (AUTO) 3.4 % (2.0-12.0); NEUTROPHILS # (AUTO) 12.5 /CMM (1.8-8.9); NEUTROPHILS % (AUTO) 93.7 % (43.0-81.0); PLATELET COUNT (AUTO) 176 /CMM (150-450); RED BLOOD CELL COUNT(AUTO) 3.45 MIL/uL (4.5-6.0); WHITE BLOOD COUNT (AUTO) 13.4 K/uL (4.3-11.0)
[2020-06-09 06:44] LABS: CALCIUM, SERUM 10.6 mg/dL (8.5-10.1); CREATININE 0.9 mg/dL (0.6-1.3); PHOSPHORUS 4.1 mg/dL (2.5-4.9); POTASSIUM 4.2 mmol/L (3.5-5.1)
--- NOTE | 2020-06-09 06:50 | NUR ---
End of shift report: Pt remains obtunded, tolerated 3L oxygen, spo2 ranging 95-96%, noted visible equal rise and fall of chest. Prn oral suction performed. RT FERNANDA performed naso-tracheal suction prn as ordered. Iv access remains patent and flushing well, on hl, no s/s of iv infiltration noted. Pt tolerated gtube feeding well, remains with 5ml residual. Pts almanzar catheter remains in place, bag draining via gravity. Ble and bue kept offloaded on pillows. Pt was kept on aspiration precaution, suction set up secured, hob 30 degree. Kept on isolation, PPE utilized. Wound care done, am care provided. No onset of fever noted throughout the shift. PLAN OF CARE: AM labs, continue IV atb Merrem per ID. VS remains stable, needs attended. Safety precautions for fall remains engaged, call light in reach, will endorse to day romi [place] for continuity of care.
--- NOTE | 2020-06-09 07:30 | NUR ---
RN Opening note Received patient in bed, obtunded, able to responds physical stimuli. Skin is warm to touch, kept clean/dry, new IV site and peg. Respiratory even and unlabored with oxygen at 3LPM, no distress observed. Keep bed in locked with elevated HOB for ensure airway and aspiration precaution. Call light within reach, will continue to monitor.
[2020-06-09] MEDS: LISINOPRIL (20MG) 20 MG TABLET PO SCH (09:00)
[2020-06-09] MEDS ORDERED: IV NS 0.9% 1,000 ML IV ONE (09:00)
[2020-06-09] MEDS: METOPROLOL TARTRATE 50 MG TABLET NG SCH ×2 (09:00→16:16)
[2020-06-09] MEDS: AMLODIPINE BESYLATE 5 MG TABLET GT SCH (09:00)
--- NOTE | 2020-06-09 09:00 | NUR ---
Patient noticed decrease bp 88/29, HR 62. MD made aware and started IV bolus x 1 bag, rechecked bp was 109/51, HR 76. will continue to monitor for condition .
[2020-06-09] MEDS: PANTOPRAZOLE 40 MG/PACK PACK GT SCH (09:23)
[2020-06-09] MEDS: FINASTERIDE (5 MG) 5 MG TABLET GT SCH (09:23)
[2020-06-09] MEDS: MULTIVITAMINS,THERAGRAN 1 UDTAB TABLET GT SCH (09:23)
[2020-06-09] MEDS: BACLOFEN (10 MG) 10 MG TABLET GT SCH ×2 (09:23→23:46)
[2020-06-09] MEDS: DOCUSATE SODIUM LIQ 100 MG/10 ML UDC GT SCH ×2 (09:23→16:17)
[2020-06-09] MEDS: LEVETIRACETAM SOL (5 ML) 100 MG/ML UDC NG SCH ×2 (09:23→23:46)
[2020-06-09] MEDS: PROSOURCE / PROSTAT (PYXIS) 30 ML UDC GT SCH ×3 (09:23→16:18)
[2020-06-09] MEDS: DAKINS QUARTER STRENGTH (0.125%) 480 ML BOTTLE TOP SCH (09:25)
[2020-06-09] MEDS: THERAHONEY GEL 1.5 OZ TUBE TP SCH (09:25)
[2020-06-09] MEDS: Z GUARD REMEDY 2 OZ OINT TP SCH (09:26)
--- NOTE | 2020-06-09 10:49 | NUR ---
PT. is unstable nurse Kandi is aware.
--- NOTE | 2020-06-09 11:45 | NUR ---
Patient transferred ICU due to deceasing bp, latest bp:73/39, HR 61, given report Livan/RONNA. Informed DTR/Franci regarding above.
--- NOTE | 2020-06-09 11:45 | NUR ---
WELDING MACHINE OPERATOR ELECTRON BEAM NOTES RECEIVED PATIENT TRANSFERED FROM [facility] WITH LOW BP , OBTUNDED , MOANING , DOESNT FOLLOW COMMANDS , NOT IN ACUTE DISTRESS, SPO2 OF 95% VIA 3LPM NC , SUCTIONED PATIENT ORALLY NOTED WITH THICK YELLOW SECRETIONS , ORAL CARE DONE NOTED WITH YELLOW THICK SOLID SPUTUM , SR 65 ON BEDSIDE MONITOR , GT PATENT AND INTACT . GT FEEDING STARTED ORDERED , FC DRAINING VIA GRAVITY , R HAND 22 PATENT AND INTACT , HEAVEN # 20 INSERTED PATENT AND INTACT , ALL NEEDS ATTENDED , RT AT BEDSIDE FOR DEEP SUCTIONING , SBP 100'S , WILL CONTINUE TO MONITOR
[2020-06-09] MEDS: IV NS 0.9% 1,000 ML IV PRN (12:08)
[2020-06-09] MEDS: GLUCERNA 1.2 1,000 ML BOTTLE GT PRN (12:08)
--- NOTE | 2020-06-09 13:00 | NUR ---
ROVING MACHINE OPERATOR NOTES NOTIFIED MICHELL PT IS MORE AWAKE , OBTUNDED , MOANING , NON VERBAL , VERIFIED IF SHE WANTS TO DO HEAT CT WITHOUT CONTRAST , PER PARTS SALES MANAGER CANCEL THE ORDER , ORDER CARRIED OUT
[2020-06-09] MEDS ORDERED: ACETAMINOPHEN 650 MG/20.3 ML UDC NG ONE (15:00)
[2020-06-09] MEDS ORDERED: NOREPINEPHRINE 8 MG in IV NS 0.9% 242 ML IV PRN ×2 (16:30→17:00)
--- NOTE | 2020-06-09 16:42 | NUR ---
RN HEMODIALYSIS CHARGE NOTES NOTIFIED ALYSA LAUREANO FOR LOW BP OF 70'S , PEWTER FINISHER AWARE , AWAITING FOR ORDERED CALLED DAUGHTER TO DISCUSSED PT STATUS , DAUGHTER AGREED AND CONSENTED FOR PICC LINE INSERTION , JEANETTE RN WITNESS THAT DAUGHTER IS AGREED WITH PICC INSERTION ,
--- NOTE | 2020-06-09 16:45 | NUR ---
TILE POWER SHEAR OPERATOR NOTES CALLED CLEMENTE GOLF BALL WINDER ,NOTIFIED THAT PT NEEDS PICC LINE INSERTION , GOLF BALL WINDER AWARE
--- NOTE | 2020-06-09 17:24 | NUR ---
RT NOTE PT WAS TRANSFERRED TO ICU @ 1145 ON 3L NASAL CANNULA. N/T SX COPIOUS THICK YELLOW SECRETIONS. PLACED ON SIMPLE MASK AT 6L DUE TO DESATURATION, TOLERATE WELL. MONITOR THROUGHOUT SHIFT.
--- NOTE | 2020-06-09 17:45 | NUR ---
RECEPTION AGENT NOTES SEEN AND EVALUATED BY NGHIA LAUREANO , DISCUSSED PT IS ALTERED , NON RESPONSIVE , BP LOW , LEVOPHED INCREASE TO MAX DOSE PER SRIDEVI , ORDERED ABG STAT, NGHIA LAUREANO TALKED TO THE DAUGHTER AND UPDATED PT STATUS , GT FEEDING HELD , PT PLACED ON SUPINE POSITION , ON 6LPM SIMPLE MASK , PT HAD AN EPISODE OF LOW O2 SAT @ 75-80% ON 3LPM @1715 RT AT BEDSIDE SUCTIONED NOTED WITH THICK MODERATE AMOUNT SECRETIONS , PLACED PT ON 6LPM SIMPLE MASK , WILL CONTINUE TO MONITOR
--- NOTE | 2020-06-09 18:00 | NUR ---
SNAKER NOTES ABG RESULT RELAYED TO MICEHLL LAUREANO , REFRIGERATION PLANT OPERATOR AWARE , ORDERED 1L BOLUS , NOTIFIED PT HAS LOW URINE OUTPUT , REFRIGERATION PLANT OPERATOR AWARE
[2020-06-09 18:02] LABS: ABG BASE EXCESS 0.7 mmol/L; ABG OXYGEN SATURATION 96.1 % (92.0-98.5); ABG PCO2 54.4 mmHg (35.0-45.0); ABG PH 7.319 (7.350-7.450); ABG PO2 88.3 mmHg (75.0-100.0); COHb 0.6 % (0.5-1.5); MetHb 0.1 % (0.0-1.5); O2Hb 95.4 % (94.0-97.0); SITE, ABG Left Radial; VENT MODE, BG SIMPLE MASK 6L
[2020-06-09] MEDS ORDERED: IV NS 0.9% 1,000 ML IV PRN (18:30)
--- NOTE | 2020-06-09 19:10 | NUR ---
AUDIOVISUAL EQUIPMENT OPERATOR NOTES PT CURRENTLY UNSTABLE , ON SIMPLE MASK @ 6LPM SPO2 OF 100% , NON RESPONSIVE , OBTUNDED , HR JUNCTIONAL RHYTHM @ 55-60 , PEG CLAMPED , GT FEEDING HELD , R HAND # 22 WITH NS @ 75ML/HR , R WRIST # 22 WITH LEVOPHED @ 1MCG/KG/MIN IV SITE ASSESSED BY SLIME AND NO SIGNS OF INFILTRATION , ORDERED INTUBATION BY MICHELL LAUREANO , REPORT GIVEN TO SLIME FRIEND FOR CONTINUITY OF CARE Addendum: 06/09/20 at 1925 by HUGO CARTER RN NGHIA LAUREANO AT BEDSIDE AWARE WITH PT HR AND STATUS .
[2020-06-09] MEDS ORDERED: PROPOFOL 100 ML IV PRN (19:30)
[2020-06-09] MEDS ORDERED: DOPamine 400 MG in IV D5W 250 ML IV PRN (19:30)
[2020-06-09] MEDS ORDERED: PROPOFOL 10MG/ML 50ML 50 ML IV PRN (19:30)
--- NOTE | 2020-06-09 19:55 | NUR ---
RT rt called for intubation at bedside. pt intubated for altered mental status. pt intubated with ett size 7.5, 22 at teeth. vent settings: AC 16 500 50% +5. moderate thick secretions suctions via ett. lung sound rhonchi. vent plugged in to red outlet. alarms on and audible. ambu bag at hob. hob at 30 degrees. abg 1 hr from intubation. will continue to monitor.
[2020-06-09 20:13] LABS: CALCIUM, SERUM 9.8 mg/dL (8.5-10.1); CARBON DIOXIDE 27 mmol/L (21-32); CHLORIDE 106 mmol/L (98-107); GLUCOSE 211 mg/dL (74-106); MAGNESIUM 2.6 mg/dL (1.8-2.4); POTASSIUM 3.8 mmol/L (3.5-5.1); SODIUM SERUM 143 mmol/L (136-145)
[2020-06-09 20:15] LABS: UREA NITROGEN, BLOOD 102 mg/dL (7-18)
[2020-06-09 20:21] LABS: EOSINOPHILS % (AUTO) 0.2 % (0.0-6.0); HEMATOCRIT 27 % (39-51); HEMOGLOBIN 8.4 g/dL (13.5-17.5); LYMPHOCYTES # (AUTO) 0.1 /CMM (0.8-4.8); LYMPHOCYTES % (AUTO) 0.8 % (20.0-44.0); MEAN CORPUSCULAR HGB CONC 31 g/dl (31.0-36.0); MEAN CORPUSCULAR VOLUME 80 fL (80-96); MONOCYTES # (AUTO) 0.4 /CMM (0.1-1.30); MONOCYTES % (AUTO) 2.6 % (2.0-12.0); NEUTROPHILS # (AUTO) 13.8 /CMM (1.8-8.9); NEUTROPHILS % (AUTO) 96.4 % (43.0-81.0); PLATELET COUNT (AUTO) 159 /CMM (150-450); RED BLOOD CELL COUNT(AUTO) 3.39 MIL/uL (4.5-6.0); WHITE BLOOD COUNT (AUTO) 14.3 K/uL (4.3-11.0)
[2020-06-09 20:42] LABS: BAND % (MANUAL) 16 % (0.0-5.0); LYMPHOCYTES % (MANUAL) 3 % (16-48); METAMYELOCYTES % 1 % (0-0); NEUTROPHILS % (MANUAL) 80 (42-76)
[2020-06-09] MEDS: NOREPINEPHRINE 32 MG in IV NS 0.9% 218 ML IV PRN (20:52)
[2020-06-09] MEDS ORDERED: ETOMIDATE 2 MG/ML VIAL IV ONE (20:57)
[2020-06-09] MEDS ORDERED: SUCCINYLCHOLINE CHLORIDE 20 MG/ML VIAL IV ONE (20:57)
[2020-06-09] MEDS: VANCOMYCIN 1.25 GM in IV D5W 250 ML IV SCH (21:11)
[2020-06-09] MEDS: TAMSULOSIN 0.4 MG CAP.SR.24H GT SCH (23:46)
[2020-06-10] VITALS (108 sets, daily range): BP systolic 62–127; BP diastolic 36–74
[2020-06-10] MEDS: ACETYLCYSTEINE 10% SOLN 400 MG/4 ML VIAL NEB SCH ×4 (00:05→23:29)
[2020-06-10] MEDS: ALBUTEROL HALF STRENGTH 1.25 MG/3 ML VIAL.NEB NEB SCH ×7 (00:05→23:29)
[2020-06-10] MEDS: IPRATROPIUM NEB FS 0.5 MG/2.5 ML AMPUL.NEB NEB SCH ×7 (00:05→23:29)
[2020-06-10] MEDS: BLOOD SUGAR DIAGNOSTIC 1 EACH STRIP IN SCH ×5 (00:57→23:47)
[2020-06-10] MEDS: INSULIN REGULAR, HUMAN 100 UNIT/ML 3 ML VIAL SQ PRN ×4 (01:09→23:50)
[2020-06-10] MEDS: PHENYLEPHRINE 50 MG in IV NS 0.9% 245 ML IV PRN ×3 (03:28→11:54)
[2020-06-10] MEDS: NOREPINEPHRINE 32 MG in IV NS 0.9% 218 ML IV PRN ×4 (04:21→23:41)
[2020-06-10 04:46] LABS: BASOPHILS % (AUTO) 0.3 % (0.0-2.0); EOSINOPHILS % (AUTO) 0.1 % (0.0-6.0); HEMATOCRIT 30 % (39-51); HEMOGLOBIN 9.2 g/dL (13.5-17.5); LYMPHOCYTES # (AUTO) 0.1 /CMM (0.8-4.8); LYMPHOCYTES % (AUTO) 1.3 % (20.0-44.0); MEAN CORPUSCULAR HGB CONC 31 g/dl (31.0-36.0); MEAN CORPUSCULAR VOLUME 82 fL (80-96); MONOCYTES # (AUTO) 0.4 /CMM (0.1-1.30); MONOCYTES % (AUTO) 4.6 % (2.0-12.0); NEUTROPHILS # (AUTO) 9.1 /CMM (1.8-8.9); NEUTROPHILS % (AUTO) 93.7 % (43.0-81.0); PLATELET COUNT (AUTO) 143 /CMM (150-450); RED BLOOD CELL COUNT(AUTO) 3.68 MIL/uL (4.5-6.0); WHITE BLOOD COUNT (AUTO) 9.7 K/uL (4.3-11.0)
[2020-06-10 05:10] LABS: BILIRUBIN,TOTAL 0.3 mg/dL (0.2-1.0); CALCIUM, SERUM 9.6 mg/dL (8.5-10.1); CREATININE 1.1 mg/dL (0.6-1.3); MAGNESIUM 2.4 mg/dL (1.8-2.4); POTASSIUM 2.9 mmol/L (3.5-5.1); TOTAL PROTEIN, SERUM 6.8 g/dL (6.4-8.2)
[2020-06-10] MEDS: MEROPENEM 500 MG in IV NS 0.9% 100 ML IV SCH ×3 (05:14→20:56)
[2020-06-10 05:33] LABS: BAND % (MANUAL) 18 % (0.0-5.0); LYMPHOCYTES % (MANUAL) 1 % (16-48); MONOCYTES % (MANUAL) 2 % (0-11.0); NEUTROPHILS % (MANUAL) 79 (42-76)
--- NOTE | 2020-06-10 05:36 | NUR ---
NOTIFIED MARRY OF PATIENT CRITICAL CONDITION ON LEVO AT 1MCG, SOURAV AT 3MCG, AND STARTED PATIENT ON DOPAMINE DRIP. NO NEW ORDERS AND CONTINUE CURRENT TREATMENT. CHARGE NURSE SPOKE TO FAMILY MULTIPLE TIMES ABOUT DNR/DNI CODE STATUS. PER FAMILY THEY WANT EVERYTHING DONE WHICH IS FULL CODE.
[2020-06-10] MEDS: IV NS 0.9% 1,000 ML IV PRN ×2 (05:59→18:59)
--- NOTE | 2020-06-10 07:30 | NUR ---
RN NOTES RECEIVED PATIENT OBTUNDED, UNRESPONSIVE TO VERBAL, PAINFUL STIMULI, NOT ABLE TO FOLLOW COMMAND. ORALLY INTUBATED, TUBE SECURED AT 23CM ON THE LIP. TOLERATING CURRENT VENT SETTINGS.NO SHORTNESS OF BREATH NOTED AT THIS TIME. SATING 98%. SINUS RHYTHM ON THE MONITOR WITH HR ON THE 90s. GT IN PLACED, CLAMPED AT THIS TIME. WITH ONGOING IVF AT 75CC/HR, LEVO AT MAX DOSE OF 1MCG/KG/MIN, SOURAV AT 3MCG/KG/MIN AND DOPAMINE AT 4MCG/KG/MIN- WILL TITRATE MEDICATIONS ABLE. BILATERAL SOFT RESTRAINT; REMOVE AND REPLACED FOR SKIN ASSESSMENT. ANAND CATHETER IN PLACE: DRAINING TO CLEAR YELLOW URINE. PATIENT SUCTIONED, SECRETION NOTED TO BE THICK YELLOW. HOB KEPT ELEVATED FOR SAP. SAFETY MEASURES OBSERVED AND MAINTAINED. BED IN LOW AND LOCKED POSITION. CALL LIGHT WITHIN REACH. WILL MONITOR PATIENT CLOSELY
--- NOTE | 2020-06-10 08:00 | NUR ---
RONNA NOTES DUE MEDICATION NOT GIVEN AT THIS TIME DUE TO PATIENT WITH THICK COPIOUS SECRETION ON SUCTIONING. Addendum: 06/11/20 at 0751 by KARINE SUTHERLAND RN FEEDING WAS TURNED OFF AT THIS TIME
[2020-06-10] MEDS: PROSOURCE / PROSTAT (PYXIS) 30 ML UDC GT SCH ×3 (08:24→17:27)
[2020-06-10] MEDS: AMLODIPINE BESYLATE 5 MG TABLET GT SCH (08:24)
[2020-06-10] MEDS: LEVETIRACETAM SOL (5 ML) 100 MG/ML UDC NG SCH ×2 (08:24→21:56)
[2020-06-10] MEDS: DOCUSATE SODIUM LIQ 100 MG/10 ML UDC GT SCH ×2 (08:24→17:27)
[2020-06-10] MEDS: PANTOPRAZOLE 40 MG/PACK PACK GT SCH (08:24)
[2020-06-10] MEDS: MULTIVITAMINS,THERAGRAN 1 UDTAB TABLET GT SCH (08:24)
[2020-06-10] MEDS: BACLOFEN (10 MG) 10 MG TABLET GT SCH ×2 (08:24→21:56)
[2020-06-10] MEDS: FINASTERIDE (5 MG) 5 MG TABLET GT SCH (08:24)
[2020-06-10] MEDS: METOPROLOL TARTRATE 50 MG TABLET NG SCH ×2 (08:24→17:00)
[2020-06-10] MEDS: THERAHONEY GEL 1.5 OZ TUBE TP SCH (08:25)
[2020-06-10] MEDS: Z GUARD REMEDY 2 OZ OINT TP SCH (08:25)
[2020-06-10] MEDS: DAKINS QUARTER STRENGTH (0.125%) 480 ML BOTTLE TOP SCH (08:26)
--- NOTE | 2020-06-10 09:00 | NUR ---
RN NOTES BLOOD PRESSURE MEDICINE NOT GIVEN DUE TO PATIENT HYPOTENSIVE
[2020-06-10] MEDS ORDERED: POTASSIUM CHLORIDE 20 MEQ POWDER PACKET GT SCH (09:30)
[2020-06-10] MEDS: HYDROCORTISONE SOD SUCCINATE 100 MG/2 ML VIAL IV SCH ×2 (09:52→17:27)
[2020-06-10 10:22] LABS: ABG BASE EXCESS -2.3 mmol/L; ABG OXYGEN SATURATION 93.5 % (92.0-98.5); ABG PCO2 44.7 mmHg (35.0-45.0); ABG PH 7.337 (7.350-7.450); ABG PO2 71.6 mmHg (75.0-100.0); AaDO2 234.6 mmHg; COHb 0.8 % (0.5-1.5); MetHb 0.1 % (0.0-1.5); O2Hb 92.7 % (94.0-97.0); PEEP,BG 0 cm H2O; SITE, ABG Left Radial; VT, ABG 500 mL
[2020-06-10] MEDS ORDERED: NEUTRA PHOS 1 POWD.PACKET GT ONE (12:00)
--- NOTE | 2020-06-10 12:00 | NUR ---
RN NOTES INSULIN AT THIS TIME NOT GIVEN PATIENT'S FEEDING IS OFF SINCE START OF THE SHIFT
[2020-06-10] MEDS: PHENYLEPHRINE 100 MG in IV NS 0.9% 240 ML IV PRN ×2 (16:12→23:40)
--- NOTE | 2020-06-10 17:00 | NUR ---
RN NOTES BLOOD PRESSURE MEDICATION NOT GIVEN DUE TO PATIENT HYPOTENSIVE
[2020-06-10] MEDS: VANCOMYCIN 1.25 GM in IV D5W 250 ML IV SCH (20:56)
[2020-06-10 21:13] LABS: APPEARANCE,URINE SL CLOUDY (CLEAR); BILIRUBIN,URINE NEGATIVE (NEGATIVE); BLOOD, URINE MODERATE Ery/uL (NEGATIVE); COLOR,URINE YELLOW (YELLOW); KETONES,URINE NEGATIVE (NEGATIVE); LEUKOCYTE ESTERASE ,URINE MODERATE (NEGATIVE); NITRITE, URINE NEGATIVE (NEGATIVE); PH,URINE 5.5 (5.0-8.0); PROTEIN,URINE 100 mg/dl (NEGATIVE); UGLUCOSE NEGATIVE (NEGATIVE); UROBILINOGEN,URINE 0.2 EU/dL (0.2)
[2020-06-10 21:20] LABS: BACTERIA,URINE 3+ /HPF (None Seen); COARSE GRANULAR CASTS,URINE Rare /LPF (None Seen); SQUAMOUS EPITHELIAL CELL,UR 0-2 /HPF (None Seen); YEAST,URINE Many /HPF (None Seen)
[2020-06-10] MEDS: TAMSULOSIN 0.4 MG CAP.SR.24H GT SCH (21:56)
[2020-06-11] VITALS (36 sets, daily range): BP systolic 61–152; BP diastolic 30–85
[2020-06-11] MEDS: HYDROCORTISONE SOD SUCCINATE 100 MG/2 ML VIAL IV SCH ×2 (02:30→08:39)
[2020-06-11] MEDS: ALBUTEROL HALF STRENGTH 1.25 MG/3 ML VIAL.NEB NEB SCH ×2 (03:35→08:10)
[2020-06-11] MEDS: IPRATROPIUM NEB FS 0.5 MG/2.5 ML AMPUL.NEB NEB SCH ×2 (03:35→08:10)
[2020-06-11] MEDS ORDERED: SODIUM BICARBONATE SYR 50 MEQ/50 ML DISP.SYRIN ONE (05:00)
[2020-06-11] MEDS ORDERED: ATROPINE SULFATE 1 MG/10 ML DISP.SYRIN ONE (05:00)
[2020-06-11] MEDS ORDERED: EPINEPHRINE (1:10,000) SYRINGE 1 MG/10 ML DISP.SYRIN ONE (05:00)
[2020-06-11 05:04] LABS: BASOPHILS # (AUTO) 0.1 /CMM (0.0-0.2); BASOPHILS % (AUTO) 0.3 % (0.0-2.0); EOSINOPHILS % (AUTO) 0.1 % (0.0-6.0); HEMATOCRIT 25 % (39-51); HEMOGLOBIN 7.7 g/dL (13.5-17.5); LYMPHOCYTES # (AUTO) 0.2 /CMM (0.8-4.8); LYMPHOCYTES % (AUTO) 0.7 % (20.0-44.0); MEAN CORPUSCULAR HGB CONC 30 g/dl (31.0-36.0); MEAN CORPUSCULAR VOLUME 80 fL (80-96); MONOCYTES # (AUTO) 0.8 /CMM (0.1-1.30); MONOCYTES % (AUTO) 2.2 % (2.0-12.0); NEUTROPHILS # (AUTO) 33.5 /CMM (1.8-8.9); NEUTROPHILS % (AUTO) 96.7 % (43.0-81.0); PLATELET COUNT (AUTO) 110 /CMM (150-450); RED BLOOD CELL COUNT(AUTO) 3.16 MIL/uL (4.5-6.0)
[2020-06-11] MEDS: MEROPENEM 500 MG in IV NS 0.9% 100 ML IV SCH (05:06)
[2020-06-11] MEDS: BLOOD SUGAR DIAGNOSTIC 1 EACH STRIP IN SCH (05:06)
[2020-06-11 05:27] LABS: CALCIUM, SERUM 9.3 mg/dL (8.5-10.1); CREATININE 1.1 mg/dL (0.6-1.3); MAGNESIUM 2.3 mg/dL (1.8-2.4); PHOSPHORUS 3.7 mg/dL (2.5-4.9); POTASSIUM 5.5 mmol/L (3.5-5.1)
[2020-06-11 05:49] LABS: WHITE BLOOD COUNT (AUTO) 34.7 K/uL (4.3-11.0)
[2020-06-11] MEDS: PHENYLEPHRINE 100 MG in IV NS 0.9% 240 ML IV PRN (06:39)
[2020-06-11] MEDS: INSULIN REGULAR, HUMAN 100 UNIT/ML 3 ML VIAL SQ PRN (06:44)
--- NOTE | 2020-06-11 06:53 | NUR ---
Per Dr. Price Change Dopamine to Vasopressin. will carry out order.
[2020-06-11] MEDS ORDERED: VASOPRESSIN INJ 40 UNIT in IV NS 0.9% 38 ML IV PRN (07:00)
--- NOTE | 2020-06-11 07:00 | NUR ---
Patient remains in critical condition with levo @ 1, [place] @ 3 and dopamine @ 2. Placed order for Vasopressin to change dopamine to Vasopressin per Dr. Price orders. Endorsed to AM shift to change once medication arrives from pharmacy. Patient remains on mechanical vent and tolerating well. ETT is clean, dry, intact and in place. Patient tolerating tube feeding well with 0 residuals noted. Picc line is clean dry intact and patent with fluids infusing. Bed in low lock position with rials up x 2. call light within reach and all safety measures ensured and carried out. will endorse care to am RN Shayy for continuity of care.
[2020-06-11] MEDS: NOREPINEPHRINE 32 MG in IV NS 0.9% 218 ML IV PRN (07:11)
--- NOTE | 2020-06-11 07:30 | NUR ---
RN NOTES RECEIVED REPORT FROM FRONT EDGER NURSE, PATIENT NOT ON ANY FORM OF DISTRESS. STILL ORALLY INTUBATED. TOLERATING CURRENT VENT SETTINGS FOLLOWS AC 16, TV 500, FIO2 AT 50%, 0 PEEP. SATING WELL. HR ON THE 50s AT THIS TIME. GTF RUNNING AT 45CC/HR, NO RESIDUAL TAKEN ON CHECKING. STILL WITH NS AT 75CC/HR, LEVOPHED AT 1MCG/KG/MIN, SOURAV AT 3MCG/KG/MIN, AND DOPA AT 2MCG/KG/MIN WILL TITRATE ABLE. ANAND IN PLACE AND INTACT. BEAR HUGGER PUT IN PLACE. HOB ELEVATED FOR SAP. SAFETY MEASURES OBSERVED AND KEEP IN PLACE. CALL LIGHT PLACED WITHIN REACH. WILL CONTINUE TO MONITOR PATIENT CLOSELY
[2020-06-11 07:55] LABS: BAND % (MANUAL) 8 % (0.0-5.0); EOSINOPHILS % (MANUAL) 1 % (0-4); LYMPHOCYTES % (MANUAL) 2 % (16-48); METAMYELOCYTES % 2 % (0-0); MONOCYTES % (MANUAL) 1 % (0-11.0); NEUTROPHILS % (MANUAL) 86 (42-76)
[2020-06-11] MEDS: ACETYLCYSTEINE 10% SOLN 400 MG/4 ML VIAL NEB SCH (08:10)
[2020-06-11] MEDS: BACLOFEN (10 MG) 10 MG TABLET GT SCH (08:39)
[2020-06-11] MEDS: FINASTERIDE (5 MG) 5 MG TABLET GT SCH (08:39)
[2020-06-11] MEDS: MULTIVITAMINS,THERAGRAN 1 UDTAB TABLET GT SCH (08:39)
[2020-06-11] MEDS: LEVETIRACETAM SOL (5 ML) 100 MG/ML UDC NG SCH (08:39)
[2020-06-11] MEDS: PANTOPRAZOLE 40 MG/PACK PACK GT SCH (08:39)
[2020-06-11] MEDS: Z GUARD REMEDY 2 OZ OINT TP SCH (08:40)
[2020-06-11] MEDS: PROSOURCE / PROSTAT (PYXIS) 30 ML UDC GT SCH (08:40)
[2020-06-11] MEDS: DOCUSATE SODIUM LIQ 100 MG/10 ML UDC GT SCH (08:40)
[2020-06-11] MEDS: DAKINS QUARTER STRENGTH (0.125%) 480 ML BOTTLE TOP SCH (08:40)
[2020-06-11] MEDS: THERAHONEY GEL 1.5 OZ TUBE TP SCH (08:41)
--- NOTE | 2020-06-11 09:00 | NUR ---
RN NOTES AT BEDSIDE WHEN PATIENT NOTED ASYSTOLE ON THE MONITOR. PULSE UNAPPRECIATED ON THE CAROTID. SHERRY NICHOLAS, WHO IS AT BEDSIDE AT THIS TIME ALSO CANNOT APPRECIATE PULSE. THUS IZZY CRUZ INITIATED. DR. ZAMORA AT THE UNIT, RUN THE CODE Addendum: 06/11/20 at 1245 by KARINE SUTHERLAND RN PLEASE SEE IZZY CRUZ SHEET
--- NOTE | 2020-06-11 09:00 | NUR ---
RT NOTE Code blue called to pt room. ACLS protocol initiated. Pt @ 0915.
--- NOTE | 2020-06-11 09:15 | NUR ---
RN NOTES 0915: PATIENT PRONOUNCE BY DR. ZAMORA 0930: CALLED PHONE NUMBER [phone] ( JABARI- RP/DAUGHTER) TO INFORM HER ABOUT THE PASSING OG THE PATIENT, CLAIMED THAT THEY WERE ALREADY INFORMED AND THAT THEY ARE ON THEIR WAY TO THE HOSPITAL 0937: CALLED [facility] AND SPOKE TO HELEN, WHO RELEASED THE BODY. 0940: CALLED [facility], SPOKE TO DAMIAN 0937: BODY WAS RELEASED BY TIFFANY FROM [facility]. WITH
== END 2020-06-11 09:15 | disposition expired | DRG 393 ==
LOC: ER 13:33 → TELE 17:19 → MED 05-28 12:58 → ICU 05-31 15:58 → TELE 06-02 18:06 → MED 06-03 08:47 → ICU 06-09 11:38
PROVIDERS: ADMIT Internal Medicine; ATTEND Hospitalist
PROC: 30233N1 Transfusion of Nonautologous Red Blood Cells into Peripheral Vein, Percutaneous Approach (ICD-10-PCS; 2020-05-25)
PROC: 0D20XUZ Change Feeding Device in Upper Intestinal Tract, External Approach (ICD-10-PCS; 2020-05-30)
PROC: 5A1945Z Respiratory Ventilation, 24-96 Consecutive Hours (ICD-10-PCS; principal; 2020-06-10)
PROC: 0BH17EZ Insertion of Endotracheal Airway into Trachea, Via Natural or Artificial Opening (ICD-10-PCS; 2020-06-10)
PROC: 02HV33Z Insertion of Infusion Device into Superior Vena Cava, Percutaneous Approach (ICD-10-PCS; 2020-06-10)
PROC: B548ZZA Ultrasonography of Superior Vena Cava, Guidance (ICD-10-PCS; 2020-06-10)
PROC: 5A2204Z Restoration of Cardiac Rhythm, Single (ICD-10-PCS; 2020-06-11)
DX: K94.23 Gastrostomy malfunction (principal); L89.213 Pressure ulcer of right hip, stage 3; L89.224 Pressure ulcer of left hip, stage 4; L89.154 Pressure ulcer of sacral region, stage 4; J69.0 Pneumonitis due to inhalation of food and vomit; J96.21 Acute and chronic respiratory failure with hypoxia; I50.31 Acute diastolic (congestive) heart failure; R65.21 Severe sepsis with septic shock; A41.9 Sepsis, unspecified organism; N39.0 Urinary tract infection, site not specified; E87.1 Hypo-osmolality and hyponatremia; G93.40 Encephalopathy, unspecified; I13.0 Hypertensive heart and chronic kidney disease with heart failure and stage 1 through stage 4 chronic kidney disease, or unspecified chronic kidney disease; D62 Acute posthemorrhagic anemia; L97.429 Non-pressure chronic ulcer of left heel and midfoot with unspecified severity; E87.2 Acidosis; J90 Pleural effusion, not elsewhere classified; J98.11 Atelectasis; E44.0 Moderate protein-calorie malnutrition; T17.990A Other foreign object in respiratory tract, part unspecified in causing asphyxiation, initial encounter; E11.22 Type 2 diabetes mellitus with diabetic chronic kidney disease; I25.10 Atherosclerotic heart disease of native coronary artery without angina pectoris; N18.9 Chronic kidney disease, unspecified; Y83.3 Surgical operation with formation of external stoma as the cause of abnormal reaction of the patient, or of later complication, without mention of misadventure at the time of the procedure; R13.10 Dysphagia, unspecified; K59.00 Constipation, unspecified; E86.0 Dehydration; Z87.442 Personal history of urinary calculi; Z87.440 Personal history of urinary (tract) infections; Z86.73 Personal history of transient ischemic attack (TIA), and cerebral infarction without residual deficits; Z86.61 Personal history of infections of the central nervous system; Z83.3 Family history of diabetes mellitus; Z82.49 Family history of ischemic heart disease and other diseases of the circulatory system; Z79.899 Other long term (current) drug therapy; Z79.82 Long term (current) use of aspirin; Z98.890 Other specified postprocedural states; H26.9 Unspecified cataract; Z91.041 Radiographic dye allergy status; E86.1 Hypovolemia; B96.89 Other specified bacterial agents as the cause of diseases classified elsewhere; I70.0 Atherosclerosis of aorta; M62.562 Muscle wasting and atrophy, not elsewhere classified, left lower leg; M62.561 Muscle wasting and atrophy, not elsewhere classified, right lower leg; B96.5 Pseudomonas (aeruginosa) (mallei) (pseudomallei) as the cause of diseases classified elsewhere; D64.9 Anemia, unspecified; E11.51 Type 2 diabetes mellitus with diabetic peripheral angiopathy without gangrene; E11.621 Type 2 diabetes mellitus with foot ulcer; D50.9 Iron deficiency anemia, unspecified; X58.XXXA Exposure to other specified factors, initial encounter; Y92.89 Other specified places as the place of occurrence of the external cause; L98.9 Disorder of the skin and subcutaneous tissue, unspecified; N40.0 Benign prostatic hyperplasia without lower urinary tract symptoms; K76.89 Other specified diseases of liver; K80.20 Calculus of gallbladder without cholecystitis without obstruction; N32.89 Other specified disorders of bladder; M51.37 Other intervertebral disc degeneration, lumbosacral region; F09 Unspecified mental disorder due to known physiological condition; Z22.322 Carrier or suspected carrier of Methicillin resistant Staphylococcus aureus
CPT/HCPCS: 31720; 36415; 36600; 71045-TC; 74018; 80048-TC; 80053-TC; 80076-TC; 80150; 80202-TC; 81000-TC; 82272-TC; 82533; 82728-TC; 82803-TC; 82962-TC; 83540-TC; 83735-TC; 83880; 83935-TC; 84100-TC; 84300-TC; 84443-TC; 84484-TC; 84550-TC; 85025-TC; 85730-TC; 86850-TC; 86921-TC; 87040-TC; 87070-TC; 87081-TC; 87086-TC; 87186-TC; 92950-TC; 93307-TC; 94002-TC; 94003-TC; 94668-TC; 94760-TC; 94799-TC; A4216; A4349; A6253; A6403; C1751; C1769; G0378; J0171; J0278; J0330; J0461; J0692; J0696; J1265; J1720; J1815; J1940; J1953; J2020; J2185; J2270; J2370; J2543; J3370; J3490; J7030; J7040; J7042; J7050; J7060; P9016-BL; Q9963